=== PATIENT | male | born 1960 | race Caucasian/White ===

== ENCOUNTER 2021-02-03 03:57 | Inpatient (IN) | payer SELFPAY ==
[~2021-02-03] VITALS: Ht 170 cm; Wt 66.7 kg
[2021-02-03] VITALS (10 sets, daily range): BP systolic 113–158; BP diastolic 63–98
[2021-02-03] MEDS ORDERED: PIPERACILLIN SODIUM/TAZOBACTAM 4.5 GM in NS (IVPB) 100 ML IV ONE (04:15)
[2021-02-03] MEDS ORDERED: VANCOMYCIN INJECTION 750 MG in NS (IVPB) 100 ML IV ONE (04:15)
[2021-02-03] MEDS ORDERED: NS IV 1000 ML 1,000 ML IV SCH (04:15)
[2021-02-03 04:16] LABS: BASOPHILS # (AUTO) 0.1 10^3/uL (0.0-0.1); BASOPHILS % (AUTO) 0 % (0-10); EOSINOPHILS # (AUTO) 0.2 10^3/uL (0.0-0.3); EOSINOPHILS % (AUTO) 1 % (0-10); HEMATOCRIT 42 % (40-54); HEMOGLOBIN 13.3 g/dL (13.3-17.7); LYMPHOCYTES # (AUTO) 2.4 10^3/uL (1.0-4.0); LYMPHOCYTES % (AUTO) 12 % (12-44); MEAN CORPUSCULAR HEMOGLOBIN 27 pg (25-34); MEAN CORPUSCULAR HGB CONC 32 g/dL (32-36); MEAN CORPUSCULAR VOLUME 85 fL (80-99); MEAN PLATELET VOLUME 9.6 fL (9.0-12.2); MONOCYTES # (AUTO) 1.2 10^3/uL (0.0-1.0); MONOCYTES % (AUTO) 6 % (0-12); NEUTROPHILS # (AUTO) 15.5 10^3/uL (1.8-7.8); NEUTROPHILS % (AUTO) 80 % (42-75); PLATELET COUNT 532 10^3/uL (130-400); WHITE BLOOD COUNT 19.5 10^3/uL (4.3-11.0)
--- NOTE | 2021-02-03 04:16 | ED Lower Extremity ---
General Chief Complaint: Lower Extremity Stated Complaint: LOWER EXTREMITY ISSUES Source: patient Exam Limitations: no limitations History of Present Illness Date Seen by Provider: Feb 03, 2021 Time Seen by Provider: 04:00 Initial Comments Patient to the ER by EMS with chief complaint that he was at home tonight and had wound breakdown on his left foot and decided to have it checked out. He says he is notices been doing better the past couple days. He does not follow with a doctor. He had his forefoot amputation at research. He says he also did a bypass on his left leg and a stent in his right leg and he now has very little range of motion of his right leg. He says he used to could walk with a walker but since his stroke and poor vascularization of his right leg he cannot walk. His partner has been managing his foot daily. He is a type II diabetic he used to weigh 450 pounds but has lost a lot of weight. He does not take insulin. He says his blood sugar was 169 this morning. He does have pain down his right leg and right side that is chronic since his stroke. He denies any fevers nausea vomiting or chills. Patient used to be on a blood thinner but he does not know the name. He has not been on it for some time. He has been out of all of his medications and never got any refills. Allergies and Home Medications Allergies Coded Allergies: No Known Drug Allergies (Unverified , 02/03/21) Patient Home Medication List Home Medication List Reviewed: Yes Review of Systems Constitutional: No chills, No diaphoresis EENTM: No ear discharge, No ear pain Respiratory: No cough, No short of breath Cardiovascular: No chest pain, No palpitations Gastrointestinal: No abdominal pain, No nausea, No vomiting Genitourinary: No discharge, No dysuria Musculoskeletal: see HPI; No back pain, No joint pain Skin: see HPI All Other Systems Reviewed Negative Unless Noted: Yes Past Iajfxyg-Mffbne-Poykvu Hx Patient Social History Tobacco Use?: Yes Tobacco type used: Cigarettes Smoking Status: Current Everyday Smoker Use of E-Cig and/or Vaping dev: No Substance use?: No Alcohol Use?: No Physical Exam Vital Signs Vital Signs - First Documented 02/03/21 04:09 Temp 36.2 Pulse 102 Resp 17 B/P (MAP) 135/100 (112) Pulse Ox 100 O2 Delivery Room Air Capillary Refill : Height, Weight, BMI Height: '" Weight: lbs. oz. kg; BMI Method: General Appearance: thin, other (Chronically ill, malodorous, smells of smoke.) HEENT: PERRL/EOMI, normal ENT inspection Neck: full range of motion, supple, normal inspection Cardiovascular: normal peripheral pulses, regular rate, rhythm Respiratory: lungs clear, normal breath sounds, no respiratory distress, no accessory muscle use Gastrointestinal: non tender, soft Ankles: bilateral ankle non-tender, bilateral ankle normal inspection, bilateral ankle normal range of motion, bilateral ankle no evidence of injury Neurologic/Tendon: other (Decreased sensation over the left foot.) Neurologic/Psychiatric: alert, normal mood/affect, oriented x 3 Skin: other (Left posterior tibial pulse is 1+ out of 4. The plantar portion of the foot is fluctuant with areas of tunneling and greenish-yellow purulence copiously draining. The bones of the forefoot are exposed by about 1 to 2 cm. Patches of necrotic skin over the plantar surface of his left foot.) Progress/Results/Core Measures Results/Orders Lab Results Laboratory Tests Test 02/03/21 04:04 02/03/21 04:05 Range/Units Glucometer 264 H 70-110 MG/DL White Blood Count 19.5 H 4.3-11.0 10^3/uL Red Blood Count 4.97 4.30-5.52 10^6/uL Hemoglobin 13.3 13.3-17.7 g/dL Hematocrit 42 40-54 % Mean Corpuscular Volume 85 80-99 fL Mean Corpuscular Hemoglobin 27 25-34 pg Mean Corpuscular Hemoglobin Concent 32 32-36 g/dL Red Cell Distribution Width 12.9 10.0-14.5 % Platelet Count 532 H 130-400 10^3/uL Mean Platelet Volume 9.6 9.0-12.2 fL Immature Granulocyte % (Auto) 0 % Neutrophils (%) (Auto) 80 H 42-75 % Lymphocytes (%) (Auto) 12 12-44 % Monocytes (%) (Auto) 6 0-12 % Eosinophils (%) (Auto) 1 0-10 % Basophils (%) (Auto) 0 0-10 % Neutrophils # (Auto) 15.5 H 1.8-7.8 10^3/uL Lymphocytes # (Auto) 2.4 1.0-4.0 10^3/uL Monocytes # (Auto) 1.2 H 0.0-1.0 10^3/uL Eosinophils # (Auto) 0.2 0.0-0.3 10^3/uL Basophils # (Auto) 0.1 0.0-0.1 10^3/uL Immature Granulocyte # (Auto) 0.1 0.0-0.1 10^3/uL Neutrophils % (Manual) 81 % Lymphocytes % (Manual) 8 % Monocytes % (Manual) 4 % Eosinophils % (Manual) 7 % Blood Morphology Comment NORMAL Prothrombin Time 14.2 12.2-14.7 SEC INR Comment 1.1 0.8-1.4 Activated Partial Thromboplast Time 32 24-35 SEC Sodium Level 128 L 135-145 MMOL/L Potassium Level 3.4 L 3.6-5.0 MMOL/L Chloride Level 86 L 98-107 MMOL/L Carbon Dioxide Level 29 21-32 MMOL/L Anion Gap 13 5-14 MMOL/L Blood Urea Nitrogen 13 7-18 MG/DL Creatinine 0.61 0.60-1.30 MG/DL Estimat Glomerular Filtration Rate 135 BUN/Creatinine Ratio 21 Glucose Level 258 H 70-105 MG/DL Lactic Acid Level 1.40 0.50-2.00 MMOL/L Calcium Level 8.6 8.5-10.1 MG/DL Corrected Calcium 9.3 8.5-10.1 MG/DL Total Bilirubin 0.7 0.1-1.0 MG/DL Aspartate Amino Transf (AST/SGOT) 12 5-34 U/L Alanine Aminotransferase (ALT/SGPT) 6 0-55 U/L Alkaline Phosphatase 89 40-136 U/L Total Protein 7.8 6.4-8.2 GM/DL Albumin 3.1 L 3.2-4.5 GM/DL My Orders Orders - IGOR VU Cbc With Automated Diff (02/03/21 04:08) Comprehensive Metabolic Panel (02/03/21 04:08) Blood Culture (02/03/21 04:08) Sputum Culture (02/03/21 04:08) Urinalysis (02/03/21 04:08) Urine Culture (02/03/21 04:08) Protime With Inr (02/03/21 04:08) Partial Thromboplastin Time (02/03/21 04:08) Chest 1 View, Ap/Pa Only (02/03/21 04:08) Ed Iv/Invasive Line Start (02/03/21 04:08) Ed Iv/Invasive Line Start (02/03/21 04:08) Vital Signs Adult Sepsis Patie Q15M (02/03/21 04:08) O2 (02/03/21 04:08) Remove Rings In Anticipation O (02/03/21 04:08) Lactic Acid Analyzer (02/03/21 04:08) Ns Iv 1000 Ml (Sodium Chloride 0.9%) (02/03/21 04:15) Piperacillin Sodium/Tazobactam (Zosyn Vi (02/03/21 04:15) Vancomycin Injection (Vancomycin Injecti (02/03/21 04:15) Vancomycin Injection (Vancomycin Injecti (02/03/21 05:15) Foot, Left, 3 Views (02/03/21 04:08) Ua Culture If Indicated (02/03/21 04:17) Drug Screen Stat (Urine) (02/03/21 04:17) Ed Iv/Invasive Line Start (02/03/21 04:17) Ns Iv 500 Ml (Sodium Chloride 0.9%) (02/03/21 04:30) Manual Differential (02/03/21 04:05) Accucheck Stat ONCE (02/03/21 04:40) Medications Given in ED Current Medications Medications Dose Ordered Sig/[place] Route Start Time Stop Time Status Last Admin Dose Admin Piperacillin Sod/ Tazobactam Sod 4.5 gm/Sodium Chloride 100 ml @ 200 mls/hr ONCE ONCE IV 02/03/21 04:15 02/03/21 04:44 DC 02/03/21 05:02 200 MLS/HR Vital Signs/I&O 02/03/21 04:09 Temp 36.2 Pulse 102 Resp 17 B/P (MAP) 135/100 (112) Pulse Ox 100 O2 Delivery Room Air Progress Progress Note : Time: 04:15 Progress Note The left foot contains a large amount of devitalized wet gangrenous material. We will get some plain films and labs and work him up for sepsis based on his tachycardia and suspected white count. Zosyn and vancomycin. 1500 cc will be 20 mL/kg. He has tachycardia around 110, decent blood pressure 140/100. Diagnostic Imaging Diagonstic Imaging: Xray Plain Films/CT/US/NM/MRI: chest [facility] [place] [employer] [place] [place] NAME: MOSHE KONG [facility] REC#: [id number] PT STATUS: REG ER : 1960 PHYSICIAN: IGOR VU MD ADMIT DATE: 02/03/21/ER Draft Date of Exam:02/03/21 CHEST 1 VIEW, AP/PA ONLY INDICATION: sepsis. TECHNIQUE: Single view chest 4:43 AM. CORRELATION STUDY: None FINDINGS: Scoliotic curvature of the thoracic spine with slight distortion of the chest anatomy. Given this, heart size, mediastinum, and vasculature overall within normal limits. Minimal areas of scarring or atelectasis about both lung bases. No consolidating infiltrate. IMPRESSION: 1. Negative for acute abnormality of the chest. Dictated on workstation # [id number] Dict: 02/03/21 0455 Trans: 02/03/21 0500 [facility] [id number] Interpreted by: JOHN BRUNO DO Electronically signed by: Reviewed: Reviewed by Me Diagonstic Imaging: Xray Plain Films/CT/US/NM/MRI: other (Left) Comments [facility] [place] [place] [place] NAME: MOSHE KONG [facility] REC#: [id number] PT STATUS: REG ER : 1960 PHYSICIAN: IGOR VU MD ADMIT DATE: 02/03/21/ER Draft Date of Exam:02/03/21 FOOT, LEFT, 3 VIEWS INDICATION: foot pain. TECHNIQUE: 3 views of the left foot CORRELATION STUDY: None FINDINGS: There is amputation at the distal aspect of the metatarsals. There is heterogeneous appearance about the osseous structures. There are multifocal areas of cortical irregularity noted. Extensive soft tissue gas collections over the residual foot particularly along the plantar aspect. No definitive soft tissue foreign body. IMPRESSION: 1. Extensive soft tissue edema and gas collections concerning for underlying infectious etiology. This extends to the level of the ankle. There is a slightly mottled appearance about particularly the metatarsals with some erosion of the cortex could reflect a superimposed osteomyelitis. If further assessment is desired, MRI would be recommended. Dictated on workstation # [id number] Dict: 02/03/21 0456 Trans: 02/03/21 0502 [facility] [id number] Interpreted by: JOHN BRUNO DO Electronically signed by: Reviewed: Reviewed by Me Departure Communication (Admissions) Time/Spoke to Admitting Phy: 05:15 Dr. Ceron accepts admission of the patient for medical management with consult to general surgery. Time/Spoke to Consulting Phy: 05:10 Dr. Velez agrees to consult on the case for surgical management of diabetic gangrenous wound. He would like vancomycin and Zosyn Impression Primary Impression: Diabetic wet gangrene of the foot Additional Impression: Sepsis Qualified Codes: A41.9 - Sepsis, unspecified organism Disposition: ADMITTED INPATIENT Condition: Stable Admissions Decision to Admit Reason: Admit from ER (General) Decision to Admit/Date: Feb 03, 2021 Time/Decision to Admit Time: 05:15 IGOR VU Feb 03, 2021 04:16
[2021-02-03] MEDS ORDERED: NS IV 500 ML 500 ML IV ONE (04:30)
[2021-02-03 04:33] LABS: ALBUMIN 3.1 GM/DL (3.2-4.5); POTASSIUM 3.4 MMOL/L (3.6-5.0)
[2021-02-03 04:34] LABS: INR 1.1 (0.8-1.4); PROTHROMBIN TIME PATIENT 14.2 SEC (12.2-14.7)
[2021-02-03 04:35] LABS: CALCIUM 8.6 MG/DL (8.5-10.1)
[2021-02-03 04:36] LABS: TOTAL PROTEIN 7.8 GM/DL (6.4-8.2)
[2021-02-03 04:38] LABS: BILIRUBIN,TOTAL 0.7 MG/DL (0.1-1.0)
[2021-02-03 04:40] LABS: CREATININE SERUM 0.61 MG/DL (0.60-1.30)
[2021-02-03 04:57] LABS: EOSINOPHILS % (MANUAL) 7 %; LYMPHOCYTES % (MANUAL) 8 %; MONOCYTES % (MANUAL) 4 %; NEUTROPHILS % (MANUAL) 81 %; RBC MORPH NORMAL
--- NOTE | 2021-02-03 05:00 | Diagnostic Imaging Report ---
INDICATION: sepsis. TECHNIQUE: Single view chest 4:43 AM. CORRELATION STUDY: None FINDINGS: Scoliotic curvature of the thoracic spine with slight distortion of the chest anatomy. Given this, heart size, mediastinum, and vasculature overall within normal limits. Minimal areas of scarring or atelectasis about both lung bases. No consolidating infiltrate. IMPRESSION: 1. Negative for acute abnormality of the chest. Dictated by: Dictated on workstation # [id number]
--- NOTE | 2021-02-03 05:02 | Diagnostic Imaging Report ---
INDICATION: foot pain. TECHNIQUE: 3 views of the left foot CORRELATION STUDY: None FINDINGS: There is amputation at the distal aspect of the metatarsals. There is heterogeneous appearance about the osseous structures. There are multifocal areas of cortical irregularity noted. Extensive soft tissue gas collections over the residual foot particularly along the plantar aspect. No definitive soft tissue foreign body. IMPRESSION: 1. Extensive soft tissue edema and gas collections concerning for underlying infectious etiology. This extends to the level of the ankle. There is a slightly mottled appearance about particularly the metatarsals with some erosion of the cortex could reflect a superimposed osteomyelitis. If further assessment is desired, MRI would be recommended. Dictated by: Dictated on workstation # [id number]
[2021-02-03] MEDS ORDERED: VANCOMYCIN INJECTION 500 MG in NS (IVPB) 100 ML IV ONE (05:15)
[2021-02-03] MEDS ORDERED: ONDANSETRON 4 MG/2 ML (SDV) Z0FRAN IV PRN (06:45)
[2021-02-03] MEDS ORDERED: ACETAMINOPHEN 650 MG SUPP (TYLENOL) PR PRN (06:45)
[2021-02-03] MEDS: NS W/KCL 20 MEQ/L 1,000 ML IV SCH ×3 (06:47→20:31)
[2021-02-03] MEDS ORDERED: proPOfol 200 MG/20 ML (DIPRIVAN) VIAL IV ONE (08:30)
[2021-02-03] MEDS ORDERED: SEVOFLURANE (ULTANE) 15 ML INHAL SOLN ONE ×2 (08:30→09:04)
[2021-02-03] MEDS ORDERED: LIDOCAINE PF 2% 5 ML (XYLOCAINE) VIAL ONE (08:30)
[2021-02-03] MEDS ORDERED: ONDANSETRON 4 MG/2 ML (SDV) Z0FRAN ONE (08:30)
[2021-02-03] MEDS ORDERED: MIDAZOLAM 2 MG/2 ML (VERSED) VIAL ONE (08:31)
[2021-02-03] MEDS ORDERED: fentaNYL INJ 100 MCG/2 ML AMP ONE (08:31)
[2021-02-03] MEDS: LACTATED RINGERS 1,000 ML IV PRN (08:40)
[2021-02-03] MEDS ORDERED: ONDANSETRON 4 MG/2 ML (SDV) Z0FRAN IVP PRN (08:45)
[2021-02-03] MEDS ORDERED: morphine INJ 10 MG/ML 1ML (SYR OR VIAL) IVP ONE (08:45)
[2021-02-03] MEDS ORDERED: MEPERIDINE (DEMEROL) INJ 50 MG/ML IVP ONE (08:45)
[2021-02-03] MEDS ORDERED: PHENYLEPHRINE 100 MCG/ML 10 ML (ANESTHESIA) SYR ONE (08:53)
--- NOTE | 2021-02-03 10:03 | Progress Note-Pre Operative ---
Pre-Operative Progress Note H&P Reviewed The H&P was reviewed, patient examined and no changes noted. Date Seen by Provider: Feb 03, 2021 Time Seen by Provider: 08:00 Date H&P Reviewed: Feb 03, 2021 Time H&P Reviewed: 08:00 Pre-Operative Diagnosis: left foot gangrene MINDY WALKER MD Feb 03, 2021 10:03
--- NOTE | 2021-02-03 10:04 | Progress Note-Post Operative ---
Post-Operative Progess Note Surgeon (s)/Fruit Room Hand (s) Surgeon MINDY WALKER MD Fruit Room Hand: none Pre-Operative Diagnosis left foot gangrene Post-Operative Diagnosis same Procedure & Operative Findings Date of Procedure 02/03/21 Procedure Performed/Findings left below the knee amputation. Anesthesia Type get Estimated Blood Loss Estimated blood loss (mL): minimal Specimens/Packing Specimens Removed left foot. MINDY WALKER MD Feb 03, 2021 10:04
[2021-02-03] MEDS: inSUlin ASPART (NovoLOG) 1 UNIT/0.01 ML (CHARGE PER UNIT) SC SCH ×3 (11:00→20:24)
[2021-02-03] MEDS: fentaNYL INJ 100 MCG/2 ML AMP IV PRN ×2 (11:30→17:50)
--- NOTE | 2021-02-03 11:54 | CONSULTATION REPORT ---
DATE OF SERVICE: HISTORY OF PRESENT ILLNESS: The patient is a 61-year-old male, who presented to the Emergency Department with what he had mentioned is a bad foot. He states that he noticed this several days ago and since that time, it has progressed. Already, he cannot walk well and has a poor peripheral vascular circulation and does have significant neuropathy. He states that he is a diabetic and he used to weigh 450 pounds; however, has not been to a physician and has not been taking medications on a regular basis. He did have a stroke approximately six months ago and was placed on Eliquis at that time. Upon examination, the patient has significant wet gangrene of the left foot, encompassing both the forefoot as well as the medial aspect of the foot necessitating a kdzaz-pte-jnfy amputation. PAST MEDICAL HISTORY: Diabetes. PAD. PAST SURGICAL HISTORY: None. ALLERGIES: No known drug allergies. MEDICATIONS: Eliquis b.i.d. SOCIAL HISTORY: Positive smoke 40 pack years. Negative alcohol. FAMILY HISTORY: Noncontributory. REVIEW OF SYSTEMS: This is a well-nourished male currently in no acute distress. He is not experiencing any shortness of breath or difficulty in breathing. No chest pain, palpitations, diaphoresis. No nausea, vomiting, no diarrhea or constipation. No fever, chills, no recent inadvertent weight loss. Malodorous left foot with a wet gangrene. PHYSICAL EXAMINATION: VITAL SIGNS: Temperature 36.2, blood pressure 113/71, pulse 91, respirations 16, and pulse ox 100% on room air. CHEST: Scattered wheezes bilaterally. HEART: Regular and no murmurs. EXTREMITIES: Left foot edema with wet gangrene along the forefoot as well as the medial aspect of the mid and hindfoot. Negative Homans sign. HEENT: No scleral icterus. NECK: No cervical lymphadenopathy. ABDOMEN: Soft, nontender, and nondistended. SKIN: Warm, dry. LABORATORY DATA: WBC 19.5, hemoglobin 13.3, hematocrit 42, platelets 532, BUN 13, and creatinine 0.61. ASSESSMENT AND PLAN: A 61-year-old male with wet gangrene of the left foot. He will need a arzag-lql-xpwb amputation. He will also need medical workup to delineate his medical problems as well as proper medical therapy or else he will have continued progression of his peripheral vascular disease, arterial insufficiency, and gangrene. For now, we will proceed with a left wwazd-aif-soib amputation. Job ID: [id number] DocumentID: [id number] Dictated Date: 02/03/2021 10:28:16 Tower Loader Operator Date: 02/03/2021 11:53:55 Dictated By: MINDY WALKER MD MTDD
--- NOTE | 2021-02-03 12:33 | OPERATIVE REPORT ---
DATE OF SERVICE: 02/03/2021 PREOPERATIVE DIAGNOSIS: Wet gangrene, left foot. POSTOPERATIVE DIAGNOSES: Wet gangrene, left foot. PROCEDURE: Left tiyfn-rlu-nfyu amputation with posterior flap. SURGEON: Mindy Walker MD. ANESTHESIA: General endotracheal. ESTIMATED BLOOD LOSS: Minimal. FINDINGS: A large vessel arteriosclerosis. DISPOSITION: The patient tolerated the procedure well. INDICATIONS: The patient is a 61-year-old male who presented to the Emergency Department with a malodorous left foot as well as a black ischemic changes with drainage. He states that he noticed this several days ago and has worsened. He has a significant history of peripheral vascular disease and also suffered a stroke approximately 6 months ago and was placed on anticoagulation therapy. He is medically noncompliant and states he has not seen a physician in years. Upon examination, the patient was found to have significant wet gangrene along the forefoot as well as the medial aspect of the mid and hindfoot. DESCRIPTION OF PROCEDURE: The patient was brought to the operating room, laid supine on the table. After adequate IV pain and sedative medications and general endotracheal intubation, the tourniquet was applied in the left lower extremity prepped and draped in standard surgical fashion. The tourniquet was then inflated. We then measured out our posterior flap and/or length of amputation approximately 2 cm below the anterior tibial tuberosity. Skin was opened using a 10 blade and we proceeded with meticulous dissection of the subcutaneous tissue as well as muscle layers. The tibioperoneal trunk was identified between the tibia and fibula and this was dissected out and clamped with Chandrika clamps, cut with Metzenbaum scissors and tied with 0 silk sutures. Good hemostasis was observed. We then proceeded with continued meticulous dissection of the muscle layers including the anterior tibial, peroneal, superficial and deep gastrocnemius and leaving the soleus muscle for a posterior flap using electrocautery with visualization of good hemostasis. We then proceeded with closure of the stump of the posterior flap approximating the fascial layers using 3-0 Vicryl interrupted sutures. Subcuticular layer was then closed using a 2-0 Vicryl suture and the skin was closed using skin emy. The wound was then cleaned, tourniquet taken down with visualization of good hemostasis. The stump was then covered with sterile gauze followed by Kerlix, followed by Webril, followed by 3 inch Orthoglass to prevent contracture and this was placed with a 4-inch Micah wrap followed by 6-inch Micah wrap. The patient tolerated the procedure well. He will likely need to have physical and occupational therapy as well as possible rehabilitation consultation. We will also need medical evaluation and treatment as necessary. We will instruct staff to remove the dressing on Saturday02/07/2021 and then to apply dry gauze, followed by Kerlix on a daily basis. Job ID: [id number] DocumentID: [id number] Dictated Date: 02/03/2021 10:34:06 Machine Chocolate Molder Date: 02/03/2021 12:32:23 Dictated By: MINDY WALKER MD
--- NOTE | 2021-02-03 14:05 | Physical Therapy Progress Note ---
Therapy Progress Note Order for PT evaluation received. Patient refused PT this afternoon though. Educated patient on the benefits of PT but he continues to refuse. Patient states his surgery was done only a couple of hours ago and he has severe pain and doesn't want to sit or get out of bed. Patient was educated on some AROM exercises he could do on his left leg which has had a BKA. Will check back tomorrow. DHIRAJ ORTEGA PT Feb 03, 2021 14:05
[2021-02-03] MEDS: PIPERACILLIN SODIUM/TAZOBACTAM 4.5 GM in NS (IVPB) 100 ML IV SCH ×2 (14:36→17:41)
[2021-02-03] MEDS: VANCOMYCIN 1250 MG/NS 250 ML IVPB IV SCH ×2 (14:46)
[2021-02-03] MEDS: morphine INJ 4 MG/ML 1 ML (VIAL/SYRINGE) IV PRN ×2 (14:46→20:31)
--- NOTE | 2021-02-03 17:25 | History & Physical-Hospitalist ---
History of Present Illness HPI/Chief Complaint Andrew Forbes is a 61 year old male with PMH T2DM, stroke, PAD, history of morbid obesity, who presented with left foot wound. He reports that the wound has been there for months. He noticed that it was turning black so he came in. He denies fevers and chills. He denies nausea and vomiting. He is not having chest pain. He denies shortness of breath and cough. He does not have a primary care doctor. He does not have insurance. Source: patient Exam Limitations: no limitations Date Seen 02/03/21 Time Seen by a Provider: 11:40 Attending Physician Danny Ceron MD PCP No,Local Physician Referring Physician Date of Admission Feb 03, 2021 at 05:20 Home Medications & Allergies Home Medications Reviewed patient Home Medication Reconciliation performed by pharmacy medication reconciliations pharmacy laboratory technician and/or nursing. Patients Allergies have been reviewed. Allergies Allergies Coded Allergies No Known Drug Allergies (Rkffvrblmh23/24/21) Past Gnkdooi-Egkrll-Tefejp Hx Patient Social History Tobacco Use?: Yes Tobacco type used: Cigarettes Smoking Status: Current Everyday Smoker Smokeless Tobacco Frequency: Never a User Use of E-Cig and/or Vaping dev: No Substance use?: No Alcohol Use?: No Pt feels they are or have been: No Immunizations Up To Date First/Initial COVID19 Vaccinat: N/A Second COVID19 Vaccination Anil: N/A Current Status Advance Directives: No Communicates: Verbally Primary Language: Jamaican Preferred Spoken Language: Jamaican Is interpretation needed?: No Past Medical History Peripheral Vascular Stroke Diabetes, Non-Insulin dep Family Medical History No Pertinent Family Hx Review of Systems Constitutional: no symptoms reported EENTM: no symptoms reported Respiratory: no symptoms reported Cardiovascular: no symptoms reported Gastrointestinal: no symptoms reported Genitourinary: no symptoms reported Musculoskeletal: no symptoms reported Skin: change in color Psychiatric/Neurological: No Symptoms Reported Physical Exam Physical Exam Vital Signs Vital Signs - First Documented 02/03/21 04:09 Temp 36.2 Pulse 102 Resp 17 B/P (MAP) 135/100 (112) Pulse Ox 100 O2 Delivery Room Air Capillary Refill : Height, Weight, BMI Height: '" Weight: lbs. oz. kg; 23.07 BMI Method: General Appearance: No Apparent Distress, WD/WN HEENT: PERRL/EOMI, Pharynx Normal Neck: Normal Inspection, Supple Respiratory: Lungs Clear, Normal Breath Sounds, No Respiratory Distress Cardiovascular: Regular Rate, Rhythm, No Murmur Gastrointestinal: Normal Bowel Sounds, Non Tender, Soft Extremity: Normal Inspection, Non Tender, Pedal Edema, Other (left leg BKA with bandage in place) Neurologic/Psychiatric: Alert, Oriented x3, Normal Mood/Affect Skin: Normal Color, Warm/Dry Results Results/Procedures Labs Laboratory Tests 02/03/21 04:05 Patient resulted labs reviewed. Imaging: Reviewed Imaging Report Assessment/Plan Admission Diagnosis T2DM with left foot gangrene Admission Status: Inpatient Order (span 2 midnights) Reason for Inpatient Admission: Gangrenous foot Assessment and Plan T2DM with left foot gangrene PAD s/p BKA 02/03 Vancomycin and Zosyn Obtain ultrasound lower extremities A1C pending Levemir Sliding scale PT/OT environmental services attendant consult Tobacco abuse Nicotine patch BPH Flomax History of stroke ASA and Plavix Check lipids History of morbid obesity Clinically significant, no acute management needs DVT prophylaxis: Lovenox Diagnosis/Problems Diagnosis/Problems (1) T2DM (type 2 diabetes mellitus) Status: Acute Qualifiers: Diabetes mellitus long-term insulin use: without long-term use Diabetes mellitus complication status: with circulatory complication Diabetes mellitus complication detail: with peripheral angiopathy with gangrene Qualified Codes: E11.52 - Type 2 diabetes mellitus with diabetic peripheral angiopathy with gangrene (2) PAD (peripheral artery disease) Status: Acute (3) BPH (benign prostatic hyperplasia) Status: Chronic (4) History of morbid obesity Status: Chronic (5) History of stroke Status: Chronic (6) Tobacco abuse Status: Acute DANY VILLA MD Feb 03, 2021 17:25
[2021-02-03] MEDS: HYDROcodone/APAP 7.5 MG/325 MG (LORTAB, LORCET PLUS) TABLET PO PRN (20:31)
[2021-02-04 00:46] VITALS: BP 154/77
[2021-02-04] MEDS: VANCOMYCIN 1250 MG/NS 250 ML IVPB IV SCH ×4 (01:32→15:16)
[2021-02-04] MEDS: HYDROcodone/APAP 7.5 MG/325 MG (LORTAB, LORCET PLUS) TABLET PO PRN ×4 (01:32→18:27)
[2021-02-04] MEDS: NS W/KCL 20 MEQ/L 1,000 ML IV SCH ×5 (02:29→21:44)
[2021-02-04 04:00] VITALS: BP 153/81
[2021-02-04] MEDS: PIPERACILLIN SODIUM/TAZOBACTAM 4.5 GM in NS (IVPB) 100 ML IV SCH ×3 (04:12→18:27)
[2021-02-04] MEDS: morphine INJ 4 MG/ML 1 ML (VIAL/SYRINGE) IV PRN ×4 (04:51→21:44)
[2021-02-04 05:45] LABS: BASOPHILS # (AUTO) 0.1 10^3/uL (0.0-0.1); BASOPHILS % (AUTO) 0 % (0-10); EOSINOPHILS # (AUTO) 0.1 10^3/uL (0.0-0.3); EOSINOPHILS % (AUTO) 1 % (0-10); HEMATOCRIT 34 % (40-54); HEMOGLOBIN 10.6 g/dL (13.3-17.7); LYMPHOCYTES # (AUTO) 2.2 10^3/uL (1.0-4.0); LYMPHOCYTES % (AUTO) 14 % (12-44); MEAN CORPUSCULAR HEMOGLOBIN 27 pg (25-34); MEAN CORPUSCULAR HGB CONC 31 g/dL (32-36); MEAN CORPUSCULAR VOLUME 88 fL (80-99); MEAN PLATELET VOLUME 9.8 fL (9.0-12.2); MONOCYTES # (AUTO) 1.1 10^3/uL (0.0-1.0); MONOCYTES % (AUTO) 7 % (0-12); NEUTROPHILS # (AUTO) 12.2 10^3/uL (1.8-7.8); NEUTROPHILS % (AUTO) 78 % (42-75); PLATELET COUNT 411 10^3/uL (130-400); WHITE BLOOD COUNT 15.8 10^3/uL (4.3-11.0)
[2021-02-04 06:12] LABS: POTASSIUM 3.7 MMOL/L (3.6-5.0)
[2021-02-04 06:13] LABS: CALCIUM 7.6 MG/DL (8.5-10.1)
[2021-02-04 06:17] LABS: CREATININE SERUM 0.5 MG/DL (0.60-1.30)
[2021-02-04] MEDS: inSUlin ASPART (NovoLOG) 1 UNIT/0.01 ML (CHARGE PER UNIT) SC SCH ×4 (06:30→21:30)
[2021-02-04 08:00] VITALS: BP 161/81
[2021-02-04] MEDS: ASPIRIN E.C. 81 MG (ECOTRIN) TAB PO SCH (08:46)
[2021-02-04] MEDS: CLOPIDOGREL 75 MG (PLAVIX) TABLET PO SCH (08:46)
--- NOTE | 2021-02-04 11:16 | Diagnostic Imaging Report ---
PROCEDURE: US Bilateral lower extremity arterial. TECHNIQUE: Multiple real-time grayscale images are obtained through both lower extremity arterial systems with color Doppler imaging and color Doppler spectral analysis. INDICATION: Leg pain. Peripheral arterial disease. Prior left-sided [id number] amputation. FINDINGS: Grayscale imaging demonstrates moderate calcific atherosclerotic plaquing throughout the arterial system of the lower extremities. On the right, there is triphasic flow at the level of the common femoral artery with biphasic flow demonstrated within the profunda and the superficial femoral artery. There is triphasic flow within the popliteal. There is monophasic flow demonstrated within the posterior tibial artery and the dorsalis pedis. On the left there is triphasic flow within the common femoral artery. Biphasic flow demonstrated within the profunda femoris and within the superficial femoral artery. There is triphasic flow within the popliteal. IMPRESSION: 1. Predominant biphasic waveforms throughout the arterial system of the thigh bilaterally. 2. Monophasic flow within the calf arteries on the right 3. Previous left [id number] amputation 4. Lucas scale evidence of moderate atherosclerotic plaquing throughout the arterial system 5. Velocities demonstrate no high-grade gradient to suggest a high-grade arterial stenosis. There is no large vessel occlusion. Dictated by: Dictated on workstation # [id number]
[2021-02-04 12:00] VITALS: BP 133/683
--- NOTE | 2021-02-04 12:05 | Progress Note - Surgery ---
[facility] 02/04/21 1205: Subjective Date Seen by a Provider: Feb 04, 2021 Time Seen by a Provider: 11:59 Subjective/Events-last exam POD 1, S/P Left BKA Patient had urinary retention last night. States that he believes this is due to anesthesia as he had a similar issue in october after surgery Phantom pains are becoming much more controlled Remains afebrile Passing flatus, tolerating diet, and is now voiding appropriately. Bilateral US revealed moderate atherosclerotic plaquing throughout the arterial system and no large vessel occlusion Review of Systems General: No Chills, No Other (fevers) Cardiovascular: No: Chest Pain, Palpitations Gastrointestinal: No: Nausea, Vomiting, Abdominal Pain Genitourinary: Retention Musculoskeletal: No: neck pain Neurological: Other (Phantom pains) Focused Exam Lactate Level 02/03/21 04:05: Lactic Acid Level 1.40 Objective Exam Vital Signs Date Time Temp Pulse Resp B/P (MAP) Pulse Ox O2 Delivery O2 Flow Rate FiO2 02/04/21 08:00 36.4 98 18 161/81 (107) 93 Room Air 02/04/21 08:00 Room Air 02/04/21 04:00 36.6 86 18 153/81 (105) 98 Room Air 02/04/21 00:46 36.6 96 18 154/77 (102) 97 Room Air 02/03/21 20:00 Room Air 02/03/21 19:57 36.8 89 18 127/63 (84) 96 Room Air 02/03/21 16:11 36.2 85 20 132/75 (94) 98 Room Air 02/03/21 12:00 36.6 88 16 152/88 (109) 91 Room Air I & O 02/04/21 07:00 Intake Total 1690 ml Output Total 1875 ml Balance -185 ml Capillary Refill : General Appearance: No Apparent Distress, WD/WN HEENT: PERRL/EOMI, Normal ENT Inspection Neck: Normal Inspection, Supple Respiratory: Chest Non Tender, No Accessory Muscle Use, No Respiratory Distress Cardiovascular: Regular Rate, Rhythm, No Murmur Gastrointestinal: non tender, soft Extremity: No Calf Tenderness (on right), Other (left leg BKA with bandage in place, tenderness to palpation) Neurologic/Psychiatric: Alert, Oriented x3, Normal Mood/Affect Skin: Normal Color, Warm/Dry Lymphatic: No Adenopathy (in cervical or axillary) Results Lab Laboratory Tests 02/03/21 16:06: Glucometer 127H 02/03/21 20:03: Glucometer 119H 02/04/21 05:34: White Blood Count 15.8H, Red Blood Count 3.88L, Hemoglobin 10.6#L, Hematocrit 34L, Mean Corpuscular Volume 88, Mean Corpuscular Hemoglobin 27, Mean Corpuscular Hemoglobin Concent 31L, Red Cell Distribution Width 13.2, Platelet Count 411H, Mean Platelet Volume 9.8, Immature Granulocyte % (Auto) 1, Neutrophils (%) (Auto) 78H, Lymphocytes (%) (Auto) 14, Monocytes (%) (Auto) 7, Eosinophils (%) (Auto) 1, Basophils (%) (Auto) 0, Neutrophils # (Auto) 12.2H, Lymphocytes # (Auto) 2.2, Monocytes # (Auto) 1.1H, Eosinophils # (Auto) 0.1, Basophils # (Auto) 0.1, Immature Granulocyte # (Auto) 0.1, Sodium Level 134L, Potassium Level 3.7, Chloride Level 98, Carbon Dioxide Level 27, Anion Gap 9, Blood Urea Nitrogen 7, Creatinine 0.50L, Estimat Glomerular Filtration Rate 170, BUN/Creatinine Ratio 14, Glucose Level 124H, Calcium Level 7.6L, Triglycerides Level 132, Cholesterol Level 153, LDL Cholesterol Direct 102, VLDL Cholesterol 26, HDL Cholesterol 24L 02/04/21 11:44: Glucometer 160H Microbiology 02/03/21 MRSA Screen - Final, Complete MRSA not isolated Assessment/Plan Assessment/Plan Assessment/Plan POD 1 S/P Left BKA indicated for gangrenous foot Leukocytosis T2DM, stroke with right sided neurological deficits, PAD Continue antibiotics Continue wound care Encourage incentive spirometer usage Out of bed activity as tolerated Continue DVT prophylaxis SERGE COUCH DO 02/04/21 1242: Subjective Subjective/Events-last exam Pain controlled. Urinary retention but resolved. Denies n/v fever sweats chills shortness of breath or chest pain. Objective Exam General Appearance: No Apparent Distress, WD/WN HEENT: PERRL/EOMI, Normal ENT Inspection Neck: Normal Inspection, Supple Respiratory: Chest Non Tender, No Accessory Muscle Use, No Respiratory Distress Cardiovascular: Regular Rate, Rhythm, No JVD Gastrointestinal: non tender, soft Extremity: No Calf Tenderness (on right), Other (left leg BKA with bandage in place, tenderness to palpation) Neurologic/Psychiatric: Alert, Oriented x3, Normal Mood/Affect Skin: Normal Color, Warm/Dry Lymphatic: No Adenopathy (in cervical or axillary) Assessment/Plan Assessment/Plan Assessment/Plan POD 1 S/P Left BKA indicated for gangrenous foot Leukocytosis T2DM, stroke with right sided neurological deficits, PAD Continue antibiotics Continue wound care Encourage incentive spirometer usage Out of bed activity as tolerated Continue DVT prophylaxis Supervisory-Addendum Brief Verification & Attestation Participated in pt care: history, MDM, physical Personally performed: exam, history, MDM, supervision of care Care discussed with: Medical Student Procedures: n/a Results interpretation: Verified all documentation Verification and Attestation of Medical Student E/M Service A medical student performed and documented this service in my presence. I reviewed and verified all information documented by the medical student and made modifications to such information, when appropriate. I personally performed the physical exam and medical decision making. Serge Couch, Feb 04, 2021,12:42 CORWIN GIRARD Feb 04, 2021 12:05 SERGE COUCH DO Feb 04, 2021 12:42
[2021-02-04] MEDS ORDERED: TROUGH ORDER-PHARMACY XX NR (13:00)
--- NOTE | 2021-02-04 13:22 | Physical Therapy Progress Note ---
Therapy Progress Note Attempted to see patient for Initial PT evaluation. Patient reports "I'm just trying to sleep because I'm really hurting from yesterday." Refuses treatment today. Nurse notified. Will attempt PT evaluation again at next PT visit. MOSHE DREW PT Feb 04, 2021 13:22
[2021-02-04 15:45] VITALS: BP 126/66
--- NOTE | 2021-02-04 18:16 | Progress Note - Hospitalist ---
Subjective HPI/CC On Admission Date Seen by Provider: Feb 04, 2021 Time Seen by Provider: 10:40 Andrew Forbes is a 61 year old male with PMH T2DM, stroke, PAD, history of morbid obesity, who presented with left foot wound. He reports that the wound has been there for months. He noticed that it was turning black so he came in. He denies fevers and chills. He denies nausea and vomiting. He is not having chest pain. He denies shortness of breath and cough. He does not have a primary care doctor. He does not have insurance. Subjective/Events-last exam He is doing well. He is getting an ultrasound of his legs. He is having pain in his left leg. He denies fevers. Focused Exam Lactate Level 02/03/21 04:05: Lactic Acid Level 1.40 Objective Exam Vital Signs Vital Signs Date Time Temp Pulse Resp B/P (MAP) Pulse Ox O2 Delivery O2 Flow Rate FiO2 02/04/21 15:45 69 20 126/66 (86) 98 Room Air 02/04/21 12:00 36.7 02/03/21 11:05 10 Capillary Refill : General Appearance: No Apparent Distress, WD/WN Respiratory: Lungs Clear, Normal Breath Sounds, No Respiratory Distress Cardiovascular: Regular Rate, Rhythm, No Edema, No Murmur Gastrointestinal: Normal Bowel Sounds, Non Tender, Soft Extremity: Non Tender, No Pedal Edema, Other (left BKA) Neurologic/Psychiatric: Alert, Oriented x3, No Motor/Sensory Deficits, Normal Mood/Affect Skin: Normal Color, Warm/Dry Results/Procedures Lab Laboratory Tests 02/04/21 05:34 Patient resulted labs reviewed. Imaging: Reviewed Imaging Report Assessment/Plan Assessment and Plan Assess & Plan/Chief Complaint T2DM with left foot gangrene PAD s/p BKA 02/03 Vancomycin and Zosyn Ultrasound lower extremities negative for significant PAD A1C pending Levemir Sliding scale PT/OT donor services specialist consult Tobacco abuse Nicotine patch BPH Flomax History of stroke Dyslipidemia ASA and Plavix Lipid panel with low HDL Begin Lipitor History of morbid obesity Clinically significant, no acute management needs DVT prophylaxis: Lovenox Diagnosis/Problems Diagnosis/Problems (1) T2DM (type 2 diabetes mellitus) Status: Acute Qualifiers: Diabetes mellitus terminal makeup operator insulin use: without terminal makeup operator use Diabetes mellitus complication status: with circulatory complication Diabetes mellitus complication detail: with peripheral angiopathy with gangrene Qualified Codes: E11.52 - Type 2 diabetes mellitus with diabetic peripheral angiopathy with gangrene (2) PAD (peripheral artery disease) Status: Acute (3) BPH (benign prostatic hyperplasia) Status: Chronic (4) History of morbid obesity Status: Chronic (5) History of stroke Status: Chronic (6) Tobacco abuse Status: Acute (7) Dyslipidemia Status: Acute DANY VILLA MD Feb 04, 2021 18:15
[2021-02-04 19:36] VITALS: BP 152/71
[2021-02-05] VITALS: BP 157/76
[2021-02-05] MEDS: fentaNYL INJ 100 MCG/2 ML AMP IV PRN (00:06)
[2021-02-05] MEDS: VANCOMYCIN 1250 MG/NS 250 ML IVPB IV SCH ×2 (02:14)
[2021-02-05] MEDS: PIPERACILLIN SODIUM/TAZOBACTAM 4.5 GM in NS (IVPB) 100 ML IV SCH ×3 (03:45→17:42)
[2021-02-05 04:00] VITALS: BP 172/79
[2021-02-05] MEDS: HYDROcodone/APAP 7.5 MG/325 MG (LORTAB, LORCET PLUS) TABLET PO PRN ×4 (04:34→22:21)
[2021-02-05 05:55] LABS: BASOPHILS # (AUTO) 0.1 10^3/uL (0.0-0.1); BASOPHILS % (AUTO) 0 % (0-10); EOSINOPHILS # (AUTO) 0.1 10^3/uL (0.0-0.3); EOSINOPHILS % (AUTO) 1 % (0-10); HEMATOCRIT 35 % (40-54); HEMOGLOBIN 10.9 g/dL (13.3-17.7); LYMPHOCYTES # (AUTO) 2.2 10^3/uL (1.0-4.0); LYMPHOCYTES % (AUTO) 13 % (12-44); MEAN CORPUSCULAR HEMOGLOBIN 27 pg (25-34); MEAN CORPUSCULAR HGB CONC 32 g/dL (32-36); MEAN CORPUSCULAR VOLUME 86 fL (80-99); MEAN PLATELET VOLUME 9.9 fL (9.0-12.2); MONOCYTES # (AUTO) 1.2 10^3/uL (0.0-1.0); MONOCYTES % (AUTO) 7 % (0-12); NEUTROPHILS # (AUTO) 13.3 10^3/uL (1.8-7.8); NEUTROPHILS % (AUTO) 78 % (42-75); PLATELET COUNT 414 10^3/uL (130-400); WHITE BLOOD COUNT 16.9 10^3/uL (4.3-11.0)
[2021-02-05] MEDS: inSUlin ASPART (NovoLOG) 1 UNIT/0.01 ML (CHARGE PER UNIT) SC SCH ×4 (05:59→21:19)
[2021-02-05 06:16] LABS: POTASSIUM 3.4 MMOL/L (3.6-5.0)
[2021-02-05 06:17] LABS: CALCIUM 7.7 MG/DL (8.5-10.1)
[2021-02-05 06:21] LABS: CREATININE SERUM 0.46 MG/DL (0.60-1.30)
[2021-02-05] MEDS: morphine INJ 4 MG/ML 1 ML (VIAL/SYRINGE) IV PRN (07:36)
--- NOTE | 2021-02-05 08:05 | Progress Note - Surgery ---
[facility] 02/05/21 0805: Subjective Date Seen by a Provider: Feb 05, 2021 Time Seen by a Provider: 07:30 Subjective/Events-last exam Afebrile, No acute events overnight During encounter, patient states pain is a 9 out of 10 States pain in RLE > LLE WBC at 16.9 Pt refused PT yesterday. States this is due to recent life events and needs some time to decompress Denies fevers, chills, nausea, abdominal pain Review of Systems General: No Chills, No Other Pulmonary: No Dyspnea, No Cough Cardiovascular: No: Chest Pain, Palpitations Gastrointestinal: No: Nausea, Vomiting Focused Exam Lactate Level 02/03/21 04:05: Lactic Acid Level 1.40 Objective Exam Vital Signs Date Time Temp Pulse Resp B/P (MAP) Pulse Ox O2 Delivery O2 Flow Rate FiO2 02/05/21 04:00 37.0 97 18 172/79 (110) 97 Room Air 02/05/21 00:00 36.2 79 17 157/76 (103) 100 Room Air 02/04/21 20:48 Room Air 02/04/21 19:36 36.4 85 20 152/71 (98) 99 Room Air 02/04/21 15:45 69 20 126/66 (86) 98 Room Air 02/04/21 12:00 36.7 85 18 133/683 (502) 97 Room Air I & O 02/05/21 07:00 Intake Total 1840 ml Output Total 1935 ml Balance -95 ml Capillary Refill : General Appearance: No Apparent Distress, WD/WN HEENT: PERRL/EOMI, Normal ENT Inspection Neck: Normal Inspection, Supple Respiratory: Normal Breath Sounds, No Accessory Muscle Use, No Respiratory Distress Cardiovascular: Regular Rate, Rhythm, No Edema, No Murmur Peripheral Pulses: 2+ Radial Pulses (R), 2+ Radial Pulses (L) Gastrointestinal: non tender, soft Extremity: Non Tender, No Pedal Edema, Other (left BKA) Neurologic/Psychiatric: Alert, Oriented x3 Skin: Normal Color, Warm/Dry Lymphatic: No Adenopathy (in cervical or axillary) Results Lab Laboratory Tests 02/04/21 11:44: Glucometer 160H 02/04/21 13:00: Vancomycin Level Trough 15.3 02/04/21 15:45: Glucometer 82 02/04/21 21:19: Glucometer 86 02/05/21 05:38: White Blood Count 16.9H, Red Blood Count 4.01L, Hemoglobin 10.9L, Hematocrit 35L , Mean Corpuscular Volume 86, Mean Corpuscular Hemoglobin 27, Mean Corpuscular Hemoglobin Concent 32, Red Cell Distribution Width 13.2, Platelet Count 414H, Mean Platelet Volume 9.9, Immature Granulocyte % (Auto) 1, Neutrophils (%) (Auto) 78H, Lymphocytes (%) (Auto) 13, Monocytes (%) (Auto) 7, Eosinophils (%) (Auto) 1, Basophils (%) (Auto) 0, Neutrophils # (Auto) 13.3H, Lymphocytes # (Auto) 2.2, Monocytes # (Auto) 1.2H, Eosinophils # (Auto) 0.1, Basophils # (Auto) 0.1, Immature Granulocyte # (Auto) 0.1, Sodium Level 133L, Potassium Level 3.4L, Chloride Level 98, Carbon Dioxide Level 23, Anion Gap 12, Blood Urea Nitrogen 4L, Creatinine 0.46L, Estimat Glomerular Filtration Rate 187, BUN/Creatinine Ratio 9, Glucose Level 73, Calcium Level 7.7L 02/05/21 05:45: Glucometer 68L 02/05/21 06:20: Glucometer 102 Microbiology 02/03/21 MRSA Screen - Final, Complete MRSA not isolated 02/03/21 Blood Culture - Preliminary, Resulted No growth Assessment/Plan Assessment/Plan Assessment/Plan POD 1 S/P Left BKA indicated for gangrenous foot Leukocytosis T2DM, stroke with right sided neurological deficits, PAD Continue antibiotics Continue wound care Encourage incentive spirometer usage Out of bed activity as tolerated Continue DVT prophylaxis SERGE COUCH DO 02/05/21 1232: Subjective Subjective/Events-last exam Patient doing well. Patient states pain is little bit high but fairly under control most the time. Patient WBC 16.9. Denies nausea vomiting fever sweats chills shortness of breath or chest pain. On vancomycin and Zosyn. Objective Exam General Appearance: No Apparent Distress, WD/WN HEENT: PERRL/EOMI, Normal ENT Inspection Neck: Normal Inspection, Non Tender, Supple Respiratory: Chest Non Tender, No Accessory Muscle Use, No Respiratory Distress Cardiovascular: Regular Rate, Rhythm, No JVD Gastrointestinal: non tender, soft Extremity: Non Tender, Other (left BKA) Neurologic/Psychiatric: Alert, Oriented x3 Skin: Normal Color, Warm/Dry Lymphatic: No Adenopathy (in cervical or axillary) Assessment/Plan Assessment/Plan Assessment/Plan S/P Left BKA indicated for gangrenous foot Leukocytosis T2DM, stroke with right sided neurological deficits, PAD Continue antibiotics Continue wound care Encourage incentive spirometer usage Out of bed activity as tolerated Continue DVT prophylaxis Supervisory-Addendum Brief Verification & Attestation Participated in pt care: history, MDM, physical Personally performed: exam, history, MDM, supervision of care Care discussed with: Medical Student Procedures: n/a Results interpretation: Verified all documentation Verification and Attestation of Medical Student E/M Service A medical student performed and documented this service in my presence. I reviewed and verified all information documented by the medical student and made modifications to such information, when appropriate. I personally performed the physical exam and medical decision making. Serge Couch, Feb 05, 2021,12:32 CORWIN GIRARD [facility] Feb 05, 2021 08:05 SERGE COUCH DO Feb 05, 2021 12:32
[2021-02-05] MEDS ORDERED: metFORMIN 500 MG (GLUCOPHAGE) TAB PO NR (08:15)
[2021-02-05 08:20] VITALS: BP 153/79
[2021-02-05] MEDS: ASPIRIN E.C. 81 MG (ECOTRIN) TAB PO SCH (09:47)
[2021-02-05] MEDS: CLOPIDOGREL 75 MG (PLAVIX) TABLET PO SCH (09:47)
[2021-02-05 12:36] VITALS: BP 168/85
--- NOTE | 2021-02-05 13:25 | Anesthesia-General Post-Op ---
General Patient Condition Mental Status/LOC: Same as Preop Cardiovascular: Satisfactory Nausea/Vomiting: Absent Respiratory: Satisfactory Pain: Controlled Complications: Absent Post Op Complications Complications None Follow Up Care/Instructions Patient Instructions None needed. Anesthesia/Patient Condition Patient Condition Patient is doing well, no complaints, stable vital signs, no apparent adverse anesthesia problems. No complications reported per nursing. NIKOLAI BASURTO CRNA Feb 05, 2021 13:24
[2021-02-05 15:53] VITALS: BP 149/84
[2021-02-05 20:01] VITALS: BP 158/91
[2021-02-05] MEDS: GABAPENTIN 600 MG (NEURONTIN) TAB PO SCH (21:25)
--- NOTE | 2021-02-05 23:02 | Progress Note - Hospitalist ---
Subjective HPI/CC On Admission Date Seen by Provider: Feb 05, 2021 Time Seen by Provider: 11:05 Andrew Forbes is a 61 year old male with PMH T2DM, stroke, PAD, history of morbid obesity, who presented with left foot wound. He reports that the wound has been there for months. He noticed that it was turning black so he came in. He denies fevers and chills. He denies nausea and vomiting. He is not having chest pain. He denies shortness of breath and cough. He does not have a primary care doctor. He does not have insurance. Subjective/Events-last exam He is doing well. He still has some pain. He is eating and drinking. Focused Exam Lactate Level 02/03/21 04:05: Lactic Acid Level 1.40 Objective Exam Vital Signs Vital Signs Date Time Temp Pulse Resp B/P (MAP) Pulse Ox O2 Delivery O2 Flow Rate FiO2 02/05/21 22:21 36.4 02/05/21 21:50 100 Room Air 02/05/21 20:01 86 16 158/91 (113) 02/03/21 11:05 10 Capillary Refill : General Appearance: No Apparent Distress, WD/WN Respiratory: Lungs Clear, Normal Breath Sounds, No Respiratory Distress Cardiovascular: Regular Rate, Rhythm, No Edema, No Murmur Gastrointestinal: Normal Bowel Sounds, Non Tender, Soft Extremity: Non Tender, No Pedal Edema, Other (left BKA) Neurologic/Psychiatric: Alert, Oriented x3, Normal Mood/Affect Skin: Normal Color, Warm/Dry Results/Procedures Lab Laboratory Tests 02/05/21 05:38 Patient resulted labs reviewed. Imaging: Reviewed Imaging Report Assessment/Plan Assessment and Plan Assess & Plan/Chief Complaint T2DM with left foot gangrene PAD s/p BKA 02/03 Stop Vancomycin Continue Zosyn Ultrasound lower extremities negative for significant PAD A1C pending Levemir Sliding scale PT/OT clinical services manager consult Tobacco abuse Nicotine patch BPH Flomax History of stroke Dyslipidemia ASA and Plavix Lipid panel with low HDL Lipitor History of morbid obesity Clinically significant, no acute management needs DVT prophylaxis: Lovenox Diagnosis/Problems Diagnosis/Problems (1) T2DM (type 2 diabetes mellitus) Status: Acute Qualifiers: Diabetes mellitus long-term insulin use: without long-term use Diabetes mellitus complication status: with circulatory complication Diabetes mellitus complication detail: with peripheral angiopathy with gangrene Qualified Codes: E11.52 - Type 2 diabetes mellitus with diabetic peripheral angiopathy with gangrene (2) PAD (peripheral artery disease) Status: Acute (3) BPH (benign prostatic hyperplasia) Status: Chronic (4) History of morbid obesity Status: Chronic (5) History of stroke Status: Chronic (6) Tobacco abuse Status: Acute (7) Dyslipidemia Status: Acute DANY VILLA MD Feb 05, 2021 23:02
[2021-02-06] VITALS (7 sets, daily range): BP systolic 138–151; BP diastolic 55–86
[2021-02-06] MEDS: HYDROcodone/APAP 7.5 MG/325 MG (LORTAB, LORCET PLUS) TABLET PO PRN ×5 (02:20→20:45)
[2021-02-06] MEDS: PIPERACILLIN SODIUM/TAZOBACTAM 4.5 GM in NS (IVPB) 100 ML IV SCH ×3 (02:20→18:14)
[2021-02-06] MEDS: metFORMIN 500 MG (GLUCOPHAGE) TAB PO SCH (06:04)
[2021-02-06] MEDS: inSUlin ASPART (NovoLOG) 1 UNIT/0.01 ML (CHARGE PER UNIT) SC SCH ×4 (06:05→21:18)
--- NOTE | 2021-02-06 08:02 | Progress Note - Surgery ---
[facility] 02/06/21 0802: Subjective Date Seen by a Provider: Feb 06, 2021 Time Seen by a Provider: 07:30 Subjective/Events-last exam POD 3, S/P BKA No acute events overnight, Afebrile Patient continues to feel better. States pain is well controlled and was able to sleep last night Denies fevers, chills, or abdominal pain Review of Systems General: No Chills, No Other (fevers) Pulmonary: No Dyspnea, No Cough Cardiovascular: No: Chest Pain, Palpitations Gastrointestinal: No: Nausea, Vomiting Objective Exam Vital Signs Date Time Temp Pulse Resp B/P (MAP) Pulse Ox O2 Delivery O2 Flow Rate FiO2 02/06/21 03:39 36.3 90 20 144/78 (100) 98 Room Air 02/06/21 02:50 36.7 02/06/21 00:31 36.7 86 20 150/86 (107) 99 Room Air 02/05/21 22:51 36.4 02/05/21 22:21 36.4 02/05/21 21:50 100 Room Air 02/05/21 20:01 36.4 86 16 158/91 (113) 100 Room Air 02/05/21 15:53 36.4 89 18 149/84 (105) 98 Room Air 02/05/21 12:36 36.8 86 16 168/85 (112) Room Air 02/05/21 08:20 36.6 85 16 153/79 (103) 98 Room Air 02/05/21 08:00 98 Room Air I & O 02/06/21 07:00 Intake Total 1700 ml Output Total 1800 ml Balance -100 ml Capillary Refill : General Appearance: No Apparent Distress, WD/WN HEENT: PERRL/EOMI, Normal ENT Inspection Neck: Normal Inspection, Non Tender, Supple Respiratory: Lungs Clear, Normal Breath Sounds, No Respiratory Distress Cardiovascular: Regular Rate, Rhythm, No Edema, No Murmur Peripheral Pulses: 2+ Radial Pulses (R), 2+ Radial Pulses (L) Gastrointestinal: non tender, soft Extremity: Non Tender, No Pedal Edema, Other (left BKA, Incision Clean and intact, minimal serosanguineous drainage , Overall healing appropriately) Neurologic/Psychiatric: Alert, Oriented x3, Normal Mood/Affect Skin: Normal Color, Warm/Dry Lymphatic: No Adenopathy (in cervical or axillary) Results Lab Laboratory Tests 02/05/21 11:23: Glucometer 106 02/05/21 14:15: Glucometer 101 02/05/21 15:56: Glucometer 90 02/05/21 21:16: Glucometer 119H 02/06/21 05:59: Glucometer 82 Microbiology 02/03/21 MRSA Screen - Final, Complete MRSA not isolated 02/03/21 Blood Culture - Preliminary, Resulted No growth Assessment/Plan Assessment/Plan Assessment/Plan S/P Left BKA indicated for gangrenous foot Leukocytosis T2DM, stroke with right sided neurological deficits, PAD Continue antibiotics Continue wound care Encourage incentive spirometer usage Out of bed activity as tolerated Continue DVT prophylaxis Continue PT/OT DANIEL COUCH DO 02/06/21 1412: Subjective Subjective/Events-last exam Feeling better. Pain controlled. Denies n/v fever sweats chills shortness of breath or chest pain. Objective Exam General Appearance: No Apparent Distress, WD/WN HEENT: PERRL/EOMI, Normal ENT Inspection Neck: Normal Inspection, Non Tender, Supple Respiratory: Chest Non Tender, No Accessory Muscle Use, No Respiratory Distress Cardiovascular: Regular Rate, Rhythm, No JVD Gastrointestinal: non tender, soft Extremity: Non Tender, Other (left BKA, Incision Clean and intact, minimal serosanguineous drainage , Overall healing appropriately) Neurologic/Psychiatric: Alert, Oriented x3, Normal Mood/Affect Skin: Normal Color, Warm/Dry Lymphatic: No Adenopathy (in cervical or axillary) Assessment/Plan Assessment/Plan Assessment/Plan S/P Left BKA indicated for gangrenous foot Leukocytosis T2DM, stroke with right sided neurological deficits, PAD Continue antibiotics Continue wound care IPR eval Encourage incentive spirometer usage Out of bed activity as tolerated Continue DVT prophylaxis Continue PT/OT Supervisory-Addendum Brief Verification & Attestation Participated in pt care: history, MDM, physical Personally performed: exam, history, MDM, supervision of care Care discussed with: Medical Student Procedures: n/a Results interpretation: Verified all documentation Verification and Attestation of Medical Student E/M Service A medical student performed and documented this service in my presence. I reviewed and verified all information documented by the medical student and made modifications to such information, when appropriate. I personally performed the physical exam and medical decision making. Daniel Couch Feb 06, 2021,14:12 [facility] Feb 06, 2021 08:02 DANIEL COUCH DO Feb 06, 2021 14:12
[2021-02-06] MEDS ORDERED: IBUP-2473 PO (08:58)
[2021-02-06] MEDS ORDERED: ASPI-999 PO (08:58)
[2021-02-06] MEDS ORDERED: NYQUIL (09:01)
[2021-02-06] MEDS ORDERED: LOPE1LIQ7 PO (09:03)
[2021-02-06] MEDS ORDERED: CLOP75TA28 PO (09:04)
--- NOTE | 2021-02-06 09:08 | Physical Therapy Evaluation ---
PT Evaluation-General Medical Diagnosis Admission Date Feb 03, 2021 at 05:20 Medical Diagnosis: left BKA Onset Date: Feb 03, 2021 Therapy Diagnosis Therapy Diagnosis: impaired mobility, strength, endurance Precautions Precautions/Isolations: Fall Prevention, Standard Precautions Weight Bear Status Right Lower Extremity: Right Weight Bearing/Tolerated Left Lower Extremity: Left Non Weight Bearing NEW AMPUTATION Referral Physician: Tima Reason for Referral: Evaluation/Treatment Medical History Pertinent Medical History: CVA, DM, PVD Social History Home: [facility] Current Living Status: Other Family Entry Into Home: Stairs With Railing PT Steps Into Home: 3 Prior Prior Level of Function SCALE: Activities may be completed with or without assistive devices. 3-Mihokeyiiw-lluradj completes the activity by him/herself with no assistance from a helper. 5-Set-up or Clean-up Assistance-helper sets up or cleans up; patient completes activity. [place] assists only prior to or following the activity. 4-Supervision or Touching Assistance-helper provides verbal cues and/or touchi ng/steadying and/or contact guard assistance as patient completes activity. Assistance may be provided throughout the activity or intermittently. 3-Partial/Moderate Assistance-helper does LESS THAN HALF the effort. Clayton lifts, holds or supports trunk or limbs, but provides less than half the effort. 2-Substantial/Maximal Assistance-helper does MORE THAN HALF the effort. [place] lifts or holds trunk or limbs and provides more than half the effort. 3-Zmzeufwde-orocmi does ALL the effort. Patient does none of the effort to complete the activity. Or, the assistance of 2 or more helpers is required for the patient to complete the activity. If activity was not attempted, code reason: 7-Patient Refused. 9-Not Applicable-not attempted and the patient did not perform the activity before the current illness, exacerbation or injury. 10-Not Attempted due to Environmental Limitations-(lack of equipment, weather restraints, etc.). 88-Not Attempted due to Medical Conditions or Safety Concerns. Bed Mobility: 6 Transfers (B,C,W/C): 6 Gait: 6 Stairs: 6 Indoor Mobility (Ambulation): Independent Stairs: Independent Patient states he was ambulating short distances. PT Evaluation-Current Subjective Patient in bed pre tx, agrees to PT, has 8/10 pain in left residual limb. Pt/Family Goals to be independent at home Objective Patient Orientation: Person, Place, Situation ROM/Strength ROM Lower Extremities WNL RLE, LLE not tested Strength Lower Extremities RLE grossly 3-/5 Sensory Vision: Functional Hearing: Functional Sensation Right Lower Extremit: Impaired Sensation Left Lower Extremity: Impaired Transfers Roll Left to Right (QC): 6 Lying to Sitting/Side of Bed(Q: 6 Sit to Stand (QC): 1 Chair/Ypx-ga-Jsmsd Xfer(QC): 1 Dependent stand pivot transfer to the recliner. Patient cannot really bear much if any weight on his right leg. He tends to be a little retropulsive with the transfer, has trouble scooting back in the recliner but gets it done with cues for positioning. Balance Sitting Static: Normal Sitting Dynamic: Normal Standing Static: Poor Standing Dynamic: Poor Treatment LLE AROM (hip flex, abd) Assessment/Needs Patient in recliner post tx with nurse call, phone, tray, all needs met. Patient has impaired mobility, strength, endurance. Dependent for transfers. Rehab Potential: Guarded PT Mcfp Goals Mcfp Goals PT Data Assistant Goals Time Frame: Feb 13, 2021 Roll Left & Right (QC): 6 Sit to Lying (QC): 6 Lying-Sitting on Side/Bed(QC): 6 Sit to Stand (QC): 3 Chair/Bdb-ue-Qqeaj Xfer(QC): 3 PT Plan Problem List Problem List: Activity Tolerance, Functional Strength, Safety, Balance, Gait, Transfer, Bed Mobility, ROM Treatment/Plan Treatment Plan: Continue Plan of Care Treatment Plan: Bed Mobility, Education, Functional Activity Nicky, Functional Strength, Gait, Safety, Therapeutic Exercise, Transfers Treatment Duration: Feb 13, 2021 Frequency: 6 times per week Estimated Hrs Per Day: .25 hour per day Patient and/or Family Agrees t: Yes Safety Risks/Education Patient Education: Transfer Techniques, Correct Positioning, Safety Issues Teaching Recipient: Patient Teaching Methods: Demonstration, Discussion Response to Teaching: Reinforcement Needed Discharge Recommendations Plan Patient will perform bed mobility and transfer training, balance and endurance training, functional strengthening, and education, to improve functional mobility and independence at home. Therapy Discharge Recommendati: Scheduled Assistance, Home & Family, Post Acute PT Time/GCodes Time In: 0835 Time Out: 0845 Total Billed Treatment Time: 10 Total Billed Treatment 1 visit DHIRAJ CONLEY PT Feb 06, 2021 09:08
[2021-02-06] MEDS ORDERED: DEXT236S PO (09:28)
[2021-02-06] MEDS: CLOPIDOGREL 75 MG (PLAVIX) TABLET PO SCH (09:54)
[2021-02-06] MEDS: GABAPENTIN 600 MG (NEURONTIN) TAB PO SCH ×2 (09:54→20:45)
[2021-02-06] MEDS: ASPIRIN E.C. 81 MG (ECOTRIN) TAB PO SCH (09:54)
--- NOTE | 2021-02-06 11:12 | Occupational Therapy Eval ---
OT Evaluation-General/PLF Medical Diagnosis Admission Date Feb 03, 2021 at 05:20 Medical Diagnosis: left BKA Onset Date: Feb 03, 2021 Therapy Diagnosis Therapy Diagnosis: decreased ADL status. Precautions Precautions/Isolations: Fall Prevention, Standard Precautions Referral Physician: Tima Rodriguez Reason: Evaluation/Treatment Medical History Pertinent Medical History: CVA, DM, PVD Additional Medical History DM, CVA, PAD, obesity. Current History Presents with L foot wound, s/p L BKA 02/03/21 Social History Home: [facility] Current Living Status: Other Family Entry Into Home: Stairs With Railing Steps Into Home: 3 ADL-Prior Level of Function SCALE: Activities may be completed with or without assistive devices. 2-Osrruahuvi-qqhivth completes the activity by him/herself with no assistance from a helper. 5-Set-up or Clean-up Assistance-helper sets up or cleans up; patient completes activity. [place] assists only prior to or following the activity. 4-Supervision or Touching Assistance-helper provides verbal cues and/or touching/steadying and/or contact guard assistance as patient completes ac tivity. Assistance may be provided throughout the activity or intermittently. 3-Partial/Moderate Assistance-helper does LESS THAN HALF the effort. [place] lifts, holds or supports trunk or limbs, but provides less than half the effort. 2-Substantial/Maximal Assistance-helper does MORE THAN HALF the effort. [place] lifts or holds trunk or limbs and provides more than half the effort. 5-Dbcykyshy-cjrkas does ALL the effort. Patient does none of the effort to complete the activity. Or, the assistance of 2 or more helpers is required for the patient to complete the activity. If activity was not attempted, code reason: 7-Patient Refused. 9-Not Applicable-not attempted and the patient did not perform the activity before the current illness, exacerbation or injury. 10-Not Attempted due to Environmental Limitations-(lack of equipment, weather restraints, etc.). 88-Not Attempted due to Medical Conditions or Safety Concerns. ADL PLOF Comments Pt reports IND with ADLs and functional mobility at [facility], no AD/AE. He currently lives with his daughter, son in law and a couple of grandkids. His daughter is home throughout the day, his son in law recently injured himself and is currently off work Self Care: Independent Functional Cognition: Independent OT Current Status Subjective Pt up in recliner, agreeable to OT evaluation/tx. Pt tearful at the end of the session, thinking about his grandkids and family, pt plans to video call after his family wakes up. Mental Status/Objective Patient Orientation: Person, Place, Time, Situation Attachments: IV Current Upper Extremity ROM WFL, BUE shoulder flexion to approx 150 degrees Upper Extremity Coordination decreased due to tingling/numbness throughout RUE Upper Extremity Sensation pt reports tingling and numbness throughout R side of body Upper Extremity Strength RUE grossly 3/5, LUE grossly 3+/5 ADL-Treatment Eating (QC): 5 (Per pt report.) Shower/Bathe Self (QC): 1 (Per clinical judgment.) Lower Body Dressing (QC): 1 (Per clincial judgment assist x2 for pant hike.) On/Off Footwear (QC): 1 (total assist with R gripper sock) Toileting Hygiene (QC): 1 (Per clincial judgment, assist x2 for clothing management and hygiene.) Other Treatments Pt up in recliner, agreeable to OT Tx. Pt provided information about PLOF and h ome set up and participated in UE screen. Per PT evaluation, total assist SPT from EOB to recliner. In order to increase BUE strength and activity tolerance, pt completed x10 reps each of the following BUE exercises: shoulder flexion, shoulder abduction, elbow flexion/extension, wrist flexion/extension and finger flexion/extension. Pt encouraged to continue with exercises throughout the day, increasing reps as tolerated, he verbalized understanding. Post tx, pt up in recliner, call light in reach and all needs met. Education OT Patient Education: Correct positioning, Energy conservation, Exercise pr ogram, Modified ADL techniques, Progress toward Goal/Update tx plan, Purpose of tx/functional activities, Rehab process Teaching Recipient: Patient Teaching Methods: Discussion Response to Teaching: Verbalize Understanding OT Welder Production Line Arc Goals Welder Production Line Arc Goals Time Frame: Mar 03, 2021 Eating (QC): 5 Oral Hygiene (QC): 5 Toileting Hygiene (QC): 4 Shower/Bathe Self (QC): 4 Upper Body Dressing (QC): 5 Lower Body Dressing (QC): 4 On/Off Footwear (QC): 4 Additional Goals: 1-Demonstrate ADL Tasks, 2-Verbalize Understanding, 3- ImproveStrength/Nicky 1=Demonstrate adherence to instructed precautions during ADL tasks. 2=Patient will verbalize/demonstrate understanding of assistive devices/modifications for ADL. 3=Patient will improve strength/tolerance for activity to enable patient to perform ADL's. OT Education/Plan Problem List/Assessment Assessment: Decreased Activ Tolerance, Decreased UE Strength, Dependent Transfers, Impaired Funct Balance, Impaired I ADL's, Impaired Self-Care Skills Discharge Recommendations Plan/Recommendations: Continue POC Treatment Plan/Plan of Care Patient would benefit from OT for education, treatment and training to promote independence in ADL's, mobility, safety and/or upper extremity function for ADL's. Plan of Care: ADL Retraining, Functional Mobility, UE Funct Exercise/Act Treatment Duration: Mar 03, 2021 Frequency: 3 times per week (3-5 times per week) Rehab Potential: Guarded Time/GCodes Start Time: 10:35 Stop Time: 10:47 Total Time Billed (hr/min): 12 Billed Treatment Time 1, CAM HART OT Feb 06, 2021 11:12
[2021-02-06] MEDS ORDERED: polyethylene glycoL POWDER 17 GM (MIRALAX) PACK PO PRN (11:30)
[2021-02-06] MEDS: SENNOSIDES 8.6 MG (SENOKOT) TAB PO SCH ×2 (12:29→20:45)
[2021-02-06] MEDS: polyethylene glycoL POWDER 17 GM (MIRALAX) PACK PO SCH ×2 (12:29→20:45)
[2021-02-06] MEDS: DOCUSATE SODIUM 100 MG (COLACE) CAP PO SCH ×2 (12:29→20:45)
--- NOTE | 2021-02-06 20:00 | Progress Note - Hospitalist ---
Subjective HPI/CC On Admission Date Seen by Provider: Feb 06, 2021 Time Seen by Provider: 11:25 Andrew Forbes is a 61 year old male with PMH T2DM, stroke, PAD, history of morbid obesity, who presented with left foot wound. He reports that the wound has been there for months. He noticed that it was turning black so he came in. He denies fevers and chills. He denies nausea and vomiting. He is not having chest pain. He denies shortness of breath and cough. He does not have a primary care doctor. He does not have insurance. Subjective/Events-last exam He is doing well. His pain is improved. He has no complaints. Objective Exam Vital Signs Vital Signs Date Time Temp Pulse Resp B/P (MAP) Pulse Ox O2 Delivery O2 Flow Rate FiO2 02/06/21 16:41 35.5 84 18 150/82 (104) 98 Room Air 02/03/21 11:05 10 Capillary Refill : General Appearance: No Apparent Distress, WD/WN Respiratory: Lungs Clear, Normal Breath Sounds, No Respiratory Distress Cardiovascular: Regular Rate, Rhythm, No Edema, No Murmur Gastrointestinal: Normal Bowel Sounds, Non Tender, Soft Extremity: Non Tender, No Pedal Edema, Other (left BKA) Neurologic/Psychiatric: Alert, Oriented x3, No Motor/Sensory Deficits, Normal Mood/Affect Skin: Normal Color, Warm/Dry Results/Procedures Lab Patient resulted labs reviewed. Imaging: Reviewed Imaging Report Assessment/Plan Assessment and Plan Assess & Plan/Chief Complaint T2DM with left foot gangrene PAD s/p BKA 02/03 Continue Zosyn Ultrasound lower extremities negative for significant PAD A1C 7.9% Levemir Sliding scale PT/OT IRF evaluation food services coordinator consult Tobacco abuse Nicotine patch BPH Flomax History of stroke Dyslipidemia ASA and Plavix Lipid panel with low HDL Lipitor History of morbid obesity Clinically significant, no acute management needs DVT prophylaxis: Lovenox Diagnosis/Problems Diagnosis/Problems (1) T2DM (type 2 diabetes mellitus) Status: Acute Qualifiers: Diabetes mellitus senior living insulin use: without extermination supervisor use Diabetes mellitus complication status: with circulatory complication Diabetes mellitus complication detail: with peripheral angiopathy with gangrene Qualified Codes: E11.52 - Type 2 diabetes mellitus with diabetic peripheral angiopathy with gangrene (2) PAD (peripheral artery disease) Status: Acute (3) BPH (benign prostatic hyperplasia) Status: Chronic (4) History of morbid obesity Status: Chronic (5) History of stroke Status: Chronic (6) Tobacco abuse Status: Acute (7) Dyslipidemia Status: Acute DANY VILLA MD Feb 06, 2021 20:00
[2021-02-06] MEDS: LACTATED RINGERS 1,000 ML IV PRN (20:46)
[2021-02-07] MEDS: PIPERACILLIN SODIUM/TAZOBACTAM 4.5 GM in NS (IVPB) 100 ML IV SCH ×2 (03:12→09:45)
[2021-02-07] MEDS: HYDROcodone/APAP 7.5 MG/325 MG (LORTAB, LORCET PLUS) TABLET PO PRN ×2 (03:14→07:41)
[2021-02-07 04:25] VITALS: BP 142/87
[2021-02-07 05:51] LABS: BASOPHILS # (AUTO) 0.1 10^3/uL (0.0-0.1); BASOPHILS % (AUTO) 1 % (0-10); EOSINOPHILS # (AUTO) 0.2 10^3/uL (0.0-0.3); EOSINOPHILS % (AUTO) 2 % (0-10); HEMATOCRIT 36 % (40-54); HEMOGLOBIN 11.5 g/dL (13.3-17.7); LYMPHOCYTES # (AUTO) 2.6 10^3/uL (1.0-4.0); LYMPHOCYTES % (AUTO) 24 % (12-44); MEAN CORPUSCULAR HEMOGLOBIN 27 pg (25-34); MEAN CORPUSCULAR HGB CONC 32 g/dL (32-36); MEAN CORPUSCULAR VOLUME 85 fL (80-99); MEAN PLATELET VOLUME 9.7 fL (9.0-12.2); MONOCYTES # (AUTO) 1.1 10^3/uL (0.0-1.0); MONOCYTES % (AUTO) 11 % (0-12); NEUTROPHILS # (AUTO) 6.6 10^3/uL (1.8-7.8); NEUTROPHILS % (AUTO) 63 % (42-75); PLATELET COUNT 491 10^3/uL (130-400); WHITE BLOOD COUNT 10.5 10^3/uL (4.3-11.0)
[2021-02-07 06:11] LABS: POTASSIUM 3.5 MMOL/L (3.6-5.0)
[2021-02-07 06:12] LABS: CALCIUM 8.1 MG/DL (8.5-10.1)
[2021-02-07] MEDS: inSUlin ASPART (NovoLOG) 1 UNIT/0.01 ML (CHARGE PER UNIT) SC SCH (06:14)
[2021-02-07] MEDS: metFORMIN 500 MG (GLUCOPHAGE) TAB PO SCH (06:14)
[2021-02-07 06:17] LABS: CREATININE SERUM 0.51 MG/DL (0.60-1.30)
--- NOTE | 2021-02-07 07:28 | Progress Note - Surgery ---
[facility] 02/07/21 0728: Subjective Date Seen by a Provider: Feb 07, 2021 Time Seen by a Provider: 07:15 Subjective/Events-last exam POD 4, S/P BKA No acute events overnight, Afebrile Patient continues to complain of pain greater on right side than left. Approved for in-patient rehab facility Denies fevers, chills, or abdominal pain Review of Systems General: No Chills, No Other (fevers) Pulmonary: No Dyspnea, No Cough Cardiovascular: No: Chest Pain, Palpitations Gastrointestinal: No: Nausea, Vomiting Objective Exam Vital Signs Date Time Temp Pulse Resp B/P (MAP) Pulse Ox O2 Delivery O2 Flow Rate FiO2 02/07/21 04:25 37.4 68 18 142/87 (105) 99 Room Air 02/06/21 23:44 37.5 88 16 151/82 (105) 98 Room Air 02/06/21 21:00 93 Room Air 02/06/21 20:06 36.0 80 16 143/55 (84) 98 Room Air 02/06/21 16:41 35.5 84 18 150/82 (104) 98 Room Air 02/06/21 12:00 36.0 89 18 146/75 (98) 98 Room Air 02/06/21 08:00 Room Air 02/06/21 08:00 36.1 89 16 138/79 (98) 97 Room Air I & O 02/07/21 07:00 Intake Total 2130 ml Output Total 1650 ml Balance 480 ml Capillary Refill : General Appearance: No Apparent Distress, WD/WN HEENT: PERRL/EOMI, Normal ENT Inspection Neck: Normal Inspection, Non Tender, Supple Respiratory: Lungs Clear, Normal Breath Sounds, No Respiratory Distress Cardiovascular: Regular Rate, Rhythm, No Edema Peripheral Pulses: 2+ Radial Pulses (R), 2+ Radial Pulses (L) Gastrointestinal: non tender, soft Extremity: Non Tender, No Pedal Edema, Other (left BKA) Neurologic/Psychiatric: Alert, Oriented x3, No Motor/Sensory Deficits, Normal Mood/Affect Skin: Normal Color, Warm/Dry Lymphatic: No Adenopathy (in cervical or axillary) Results Lab Laboratory Tests 02/06/21 11:37: Glucometer 145H 02/06/21 15:26: Glucometer 110 02/06/21 20:23: Glucometer 116H 02/07/21 05:35: White Blood Count 10.5, Red Blood Count 4.23L, Hemoglobin 11.5L, Hematocrit 36L, Mean Corpuscular Volume 85, Mean Corpuscular Hemoglobin 27, Mean Corpuscular Hemoglobin Concent 32, Red Cell Distribution Width 13.3, Platelet Count 491H, Mean Platelet Volume 9.7, Immature Granulocyte % (Auto) 0, Neutrophils (%) (Auto) 63, Lymphocytes (%) (Auto) 24, Monocytes (%) (Auto) 11, Eosinophils (%) (Auto) 2, Basophils (%) (Auto) 1, Neutrophils # (Auto) 6.6, Lymphocytes # (Auto) 2.6, Monocytes # (Auto) 1.1H, Eosinophils # (Auto) 0.2, Basophils # (Auto) 0.1, Immature Granulocyte # (Auto) 0.0, Sodium Level 133L, Potassium Level 3.5L, Chloride Level 98, Carbon Dioxide Level 25, Anion Gap 10, Blood Urea Nitrogen 7, Creatinine 0.51L, Estimat Glomerular Filtration Rate 166, BUN/Creatinine Ratio 14, Glucose Level 99, Calcium Level 8.1L 02/07/21 06:10: Glucometer 101 Microbiology 02/03/21 MRSA Screen - Final, Complete MRSA not isolated 02/03/21 Blood Culture - Preliminary, Resulted No growth Assessment/Plan Assessment/Plan Assessment/Plan S/P Left BKA indicated for gangrenous foot Leukocytosis (resolved) T2DM, stroke with right sided neurological deficits, PAD switch to CHO diet Will discontinue abx after today (02/07) Continue wound care IPR eval and approved. Encourage incentive spirometer usage Out of bed activity as tolerated Continue DVT prophylaxis Continue PT/OT SERGE COUCH DO 02/08/21 0812: Subjective Subjective/Events-last exam Doing well. Pain controlled. IPR today. Denies n/v fever sweats chills shortness of breath or chest pain. Objective Exam General Appearance: No Apparent Distress, WD/WN HEENT: PERRL/EOMI, Normal ENT Inspection Neck: Normal Inspection, Non Tender Respiratory: Chest Non Tender, Normal Breath Sounds Cardiovascular: Regular Rate, Rhythm, No Edema Gastrointestinal: non tender, soft Extremity: Other (left BKA incision c/d/i) Neurologic/Psychiatric: Alert, Oriented x3, Normal Mood/Affect Skin: Normal Color, Warm/Dry Lymphatic: No Adenopathy (in cervical or axillary) Assessment/Plan Assessment/Plan Assessment/Plan S/P Left BKA indicated for gangrenous foot Leukocytosis (resolved) T2DM, stroke with right sided neurological deficits, PAD Continue wound care Encourage incentive spirometer usage Out of bed activity as tolerated Continue DVT prophylaxis Continue PT/OT IPR today, will sign off, call if needed. Supervisory-Addendum Brief Verification & Attestation Participated in pt care: history, MDM, physical Personally performed: exam, history, MDM, supervision of care Care discussed with: Medical Student Procedures: n/a Results interpretation: Verified all documentation Verification and Attestation of Medical Student E/M Service A medical student performed and documented this service in my presence. I reviewed and verified all information documented by the medical student and made modifications to such information, when appropriate. I personally performed the physical exam and medical decision making. Serge Couch, Feb 07, 2021,18:12 [facility] Feb 07, 2021 07:28 SERGE COUCH DO Feb 08, 2021 08:12
[2021-02-07] MEDS: polyethylene glycoL POWDER 17 GM (MIRALAX) PACK PO SCH (07:42)
[2021-02-07] MEDS: SENNOSIDES 8.6 MG (SENOKOT) TAB PO SCH (07:42)
[2021-02-07] MEDS: CLOPIDOGREL 75 MG (PLAVIX) TABLET PO SCH (07:42)
[2021-02-07] MEDS: GABAPENTIN 600 MG (NEURONTIN) TAB PO SCH (07:42)
[2021-02-07] MEDS: DOCUSATE SODIUM 100 MG (COLACE) CAP PO SCH (07:42)
[2021-02-07] MEDS: ASPIRIN E.C. 81 MG (ECOTRIN) TAB PO SCH (07:42)
[2021-02-07 08:00] VITALS: BP 132/75
--- NOTE | 2021-02-07 18:43 | Discharge Summary ---
Discharge Summary Hospital Course Problems/Dx: (1) T2DM (type 2 diabetes mellitus) Status: Acute Qualifiers: Qualified Codes: E11.52 - Type 2 diabetes mellitus with diabetic peripheral angiopathy with gangrene (2) PAD (peripheral artery disease) Status: Acute (3) BPH (benign prostatic hyperplasia) Status: Chronic (4) History of morbid obesity Status: Chronic (5) History of stroke Status: Chronic (6) Tobacco abuse Status: Acute (7) Dyslipidemia Status: Acute Hospital Course Date of Admission: Feb 03, 2021 at 05:20 Admission Diagnosis : T2DM with gangrene of left foot Family Physician/Provider: Miranda Clemons Physician Date of Discharge: 02/07/21 Discharge Diagnosis: T2DM with gangrene of left foot Hospital Course: Andrew Forbes is a 61 year old male who was admitted with gangrene of the left foot associated with type 2 diabetes mellitus. Surgery was consulted and assisted with his care. His imaging indicated the presence of gas in the tissues. He was taken to surgery and underwent a left BKA. He was given IV ant ibiotics. He has a history of stroke with residual right sided deficits. He was discharged to inpatient rehab for ongoing therapy needs. Labs and Pending Lab Test: Laboratory Tests 02/06/21 20:23: Glucometer 116H 02/07/21 05:35: White Blood Count 10.5, Red Blood Count 4.23L, Hemoglobin 11.5L, Hematocrit 36L, Mean Corpuscular Volume 85, Mean Corpuscular Hemoglobin 27, Mean Corpuscular Hemoglobin Concent 32, Red Cell Distribution Width 13.3, Platelet Count 491H, Mean Platelet Volume 9.7, Immature Granulocyte % (Auto) 0, Neutrophils (%) (Auto) 63, Lymphocytes (%) (Auto) 24, Monocytes (%) (Auto) 11, Eosinophils (%) (Auto) 2, Basophils (%) (Auto) 1, Neutrophils # (Auto) 6.6, Lymphocytes # (Auto) 2.6, Monocytes # (Auto) 1.1H, Eosinophils # (Auto) 0.2, Basophils # (Auto) 0.1, Immature Granulocyte # (Auto) 0.0, Sodium Level 133L, Potassium Level 3.5L, Chloride Level 98, Carbon Dioxide Level 25, Anion Gap 10, Blood Urea Nitrogen 7, Creatinine 0.51L, Estimat Glomerular Filtration Rate 166, BUN/Creatinine Ratio 14, Glucose Level 99, Calcium Level 8.1L 02/07/21 06:10: Glucometer 101 Microbiology 02/03/21 MRSA Screen - Final, Complete MRSA not isolated 02/03/21 Blood Culture - Preliminary, Resulted No growth Home Meds Active Reported Tobin Nyquil Cough Liquid (Dextromethorphan Hb/Doxylamine) 236 Ml Solution 30 Ml PO DAILY PRN Imodium A-D (Loperamide HCl) 1 Mg/7.5 Ml Liquid 1 Mg PO DAILY PRN Ibuprofen 200 Mg Tablet 800 Mg PO Q6H PRN TAKES 4 (200MG) TABLETS Aspirin 81 Mg Tab.chew 81 Mg PO DAILY Assessment/Pt Instructions Discharged to inpatient rehab for ongoing therapy needs. Discharge Planning: >30 minutes discharge planning Discharge Instructions Discharge Diet: No Restrictions Activity as Tolerated: Yes Discharge Physical Examination Vital Signs Vital Signs Date Time Temp Pulse Resp B/P (MAP) Pulse Ox O2 Delivery O2 Flow Rate FiO2 02/07/21 08:00 36.8 83 20 132/75 (94) 98 Room Air 02/03/21 11:05 10 General Appearance: No Apparent Distress, WD/WN Respiratory: Lungs Clear, Normal Breath Sounds, No Respiratory Distress Cardiovascular: Regular Rate, Rhythm, No Murmur Gastrointestinal: Normal Bowel Sounds, Soft Extremity: No Pedal Edema, Other (left BKA) Skin: Normal Color, Warm/Dry Neurologic/Psychiatric: Alert, Oriented x3, Normal Mood/Affect Allergies: Coded Allergies: No Known Drug Allergies (Unverified , 02/03/21) Discharge Summary Date of Admission Feb 03, 2021 at 05:20 Date of Discharge Feb 07, 2021 at 10:12 Discharge Date: Feb 07, 2021 Discharge Time: 10:12 Admission Diagnosis T2DM with left foot gangrene Consults/Procedures Consulations General surgery Procedures BKA Discharge Diagnosis T2DM with left foot gangrene (1) T2DM (type 2 diabetes mellitus) Status: Acute Qualifiers: Qualified Codes: E11.52 - Type 2 diabetes mellitus with diabetic peripheral angiopathy with gangrene (2) PAD (peripheral artery disease) Status: Acute (3) BPH (benign prostatic hyperplasia) Status: Chronic (4) History of morbid obesity Status: Chronic (5) History of stroke Status: Chronic (6) Tobacco abuse Status: Acute (7) Dyslipidemia Status: Acute DANY VILLA MD Feb 07, 2021 18:43
== END 2021-02-07 10:12 | DRG 240 ==
LOC: EDUNIT# 03:57 → ER 03:59 → 4TH 05:20 → EDLOC 05:20
PROVIDERS: ADMIT Internal Medicine; ATTEND Internal Medicine
PROC: 0Y6J0Z3 Detachment at Left Lower Leg, Low, Open Approach (ICD-10-PCS; principal; 2021-02-03 08:43)
DX: E11.52 Type 2 diabetes mellitus with diabetic peripheral angiopathy with gangrene (principal); I96 Gangrene, not elsewhere classified; N40.0 Benign prostatic hyperplasia without lower urinary tract symptoms; E66.01 Morbid (severe) obesity due to excess calories; E78.5 Hyperlipidemia, unspecified; F17.210 Nicotine dependence, cigarettes, uncomplicated; R33.9 Retention of urine, unspecified; I69.319 Unspecified symptoms and signs involving cognitive functions following cerebral infarction; Z68.23 Body mass index [BMI] 23.0-23.9, adult
CPT/HCPCS: 36415; 71045; 73630; 80048; 80053; 80061; 80202; 82947; 83036; 83605; 84145; 85007; 85025; 85027; 85610; 85652; 85730; 86141; 87040; 87081; 93925

== ENCOUNTER 2021-02-07 09:06 | Inpatient (IN) | payer OTHER ==
[~2021-02-07] VITALS: Ht 170.2 cm; Wt 64.6 kg
[~2021-02-07 09:06] MED LIST: ASPI-999 PO; CLOP75TA28 PO; DEXT236S PO; IBUP-2473 PO; LOPE1LIQ7 PO; NYQUIL
[2021-02-07 09:40] VITALS: BP 111/71
[2021-02-07] MEDS ORDERED: FLEET ENEMA ADULT 1 EA BTL PR PRN (10:00)
[2021-02-07] MEDS ORDERED: CALCIUM CARBONATE 500 MG (TUMS) TAB.CHEW PO PRN (10:00)
[2021-02-07] MEDS ORDERED: LOPERAMIDE 2 MG (IMODIUM) TABLET PO PRN (10:00)
[2021-02-07] MEDS ORDERED: diphenhydrAMINE 25 MG TAB (BENADRYL) PO PRN (10:00)
[2021-02-07] MEDS ORDERED: DOCUSATE SODIUM 100 MG (COLACE) CAP PO PRN (10:00)
[2021-02-07] MEDS ORDERED: LACTULOSE SYRUP 10GM/15ML (ENULOSE) 30ML UDC PO PRN (10:00)
[2021-02-07] MEDS ORDERED: guaiFENesin/CODEINE (ROBITUSSIN AC) 10ML UDC PO PRN (10:00)
[2021-02-07] MEDS ORDERED: BISACODYL 10 MG SUPP (DULCOLAX) PR PRN (10:00)
[2021-02-07] MEDS ORDERED: ACETAMINOPHEN 325 MG TABLET PO PRN (10:00)
[2021-02-07] MEDS ORDERED: MELATONIN 3 MG TABLET PO PRN (10:00)
[2021-02-07] MEDS ORDERED: ALPRAZolam 0.25 MG (XANAX) TAB PO PRN (10:00)
--- NOTE | 2021-02-07 10:09 | Occupational Therapy Eval ---
OT Evaluation-General/PLF Medical Diagnosis Admission Date Feb 07, 2021 at 09:40 Medical Diagnosis: L BKA Onset Date: Feb 03, 2021 Therapy Diagnosis Therapy Diagnosis: Impaired adls, iadls, balance, endurance, strength Precautions Precautions/Isolations: Fall Prevention, Standard Precautions Referral Physician: Luke Referral Reason: Evaluation/Treatment Medical History Pertinent Medical History: CVA, DM, PVD Current History Presents to ER with L foot wound. S/P L BKA. Pt reports living with his dtr, son in law, grandchildren and partner in a multilevel home. Plan is to transform is office into a bedroom so that he can stay on the main level. He states that his daughter is home throughout the day. He verbalizes having a stroke back in January 2020 with residual R sided weakness. Up until October 2020 (when pt had a stent placed) he was using a walker to transfer and was indep with adls. Since October, he reports being dependent for all transfers in/out of w/c and needing assist with all adls. His partner helps with all transfers/adls. Pt lives sedentary lifestyle. Reviewed History: Yes Social History Home: Multilevel Current Living Status: Children Steps Into Home: 3 3 steps to enter home but reports that a ramp is being built for post d/c ADL-Prior Level of Function SCALE: Activities may be completed with or without assistive devices. 4-Gjoyflbbma-rfrkgno completes the activity by him/herself with no assistance from a helper. 5-Set-up or Clean-up Assistance-helper sets up or cleans up; patient completes activity. [place] assists only prior to or following the activity. 4-Supervision or Touching Assistance-helper provides verbal cues and/or touching/steadying and/or contact guard assistance as patient completes activity. Assistance may be provided throughout the activity or intermittently. 3-Partial/Moderate Assistance-helper does LESS THAN HALF the effort. [place] lifts, holds or supports trunk or limbs, but provides less than half the effort. 2-Substantial/Maximal Assistance-helper does MORE THAN HALF the effort. [place] lifts or holds trunk or limbs and provides more than half the effort. 1-Lzmokekws-ggiziy does ALL the effort. Patient does none of the effort to complete the activity. Or, the assistance of 2 or more helpers is required for the patient to complete the activity. If activity was not attempted, code reason: 7-Patient Refused. 9-Not Applicable-not attempted and the patient did not perform the activity before the current illness, exacerbation or injury. 10-Not Attempted due to Environmental Limitations-(lack of equipment, weather restraints, etc.). 88-Not Attempted due to Medical Conditions or Safety Concerns. Self Care: Dependent Functional Cognition: Independent Drive Self: No OT Current Status Subjective Pt reports 8/10 pain in RLE. No pain in residual limb. Pain increases to 9/10 towards end of session. Pain meds given. Co-treat with PT for part of session as pt requires use of 2 skilled clinicals to progress mobility and adls. Appearance Left supine in bed, all needs within reach. Mental Status/Objective Patient Orientation: Person, Place, Situation Current Glasses/Contacts: No Hearing Aids: No Dentures/Partials: Yes Hand Dominance: Right Upper Extremity ROM WNL Upper Extremity Coordination Impaired dexterity skills due to weakness Upper Extremity Sensation Impaired RLE/RUE, residual effects from CVA in Jan 2020 Upper Extremity Strength 3/5 grossly ADL-Treatment Eating (QC): 4 Oral Hygiene (QC): 9 (Pt reports he owns dentures but does not wear. ) Shower/Bathe Self (QC): 1 Upper Body Dressing (QC): 2 Lower Body Dressing (QC): 1 On/Off Footwear (QC): 1 Toileting Hygiene (QC): 1 Supine>sit: Mod A for elevating trunk. Poor trunk control in sitting, requires 1-2 UE support to sustain balance. Dependent transfer to w/c. Partial sponge bath performed at w/c level. Pt washed upper body only, SBA. LB not addressed due to pain and poor activity tolerance. At this time, pt would require a second person to wash buttocks as another maintained balance. Dep to thread RLE and residual limb into LB clothing secondary to impaired core stability, pain, endurance, sensation and dexterity. Clothing management dependent in standing. Pt could benefit from learning compensatory/adaptive strategies for adls at bed level. Sitting EOB, pt unable to don shirt without balance assist. With supported sitting at back/trunk, pt able to don shirt overhead with supervision and extra time. Other Treatments Pt propelled w/c throughout unit. Only able to tolerate ~250 feet before needing a lengthy rest break. Seated core exercises performed seated EOM. Fatigues easily, intermittent CGA-min a for balance. Multiple slide board transfers w/c<>mat with mod-max a. Repetition needed for correct sequence/technique. Education OT Patient Education: Correct positioning, Energy conservation, Modified ADL techniques, Progress toward Goal/Update tx plan, Purpose of tx/functional activities, Rehab process, Safety issues, Transfer techniques, W/C management Teaching Recipient: Patient Teaching Methods: Demonstration, Discussion Response to Teaching: Verbalize Understanding, Reinforcement Needed OT Short Term Goals Short Term Goals Time Frame: Feb 17, 2021 Eatin Oral hygiene: 5 Toileting hygiene: 2 Shower/bathe self: 2 Upper body dressin Lower body dressin Putting on/taking off footwear: 2 OT Senior Ruby Developer Goals Usp Goals Time Frame: Mar 04, 2021 Eating (QC): 5 Oral Hygiene (QC): 5 Toileting Hygiene (QC): 3 Shower/Bathe Self (QC): 4 Upper Body Dressing (QC): 5 Lower Body Dressing (QC): 4 On/Off Footwear (QC): 4 1=Demonstrate adherence to instructed precautions during ADL tasks. 2=Patient will verbalize/demonstrate understanding of assistive devices/modifications for ADL. 3=Patient will improve strength/tolerance for activity to enable patient to perform ADL's. OT Education/Plan Problem List/Assessment Assessment: Decreased Activ Tolerance, Decreased UE Strength, Dependent Transfers, Impaired Bed Mobility, Impaired Funct Balance, Impaired Self-Care Skills Discharge Recommendations Plan/Recommendations: Continue POC Therapy Discharge Recommendati: Bath Aide, Homemaker Support, Post Acute OT Comment continue to assess Barriers to Progress pain, residual effects from old CVA Treatment Plan/Plan of Care Treatment,Training & Education: Yes Patient would benefit from OT for education, treatment and training to promote independence in ADL's, mobility, safety and/or upper extremity function for ADL's. Plan of Care: ADL Retraining, Functional Mobility, Group Exercise/Act as Ind, UE Funct Exercise/Act, UE Neuromus Re-Ed/Coord, W/C Management Training Treatment Duration: Mar 04, 2021 Frequency: At least 5 of 7 days/Wk (IRF) Estimated Hrs Per Day: 1.5 hours per day Agreement: Yes Time/GCodes Start Time: 09:40 (1040) Stop Time: 10:00 (1135) Total Time Billed (hr/min): 75 Billed Treatment Time 1 visit EVH (20 min) ADLx 2 (30 min) FA x2 (25 min) Co-treat with PT for 55 min Judi Mane OT Feb 07, 2021 10:09
--- NOTE | 2021-02-07 10:34 | PM&R Post Admission Assessment ---
PM&R HP Date of Visit: Feb 07, 2021 Time of Visit: 11:00 History of Present Illness CC: In need of rehabilitation following left below the knee amputation HPI: This is a 61yoWM who reported to the ER after having peripheral vascular disease and neuropathy issue that worsened with a significant problem of his foot He had a previous stroke six months ago, placed on Eliquis at that time and had wet Gangrene of the left foot, requiring a left below the knee amputation on 02/03/21. Pt will require aggressive rehabilitation to return to independent living. Patient just discontinued smoking. Past Qafafne-Dzpcwg-Jmtish Hx Past Med/Social Hx: Reviewed Nursing Past Med/Soc Hx, Reviewed and Corrections made Patient Social History Marrital Status: Employed/Student: unemployed Alcohol Use: Occasionally Uses Smoking Status: Former Smoker Past Medical History Cardiac: Peripheral Vascular Neurological: Stroke Endocrine: Diabetes, Non-Insulin dep Family History No Pertinent Family Hx Self Care: Dependent Functional Cognition: Independent Drive Self: No Lower Body Dressin On/Off Footwear: 1 Toileting Hygiene: 1 PM&R Allergy/Meds/Data Review Allergies Coded Allergies: No Known Drug Allergies (Unverified , 02/03/21) Home Medications Scheduled Aspirin (Aspirin), 81 MG PO DAILY, (Reported) Scheduled PRN Dextromethorphan Hb/Doxylamine (Vicks Nyquil Cough Liquid), 30 ML PO DAILY PRN for INSOMNIA, (Reported) Ibuprofen (Ibuprofen), 800 MG PO Q6H PRN for PAIN-MILD (1-4), (Reported) Loperamide HCl (Imodium A-D), 1 MG PO DAILY PRN for DIARRHEA, (Reported) Discontinued Medications Clopidogrel Bisulfate (Clopidogrel), 75 MG PO DAILY, (Reported) Discontinued Reason: No Longer Taking [Nyquil], for INSOMNIA, (Reported) Discontinued Reason: No Longer Taking Current Medications Current Medications Reviewed Review of Systems Constitutional: see HPI, malaise, weakness EENTM: no symptoms reported Respiratory: dyspnea on exertion Cardiovascular: no symptoms reported Gastrointestinal: no symptoms reported Genitourinary: decreased output Musculoskeletal: back pain, joint pain Skin: no symptoms reported Psychiatric/Neurological: Anxiety, Depressed, Weakness All Other Systems Reviewed Negative Unless Noted: Yes Physical Exam Physical Exam Vital Signs Capillary Refill : Height, Weight, BMI Height: '" Weight: lbs. oz. kg; 23.07 BMI Method: General Appearance: No Apparent Distress, WD/WN, Chronically ill Eyes: Bilateral Eye Normal Inspection, Bilateral Eye PERRL HEENT: PERRL/EOMI, Normal ENT Inspection, Pharynx Normal Neck: Full Range of Motion, Normal Inspection, Non Tender, Supple, Carotid Bruit Respiratory: Chest Non Tender, Lungs Clear, Normal Breath Sounds, No Accessory Muscle Use, No Respiratory Distress Cardiovascular: Regular Rate, Rhythm, No Edema, No Gallop, No JVD, No Murmur, Normal Peripheral Pulses Gastrointestinal: Normal Bowel Sounds, No Organomegaly, No Pulsatile Mass, Non Tender, Soft Back: Normal Inspection, No CVA Tenderness, No Vertebral Tenderness Extremity: Normal Capillary Refill, Normal Inspection, Normal Range of Motion, Non Tender, No Calf Tenderness, No Pedal Edema, Other (Left below-knee amputation) Neurologic/Psychiatric: Alert, Oriented x3, No Motor/Sensory Deficits, Normal Mood/Affect, Abnormal Gait, Motor Weakness (Right-sided weakness 2/5) Skin: Normal Color, Warm/Dry Lymphatic: No Adenopathy PM&R Medical Assessment & Plan REHAB/MEDICAL ASSESSMENT AND PLAN: REHAB IMPAIRMENT GROUP: CVA with left below the knee amputation ETIOLOGIC DIAGNOSIS: CVA with left below the knee amputation The comorbidities that impact the patients function and/or functional outcome by: Left below the knee amputation, CVA, recent smoking cessation REHAB PLAN: The patient is being admitted to our comprehensive inpatient rehabilitation facility and can tolerate the intensity of service consisting of at least: 180 minutes of therapy a day, 5 out of 7 days a week Rehab treatment will consist of: PT and OT will focus on use of assistive devices in order to increase independent ADLs with wheelchair mobility in order to return back to independent living The patient/family has a good understanding of our discharge process and will benefit from an interdisciplinary inpatient rehabilitation program. The patient has potential to make improvement and is in need of at least two of the followi ng multidisciplinary therapies including but not limited to physical, occupational, speech, and prosthetics and orthotics. Additionally the patient will need services from respiratory, nutritional services, wound care, psychology, etc. (Customize this to each patient). Given the patients complex condition and risk of further medical complications, rehabilitation services cannot be safely or effectively provided at a lower level of care such as a senior care facility. BARRIERS TO DISCHARGE: Left BKA ESTIMATED LOS: 10 days DISPOSITION: Home RELEVANT CHANGES SINCE PREADMISSION SCREENING: I have compared the patients medical and functional status at the time of the preadmission screening and there are: No changes PROGNOSIS: Good REHABILITATION GOALS: 1. PT and OT will focus on use of assistive devices in order to increase independent ADLs with wheelchair mobility in order to return back to independent living All the above goals were reviewed with the patient and he/she is in agreement. By signing this document, I acknowledge that I have personally performed a full physical examination on this patient within 24 hours of admission to this inpatient rehabilitation facility and have determined the patient to be able to tolerate the above course of treatment at an intensive level for a reasonable period of time. I will be completing a detailed individualized Plan of Care for this patient by day #4 of the patients stay based upon the Preadmission Screen, the Post-Admission Evaluation, and the therapy evaluations. Admission Dx/Comorbidities: (1) History of left below knee amputation ICD Codes: Z89.512 - Acquired absence of left leg below knee (2) Tobacco abuse Status: Acute ICD Codes: Z72.0 - Tobacco use (3) History of stroke Status: Chronic ICD Codes: Z86.73 - Personal history of transient ischemic attack (TIA), and cerebral infarction without residual deficits (4) PAD (peripheral artery disease) Status: Acute ICD Codes: I73.9 - Peripheral vascular disease, unspecified (5) BPH (benign prostatic hyperplasia) Status: Chronic ICD Codes: N40.0 - Benign prostatic hyperplasia without lower urinary tract symptoms (6) T2DM (type 2 diabetes mellitus) Status: Acute ICD Codes: E11.9 - Type 2 diabetes mellitus without complications (7) Dyslipidemia Status: Acute ICD Codes: E78.5 - Hyperlipidemia, unspecified (8) History of morbid obesity Status: Chronic ICD Codes: Z87.898 - Personal history of other specified conditions Assessment/Plan Assessment and Plan Assess & Plan/Chief Complaint Assessment: Status post left below-knee amputation due to gangrene History of CVA with right-sided weakness History of super morbid obesity now BMI 22 Diabetes Previous smoker BPH Plan: Inpatient rehab protocol Accu-Cheks Pain control MAXI BOWSER DO Feb 07, 2021 10:34
[2021-02-07] MEDS ORDERED: ACETAMINOPHEN 650 MG SUPP (TYLENOL) PR PRN (10:45)
[2021-02-07] MEDS ORDERED: ONDANSETRON 4 MG/2 ML (SDV) Z0FRAN IV PRN (10:45)
[2021-02-07] MEDS ORDERED: fentaNYL INJ 100 MCG/2 ML AMP IV PRN (10:45)
[2021-02-07] MEDS ORDERED: polyethylene glycoL POWDER 17 GM (MIRALAX) PACK PO PRN (10:45)
[2021-02-07] MEDS ORDERED: HYDROcodone/APAP 7.5 MG/325 MG (LORTAB, LORCET PLUS) TABLET PO ONE (11:00)
[2021-02-07] MEDS: LACTOBACILLUS ACIDOPHILUS (PROBIOTIC) CAPSULE PO SCH ×3 (11:23→17:25)
[2021-02-07] MEDS ORDERED: PIPERACILLIN SODIUM/TAZOBACTAM 4.5 GM in NS (IVPB) 100 ML IV SCH ×2 (11:30→18:00)
[2021-02-07] MEDS: inSUlin ASPART (NovoLOG) 1 UNIT/0.01 ML (CHARGE PER UNIT) SC SCH ×3 (11:35→20:13)
--- NOTE | 2021-02-07 11:47 | Physical Therapy Evaluation ---
PT Evaluation-General Medical Diagnosis Admission Date Feb 07, 2021 at 09:40 Medical Diagnosis: Claude BKA Onset Date: Feb 03, 2021 Therapy Diagnosis Therapy Diagnosis: impaired mobility, strength, endurance, balance Precautions Precautions/Isolations: Fall Prevention, Standard Precautions Weight Bear Status Right Lower Extremity: Right Weight Bearing/Tolerated Left Lower Extremity: Left Non Weight Bearing NEW AMPUTATION Referral Physician: Sahra Butler DO Reason for Referral: Evaluation/Treatment Medical History Pertinent Medical History: CVA, DM, PVD Reviewed History: Yes Social History Home: [facility] Current Living Status: Children PT Steps Into Home: 3 Prior Prior Level of Function SCALE: Activities may be completed with or without assistive devices. 0-Ufazvhdsch-jcvznsg completes the activity by him/herself with no assistance from a helper. 5-Set-up or Clean-up Assistance-helper sets up or cleans up; patient completes activity. [place] assists only prior to or following the activity. 4-Supervision or Touching Assistance-helper provides verbal cues and/or touching/steadying and/or contact guard assistance as patient completes activity. Assistance may be provided throughout the activity or intermittently. 3-Partial/Moderate Assistance-helper does LESS THAN HALF the effort. [place] lifts, holds or supports trunk or limbs, but provides less than half the effort. 2-Substantial/Maximal Assistance-helper does MORE THAN HALF the effort. [place] lifts or holds trunk or limbs and provides more than half the effort. 5-Qhkwozagz-qxuijh does ALL the effort. Patient does none of the effort to complete the activity. Or, the assistance of 2 or more helpers is required for the patient to complete the activity. If activity was not attempted, code reason: 7-Patient Refused. 9-Not Applicable-not attempted and the patient did not perform the activity before the current illness, exacerbation or injury. 10-Not Attempted due to Environmental Limitations-(lack of equipment, weather restraints, etc.). 88-Not Attempted due to Medical Conditions or Safety Concerns. Bed Mobility: 6 Transfers (B,C,W/C): 3 Wheelchair Mobility: 6 Patient states that since october he hasn't ambulated and has used WC PT Evaluation-Current Subjective Patient in WC pre tx, agrees to PT, has 9/10 pain in right leg (not the amputated side), nurse comes in during tx with pain meds. Will be co-treating with OT for part of tx due to poor patient mobility,strength, endurance, severe pain with activity, coordinate UE and LE during activity, safety and reduce risk of falls. Pt/Family Goals to be independent at home. Objective Patient Orientation: Person, Place, Situation ROM/Strength ROM Lower Extremities NT due to pain Strength Lower Extremities RLE grossly 1/5, LLE not tested due to pain but he does have at least 3/5 with knee flex/ext and hip flexion Sensory Vision: Functional Hearing: Functional Sensation Right Lower Extremit: Impaired Sensation Left Lower Extremity: Impaired Transfers Roll Left & Right (QC): 6 Sit to Lying (QC): 3 Lying to Sitting/Side of Bed(Q: 3 Sit to Stand (QC): 1 Chair/Pkh-se-Xgjvf Xfer(QC): 3 Toilet Transfer (QC): 1 Car Transfer (QC): 1 Patient performs rolling independently, supine to sit mod assist, sit to supine min assist, dependent for sit <-> stand and stand pivot transfers but he can perform a sliding board transfer with mod assist, dependent for car transfer. Patient needs frequent cues for hand placement and safety. Gait Walk 10 feet (QC): 88 Walk 50 ft with 2 Turns(QC): 88 Walk 150 ft (QC): 88 Walking 10ft/uneven surface-QC: 88 Wheelchair Training Distance: 300', 100'x2 Wheel 50 ft with 2 turns (QC): 4 Wheel 150 ft (QC): 4 Type of Wheelchair: Manual SBA, needs frequent rest breaks Stairs 1 Step (curb) (QC): 88 4 Steps (QC): 88 12 Steps (QC): 88 Balance Sitting Static: Poor Sitting Dynamic: Poor Standing Static: Poor Standing Dynamic: Poor Picking up an Object (QC): 88 Special Test Comments sitting balance is poor due to poor trunk strength, uses arms to keep balance when sitting Treatment Patient performed seated trunk strengthening exercises, worked on limits of stability backward and side to side. Patient also worked on bathing and UE dressing. PT worked on WC mobility, transfers, bed mobility, safety and positioning during bathing/dressing, trunk strengthening, OT worked on bathing/dressing, trunk strengthening, UE positioning and safety during activity. Assessment/Needs Patient in bed post tx with nurse call, phone, tray, all needs met. Patient has impaired mobility, strength, endurance, balance. He is not able to stand, right leg is too weak, needs to practice sliding board. Rehab Potential: Fair PT Short Term Goals Short Term Goals Time Frame: Feb 14, 2021 Roll Left & Right: 6 Sit to lyin Lying to sitting on side of be: 4 Chair/pxj-hc-onqcy transfer: 3 (Oscar) PT Jail Goals Jail Goals PT Global Sales Executive Goals Time Frame: Feb 28, 2021 Roll Left & Right (QC): 6 Sit to Lying (QC): 6 Lying-Sitting on Side/Bed(QC): 6 Sit to Stand (QC): 88 Chair/Het-wc-Aivik Xfer(QC): 4 Toilet Transfer (QC): 4 Car Transfer (QC): 4 Does the Patient Walk: No and Walking Goal NOT indicated Walk 10 feet (QC): 88 Walk 50ft with 2 Turns (QC): 88 Walk 150 ft (QC): 88 Walking 10ft on Uneven Surface: 88 1 Step (curb) (QC): 88 4 Steps (QC): 88 12 Steps (QC): 88 Picking up an Object (QC): 88 Wheel 50 feet with 2 turns (QC: 6 Wheel 150 feet: 6 PT Plan Problem List Problem List: Activity Tolerance, Functional Strength, Safety, Balance, Gait, Transfer, Bed Mobility, ROM Treatment/Plan Treatment Plan: Continue Plan of Care Treatment Plan: Bed Mobility, Education, Functional Activity Nicky, Functional Strength, Group Therapy, Safety, Therapeutic Exercise, Transfers Treatment Duration: Feb 28, 2021 Frequency: At least 5 of 7 days/Wk (IRF) Estimated Hrs Per Day: 1.5 hours per day Patient and/or Family Agrees t: Yes Safety Risks/Education Patient Education: Transfer Techniques, Correct Positioning, W/C Management, Safety Issues Teaching Recipient: Patient Teaching Methods: Demonstration, Discussion Response to Teaching: Reinforcement Needed Discharge Recommendations Plan Patient will perform bed mobility and transfer training, balance and endurance training, functional strengthening, and education, to improve functional mobility and independence at home. Therapy Discharge Recommendati: Scheduled Assistance, Home & Family, Post Acute PT Time/GCodes Time In: 1030 Time Out: 1145 Total Billed Treatment Time: 75 Total Billed Treatment 1 visit EVM 10' EX 15' FA 50' PT eval from [id number], co-treat from [id number] DHIRAJ ORTEGA PT Feb 07, 2021 11:47
--- NOTE | 2021-02-07 13:04 | ST Cognitive Linguistic Eval ---
Speech Evaluation-General Medical Diagnosis L BKA Onset Date: Feb 03, 2021 Therapy Diagnosis Therapy Diagnosis: Cognitive Linguistic Skills WNL Precautions Precautions: Fall Precautions/Isolations: Standard Precautions Referral Referring Physician: Dr. Butler Reason for Referral: Evaluation/Treatment Medical History Pertinent Medical History: CVA, DM, PVD Current History The patient is a 61 year-old male with a past medical history of T2DM, stroke (residual right sided weakness), PAD, and a history of morbid obesity, who presented to [facility] with a left foot wound. The patient was found to have left foot gangrene. The patient underwent a BKA on 02/03/2021. Reviewed History: Yes Social History Current Living Status: Children Speech PLF-Current Status Prior Level of Function The patient completed ADL's independently prior to hospitalization. Subjective The patient was seated upright in his wheelchair upon entrance to his room. The patient greeted the clinician appropriately and was agreeable to participation in the cognitive linguistic evaluation. Language Eval: Auditory Comprehends Simple Yes/No Ques: Functional Indent/Objects Multiple Butler: Functional Ident/Pics in Multiple Butler: Functional Follows 1-Step Commands: Functional Follows Complex Directions: Functional Follows General Conversations: Functional Language Eval: Verbal Language Completes Spontaneous Greeting: Functional Produces Auto, Serial Info: Functional Imitates Simple Words/Phrases: Functional Word Finding: Functional Requests Basic Needs: Functional States Basic Personal Info: Functional Expresses Complex Ideas: Functional Language Evaluation: Reading Comprehends Single Nouns: Functional Language Evaluation: Writing Copies/Traces: Functional Writes to Simple Dictation: Functional Cognitive Patient Orientation The patient is independently oriented to self, location, city, month, day of week, date, and year. Objective Cognitive Domain Attention: WNL Memory: WNL Problem Solving: Functional Executive Functions: WNL Visuospatial Skills: WNL Clock Drawing Severity Rating: WNL Objective Formal/Standardized Tests [facility] Mental Status ([facility] [place]) Results The patient demonstrated a score of +28/30 on the SLUMS correlating to a result of a normal neurocognitive function. Oral Motor/Speech Production The patient does not display dysarthria or apraxia of speech. The patient is judged to be 100% intelligible in known and unknown contexts. Impression The patient is a 61 year-old male, who present with neurocognitive function within normal limits. The patient displayed one error with a money subtraction word problem. No additional errors would demonstrated. Speech Patient Assess Expression of Ideas/Wants: Expression (4) Understanding Verbal Content: Understands (4) Brief Interview-Mental Status: Yes Repetition of Three Words: Three (3) Temporal Orientation: Year: Correct (3) Temporal Orientation: Month: Accurate within 5 days(2) Temporal Orientation: Day: Correct (1) Recall : Wear to say "Sock": Yes, no cue required (2) Recall : Color: Yes, no cue required (2) Recall : Bed: Yes, no cue required (2) Memory/Recall Ability: Current season, Staff names and faces, That he or she is in a hsp/hsp unit Speech-Plan Patient/Family Goals Patient/Family Goals: The patient wishes to return home "as soon as I can." Treatment Plan Speech Therapy Treatment Plan: Discontinue ST Frequency: 1 time per week Estimated Hrs Per Day: .5 hour per day Rehab Potential: Fair Pt/Family Agrees to Plan: Yes Safety Risks/Education Teaching Recipient: Patient Teaching Methods: Discussion Response to Teaching: Verbalize Understanding Education Topics Provided: Results of CIERRA, Plan of Care, Rehabilitation Unit Schedule/Routines Time Speech Therapy Time In: 10:00 Speech Therapy Time Out: 10:30 Total Billed Time: 30 Billed Treatment Time 1, TRUDI AVILES [facility] ST Feb 07, 2021 13:04
[2021-02-07] MEDS ORDERED: CATHETER FLUSH 10 ML SYR IV PRN (14:00)
[2021-02-07] MEDS: CATHETER FLUSH 10 ML SYR IV SCH ×2 (15:29→20:15)
[2021-02-07] MEDS: HYDROcodone/APAP 7.5 MG/325 MG (LORTAB, LORCET PLUS) TABLET PO PRN (16:33)
[2021-02-07 20:00] VITALS: BP 149/79
[2021-02-07] MEDS: SENNOSIDES 8.6 MG (SENOKOT) TAB PO SCH (20:13)
[2021-02-07] MEDS: DOCUSATE SODIUM 100 MG (COLACE) CAP PO SCH (20:13)
[2021-02-07] MEDS: GABAPENTIN 600 MG (NEURONTIN) TAB PO SCH (20:13)
[2021-02-07] MEDS: SENNA W/DOCUSATE (SENOKOT S) TABLET PO SCH (20:13)
[2021-02-07] MEDS: polyethylene glycoL POWDER 17 GM (MIRALAX) PACK PO SCH (20:13)
[2021-02-07] MEDS ORDERED: DOCUSATE SODIUM 100 MG (COLACE) CAP PO SCH (21:00)
[2021-02-08] MEDS: HYDROcodone/APAP 7.5 MG/325 MG (LORTAB, LORCET PLUS) TABLET PO PRN ×6 (00:57→23:12)
[2021-02-08] MEDS: CATHETER FLUSH 10 ML SYR IV SCH ×3 (05:43→20:58)
[2021-02-08] MEDS: inSUlin ASPART (NovoLOG) 1 UNIT/0.01 ML (CHARGE PER UNIT) SC SCH ×4 (05:53→20:57)
[2021-02-08 05:55] LABS: BASOPHILS % (AUTO) 0 % (0-10); EOSINOPHILS # (AUTO) 0.2 10^3/uL (0.0-0.3); EOSINOPHILS % (AUTO) 2 % (0-10); HEMATOCRIT 35 % (40-54); HEMOGLOBIN 10.8 g/dL (13.3-17.7); LYMPHOCYTES # (AUTO) 3.2 10^3/uL (1.0-4.0); LYMPHOCYTES % (AUTO) 28 % (12-44); MEAN CORPUSCULAR HEMOGLOBIN 27 pg (25-34); MEAN CORPUSCULAR HGB CONC 31 g/dL (32-36); MEAN CORPUSCULAR VOLUME 87 fL (80-99); MEAN PLATELET VOLUME 9.6 fL (9.0-12.2); MONOCYTES # (AUTO) 1.2 10^3/uL (0.0-1.0); MONOCYTES % (AUTO) 10 % (0-12); NEUTROPHILS # (AUTO) 6.9 10^3/uL (1.8-7.8); NEUTROPHILS % (AUTO) 60 % (42-75); PLATELET COUNT 522 10^3/uL (130-400); WHITE BLOOD COUNT 11.5 10^3/uL (4.3-11.0)
[2021-02-08 06:17] LABS: ALBUMIN 2.5 GM/DL (3.2-4.5)
[2021-02-08 06:18] LABS: POTASSIUM 3.6 MMOL/L (3.6-5.0)
[2021-02-08 06:19] LABS: CALCIUM 8.2 MG/DL (8.5-10.1)
[2021-02-08 06:20] LABS: TOTAL PROTEIN 6.4 GM/DL (6.4-8.2)
[2021-02-08 06:22] LABS: BILIRUBIN,TOTAL 0.3 MG/DL (0.1-1.0)
[2021-02-08 06:24] LABS: CREATININE SERUM 0.54 MG/DL (0.60-1.30)
[2021-02-08] MEDS: metFORMIN 500 MG (GLUCOPHAGE) TAB PO SCH (06:41)
--- NOTE | 2021-02-08 06:46 | Individualized Plan of Care ---
Individualized Plan of Care Rehab Nursing IPOC Order Admission Date Feb 07, 2021 at 09:40 Current Orders Orders Admission Order(Inpt,Obs,Sdc) (02/07/21 09:54) Vital Signs: Per Unit Policy ( 16,00 (02/07/21 09:54) Tom Davis (02/07/21 09:54) Sequential Compression Device (02/07/21 09:54) Burn Out Scarfing Operator-Inpt Rehab Con (02/07/21 09:54) Rehab Nursing Orders-Ipoc (02/07/21 09:54) Physical Therapy Rehab Orders (02/07/21 09:54) Occupational Therapy Rehab Ord (02/07/21 09:54) Speech Therapy Rehab Orders (02/07/21 09:54) Cbc With Automated Diff (02/08/21 06:00) Comprehensive Metabolic Panel (02/08/21 06:00) Precautions (Aru) (02/07/21 09:54) Weekly Weight WEEK (02/07/21 09:54) Rehab-Intensity Of Therapy (02/07/21 09:54) Initiate Admission Nursing Pro .admission (02/07/21 09:54) Alprazolam Tablet (Xanax Tablet) (02/07/21 10:00) Calcium Carbonate Chew Tablet (Antacid C (02/07/21 10:00) Diphenhydramine Tablet (Benadryl Tablet) (02/07/21 10:00) Docusate Sodium Capsule (Colace Capsule) (02/07/21 21:00) Docusate Sodium Capsule (Colace Capsule) (02/07/21 10:00) Bisacodyl Suppository (Dulcolax Supposit (02/07/21 10:00) Lactulose Oral Solution (Enulose Oral So (02/07/21 10:00) Na Phos/Na Biphos Enema (Fleet Enema Gavin (02/07/21 10:00) Guaifenesin/Codeine Syrup (Robitussin Ac (02/07/21 10:00) Loperamide Tablet (Imodium Tablet) (02/07/21 10:00) Melatonin Tablet (Melatonin Tablet) (02/07/21 10:00) Polyethylene Glycol Powder Pkt (Miralax (02/07/21 21:00) Ondansetron Oral Dissolve Tab (Zofran (02/07/21 10:00) Senna S Tablet (Senokot S Tablet) (02/07/21 21:00) Acetaminophen Tablet/Caplet (Tylenol T (02/07/21 10:00) Code/Resuscitation (02/07/21 09:54) Sequential Compression Device ONCE (02/07/21 09:54) Initiate Admission Nursing Pro .admission (02/07/21 09:54) Admission Arrival Bed Request (02/07/21 10:05) Admission Arrival Bed Request (02/07/21 10:14) Code/Resuscitation (02/07/21 10:32) Accucheck Achs ACHS (02/07/21 10:32) Dressing Order (Intervention) DAILY (02/07/21 10:32) Incentive Spirometry (Nursing) Q2H (02/07/21 10:32) Vital Signs: Anesthesia Post P (02/07/21 10:32) Weight Bearing Restrictions (02/07/21 10:32) General/Regular (02/07/21 Lunch) Acetaminophen Suppository (Tylenol Suppo (02/07/21 10:45) Aspirin Enteric Coated Tablet (Ecotrin T (02/08/21 09:00) Atorvastatin Tablet (Lipitor Tablet) (02/07/21 21:00) Clopidogrel Tablet (Plavix Tablet) (02/08/21 09:00) Docusate Sodium Capsule (Colace Capsule) (02/07/21 21:00) Gabapentin Capsule/Tablet (Neurontin Cap (02/07/21 21:00) Hydrocodone/Apap 7.5/325 Tab (Lortab 7. (02/07/21 10:45) Ondansetron Injection (Zofran Injectio (02/07/21 10:45) Piperacillin Sodium/Tazobactam (Zosyn Vi (02/07/21 18:00) Sennosides Tablet (Senokot Tablet) (02/07/21 21:00) Fentanyl Inj (Sublimaze Injection) (02/07/21 10:45) Insulin Aspart (Novolog) (Novolog (Charg (02/07/21 11:00) Metformin Tablet (Glucophage Tablet) (02/08/21 07:00) Polyethylene Glycol Powder Pkt (Miralax (02/07/21 10:45) Consult General Surgery (02/07/21 10:32) Incentive Spirometry Initial (02/07/21 10:32) Incentive Spirometry (Nursing) Q2H (02/07/21 10:32) Lactobacillus Acidophilus Cap (Acidophil (02/07/21 10:45) Hydrocodone/Apap 7.5/325 Tab (Lortab 7. (02/07/21 11:00) Piperacillin Sodium/Tazobactam (Zosyn Vi (02/07/21 11:30) Sodium Chloride Flush (Catheter Flush Sy (02/07/21 14:00) Sodium Chloride Flush (Catheter Flush Sy (02/07/21 14:00) Patient Visit (02/07/21 ) Pt Eval Moderate Complexity (02/07/21 ) Exercise Therap, Ea 15 Min (02/07/21 ) Functional Activities, Ea 15 (02/07/21 ) Patient Visit (02/07/21 ) Speech Sound Lang Comp (02/07/21 ) Treat. Speech/Lang/Voice (02/07/21 ) Patient Visit (02/08/21 ) Exercise Therap, Ea 15 Min (02/08/21 ) Functional Activities, Ea 15 (02/08/21 ) Rehab Nursing Orders: Ongoing Assess. of Cognitive Status, Ongoing Assess. of Function Status, Bladder Management, Bladder Scan, Bladder Training, Bowel Management, Bowel Training, Disease Management & Educaiton, DVT Prophylaxis, Fall Prevention, Fluid/Electrolyte/Nutrition Mgmt, Infection Prevention, Medication Management & Education, Management of Risks & Complications, Management of Skin Intergrity, Nutrition Management, Pain Management, Patient/Family Support, Safety Management, Weight Bearing Precaution, Wound Management Intensity of Therapy to be met Patient to be seen: Min.3h per day/5 of 7d PT IPOC Problem List: Activity Tolerance, Functional Strength, Safety, Balance, Gait, Transfer, Bed Mobility, ROM Treatment Plan: Continue Plan of Care Bed Mobility, Education, Functional Activity Nicky, Functional Strength, Group Therapy, Safety, Therapeutic Exercise, Transfers Treatment Duration: Feb 28, 2021 Frequency: At least 5 of 7 days/Wk (IRF) Estimated Hrs Per Day: 1.5 hours per day OT IPOC Problems: Decreased Activ Tolerance, Decreased UE Strength, Dependent Transfers, Impaired Bed Mobility, Impaired Funct Balance, Impaired Self-Care Skills OT Treatment, Training and Edu: Yes Plan of Care: ADL Retraining, Functional Mobility, Group Exercise/Act as Ind, UE Funct Exercise/Act, UE Neuromus Re-Ed/Coord, W/C Management Training Treatment Duration: Mar 04, 2021 Frequency: At least 5 of 7 days/Wk (IRF) Estimated Hrs Per Day: 1.[address] IPOC Speech Therapy Treatment Plan: Discontinue ST Treatment Duration: Feb 08, 2021 Frequency: 1 time per week Estimated Hrs Per Day: .5 hour per day Burn Out Scarfing Operator/Case Mgmt Burn Out Scarfing Operator/Case Managemen: Discharge Planning Dietitian/Milling Machine Operator Gear Dietitian/Milling Machine Operator Gear to monitor nutritional status and make changes and/or recommendations as needed and work with speech pathology on dietary upgrades as the occur. Physician IPOC Medical Issues being managed closely and that require the 24 hour availability of a physician: Recent amputation with severe pain along with management diabetes require close monitoring for infection and sepsis Medical Issues: Bowel/Bladder Function, DVT Prophylaxis, Falls Precautions, Fluid/Electrolyte/Nutrition Balance, Infection Protection, Pain Management, Weight Bearing Precautions, Wound Care Brief Synthesis of Preadmission Screen, Post-Admission Evaluation, and Therapy Evaluations: PT and OT will focus on wheelchair mobility and increasing independence in ADLs in order to return back to independent living Medical Prognosis: Good Anticipated Length of Stay: 7 days MAXI BOWSER DO Feb 08, 2021 06:46
--- NOTE | 2021-02-08 06:46 | PM&R Progress Note ---
Subjective HPI/CC On Admission Date Seen by Provider: Feb 08, 2021 Time Seen by Provider: 09:00 Subjective/Events-last exam 02/08/2021: Pt doing about the same Pain is an issue IV antibiotics mainted WBC 11.8 HGB 10.8 Bowels are moving Review of Systems General: Fatigue, Malaise Musculoskeletal: leg pain Objective Exam Vital Signs Vital Signs Date Time Temp Pulse Resp B/P (MAP) Pulse Ox O2 Delivery O2 Flow Rate FiO2 02/08/21 21:05 Room Air 02/08/21 19:26 36.3 88 18 147/78 (101) 97 Capillary Refill : General Appearance: No Apparent Distress, WD/WN, Chronically ill HEENT: PERRL/EOMI, Normal ENT Inspection, Pharynx Normal Neck: Full Range of Motion, Normal Inspection, Non Tender, Supple, Carotid Bruit Respiratory: Chest Non Tender, Lungs Clear, Normal Breath Sounds, No Accessory Muscle Use, No Respiratory Distress Cardiovascular: Regular Rate, Rhythm, No Edema, No Gallop, No JVD, No Murmur, Normal Peripheral Pulses Gastrointestinal: Normal Bowel Sounds, No Organomegaly, No Pulsatile Mass, Non Tender, Soft Back: Normal Inspection, No CVA Tenderness, No Vertebral Tenderness Extremity: Normal Capillary Refill, Normal Inspection, Normal Range of Motion, Non Tender, No Calf Tenderness, No Pedal Edema, Other (Left below-knee amputation) Neurologic/Psychiatric: Alert, Oriented x3, No Motor/Sensory Deficits, Normal Mood/Affect, Abnormal Gait, Motor Weakness (Right-sided weakness 2/5) Skin: Normal Color, Warm/Dry Lymphatic: No Adenopathy Results/Procedures Lab Laboratory Tests 02/08/21 05:44 Patient resulted labs reviewed. FIM Transfers Therapy Code Descriptions/Definitions Functional [place] Measure: 0=Not Assessed/NA 4=Minimal Assistance 1=Total Assistance 5=Supervision or Setup 2=Maximal Assistance 6=Modified [place] 3=Moderate Assistance 7=Complete IndependenceSCALE: Activities may be completed with or without assistive devices. 7-Jhmlpxqiqq-xdsydfi completes the activity by him/herself with no assistance from a helper. 5-Set-up or Clean-up Assistance-helper sets up or cleans up; patient completes activity. [place] assists only prior to or following the activity. 4-Supervision or Touching Assistance-helper provides verbal cues and/or touching/steadying and/or contact guard assistance as patient completes activity. Assistance may be provided throughout the activity or intermittently. 3-Partial/Moderate Assistance-helper does LESS THAN HALF the effort. [place] lifts, holds or supports trunk or limbs, but provides less than half the effort. 2-Substantial/Maximal Assistance-helper does MORE THAN HALF the effort. [place] lifts or holds trunk or limbs and provides more than half the effort. 5-Dihrwarue-jyzfci does ALL the effort. Patient does none of the effort to complete the activity. Or, the assistance of 2 or more helpers is required for the patient to complete the activity. If activity was not attempted, code reason: 7-Patient Refused. 9-Not Applicable-not attempted and the patient did not perform the activity before the current illness, exacerbation or injury. 10-Not Attempted due to Environmental Limitations-(lack of equipment, weather restraints, etc.). 88-Not Attempted due to Medical Conditions or Safety Concerns. Roll Left to Right (QC): 6 Sit to Lying (QC): 3 Sit to Stand (QC): 1 Chair/Idx-wf-Mlefr Xfer(QC): 3 Car Transfer (QC): 1 Gait Training Does the Patient Walk?: No and Walking Goal NOT indicated Walk 10 feet (QC): 88 Walk 50 ft with 2 Turns(QC): 88 Walk 150 ft (QC): 88 Walking 10ft/uneven surface-QC: 88 Wheelchair Training Does the Pt Use a Wheelchair?: Yes Distance: 300', 100'x2 Wheel 50 ft with 2 turns (QC): 4 Wheel 150 ft (QC): 4 Type of Wheelchair: Manual Stair Training 1 Step (curb) (QC): 88 4 Steps (QC): 88 12 Steps (QC): 88 Balance Picking up an Object (QC): 88 ADL-Treatment Eating (QC): 4 Oral Hygiene (QC): 9 (Pt reports he owns dentures but does not wear. ) Shower/Bathe Self (QC): 1 Upper Body Dressing (QC): 2 Lower Body Dressing (QC): 1 On/Off Footwear (QC): 1 Toileting Hygiene (QC): 1 Assessment/Plan Assessment and Plan Assess & Plan/Chief Complaint Assessment: Status post left below-knee amputation due to gangrene History of CVA with right-sided weakness History of super morbid obesity now BMI 22 Diabetes Previous smoker BPH Plan: Inpatient rehab protocol [facility] Pain control 02/08/2021: Pain control Protocol for rehab (1) History of left below knee amputation (2) Tobacco abuse Status: Acute (3) History of stroke Status: Chronic (4) PAD (peripheral artery disease) Status: Acute (5) BPH (benign prostatic hyperplasia) Status: Chronic (6) T2DM (type 2 diabetes mellitus) Status: Acute (7) Dyslipidemia Status: Acute (8) History of morbid obesity Status: Chronic MAXI BOWSER DO Feb 08, 2021 06:46
[2021-02-08 08:00] VITALS: BP 144/74
[2021-02-08] MEDS: polyethylene glycoL POWDER 17 GM (MIRALAX) PACK PO SCH ×2 (08:47→20:57)
[2021-02-08] MEDS: SENNA W/DOCUSATE (SENOKOT S) TABLET PO SCH ×2 (09:02→20:57)
[2021-02-08] MEDS: LACTOBACILLUS ACIDOPHILUS (PROBIOTIC) CAPSULE PO SCH ×3 (09:02→16:53)
[2021-02-08] MEDS: ASPIRIN E.C. 81 MG (ECOTRIN) TAB PO SCH (09:02)
[2021-02-08] MEDS: CLOPIDOGREL 75 MG (PLAVIX) TABLET PO SCH (09:02)
[2021-02-08] MEDS: DOCUSATE SODIUM 100 MG (COLACE) CAP PO SCH ×2 (09:02→20:57)
[2021-02-08] MEDS: GABAPENTIN 600 MG (NEURONTIN) TAB PO SCH ×2 (09:02→20:57)
[2021-02-08] MEDS: SENNOSIDES 8.6 MG (SENOKOT) TAB PO SCH ×2 (09:02→20:57)
--- NOTE | 2021-02-08 09:29 | Physical Therapy Daily Note ---
PT Daily Note-Current Subjective Patient in bed pre tx, agrees to PT, has 7/10 pain in right leg, patient doesn't complain of pain in left leg very much. Will be co-treating with OT due to poor patient mobility, strength, endurance, poor balance, severe pain with activity, coordinate UE and LE during activity, safety and reduce risk of falls. Appearance Patient in bed post tx with nurse call, phone, tray, all needs met. Mental Status Patient Orientation: Person, Place, Situation Transfers SCALE: Activities may be completed with or without assistive devices. 4-Nkrnwwynpx-uenygte completes the activity by him/herself with no assistance fr om a helper. 5-Set-up or Clean-up Assistance-helper sets up or cleans up; patient completes activity. [place] assists only prior to or following the activity. 4-Supervision or Touching Assistance-helper provides verbal cues and/or touching/steadying and/or contact guard assistance as patient completes activity. Assistance may be provided throughout the activity or intermittently. 3-Partial/Moderate Assistance-helper does LESS THAN HALF the effort. [place] lifts, holds or supports trunk or limbs, but provides less than half the effort. 2-Substantial/Maximal Assistance-helper does MORE THAN HALF the effort. [place] lifts or holds trunk or limbs and provides more than half the effort. 3-Zybpedjmt-qrlpqi does ALL the effort. Patient does none of the effort to complete the activity. Or, the assistance of 2 or more helpers is required for the patient to complete the activity. If activity was not attempted, code reason: 7-Patient Refused. 9-Not Applicable-not attempted and the patient did not perform the activity before the current illness, exacerbation or injury. 10-Not Attempted due to Environmental Limitations-(lack of equipment, weather restraints, etc.). 88-Not Attempted due to Medical Conditions or Safety Concerns. Roll Left & Right (QC): 3 Sit to Lying (QC): 3 Lying to Sitting/Side of Bed(Q: 3 Chair/Otg-rg-Pcxji Xfer(QC): 3 Patient has to roll from side to side for dressing, mod assist for supine to sit, sit to supine min assist, sliding board transfer mod assist to WC and when done back to bed. Weight Bearing Right Lower Extremity: Right Weight Bearing/Tolerated Left Lower Extremity: Left Non Weight Bearing NEW AMPUTATION Wheelchair Training Does the Pt Use a Wheelchair?: Yes Wheel 50 ft with 2 turns (QC): 4 Wheel 150 ft (QC): 4 Type of Wheelchair: Manual 600', frequent rest breaks Exercises worked on core strength, seated exercises with UE's and no support for trunk, manually resisted leg press for right leg 3 sets of 10 Treatments PT performed bed mobility and transfers, WC mobility, rolling for dressing, strengthening, OT performed dressing, UE strengthening, UE positioning and safety during activity. Assessment Current Status: Poor Progress Patient has severe debility, if he could possibly get some increased strength in his right leg it would benefit his transfers and general mobility greatly. PT Short Term Goals Short Term Goals Time Frame: Feb 14, 2021 Roll Left & Right: 6 Sit to lyin Lying to sitting on side of be: 4 Chair/nkw-mh-piufe transfer: 3 (Oscar) PT Machine Records Units Supervisor Goals Machine Records Units Supervisor Goals PT [facility] Goals Time Frame: Feb 28, 2021 Roll Left & Right (QC): 6 Sit to Lying (QC): 6 Lying-Sitting on Side/Bed(QC): 6 Sit to Stand (QC): 88 Chair/Znv-qj-Qdiyq Xfer(QC): 4 Toilet Transfer (QC): 4 Car Transfer (QC): 4 Does the Patient Walk: No and Walking Goal NOT indicated Walk 10 feet (QC): 88 Walk 50ft with 2 Turns (QC): 88 Walk 150 ft (QC): 88 Walking 10ft on Uneven Surface: 88 1 Step (curb) (QC): 88 4 Steps (QC): 88 12 Steps (QC): 88 Picking up an Object (QC): 88 Wheel 50 feet with 2 turns (QC: 6 Wheel 150 feet: 6 PT Plan Problem List Problem List: Activity Tolerance, Functional Strength, Safety, Balance, Gait, Transfer, Bed Mobility, ROM Treatment/Plan Treatment Plan: Continue Plan of Care Treatment Plan: Bed Mobility, Education, Functional Activity Nicky, Functional Strength, Group Therapy, Safety, Therapeutic Exercise, Transfers Treatment Duration: Feb 28, 2021 Frequency: At least 5 of 7 days/Wk (IRF) Estimated Hrs Per Day: 1.5 hours per day Patient and/or Family Agrees t: Yes Safety Risks/Education Patient Education: Transfer Techniques, Correct Positioning, W/C Management, Safety Issues Teaching Recipient: Patient Teaching Methods: Demonstration, Discussion Response to Teaching: Reinforcement Needed Time/GCodes Time In: 0800 Time Out: 929 Total Billed Treatment Time: 90 Total Billed Treatment 1 visit EX 30' FA 60' co-treated for 90' DHIRAJ ORTEGA PT Feb 08, 2021 09:29
--- NOTE | 2021-02-08 09:31 | Occupational Ther Daily Note ---
OT Current Status-Daily Note Subjective Reports pain in Right UE/LE as 7/10. Pt reports meds were given around 0600. Co treat with Pt due to poor activity tolerance, high pain levels, high fall risk and need of 2 skilled clinicians to progress indep with mobility and adls. Appearance Pt left supine in bed, all needs within reach. Mental Status/Objective Patient Orientation: Person, Place, Situation ADL-Treatment Therapy Code Descriptions/Definitions Functional [place] Measure: 0=Not Assessed/NA 4=Minimal Assistance 1=Total Assistance 5=Supervision or Setup 2=Maximal Assistance 6=Modified [place] 3=Moderate Assistance 7=Complete IndependenceSCALE: Activities may be completed with or without assistive devices. 9-Ertsgvqqxg-cddmykt completes the activity by him/herself with no assistance from a helper. 5-Set-up or Clean-up Assistance-helper sets up or cleans up; patient completes activity. [place] assists only prior to or following the activity. 4-Supervision or Touching Assistance-helper provides verbal cues and/or touching/steadying and/or contact guard assistance as patient completes activity. Assistance may be provided throughout the activity or intermittently. 3-Partial/Moderate Assistance-helper does LESS THAN HALF the effort. [place] lifts, holds or supports trunk or limbs, but provides less than half the effort. 2-Substantial/Maximal Assistance-helper does MORE THAN HALF the effort. [place] lifts or holds trunk or limbs and provides more than half the effort. 0-Qeswebogj-ergrum does ALL the effort. Patient does none of the effort to complete the activity. Or, the assistance of 2 or more helpers is required for the patient to complete the activity. If activity was not attempted, code reason: 7-Patient Refused. 9-Not Applicable-not attempted and the patient did not perform the activity b efore the current illness, exacerbation or injury. 10-Not Attempted due to Environmental Limitations-(lack of equipment, weather restraints, etc.). 88-Not Attempted due to Medical Conditions or Safety Concerns. Upper Body Dressing (QC): 3 Lower Body Dressing (QC): 2 On/Off Footwear: 1 Toileting Hygiene (QC): 1 Pt incontinent of bowels at OT arrival. Dep for [place] care. Difficulty maintaining sidelying and requires intermittent min a to sustain position along with use of bedrails. Dressing tasks performed at bed level. Due to poor trunk control, upper and lower body dressing performed in long sitting with HOB elevated. Min a needed to pull shirt down around trunk. Pt often reaching for bedrails to assist in balance. Min Assist to cross RLE as pt threaded foot into pants. Pt able to thread residual limb in long sitting without assist. Clothing management completed in supine and rolling R/L. Min-mod a to roll completely into sidelying and tactile cues on placement of hand to grab pants. Min a to pull up completely over hips. Other Treatment Slide board transfer: When going from high to low surface, mod a and min verbal cues for sequencing/technique. Max a required when going from low to high surface. Pt participated in static sitting task (nuts/bolts) with goal to improve core strength, balance, endurance, UE strength/use and coordination. Curvature at spine impacting posture. No physical assistance required to maintain balance, but pt does need intermittent unilateral UE support to adjust/maintain balance. Several rest breaks required due to pain, impaired sensation, and poor tolerance.Pt propelled w/c throughout unit, cues for improved propulsion. Several rest breaks needed. Education OT Patient Education: Correct positioning, Energy conservation, Modified ADL techniques, Progress toward Goal/Update tx plan, Purpose of tx/functional activities, Rehab process, Safety issues, Transfer techniques, W/C management Teaching Recipient: Patient Teaching Methods: Demonstration, Discussion Response to Teaching: Verbalize Understanding, Return Demonstration OT Short Term Goals Short Term Goals Time Frame: Feb 17, 2021 Eatin Oral hygiene: 5 Toileting hygiene: 2 Shower/bathe self: 2 Upper body dressin Lower body dressin Putting on/taking off footwear: 2 OT Skilled Nursing Goals Skilled Nursing Goals Time Frame: Mar 04, 2021 Eating (QC): 5 Oral Hygiene (QC): 5 Toileting Hygiene (QC): 3 Shower/Bathe Self (QC): 4 Upper Body Dressing (QC): 5 Lower Body Dressing (QC): 4 On/Off Footwear (QC): 4 1=Demonstrate adherence to instructed precautions during ADL tasks. 2=Patient will verbalize/demonstrate understanding of assistive devices/modifications for ADL. 3=Patient will improve strength/tolerance for activity to enable patient to perform ADL's. OT Education/Plan Problem List/Assessment Assessment: Decreased Activ Tolerance, Decreased Safety Aware, Decreased UE Strength, Dependent Transfers, Impaired Coordination, Impaired Funct Balance, Impaired Self-Care Skills, Restricted Funct UE ROM Discharge Recommendations Plan/Recommendations: Continue POC Treatment Plan/Plan of Care Treatment,Training & Education: Yes Patient would benefit from OT for education, treatment and training to promote independence in ADL's, mobility, safety and/or upper extremity function for ADL's. Plan of Care: ADL Retraining, Functional Mobility, Group Exercise/Act as Ind, UE Funct Exercise/Act, UE Neuromus Re-Ed/Coord, W/C Management Training Treatment Duration: Mar 04, 2021 Frequency: At least 5 of 7 days/Wk (IRF) Estimated Hrs Per Day: 1.5 hours per day Agreement: Yes Rehab Potential: Fair Time/GCodes Start Time: 08:00 Stop Time: 09:30 Total Time Billed (hr/min): 90 Billed Treatment Time 1 visit ADL x2 (35 min) FA x4 (55 min) Judi Mane OT Feb 08, 2021 09:31
[2021-02-08 19:26] VITALS: BP 147/78
[2021-02-09] MEDS: HYDROcodone/APAP 7.5 MG/325 MG (LORTAB, LORCET PLUS) TABLET PO PRN ×5 (04:53→22:01)
[2021-02-09] MEDS: inSUlin ASPART (NovoLOG) 1 UNIT/0.01 ML (CHARGE PER UNIT) SC SCH ×4 (05:23→20:43)
[2021-02-09] MEDS: CATHETER FLUSH 10 ML SYR IV SCH ×3 (06:10→21:18)
[2021-02-09] MEDS: metFORMIN 500 MG (GLUCOPHAGE) TAB PO SCH (06:10)
[2021-02-09 07:19] VITALS: BP 146/79
--- NOTE | 2021-02-09 08:48 | Occupational Ther Daily Note ---
OT Current Status-Daily Note Subjective Reports phantom pain and R sided pain as 9/10. States pain meds given around ~0600. Co treat with PT for part of session ([id number]) due to poor activity tolerance, high pain levels, high fall risk and need of 2 skilled clinicians to progress indep with mobility and adls. Appearance Left sitting in gym with physical therapy present Mental Status/Objective Patient Orientation: Person, Place, Situation ADL-Treatment Therapy Code Descriptions/Definitions Functional [place] Measure: 0=Not Assessed/NA 4=Minimal Assistance 1=Total Assistance 5=Supervision or Setup 2=Maximal Assistance 6=Modified [place] 3=Moderate Assistance 7=Complete IndependenceSCALE: Activities may be completed with or without assistive devices. 7-Okvwemgdur-nhrkovj completes the activity by him/herself with no assistance from a helper. 5-Set-up or Clean-up Assistance-helper sets up or cleans up; patient completes activity. [place] assists only prior to or following the activity. 4-Supervision or Touching Assistance-helper provides verbal cues and/or touching/steadying and/or contact guard assistance as patient completes activity. Assistance may be provided throughout the activity or intermittently. 3-Partial/Moderate Assistance-helper does LESS THAN HALF the effort. [place] lifts, holds or supports trunk or limbs, but provides less than half the effort. 2-Substantial/Maximal Assistance-helper does MORE THAN HALF the effort. [place] lifts or holds trunk or limbs and provides more than half the effort. 5-Vjwplilcl-lzawof does ALL the effort. Patient does none of the effort to complete the activity. Or, the assistance of 2 or more helpers is required for the patient to complete the activity. If activity was not attempted, code reason: 7-Patient Refused. 9-Not Applicable-not attempted and the patient did not perform the activity before the current illness, exacerbation or injury. 10-Not Attempted due to Environmental Limitations-(lack of equipment, weather restraints, etc.). 88-Not Attempted due to Medical Conditions or Safety Concerns. Upper Body Dressing (QC): 3 Lower Body Dressing (QC): 2 On/Off Footwear: 1 Toileting Hygiene (QC): 1 Pt refuses shower. Appears to be slightly apprehensive about task. OT provides support and education on method and performing task in shower w/c; may attempt tomorrow. Pt incontinent of bowels at OT arrival. Dep for [place] care. Difficulty maintaining sidelying and requires intermittent min a to sustain position along with use of bedrails. Dressing tasks performed at bed level. Due to poor trunk control, upper and lower body dressing performed in long sitting with HOB elevated. Min a needed to pull shirt down around trunk. Pt often reaching for bedrails to assist in balance. No assist needed this date to cross RLE in order to thread foot into pants. Pt able to thread residual limb in long sitting without assist. Clothing management completed in supine and rolling R/L. Min-mod a to roll completely into sidelying and Tactile cues on placement of hand to grab pants. Min-mod a to pull up completely over hips. Other Treatment Pt participated in static sitting task (pvc pipe activity) to promote increased sitting balance, core strength, travel coordinator/hand strength, and UE strength/use needed for adls, transfers, and w/c mobility. Pt only able to tolerate unsupported sitting for ~3 minutes before needing rest break. Curvature of spine impacts upright posture. Due to weakness in hand, min-mod a needed at times to fasten/unfasten pipes from connector pieces. Pt also completed w/c pushups 10x2 yet unable to get buttocks completely off seat. Education OT Patient Education: Correct positioning, Energy conservation, Modified ADL techniques, Progress toward Goal/Update tx plan, Purpose of tx/functional activities, Reviewed precautions, Rehab process, Safety issues, Transfer techniques, Use of adapted equipment, W/C management Teaching Recipient: Patient Teaching Methods: Demonstration, Discussion Response to Teaching: Verbalize Understanding, Return Demonstration, Reinforcement Needed OT Short Term Goals Short Term Goals Time Frame: Feb 17, 2021 Eatin Oral hygiene: 5 Toileting hygiene: 2 Shower/bathe self: 2 Upper body dressin Lower body dressin Putting on/taking off footwear: 2 OT Manager Truck Goals [facility] Goals Time Frame: Mar 04, 2021 Eating (QC): 5 Oral Hygiene (QC): 5 Toileting Hygiene (QC): 3 Shower/Bathe Self (QC): 4 Upper Body Dressing (QC): 5 Lower Body Dressing (QC): 4 On/Off Footwear (QC): 4 1=Demonstrate adherence to instructed precautions during ADL tasks. 2=Patient will verbalize/demonstrate understanding of assistive devices/modifications for ADL. 3=Patient will improve strength/tolerance for activity to enable patient to perform ADL's. OT Education/Plan Problem List/Assessment Assessment: Decreased Activ Tolerance, Decreased UE Strength, Dependent Tra nsfers, Impaired Bed Mobility, Impaired Coordination, Impaired Funct Balance, Impaired I ADL's, Impaired Self-Care Skills, Restricted Funct UE ROM Discharge Recommendations Plan/Recommendations: Continue POC Treatment Plan/Plan of Care Treatment,Training & Education: Yes Patient would benefit from OT for education, treatment and training to promote independence in ADL's, mobility, safety and/or upper extremity function for ADL's. Plan of Care: ADL Retraining, Functional Mobility, Group Exercise/Act as Ind, UE Funct Exercise/Act, UE Neuromus Re-Ed/Coord, W/C Management Training Treatment Duration: Mar 04, 2021 Frequency: At least 5 of 7 days/Wk (IRF) Estimated Hrs Per Day: 1.5 hours per day Agreement: Yes Rehab Potential: Fair Time/GCodes Start Time: 07:45 Stop Time: 08:45 Total Time Billed (hr/min): 60 Billed Treatment Time 1 visit ADL (20 min) FA x3 (40 min) Judi Mane OT Feb 09, 2021 08:48
--- NOTE | 2021-02-09 08:58 | Physical Therapy Daily Note ---
PT Daily Note-Current Subjective Patient in bed pre tx, agrees to PT, has 9/10 pain in right UE and LE, states he is not due for pain meds for a while. Will be co-treating with OT due to poor patient mobility, strength, endurance, severe pain with activity, coordinate UE and LE during activity, safety and reduce risk of falls. Appearance Patient in bed post tx with nurse call, phone, tray, all needs met. Mental Status Patient Orientation: Person, Place, Situation Transfers SCALE: Activities may be completed with or without assistive devices. 8-Rmorawpqlv-nkospqj completes the activity by him/herself with no assistance from a helper. 5-Set-up or Clean-up Assistance-helper sets up or cleans up; patient completes activity. [place] assists only prior to or following the activity. 4-Supervision or Touching Assistance-helper provides verbal cues and/or touching/steadying and/or contact guard assistance as patient completes activity. Assistance may be provided throughout the activity or intermittently. 3-Partial/Moderate Assistance-helper does LESS THAN HALF the effort. [place] lifts, holds or supports trunk or limbs, but provides less than half the effort. 2-Substantial/Maximal Assistance-helper does MORE THAN HALF the effort. [place] lifts or holds trunk or limbs and provides more than half the effort. 5-Moubhoobm-darulr does ALL the effort. Patient does none of the effort to complete the activity. Or, the assistance of 2 or more helpers is required for the patient to complete the activity. If activity was not attempted, code reason: 7-Patient Refused. 9-Not Applicable-not attempted and the patient did not perform the activity be fore the current illness, exacerbation or injury. 10-Not Attempted due to Environmental Limitations-(lack of equipment, weather restraints, etc.). 88-Not Attempted due to Medical Conditions or Safety Concerns. Roll Left & Right (QC): 6 Sit to Lying (QC): 3 Lying to Sitting/Side of Bed(Q: 3 Chair/Kzu-mr-Qajjk Xfer(QC): 3 mod assist sliding board transfer Weight Bearing Right Lower Extremity: Right Weight Bearing/Tolerated Left Lower Extremity: Left Non Weight Bearing NEW AMPUTATION Wheelchair Training Does the Pt Use a Wheelchair?: Yes Wheel 50 ft with 2 turns (QC): 4 Wheel 150 ft (QC): 4 Type of Wheelchair: Manual 300', 200' Exercises pre standing activity bearing weight through right leg x20, chair pushups 2 sets of 10, trunk strengthening (no supports UE activity) Treatments PT performed bed mobility and transfers, WC mobility, trunk strengthening, OT performed UE activity, UE positioning and safety during activity Assessment Current Status: Poor Progress slow progress, severe debility PT Short Term Goals Short Term Goals Time Frame: Feb 14, 2021 Roll Left & Right: 6 Sit to lyin Lying to sitting on side of be: 4 Chair/ilc-lv-gmiio transfer: 3 (Oscar) PT Minister Assistant Goals Minister Assistant Goals PT [facility] Goals Time Frame: Feb 28, 2021 Roll Left & Right (QC): 6 Sit to Lying (QC): 6 Lying-Sitting on Side/Bed(QC): 6 Sit to Stand (QC): 88 Chair/Keh-hp-Ydmqi Xfer(QC): 4 Toilet Transfer (QC): 4 Car Transfer (QC): 4 Does the Patient Walk: No and Walking Goal NOT indicated Walk 10 feet (QC): 88 Walk 50ft with 2 Turns (QC): 88 Walk 150 ft (QC): 88 Walking 10ft on Uneven Surface: 88 1 Step (curb) (QC): 88 4 Steps (QC): 88 12 Steps (QC): 88 Picking up an Object (QC): 88 Wheel 50 feet with 2 turns (QC: 6 Wheel 150 feet: 6 PT Plan Problem List Problem List: Activity Tolerance, Functional Strength, Safety, Balance, Gait, Transfer, Bed Mobility, ROM Treatment/Plan Treatment Plan: Continue Plan of Care Treatment Plan: Bed Mobility, Education, Functional Activity Nicky, Functional Strength, Group Therapy, Safety, Therapeutic Exercise, Transfers Treatment Duration: Feb 28, 2021 Frequency: At least 5 of 7 days/Wk (IRF) Estimated Hrs Per Day: 1.5 hours per day Patient and/or Family Agrees t: Yes Safety Risks/Education Patient Education: Transfer Techniques, Correct Positioning, W/C Management, Safety Issues Teaching Recipient: Patient Teaching Methods: Demonstration, Discussion Response to Teaching: Reinforcement Needed Time/GCodes Time In: 0800 Time Out: 0900 Total Billed Treatment Time: 60 Total Billed Treatment 1 visit EX 30' FA 30' co-treated with OT from [id number] DHIRAJ ORTEGA PT Feb 09, 2021 08:58
[2021-02-09] MEDS: LACTOBACILLUS ACIDOPHILUS (PROBIOTIC) CAPSULE PO SCH ×3 (09:00→17:11)
[2021-02-09] MEDS: CLOPIDOGREL 75 MG (PLAVIX) TABLET PO SCH (09:00)
[2021-02-09] MEDS: GABAPENTIN 600 MG (NEURONTIN) TAB PO SCH ×2 (09:00→20:52)
[2021-02-09] MEDS: ASPIRIN E.C. 81 MG (ECOTRIN) TAB PO SCH (09:00)
[2021-02-09] MEDS: SENNOSIDES 8.6 MG (SENOKOT) TAB PO SCH ×2 (09:01→20:52)
[2021-02-09] MEDS: DOCUSATE SODIUM 100 MG (COLACE) CAP PO SCH ×2 (09:01→20:51)
[2021-02-09] MEDS: polyethylene glycoL POWDER 17 GM (MIRALAX) PACK PO SCH ×2 (09:01→20:52)
[2021-02-09] MEDS: SENNA W/DOCUSATE (SENOKOT S) TABLET PO SCH ×2 (09:01→20:52)
--- NOTE | 2021-02-09 10:23 | PM&R Progress Note ---
Subjective HPI/CC On Admission Date Seen by Provider: Feb 09, 2021 Time Seen by Provider: 12:45 Subjective/Events-last exam 02/09/2021: Pt doing well Pain phantom type is an issue Checked meds and labs Pt appears to be at high risk for dependency of pain medication 02/08/2021: Pt doing about the same Pain is an issue IV antibiotics mainted WBC 11.8 HGB 10.8 Bowels are moving Review of Systems General: Fatigue, Malaise Musculoskeletal: leg pain Objective Exam Vital Signs Vital Signs Date Time Temp Pulse Resp B/P (MAP) Pulse Ox O2 Delivery O2 Flow Rate FiO2 02/09/21 21:01 Room Air 02/09/21 19:56 36.0 82 20 137/68 (91) 98 Capillary Refill : General Appearance: No Apparent Distress, WD/WN, Chronically ill HEENT: PERRL/EOMI, Normal ENT Inspection, Pharynx Normal Neck: Full Range of Motion, Normal Inspection, Non Tender, Supple, Carotid Bruit Respiratory: Chest Non Tender, Lungs Clear, Normal Breath Sounds, No Accessory Muscle Use, No Respiratory Distress Cardiovascular: Regular Rate, Rhythm, No Edema, No Gallop, No JVD, No Murmur, Normal Peripheral Pulses Gastrointestinal: Normal Bowel Sounds, No Organomegaly, No Pulsatile Mass, Non Tender, Soft Back: Normal Inspection, No CVA Tenderness, No Vertebral Tenderness Extremity: Normal Capillary Refill, Normal Inspection, Normal Range of Motion, Non Tender, No Calf Tenderness, No Pedal Edema, Other (Left below-knee amputation) Neurologic/Psychiatric: Alert, Oriented x3, No Motor/Sensory Deficits, Normal Mood/Affect, Abnormal Gait, Motor Weakness (Right-sided weakness 2/5) Skin: Normal Color, Warm/Dry Lymphatic: No Adenopathy Results/Procedures Lab Patient resulted labs reviewed. FIM Transfers Therapy Code Descriptions/Definitions Functional [place] Measure: 0=Not Assessed/NA 4=Minimal Assistance 1=Total Assistance 5=Supervision or Setup 2=Maximal Assistance 6=Modified [place] 3=Moderate Assistance 7=Complete IndependenceSCALE: Activities may be completed with or without assistive devices. 0-Gzoxdlkcsg-xbvrgoi completes the activity by him/herself with no assistance from a helper. 5-Set-up or Clean-up Assistance-helper sets up or cleans up; patient completes activity. [place] assists only prior to or following the activity. 4-Supervision or Touching Assistance-helper provides verbal cues and/or touching/steadying and/or contact guard assistance as patient completes activity. Assistance may be provided throughout the activity or intermittently. 3-Partial/Moderate Assistance-helper does LESS THAN HALF the effort. [place] lifts, holds or supports trunk or limbs, but provides less than half the effort. 2-Substantial/Maximal Assistance-helper does MORE THAN HALF the effort. [place] lifts or holds trunk or limbs and provides more than half the effort. 1-Nhiltihbh-kevwtu does ALL the effort. Patient does none of the effort to complete the activity. Or, the assistance of 2 or more helpers is required for the patient to complete the activity. If activity was not attempted, code reason: 7-Patient Refused. 9-Not Applicable-not attempted and the patient did not perform the activity before the current illness, exacerbation or injury. 10-Not Attempted due to Environmental Limitations-(lack of equipment, weather restraints, etc.). 88-Not Attempted due to Medical Conditions or Safety Concerns. Roll Left to Right (QC): 6 Sit to Lying (QC): 3 Sit to Stand (QC): 1 Chair/Moh-qf-Rcqmw Xfer(QC): 3 Car Transfer (QC): 1 Gait Training Does the Patient Walk?: No and Walking Goal NOT indicated Walk 10 feet (QC): 88 Walk 50 ft with 2 Turns(QC): 88 Walk 150 ft (QC): 88 Walking 10ft/uneven surface-QC: 88 Wheelchair Training Does the Pt Use a Wheelchair?: Yes Distance: 300', 100'x2 Wheel 50 ft with 2 turns (QC): 4 Wheel 150 ft (QC): 4 Type of Wheelchair: Manual Stair Training 1 Step (curb) (QC): 88 4 Steps (QC): 88 12 Steps (QC): 88 Balance Picking up an Object (QC): 88 ADL-Treatment Eating (QC): 4 Oral Hygiene (QC): 9 (Pt reports he owns dentures but does not wear. 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 History of super morbid obesity now BMI 22 Diabetes Previous smoker BPH Plan: Inpatient rehab protocol BelkisSilvana Pain control 02/08/2021: Pain control Protocol for rehab 02/09/2021: Supportive care Pain control Increase risk of pain medication dependency (1) History of left below knee amputation (2) Tobacco abuse Status: Acute (3) History of stroke Status: Chronic (4) PAD (peripheral artery disease) Status: Acute (5) BPH (benign prostatic hyperplasia) Status: Chronic (6) T2DM (type 2 diabetes mellitus) Status: Acute (7) Dyslipidemia Status: Acute (8) History of morbid obesity Status: Chronic MAXI BOWSER DO Feb 09, 2021 10:23
--- NOTE | 2021-02-09 11:27 | Physical Therapy Daily Note ---
PT Daily Note-Current Subjective Patient in bed pre tx, states he still has severe pain in right UE and LE. Appearance Patient in bed pos tx with nurse call, phone, tray, all needs met. Mental Status Patient Orientation: Normal For Age Transfers SCALE: Activities may be completed with or without assistive devices. 0-Yukxahiely-pzuquyd completes the activity by him/herself with no assistance from a helper. 5-Set-up or Clean-up Assistance-helper sets up or cleans up; patient completes activity. [place] assists only prior to or following the activity. 4-Supervision or Touching Assistance-helper provides verbal cues and/or touching/steadying and/or contact guard assistance as patient completes activity. Assistance may be provided throughout the activity or intermittently. 3-Partial/Moderate Assistance-helper does LESS THAN HALF the effort. [place] lifts, holds or supports trunk or limbs, but provides less than half the effort. 2-Substantial/Maximal Assistance-helper does MORE THAN HALF the effort. [place] lifts or holds trunk or limbs and provides more than half the effort. 4-Okdeoyunr-urlyln does ALL the effort. Patient does none of the effort to complete the activity. Or, the assistance of 2 or more helpers is required for the patient to complete the activity. If activity was not attempted, code reason: 7-Patient Refused. 9-Not Applicable-not attempted and the patient did not perform the activity before the current illness, exacerbation or injury. 10-Not Attempted due to Environmental Limitations-(lack of equipment, weather restraints, etc.). 88-Not Attempted due to Medical Conditions or Safety Concerns. Weight Bearing Right Lower Extremity: Right Weight Bearing/Tolerated Left Lower Extremity: Left Non Weight Bearing NEW AMPUTATION Exercises Supine Ex: Ankle pumps (RLE), Quad Set, Glut sets, Heel Slides (with RLE, with LLE he just performs knee flex/ext), Short Arc Quads, Straight leg raise, Hip abd/add Supine Reps: 20 patient needs several rest breaks and AAROM with right leg Treatments LE strengthening Assessment Current Status: Fair Progress slightly improved strength in RLE PT Short Term Goals Short Term Goals Time Frame: Feb 14, 2021 Roll Left & Right: 6 Sit to lyin Lying to sitting on side of be: 4 Chair/ndg-vx-sdzav transfer: 3 (Oscar) PT Social Media Job Titles Goals [facility] Goals PT Social Media Job Titles Goals Time Frame: Feb 28, 2021 Roll Left & Right (QC): 6 Sit to Lying (QC): 6 Lying-Sitting on Side/Bed(QC): 6 Sit to Stand (QC): 88 Chair/Yvg-ev-[place] Xfer(QC): 4 Toilet Transfer (QC): 4 Car Transfer (QC): 4 Does the Patient Walk: No and Walking Goal NOT indicated Walk 10 feet (QC): 88 Walk 50ft with 2 Turns (QC): 88 Walk 150 ft (QC): 88 Walking 10ft on Uneven Surface: 88 1 Step (curb) (QC): 88 4 Steps (QC): 88 12 Steps (QC): 88 Picking up an Object (QC): 88 Wheel 50 feet with 2 turns (QC: 6 Wheel 150 feet: 6 PT Plan Problem List Problem List: Activity Tolerance, Functional Strength, Safety, Balance, Gait, Transfer, Bed Mobility, ROM Treatment/Plan Treatment Plan: Continue Plan of Care Treatment Plan: Bed Mobility, Education, Functional Activity Nicky, Functional Strength, Group Therapy, Safety, Therapeutic Exercise, Transfers Treatment Duration: Feb 28, 2021 Frequency: At least 5 of 7 days/Wk (IRF) Estimated Hrs Per Day: 1.5 hours per day Patient and/or Family Agrees t: Yes Safety Risks/Education Patient Education: Correct Positioning, Safety Issues Teaching Recipient: Patient Teaching Methods: Demonstration, Discussion Response to Teaching: Reinforcement Needed Time/GCodes Time In: 1100 Time Out: 1130 Total Billed Treatment Time: 30 Total Billed Treatment 1 visit EX 30' DHIRAJ ORTEGA PT Feb 09, 2021 11:27
--- NOTE | 2021-02-09 13:02 | Occupational Ther Daily Note ---
OT Current Status-Daily Note Subjective Pt getting stump wrapped by RN at therapy arrival. Agreeable to treatment Appearance Left sitting upright in bed, all needs within reach. Mental Status/Objective Patient Orientation: Person, Place, Situation ADL-Treatment Therapy Code Descriptions/Definitions Functional [place] Measure: 0=Not Assessed/NA 4=Minimal Assistance 1=Total Assistance 5=Supervision or Setup 2=Maximal Assistance 6=Modified [place] 3=Moderate Assistance 7=Complete IndependenceSCALE: Activities may be completed with or without assistive devices. 6-Unfsxckdkd-awpdznt completes the activity by him/herself with no assistance from a helper. 5-Set-up or Clean-up Assistance-helper sets up or cleans up; patient completes activity. [place] assists only prior to or following the activity. 4-Supervision or Touching Assistance-helper provides verbal cues and/or touching/steadying and/or contact guard assistance as patient completes activity. Assistance may be provided throughout the activity or intermittently. 3-Partial/Moderate Assistance-helper does LESS THAN HALF the effort. [place] lifts, holds or supports trunk or limbs, but provides less than half the effort. 2-Substantial/Maximal Assistance-helper does MORE THAN HALF the effort. [place] lifts or holds trunk or limbs and provides more than half the effort. 4-Icccutvrr-emxkzs does ALL the effort. Patient does none of the effort to complete the activity. Or, the assistance of 2 or more helpers is required for the patient to complete the activity. If activity was not attempted, code reason: 7-Patient Refused. 9-Not Applicable-not attempted and the patient did not perform the activity before the current illness, exacerbation or injury. 10-Not Attempted due to Environmental Limitations-(lack of equipment, weather restraints, etc.). 88-Not Attempted due to Medical Conditions or Safety Concerns. Other Treatment Pt participated in UE exercises with goal to promote increased strength, endurance, and core stability needed for adls, transfers and w/c mobility. 1# hand held weight utilized. Pt may be able to tolerate an increase in weight to 2#'s next session. 12x1 in all planes. Min verbal and visual cues for correct technique. Education OT Patient Education: Correct positioning, Exercise program, Purpose of tx/functional activities Teaching Recipient: Patient Teaching Methods: Demonstration, Discussion Response to Teaching: Verbalize Understanding, Return Demonstration OT Short Term Goals Short Term Goals Time Frame: Feb 17, 2021 Eatin Oral hygiene: 5 Toileting hygiene: 2 Shower/bathe self: 2 Upper body dressin Lower body dressin Putting on/taking off footwear: 2 OT Pipe Changer Goals Pipe Changer Goals Time Frame: Mar 04, 2021 Eating (QC): 5 Oral Hygiene (QC): 5 Toileting Hygiene (QC): 3 Shower/Bathe Self (QC): 4 Upper Body Dressing (QC): 5 Lower Body Dressing (QC): 4 On/Off Footwear (QC): 4 1=Demonstrate adherence to instructed precautions during ADL tasks. 2=Patient will verbalize/demonstrate understanding of assistive devices/modifications for ADL. 3=Patient will improve strength/tolerance for activity to enable patient to perform ADL's. OT Education/Plan Problem List/Assessment Assessment: Decreased Activ Tolerance, Decreased UE Strength, Impaired Coordination, Impaired Funct Balance, Impaired Self-Care Skills Discharge Recommendations Plan/Recommendations: Continue POC Treatment Plan/Plan of Care Treatment,Training & Education: Yes Patient would benefit from OT for education, treatment and training to promote independence in ADL's, mobility, safety and/or upper extremity function for ADL's. Plan of Care: ADL Retraining, Functional Mobility, Group Exercise/Act as Ind, UE Funct Exercise/Act, UE Neuromus Re-Ed/Coord, W/C Management Training Treatment Duration: Mar 04, 2021 Frequency: At least 5 of 7 days/Wk (IRF) Estimated Hrs Per Day: 1.5 hours per day Agreement: Yes Rehab Potential: Fair Time/GCodes Start Time: 11:38 Stop Time: 12:08 Total Time Billed (hr/min): 30 Billed Treatment Time 1 visit EX sapna Judi Mane OT Feb 09, 2021 13:02
[2021-02-09] MEDS: SIMETHICONE 80 MG (MYLICON) CHEW PO PRN ×2 (13:08→17:11)
[2021-02-09 19:56] VITALS: BP 137/68
[2021-02-10] MEDS: SIMETHICONE 80 MG (MYLICON) CHEW PO PRN (00:53)
[2021-02-10] MEDS: HYDROcodone/APAP 7.5 MG/325 MG (LORTAB, LORCET PLUS) TABLET PO PRN ×5 (02:23→20:26)
[2021-02-10] MEDS: inSUlin ASPART (NovoLOG) 1 UNIT/0.01 ML (CHARGE PER UNIT) SC SCH ×4 (06:20→20:28)
[2021-02-10] MEDS: CATHETER FLUSH 10 ML SYR IV SCH ×3 (06:21→22:00)
[2021-02-10] MEDS: metFORMIN 500 MG (GLUCOPHAGE) TAB PO SCH (06:29)
[2021-02-10 07:30] VITALS: BP 126/71
[2021-02-10] MEDS: CLOPIDOGREL 75 MG (PLAVIX) TABLET PO SCH (08:28)
[2021-02-10] MEDS: SENNA W/DOCUSATE (SENOKOT S) TABLET PO SCH ×3 (08:28→20:27)
[2021-02-10] MEDS: DOCUSATE SODIUM 100 MG (COLACE) CAP PO SCH ×3 (08:28→20:27)
[2021-02-10] MEDS: GABAPENTIN 600 MG (NEURONTIN) TAB PO SCH ×2 (08:28→20:25)
[2021-02-10] MEDS: ASPIRIN E.C. 81 MG (ECOTRIN) TAB PO SCH (08:28)
[2021-02-10] MEDS: SENNOSIDES 8.6 MG (SENOKOT) TAB PO SCH ×2 (08:29→20:27)
[2021-02-10] MEDS: polyethylene glycoL POWDER 17 GM (MIRALAX) PACK PO SCH ×2 (08:29→20:27)
[2021-02-10] MEDS: LACTOBACILLUS ACIDOPHILUS (PROBIOTIC) CAPSULE PO SCH ×3 (08:33→17:31)
--- NOTE | 2021-02-10 08:59 | Physical Therapy Daily Note ---
PT Daily Note-Current Subjective Patient in bed pre tx, agrees to PT, has 7-8/10 pain in right UE and LE. Will be co-treating with OT due to poor patient mobility, strength, endurance, severe pain with activity, coordinate UE and LE with activity, safety and reduce risk of falls. Appearance Patient in WC at bedside post tx, has nurse call, phone, tray, all needs met. Mental Status Patient Orientation: Person, Place, Situation, Normal For Age Transfers SCALE: Activities may be completed with or without assistive devices. 3-Ewhsohevzp-pkhtqxr completes the activity by him/herself with no assistance from a helper. 5-Set-up or Clean-up Assistance-helper sets up or cleans up; patient completes activity. [place] assists only prior to or following the activity. 4-Supervision or Touching Assistance-helper provides verbal cues and/or touching/steadying and/or contact guard assistance as patient completes activity. Assistance may be provided throughout the activity or intermittently. 3-Partial/Moderate Assistance-helper does LESS THAN HALF the effort. [place] lifts, holds or supports trunk or limbs, but provides less than half the effort. 2-Substantial/Maximal Assistance-helper does MORE THAN HALF the effort. [place] lifts or holds trunk or limbs and provides more than half the effort. 9-Zsomqahzp-xngqha does ALL the effort. Patient does none of the effort to complete the activity. Or, the assistance of 2 or more helpers is required for the patient to complete the activity. If activity was not attempted, code reason: 7-Patient Refused. 9-Not Applicable-not attempted and the patient did not perform the activity before the current illness, exacerbation or injury. 10-Not Attempted due to Environmental Limitations-(lack of equipment, weather restraints, etc.). 88-Not Attempted due to Medical Conditions or Safety Concerns. Roll Left & Right (QC): 6 Lying to Sitting/Side of Bed(Q: 3 Chair/Laa-ae-Gmgll Xfer(QC): 3 Patient performed 3 sliding board transfers all with mod assist. Patient has very weak UE's and needs assist with scooting. Weight Bearing Right Lower Extremity: Right Weight Bearing/Tolerated Left Lower Extremity: Left Non Weight Bearing NEW AMPUTATION Wheelchair Training Does the Pt Use a Wheelchair?: Yes Wheel 50 ft with 2 turns (QC): 4 Wheel 150 ft (QC): 4 Type of Wheelchair: Manual 300'x2, very slow, patient needs occasional cues for obstacles Exercises seated trunk dynamic strengthening with ball and balloon, pre-standing activity to strengthen right leg 2 sets of 10, chair pushups 2 sets of 10 Treatments PT performed bed mobility and transfers, WC mobility, balance during trunk strengthening, LE and UE strengthening, OT performed UE positioning and safety during activity, UE strengthening, trunk strengthening Assessment Current Status: Poor Progress very slow progress PT Short Term Goals Short Term Goals Time Frame: Feb 14, 2021 Roll Left & Right: 6 Sit to lyin Lying to sitting on side of be: 4 Chair/few-op-zsxqz transfer: 3 (Oscar) PT [facility] Goals Chcf Goals PT [facility] Goals Time Frame: Feb 28, 2021 Roll Left & Right (QC): 6 Sit to Lying (QC): 6 Lying-Sitting on Side/Bed(QC): 6 Sit to Stand (QC): 88 Chair/Soa-ft-Qzxxg Xfer(QC): 4 Toilet Transfer (QC): 4 Car Transfer (QC): 4 Does the Patient Walk: No and Walking Goal NOT indicated Walk 10 feet (QC): 88 Walk 50ft with 2 Turns (QC): 88 Walk 150 ft (QC): 88 Walking 10ft on Uneven Surface: 88 1 Step (curb) (QC): 88 4 Steps (QC): 88 12 Steps (QC): 88 Picking up an Object (QC): 88 Wheel 50 feet with 2 turns (QC: 6 Wheel 150 feet: 6 PT Plan Problem List Problem List: Activity Tolerance, Functional Strength, Safety, Balance, Gait, Transfer, Bed Mobility, ROM Treatment/Plan Treatment Plan: Continue Plan of Care Treatment Plan: Bed Mobility, Education, Functional Activity Nicky, Functional Strength, Group Therapy, Safety, Therapeutic Exercise, Transfers Treatment Duration: Feb 28, 2021 Frequency: At least 5 of 7 days/Wk (IRF) Estimated Hrs Per Day: 1.5 hours per day Patient and/or Family Agrees t: Yes Safety Risks/Education Patient Education: Transfer Techniques, Correct Positioning, W/C Management, Safety Issues Teaching Recipient: Patient Teaching Methods: Demonstration, Discussion Response to Teaching: Reinforcement Needed Time/GCodes Time In: 0800 Time Out: 0900 Total Billed Treatment Time: 60 Total Billed Treatment 1 visit EX 30' FA 30' DHIRAJ ORTEGA PT Feb 10, 2021 08:59
--- NOTE | 2021-02-10 09:06 | Occupational Ther Daily Note ---
OT Current Status-Daily Note Subjective Pt continues to report phantom pain and R sided pain; 09/20. States pain meds given around ~0700. Co treat with PT for part of session ([id number]) due to poor activity tolerance, high pain levels, high fall risk and need of 2 skilled clinicians to progress indep with mobility and adls. Appearance Pt left sitting in w/c, all needs within reach. Mental Status/Objective Patient Orientation: Person, Place, Situation Attachments: IV ADL-Treatment Therapy Code Descriptions/Definitions Functional [place] Measure: 0=Not Assessed/NA 4=Minimal Assistance 1=Total Assistance 5=Supervision or Setup 2=Maximal Assistance 6=Modified [place] 3=Moderate Assistance 7=Complete IndependenceSCALE: Activities may be completed with or without assistive devices. 4-Opecpqhysf-rjprwrd completes the activity by him/herself with no assistance from a helper. 5-Set-up or Clean-up Assistance-helper sets up or cleans up; patient completes activity. [place] assists only prior to or following the activity. 4-Supervision or Touching Assistance-helper provides verbal cues and/or touching/steadying and/or contact guard assistance as patient completes activity. Assistance may be provided throughout the activity or intermittently. 3-Partial/Moderate Assistance-helper does LESS THAN HALF the effort. [place] lifts, holds or supports trunk or limbs, but provides less than half the effort. 2-Substantial/Maximal Assistance-helper does MORE THAN HALF the effort. [place] lifts or holds trunk or limbs and provides more than half the effort. 5-Mvtianfri-beflqq does ALL the effort. Patient does none of the effort to complete the activity. Or, the assistance of 2 or more helpers is required for the patient to complete the activity. If activity was not attempted, code reason: 7-Patient Refused. 9-Not Applicable-not attempted and the patient did not perform the activity before the current illness, exacerbation or injury. 10-Not Attempted due to Environmental Limitations-(lack of equipment, weather restraints, etc.). 88-Not Attempted due to Medical Conditions or Safety Concerns. Shower/Bathe Self (QC): 3 Upper Body Dressing (QC): 4 Lower Body Dressing (QC): 3 On/Off Footwear: 1 Pt refuses shower. He reports that he will only take a shower in front of his partner and that he will only perform sponge bathes post d/c. After dis cussion/education, pt is Agreeable to perform partial sponge bath at bed level. Post set up, he was able to wash upper body without assist. Pt would require intermittent balance assist if performed in unsupported sitting at side of bed. Pt continues to have difficulty maintaining sidelying and requires intermittent min a to get fully onto his side and use of bedrails to maintain position. Thus, Dep to wash buttocks. LE's not addressed. Due to poor trunk control, upper and lower body dressing performed in long sitting with HOB elevated. No physical assistance needed to don shirt this date, only extra time. Pt still requires intermittent use of bedrails to assist in repositioning/balance. In long sitting he was able to thread RLE and L stump into pants. Clothing management completed in supine and rolling R/L. Min-mod a to roll completely into sidelying and Tactile cues on placement of hand to grab pants. Min-mod a to pull up completely over hips. Grooming task performed at w/c level with set up. Other Treatment Pt propelled w/c around unit. Very slow, needs mod cues for obstacle avoidance and improved w/c propulsion. Several rest breaks needed due to fatigue and UE weakness/numbness. While in gym, pt participated in seated dynamic trunk ac tivities with goal to promote increased sitting balance, core strength, and UE strength/use needed for adls and mobility. Intermittent min-mod a for balance when reaching for ball/balloon. Cues for posture, yet limited by curvature of spine. Multiple slide board transfers throughout session requiring min-mod a. Extra scooting assist required when going from low to high surface. Dep for placement of board. Education OT Patient Education: Correct positioning, Energy conservation, Modified ADL techniques, Progress toward Goal/Update tx plan, Purpose of tx/functional activities, Safety issues, Transfer techniques, W/C management Teaching Recipient: Patient Teaching Methods: Demonstration, Discussion Response to Teaching: Verbalize Understanding, Return Demonstration, Reinforcement Needed OT Short Term Goals Short Term Goals Time Frame: Feb 17, 2021 Eatin Oral hygiene: 5 Toileting hygiene: 2 Shower/bathe self: 2 Upper body dressin Lower body dressin Putting on/taking off footwear: 2 OT Senior Care Goals Blood Or Blood Bank Technician Goals Time Frame: Mar 04, 2021 Eating (QC): 5 Oral Hygiene (QC): 5 Toileting Hygiene (QC): 3 Shower/Bathe Self (QC): 4 Upper Body Dressing (QC): 5 Lower Body Dressing (QC): 4 On/Off Footwear (QC): 4 1=Demonstrate adherence to instructed precautions during ADL tasks. 2=Patient will verbalize/demonstrate understanding of assistive devices/modifications for ADL. 3=Patient will improve strength/tolerance for activity to enable patient to perform ADL's. OT Education/Plan Problem List/Assessment Assessment: Decreased Activ Tolerance, Decreased Safety Aware, Decreased UE Strength, Dependent Transfers, Impaired Coordination, Impaired Funct Balance, Impaired I ADL's, Impaired Self-Care Skills Discharge Recommendations Plan/Recommendations: Continue POC Treatment Plan/Plan of Care Treatment,Training & Education: Yes Patient would benefit from OT for education, treatment and training to promote independence in ADL's, mobility, safety and/or upper extremity function for ADL's. Plan of Care: ADL Retraining, Functional Mobility, Group Exercise/Act as Ind, UE Funct Exercise/Act, UE Neuromus Re-Ed/Coord, W/C Management Training Treatment Duration: Mar 04, 2021 Frequency: At least 5 of 7 days/Wk (IRF) Estimated Hrs Per Day: 1.5 hours per day Agreement: Yes Rehab Potential: Fair Time/GCodes Start Time: 07:30 Stop Time: 09:00 Total Time Billed (hr/min): 90 Billed Treatment Time 1 visit ADL x3 (45 min) FA x3 (45 min) Judi Mane OT Feb 10, 2021 09:06
--- NOTE | 2021-02-10 10:28 | PM&R Progress Note ---
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 02/09/2021: Pt doing well Pain phantom type is an issue Checked meds and labs Pt appears to be at high risk for dependency of pain medication 02/08/2021: Pt doing about the same Pain is an issue IV antibiotics mainted WBC 11.8 HGB 10.8 Bowels are moving Review of Systems General: Fatigue, Malaise Musculoskeletal: leg pain Objective Exam Vital Signs Vital Signs Date Time Temp Pulse Resp B/P (MAP) Pulse Ox O2 Delivery O2 Flow Rate FiO2 02/10/21 07:30 36.4 92 20 126/71 (89) 98 Room Air Capillary Refill : General Appearance: No Apparent Distress, WD/WN, Chronically ill HEENT: PERRL/EOMI, Normal ENT Inspection, Pharynx Normal Neck: Full Range of Motion, Normal Inspection, Non Tender, Supple, Carotid Bruit Respiratory: Chest Non Tender, Lungs Clear, Normal Breath Sounds, No Accessory Muscle Use, No Respiratory Distress Cardiovascular: Regular Rate, Rhythm, No Edema, No Gallop, No JVD, No Murmur, Normal Peripheral Pulses Gastrointestinal: Normal Bowel Sounds, No Organomegaly, No Pulsatile Mass, Non Tender, Soft Back: Normal Inspection, No CVA Tenderness, No Vertebral Tenderness Extremity: Normal Capillary Refill, Normal Inspection, Normal Range of Motion, Non Tender, No Calf Tenderness, No Pedal Edema, Other (Left below-knee amputation) Neurologic/Psychiatric: Alert, Oriented x3, No Motor/Sensory Deficits, Normal Mood/Affect, Abnormal Gait, Motor Weakness (Right-sided weakness 2/5) Skin: Normal Color, Warm/Dry Lymphatic: No Adenopathy Results/Procedures Lab Patient resulted labs reviewed. FIM Transfers Therapy Code Descriptions/Definitions Functional [place] Measure: 0=Not Assessed/NA 4=Minimal Assistance 1=Total Assistance 5=Supervision or Setup 2=Maximal Assistance 6=Modified [place] 3=Moderate Assistance 7=Complete IndependenceSCALE: Activities may be completed with or without assistive devices. 7-Tjwcbwdtmq-agviwix completes the activity by him/herself with no assistance from a helper. 5-Set-up or Clean-up Assistance-helper sets up or cleans up; patient completes activity. [place] assists only prior to or following the activity. 4-Supervision or Touching Assistance-helper provides verbal cues and/or touching/steadying and/or contact guard assistance as patient completes activity. Assistance may be provided throughout the activity or intermittently. 3-Partial/Moderate Assistance-helper does LESS THAN HALF the effort. [place] lifts, holds or supports trunk or limbs, but provides less than half the effort. 2-Substantial/Maximal Assistance-helper does MORE THAN HALF the effort. [place] lifts or holds trunk or limbs and provides more than half the effort. 3-Kyrfqzcog-moojxs does ALL the effort. Patient does none of the effort to complete the activity. Or, the assistance of 2 or more helpers is required for the patient to complete the activity. If activity was not attempted, code reason: 7-Patient Refused. 9-Not Applicable-not attempted and the patient did not perform the activity before the current illness, exacerbation or injury. 10-Not Attempted due to Environmental Limitations-(lack of equipment, weather restraints, etc.). 88-Not Attempted due to Medical Conditions or Safety Concerns. Roll Left to Right (QC): 6 Sit to Lying (QC): 3 Sit to Stand (QC): 1 Chair/Hoc-xq-Wzigf Xfer(QC): 3 Car Transfer (QC): 1 Gait Training Does the Patient Walk?: No and Walking Goal NOT indicated Walk 10 feet (QC): 88 Walk 50 ft with 2 Turns(QC): 88 Walk 150 ft (QC): 88 Walking 10ft/uneven surface-QC: 88 Wheelchair Training Does the Pt Use a Wheelchair?: Yes Distance: 300', 100'x2 Wheel 50 ft with 2 turns (QC): 4 Wheel 150 ft (QC): 4 Type of Wheelchair: Manual Stair Training 1 Step (curb) (QC): 88 4 Steps (QC): 88 12 Steps (QC): 88 Balance Picking up an Object (QC): 88 ADL-Treatment Eating (QC): 4 Oral Hygiene (QC): 9 (Pt reports he owns dentures but does not wear. 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 History of super morbid obesity now BMI 22 Diabetes Previous smoker BPH Plan: [facility] Pain control 02/08/2021: Pain control Protocol for rehab 02/09/2021: Supportive care Pain control Increase risk of pain medication dependency 02/10/2021: Supportive care Dressing changes (1) History of left below knee amputation (2) Tobacco abuse Status: Acute (3) History of stroke Status: Chronic (4) PAD (peripheral artery disease) Status: Acute (5) BPH (benign prostatic hyperplasia) Status: Chronic (6) T2DM (type 2 diabetes mellitus) Status: Acute (7) Dyslipidemia Status: Acute (8) History of morbid obesity Status: Chronic MAXI BOWSER DO Feb 10, 2021 10:27
--- NOTE | 2021-02-10 11:54 | Physical Therapy Daily Note ---
PT Daily Note-Current Subjective Patient in bed pre tx, agrees to PT, has unrated pain in right UE and LE Appearance Patient in bed post tx with nurse call, phone, tray, all needs met. Mental Status Patient Orientation: Normal For Age Transfers SCALE: Activities may be completed with or without assistive devices. 8-Zjytpkxdcp-ynzhrlv completes the activity by him/herself with no assistance from a helper. 5-Set-up or Clean-up Assistance-helper sets up or cleans up; patient completes activity. [place] assists only prior to or following the activity. 4-Supervision or Touching Assistance-helper provides verbal cues and/or touching/steadying and/or contact guard assistance as patient completes activity. Assistance may be provided throughout the activity or intermittently. 3-Partial/Moderate Assistance-helper does LESS THAN HALF the effort. [place] lifts, holds or supports trunk or limbs, but provides less than half the effort. 2-Substantial/Maximal Assistance-helper does MORE THAN HALF the effort. [place] lifts or holds trunk or limbs and provides more than half the effort. 7-Xcdgyuxtr-fssrdj does ALL the effort. Patient does none of the effort to complete the activity. Or, the assistance of 2 or more helpers is required for the patient to complete the activity. If activity was not attempted, code reason: 7-Patient Refused. 9-Not Applicable-not attempted and the patient did not perform the activity before the current illness, exacerbation or injury. 10-Not Attempted due to Environmental Limitations-(lack of equipment, weather restraints, etc.). 88-Not Attempted due to Medical Conditions or Safety Concerns. Weight Bearing Right Lower Extremity: Right Weight Bearing/Tolerated Left Lower Extremity: Left Non Weight Bearing NEW AMPUTATION Exercises Supine Ex: Ankle pumps (RLE), Quad Set, Glut sets, Heel Slides (on RLE, on LLE patient lifted leg and performed knee flex/ext), Short Arc Quads (RLE), Straight leg raise, Hip abd/add Supine Reps: 20 Treatments LE strengthening Assessment Current Status: Fair Progress Patient needed AAROM on the left leg during SLR, SAQ, and hip abd PT Short Term Goals Short Term Goals Time Frame: Feb 14, 2021 Roll Left & Right: 6 Sit to lyin Lying to sitting on side of be: 4 Chair/otl-re-eufyf transfer: 3 (Oscar) PT Strawberry Grower Goals Halfway Goals PT Halfway Goals Time Frame: Feb 28, 2021 Roll Left & Right (QC): 6 Sit to Lying (QC): 6 Lying-Sitting on Side/Bed(QC): 6 Sit to Stand (QC): 88 Chair/Lrw-cn-Cnnwm Xfer(QC): 4 Toilet Transfer (QC): 4 Car Transfer (QC): 4 Does the Patient Walk: No and Walking Goal NOT indicated Walk 10 feet (QC): 88 Walk 50ft with 2 Turns (QC): 88 Walk 150 ft (QC): 88 Walking 10ft on Uneven Surface: 88 1 Step (curb) (QC): 88 4 Steps (QC): 88 12 Steps (QC): 88 Picking up an Object (QC): 88 Wheel 50 feet with 2 turns (QC: 6 Wheel 150 feet: 6 PT Plan Problem List Problem List: Activity Tolerance, Functional Strength, Safety, Balance, Gait, Transfer, Bed Mobility, ROM Treatment/Plan Treatment Plan: Continue Plan of Care Treatment Plan: Bed Mobility, Education, Functional Activity Nicky, Functional Strength, Group Therapy, Safety, Therapeutic Exercise, Transfers Treatment Duration: Feb 28, 2021 Frequency: At least 5 of 7 days/Wk (IRF) Estimated Hrs Per Day: 1.5 hours per day Patient and/or Family Agrees t: Yes Safety Risks/Education Patient Education: Correct Positioning, Safety Issues Teaching Recipient: Patient Teaching Methods: Demonstration, Discussion Response to Teaching: Reinforcement Needed Time/GCodes Time In: 1130 Time Out: 1200 Total Billed Treatment Time: 30 Total Billed Treatment 1 visit EX 30' DHIRAJ ORTEGA PT Feb 10, 2021 11:54
[2021-02-10 19:52] VITALS: BP 114/63
[2021-02-11] MEDS: HYDROcodone/APAP 7.5 MG/325 MG (LORTAB, LORCET PLUS) TABLET PO PRN ×5 (00:28→17:26)
--- NOTE | 2021-02-11 05:51 | PM&R Progress Note ---
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 02/09/2021: Pt doing well Pain phantom type is an issue Checked meds and labs Pt appears to be at high risk for dependency of pain medication 02/08/2021: Pt doing about the same Pain is an issue IV antibiotics mainted WBC 11.8 HGB 10.8 Bowels are moving Review of Systems Musculoskeletal: leg pain Objective Exam Vital Signs Vital Signs Date Time Temp Pulse Resp B/P (MAP) Pulse Ox O2 Delivery O2 Flow Rate FiO2 02/11/21 09:19 Room Air 02/11/21 08:10 36.0 93 18 115/62 (79) 100 Capillary Refill : General Appearance: No Apparent Distress, WD/WN, Chronically ill HEENT: PERRL/EOMI, Normal ENT Inspection, Pharynx Normal Neck: Full Range of Motion, Normal Inspection, Non Tender, Supple, Carotid Bruit Respiratory: Chest Non Tender, Lungs Clear, Normal Breath Sounds, No Accessory Muscle Use, No Respiratory Distress Cardiovascular: Regular Rate, Rhythm, No Edema, No Gallop, No JVD, No Murmur, Normal Peripheral Pulses Gastrointestinal: Normal Bowel Sounds, No Organomegaly, No Pulsatile Mass, Non Tender, Soft Back: Normal Inspection, No CVA Tenderness, No Vertebral Tenderness Extremity: Normal Capillary Refill, Normal Inspection, Normal Range of Motion, Non Tender, No Calf Tenderness, No Pedal Edema, Other (Left below-knee amputation) Neurologic/Psychiatric: Alert, Oriented x3, No Motor/Sensory Deficits, Normal Mood/Affect, Abnormal Gait, Motor Weakness (Right-sided weakness 2/5) Skin: Normal Color, Warm/Dry Lymphatic: No Adenopathy Results/Procedures Lab Patient resulted labs reviewed. FIM Transfers Therapy Code Descriptions/Definitions Functional [place] Measure: 0=Not Assessed/NA 4=Minimal Assistance 1=Total Assistance 5=Supervision or Setup 2=Maximal Assistance 6=Modified [place] 3=Moderate Assistance 7=Complete IndependenceSCALE: Activities may be completed with or without assistive devices. 8-Xaonnxlezh-ubhdgxz completes the activity by him/herself with no assistance from a helper. 5-Set-up or Clean-up Assistance-helper sets up or cleans up; patient completes activity. [place] assists only prior to or following the activity. 4-Supervision or Touching Assistance-helper provides verbal cues and/or touching/steadying and/or contact guard assistance as patient completes activity. Assistance may be provided throughout the activity or intermittently. 3-Partial/Moderate Assistance-helper does LESS THAN HALF the effort. [place] lifts, holds or supports trunk or limbs, but provides less than half the effort. 2-Substantial/Maximal Assistance-helper does MORE THAN HALF the effort. [place] lifts or holds trunk or limbs and provides more than half the effort. 9-Wuotxtkrj-nkkcsa does ALL the effort. Patient does none of the effort to complete the activity. Or, the assistance of 2 or more helpers is required for the patient to complete the activity. If activity was not attempted, code reason: 7-Patient Refused. 9-Not Applicable-not attempted and the patient did not perform the activity before the current illness, exacerbation or injury. 10-Not Attempted due to Environmental Limitations-(lack of equipment, weather restraints, etc.). 88-Not Attempted due to Medical Conditions or Safety Concerns. Roll Left to Right (QC): 6 Sit to Lying (QC): 3 Sit to Stand (QC): 1 Chair/Ngs-fl-Xoktu Xfer(QC): 3 Car Transfer (QC): 1 Gait Training Does the Patient Walk?: No and Walking Goal NOT indicated Walk 10 feet (QC): 88 Walk 50 ft with 2 Turns(QC): 88 Walk 150 ft (QC): 88 Walking 10ft/uneven surface-QC: 88 Wheelchair Training Does the Pt Use a Wheelchair?: Yes Distance: 300', 100'x2 Wheel 50 ft with 2 turns (QC): 4 Wheel 150 ft (QC): 4 Type of Wheelchair: Manual Stair Training 1 Step (curb) (QC): 88 4 Steps (QC): 88 12 Steps (QC): 88 Balance Picking up an Object (QC): 88 ADL-Treatment Eating (QC): 4 Oral Hygiene (QC): 9 (Pt reports he owns dentures but does not wear. 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 History of super morbid obesity now BMI 22 Diabetes Previous smoker BPH Plan: Inpatient rehab protocol [facility] Pain control 02/08/2021: Pain control Protocol for rehab 02/09/2021: Supportive care Pain control Increase risk of pain medication dependency 02/10/2021: Supportive care Dressing changes 02/11/2021: Supportive care Dressing changes (1) History of left below knee amputation (2) Tobacco abuse Status: Acute (3) History of stroke Status: Chronic (4) PAD (peripheral artery disease) Status: Acute (5) BPH (benign prostatic hyperplasia) Status: Chronic (6) T2DM (type 2 diabetes mellitus) Status: Acute (7) Dyslipidemia Status: Acute (8) History of morbid obesity Status: Chronic MAXI BOWSER DO Feb 11, 2021 05:51
[2021-02-11] MEDS: inSUlin ASPART (NovoLOG) 1 UNIT/0.01 ML (CHARGE PER UNIT) SC SCH ×4 (06:00→20:36)
[2021-02-11] MEDS: CATHETER FLUSH 10 ML SYR IV SCH ×3 (06:00→20:39)
[2021-02-11] MEDS: metFORMIN 500 MG (GLUCOPHAGE) TAB PO SCH (06:55)
[2021-02-11] MEDS: CLOPIDOGREL 75 MG (PLAVIX) TABLET PO SCH (07:40)
[2021-02-11] MEDS: ASPIRIN E.C. 81 MG (ECOTRIN) TAB PO SCH (07:40)
[2021-02-11] MEDS: LACTOBACILLUS ACIDOPHILUS (PROBIOTIC) CAPSULE PO SCH ×3 (07:40→17:26)
[2021-02-11] MEDS: GABAPENTIN 600 MG (NEURONTIN) TAB PO SCH ×2 (07:40→20:36)
[2021-02-11 08:10] VITALS: BP 115/62
--- NOTE | 2021-02-11 09:05 | Physical Therapy Daily Note ---
PT Daily Note-Current Subjective Pt. in bed, lights off, agrees to therex in bed, declines sitting EOB, c/o pain on entire right side at 9/10. Pain Numeric Pain Scale: 9 Location: Right Location Body Site: Knee (leg and arm) Pain Description: Stabbing, Heavy Appearance frail and pale Mental Status Patient Orientation: Normal For Age Attachments: SCD's Transfers SCALE: Activities may be completed with or without assistive devices. 1-Fcdecsbjxq-yjooqzf completes the activity by him/herself with no assistance from a helper. 5-Set-up or Clean-up Assistance-helper sets up or cleans up; patient completes activity. [place] assists only prior to or following the activity. 4-Supervision or Touching Assistance-helper provides verbal cues and/or touchi ng/steadying and/or contact guard assistance as patient completes activity. Assistance may be provided throughout the activity or intermittently. 3-Partial/Moderate Assistance-helper does LESS THAN HALF the effort. [place] lifts, holds or supports trunk or limbs, but provides less than half the effort. 2-Substantial/Maximal Assistance-helper does MORE THAN HALF the effort. [place] lifts or holds trunk or limbs and provides more than half the effort. 3-Zepiinnrh-fzmzoe does ALL the effort. Patient does none of the effort to complete the activity. Or, the assistance of 2 or more helpers is required for the patient to complete the activity. If activity was not attempted, code reason: 7-Patient Refused. 9-Not Applicable-not attempted and the patient did not perform the activity before the current illness, exacerbation or injury. 10-Not Attempted due to Environmental Limitations-(lack of equipment, weather restraints, etc.). 88-Not Attempted due to Medical Conditions or Safety Concerns. rolls left and right with min to mod Weight Bearing Right Lower Extremity: Right Weight Bearing/Tolerated Left Lower Extremity: Left Non Weight Bearing NEW AMPUTATION Exercises Supine Ex: Ankle pumps (right ), Quad Set, Rolling, Glut sets, Heel Slides, Short Arc Quads, Scooting, Straight leg raise, Hip abd/add Supine Reps: 12 Treatments positioned after ex with pillows and blanket Assessment Current Status: Fair Progress pain c/o greatly limit activity PT Short Term Goals Short Term Goals Time Frame: Feb 14, 2021 Roll Left & Right: 6 Sit to lyin Lying to sitting on side of be: 4 Chair/dmt-vs-owaew transfer: 3 (Oscar) PT Alf Goals Alf Goals PT Grocery Carrier Goals Time Frame: Feb 28, 2021 Roll Left & Right (QC): 6 Sit to Lying (QC): 6 Lying-Sitting on Side/Bed(QC): 6 Sit to Stand (QC): 88 Chair/Byl-ua-Qphjw Xfer(QC): 4 Toilet Transfer (QC): 4 Car Transfer (QC): 4 Does the Patient Walk: No and Walking Goal NOT indicated Walk 10 feet (QC): 88 Walk 50ft with 2 Turns (QC): 88 Walk 150 ft (QC): 88 Walking 10ft on Uneven Surface: 88 1 Step (curb) (QC): 88 4 Steps (QC): 88 12 Steps (QC): 88 Picking up an Object (QC): 88 Wheel 50 feet with 2 turns (QC: 6 Wheel 150 feet: 6 PT Plan Treatment/Plan Treatment Plan: Continue Plan of Care Treatment Plan: Bed Mobility, Education, Functional Activity Nicky, Functional Strength, Group Therapy, Safety, Therapeutic Exercise, Transfers Treatment Duration: Feb 28, 2021 Frequency: At least 5 of 7 days/Wk (IRF) Estimated Hrs Per Day: 1.5 hours per day Patient and/or Family Agrees t: Yes Safety Risks/Education Patient Education: Correct Positioning, Disease Process, Safety Issues Response to Teaching: Reinforcement Needed Time/GCodes Time In: 825 Time Out: 840 Total Billed Treatment Time: 15 Total Billed Treatment 1,EX15m NICA RING SECONDS HANDLER Feb 11, 2021 09:05
[2021-02-11] MEDS: SENNOSIDES 8.6 MG (SENOKOT) TAB PO SCH ×2 (09:15→20:08)
[2021-02-11] MEDS: SENNA W/DOCUSATE (SENOKOT S) TABLET PO SCH ×2 (09:15→20:08)
[2021-02-11] MEDS: polyethylene glycoL POWDER 17 GM (MIRALAX) PACK PO SCH ×2 (09:15→20:08)
[2021-02-11] MEDS: DOCUSATE SODIUM 100 MG (COLACE) CAP PO SCH ×2 (09:15→20:08)
[2021-02-11] MEDS: ONDANSETRON 4 MG (ZOFRAN) ORAL DISSOLVE TAB PO PRN (17:27)
[2021-02-11] MEDS: SIMETHICONE 80 MG (MYLICON) CHEW PO PRN (17:29)
[2021-02-11 19:57] VITALS: BP 133/78
[2021-02-12] MEDS: HYDROcodone/APAP 7.5 MG/325 MG (LORTAB, LORCET PLUS) TABLET PO PRN ×5 (02:53→20:39)
[2021-02-12] MEDS: SIMETHICONE 80 MG (MYLICON) CHEW PO PRN ×2 (05:40→16:21)
[2021-02-12] MEDS: inSUlin ASPART (NovoLOG) 1 UNIT/0.01 ML (CHARGE PER UNIT) SC SCH ×4 (06:34→20:47)
[2021-02-12] MEDS: metFORMIN 500 MG (GLUCOPHAGE) TAB PO SCH (06:39)
[2021-02-12] MEDS: CLOPIDOGREL 75 MG (PLAVIX) TABLET PO SCH (07:12)
[2021-02-12] MEDS: GABAPENTIN 600 MG (NEURONTIN) TAB PO SCH ×2 (07:12→20:38)
[2021-02-12] MEDS: LACTOBACILLUS ACIDOPHILUS (PROBIOTIC) CAPSULE PO SCH ×3 (07:12→16:21)
[2021-02-12] MEDS: ASPIRIN E.C. 81 MG (ECOTRIN) TAB PO SCH (07:13)
--- NOTE | 2021-02-12 07:25 | PM&R Progress Note ---
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 02/09/2021: Pt doing well Pain phantom type is an issue Checked meds and labs Pt appears to be at high risk for dependency of pain medication 02/08/2021: Pt doing about the same Pain is an issue IV antibiotics mainted WBC 11.8 HGB 10.8 Bowels are moving Review of Systems General: Fatigue, Malaise Pulmonary: Dyspnea Objective Exam Vital Signs Vital Signs Date Time Temp Pulse Resp B/P (MAP) Pulse Ox O2 Delivery O2 Flow Rate FiO2 02/12/21 20:00 36.0 87 18 138/73 (94) 97 Room Air Capillary Refill : General Appearance: No Apparent Distress, WD/WN, Chronically ill HEENT: PERRL/EOMI, Normal ENT Inspection, Pharynx Normal Neck: Full Range of Motion, Normal Inspection, Non Tender, Supple, Carotid Bruit Respiratory: Chest Non Tender, Lungs Clear, Normal Breath Sounds, No Accessory Muscle Use, No Respiratory Distress Cardiovascular: Regular Rate, Rhythm, No Edema, No Gallop, No JVD, No Murmur, N ormal Peripheral Pulses Gastrointestinal: Normal Bowel Sounds, No Organomegaly, No Pulsatile Mass, Non Tender, Soft Back: Normal Inspection, No CVA Tenderness, No Vertebral Tenderness Extremity: Normal Capillary Refill, Normal Inspection, Normal Range of Motion, Non Tender, No Calf Tenderness, No Pedal Edema, Other (Left below-knee amputation) Neurologic/Psychiatric: Alert, Oriented x3, No Motor/Sensory Deficits, Normal Mood/Affect, Abnormal Gait, Motor Weakness (Right-sided weakness 2/5) Skin: Normal Color, Warm/Dry Lymphatic: No Adenopathy Results/Procedures Lab Patient resulted labs reviewed. FIM Transfers Therapy Code Descriptions/Definitions Functional [place] Measure: 0=Not Assessed/NA 4=Minimal Assistance 1=Total Assistance 5=Supervision or Setup 2=Maximal Assistance 6=Modified [place] 3=Moderate Assistance 7=Complete IndependenceSCALE: Activities may be completed with or without assistive devices. 4-Kewuxmmnek-whwryiu completes the activity by him/herself with no assistance from a helper. 5-Set-up or Clean-up Assistance-helper sets up or cleans up; patient completes activity. [place] assists only prior to or following the activity. 4-Supervision or Touching Assistance-helper provides verbal cues and/or touching/steadying and/or contact guard assistance as patient completes activity. Assistance may be provided throughout the activity or intermittently. 3-Partial/Moderate Assistance-helper does LESS THAN HALF the effort. [place] lifts, holds or supports trunk or limbs, but provides less than half the effort. 2-Substantial/Maximal Assistance-helper does MORE THAN HALF the effort. [place] lifts or holds trunk or limbs and provides more than half the effort. 7-Eatltofzc-wmaakk does ALL the effort. Patient does none of the effort to complete the activity. Or, the assistance of 2 or more helpers is required for the patient to complete the activity. If activity was not attempted, code reason: 7-Patient Refused. 9-Not Applicable-not attempted and the patient did not perform the activity before the current illness, exacerbation or injury. 10-Not Attempted due to Environmental Limitations-(lack of equipment, weather restraints, etc.). 88-Not Attempted due to Medical Conditions or Safety Concerns. Roll Left to Right (QC): 6 Sit to Lying (QC): 3 Sit to Stand (QC): 1 Chair/Szd-po-Gugjy Xfer(QC): 3 Car Transfer (QC): 1 Gait Training Does the Patient Walk?: No and Walking Goal NOT indicated Walk 10 feet (QC): 88 Walk 50 ft with 2 Turns(QC): 88 Walk 150 ft (QC): 88 Walking 10ft/uneven surface-QC: 88 Wheelchair Training Does the Pt Use a Wheelchair?: Yes Distance: 300', 100'x2 Wheel 50 ft with 2 turns (QC): 4 Wheel 150 ft (QC): 4 Type of Wheelchair: Manual Stair Training 1 Step (curb) (QC): 88 4 Steps (QC): 88 12 Steps (QC): 88 Balance Picking up an Object (QC): 88 ADL-Treatment Eating (QC): 4 Oral Hygiene (QC): 9 (Pt reports he owns dentures but does not wear. 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 History of super morbid obesity now BMI 22 Diabetes Previous smoker BPH [facility] Pain control 02/08/2021: Pain control Protocol for rehab 02/09/2021: Supportive care Pain control Increase risk of pain medication dependency 02/10/2021: Supportive care Dressing changes 02/11/2021: Supportive care Dressing changes 03/04/21: No changes indicated (1) History of left below knee amputation (2) Tobacco abuse Status: Acute (3) History of stroke Status: Chronic (4) PAD (peripheral artery disease) Status: Acute (5) BPH (benign prostatic hyperplasia) Status: Chronic (6) T2DM (type 2 diabetes mellitus) Status: Acute (7) Dyslipidemia Status: Acute (8) History of morbid obesity Status: Chronic MAXI BOWSER DO Feb 12, 2021 07:25
[2021-02-12 07:30] VITALS: BP 150/75
[2021-02-12] MEDS: SENNOSIDES 8.6 MG (SENOKOT) TAB PO SCH ×2 (08:31→20:40)
[2021-02-12] MEDS: SENNA W/DOCUSATE (SENOKOT S) TABLET PO SCH ×2 (08:31→20:40)
[2021-02-12] MEDS: DOCUSATE SODIUM 100 MG (COLACE) CAP PO SCH ×2 (08:31→20:39)
[2021-02-12] MEDS: polyethylene glycoL POWDER 17 GM (MIRALAX) PACK PO SCH ×2 (08:31→20:40)
[2021-02-12] MEDS: ZINC OXIDE 16% OINT (BUTT PASTE) 57 GM TUBE TOP PRN (16:28)
[2021-02-12 20:00] VITALS: BP 138/73
[2021-02-13] MEDS: HYDROcodone/APAP 7.5 MG/325 MG (LORTAB, LORCET PLUS) TABLET PO PRN ×6 (00:47→21:50)
[2021-02-13 06:12] LABS: BASOPHILS # (AUTO) 0.1 10^3/uL (0.0-0.1); BASOPHILS % (AUTO) 1 % (0-10); EOSINOPHILS # (AUTO) 0.4 10^3/uL (0.0-0.3); EOSINOPHILS % (AUTO) 4 % (0-10); HEMATOCRIT 34 % (40-54); HEMOGLOBIN 10.4 g/dL (13.3-17.7); LYMPHOCYTES # (AUTO) 3.2 10^3/uL (1.0-4.0); LYMPHOCYTES % (AUTO) 33 % (12-44); MEAN CORPUSCULAR HEMOGLOBIN 27 pg (25-34); MEAN CORPUSCULAR HGB CONC 31 g/dL (32-36); MEAN CORPUSCULAR VOLUME 87 fL (80-99); MEAN PLATELET VOLUME 9.5 fL (9.0-12.2); MONOCYTES # (AUTO) 0.8 10^3/uL (0.0-1.0); MONOCYTES % (AUTO) 8 % (0-12); NEUTROPHILS # (AUTO) 5.4 10^3/uL (1.8-7.8); NEUTROPHILS % (AUTO) 55 % (42-75); PLATELET COUNT 544 10^3/uL (130-400); WHITE BLOOD COUNT 9.8 10^3/uL (4.3-11.0)
[2021-02-13] MEDS: metFORMIN 500 MG (GLUCOPHAGE) TAB PO SCH (06:15)
[2021-02-13] MEDS: inSUlin ASPART (NovoLOG) 1 UNIT/0.01 ML (CHARGE PER UNIT) SC SCH ×4 (06:15→21:13)
[2021-02-13 06:37] LABS: ALBUMIN 2.7 GM/DL (3.2-4.5); BILIRUBIN,TOTAL 0.2 MG/DL (0.1-1.0); CALCIUM 8.6 MG/DL (8.5-10.1); CREATININE SERUM 0.58 MG/DL (0.60-1.30); POTASSIUM 4.2 MMOL/L (3.6-5.0); TOTAL PROTEIN 6.5 GM/DL (6.4-8.2)
[2021-02-13 08:00] VITALS: BP 130/65
[2021-02-13] MEDS: SENNA W/DOCUSATE (SENOKOT S) TABLET PO SCH ×2 (08:28→21:13)
[2021-02-13] MEDS: SENNOSIDES 8.6 MG (SENOKOT) TAB PO SCH ×2 (08:28→21:13)
[2021-02-13] MEDS: polyethylene glycoL POWDER 17 GM (MIRALAX) PACK PO SCH ×2 (08:28→21:12)
[2021-02-13] MEDS: DOCUSATE SODIUM 100 MG (COLACE) CAP PO SCH ×2 (08:28→21:12)
[2021-02-13] MEDS: ASPIRIN E.C. 81 MG (ECOTRIN) TAB PO SCH (08:48)
[2021-02-13] MEDS: LACTOBACILLUS ACIDOPHILUS (PROBIOTIC) CAPSULE PO SCH ×3 (08:48→17:11)
[2021-02-13] MEDS: CLOPIDOGREL 75 MG (PLAVIX) TABLET PO SCH (08:48)
[2021-02-13] MEDS: GABAPENTIN 600 MG (NEURONTIN) TAB PO SCH ×3 (08:49→21:11)
[2021-02-13] MEDS: ZINC OXIDE 16% OINT (BUTT PASTE) 57 GM TUBE TOP PRN ×2 (08:51→21:10)
--- NOTE | 2021-02-13 08:58 | Occupational Ther Daily Note ---
OT Current Status-Daily Note Subjective Pt reports R sided pain; 08/20. States next pain meds can be given around ~0900. Co treat with PT for part of session ([id number]) due to poor activity tolerance, high pain levels, high fall risk and need of 2 skilled clinicians to progress indep with mobility and adls. Appearance Pt left sitting in w/c, all needs within reach. Mental Status/Objective Patient Orientation: Person, Place, Time, Situation ADL-Treatment Therapy Code Descriptions/Definitions Functional [place] Measure: 0=Not Assessed/NA 4=Minimal Assistance 1=Total Assistance 5=Supervision or Setup 2=Maximal Assistance 6=Modified [place] 3=Moderate Assistance 7=Complete IndependenceSCALE: Activities may be completed with or without assistive devices. 7-Wdvyvarhib-rvscgax completes the activity by him/herself with no assistance from a helper. 5-Set-up or Clean-up Assistance-helper sets up or cleans up; patient completes activity. [place] assists only prior to or following the activity. 4-Supervision or Touching Assistance-helper provides verbal cues and/or touching/steadying and/or contact guard assistance as patient completes activity. Assistance may be provided throughout the activity or intermittently. 3-Partial/Moderate Assistance-helper does LESS THAN HALF the effort. [place] lifts, holds or supports trunk or limbs, but provides less than half the effort. 2-Substantial/Maximal Assistance-helper does MORE THAN HALF the effort. [place] lifts or holds trunk or limbs and provides more than half the effort. 8-Umvpyowxi-frvjzt does ALL the effort. Patient does none of the effort to complete the activity. Or, the assistance of 2 or more helpers is required for the patient to complete the activity. If activity was not attempted, code reason: 7-Patient Refused. 9-Not Applicable-not attempted and the patient did not perform the activity before the current illness, exacerbation or injury. 10-Not Attempted due to Environmental Limitations-(lack of equipment, weather restraints, etc.). 88-Not Attempted due to Medical Conditions or Safety Concerns. Upper Body Dressing (QC): 3 Lower Body Dressing (QC): 2 On/Off Footwear: 1 Toileting Hygiene (QC): 1 Pt reports laying in bed all weekend. Education on needing to get up each day to maintain strength and endurance. Pants donned at bed level. Initially, pt did not require any assist to thread RLE and residual limb into clothing. Continues to have difficulty maintaining sidelying and requires intermittent min a to get fully onto his side with assist from bedrails to maintain position. While performing clothing management, pt reports incontinence of stool. Pants doffed. Dependent for savannah care. Extra assist needed to thread RLE into new pants due to fatigue. Min a to pull pants completely over hips with cues on positioning and hand placement on where to pull up. Attempt at performing upper body dressing while sitting at EOB (unsupported sitting). Multiple small LOB with min a needed to recover. Fair righting reaction with UE's. Other Treatment Pt propelled w/c around unit. Very slow, needs mod cues for obstacle avoidance and improved w/c propulsion. Several rest breaks needed due to fatigue and UE weakness/numbness. While in gym, pt participated in seated dynamic trunk activities with goal to promote increased sitting balance, core strength, and UE strength/use needed for adls and mobility. Intermittent min a for balance when reaching/hitting balloon. When reaching anteriorly for feet, pt requires hand held assist with L hand due to poor stability and fear of falling. Fatigues easily and requires several breaks. Cues for posture, yet limited by curvature of spine. Multiple slide board transfers throughout session requiring min-mod a. Extra scooting assist required when going from low to high surface. Dep for placement of board. Education OT Patient Education: Correct positioning, Disease process, Energy conservation, Modified ADL techniques, Progress toward Goal/Update tx plan, Purpose of tx/functional activities, Rehab process, Safety issues, Transfer techniques, W/C management Teaching Recipient: Patient Teaching Methods: Demonstration, Discussion Response to Teaching: Verbalize Understanding, Return Demonstration, Reinforcement Needed OT Short Term Goals Short Term Goals Time Frame: Feb 17, 2021 Eatin Oral hygiene: 5 Toileting hygiene: 2 Shower/bathe self: 2 Upper body dressin Lower body dressin Putting on/taking off footwear: 2 OT Half-Way Goals Ski Patrol Director Goals Time Frame: Mar 04, 2021 Eating (QC): 5 Oral Hygiene (QC): 5 Toileting Hygiene (QC): 3 Shower/Bathe Self (QC): 4 Upper Body Dressing (QC): 5 Lower Body Dressing (QC): 4 On/Off Footwear (QC): 4 1=Demonstrate adherence to instructed precautions during ADL tasks. 2=Patient will verbalize/demonstrate understanding of assistive devices/modifications for ADL. 3=Patient will improve strength/tolerance for activity to enable patient to perform ADL's. OT Education/Plan Problem List/Assessment Assessment: Decreased Activ Tolerance, Decreased Safety Aware, Decreased UE Strength, Dependent Transfers, Impaired Bed Mobility, Impaired Cognition, I mpaired Coordination, Impaired Funct Balance, Impaired I ADL's, Impaired Self- Care Skills, Restricted Funct UE ROM Discharge Recommendations Plan/Recommendations: Continue POC Treatment Plan/Plan of Care Treatment,Training & Education: Yes Patient would benefit from OT for education, treatment and training to promote independence in ADL's, mobility, safety and/or upper extremity function for ADL's. Plan of Care: ADL Retraining, Functional Mobility, Group Exercise/Act as Ind, UE Funct Exercise/Act, UE Neuromus Re-Ed/Coord, W/C Management Training Treatment Duration: Mar 04, 2021 Frequency: At least 5 of 7 days/Wk (IRF) Estimated Hrs Per Day: 1.5 hours per day Agreement: Yes Rehab Potential: Fair Time/GCodes Start Time: 07:45 Stop Time: 09:00 Total Time Billed (hr/min): 75 Billed Treatment Time 1 visit ADL x 2 (35 min) FA x3 (40 min) Judi Mane OT Feb 13, 2021 08:58
--- NOTE | 2021-02-13 08:59 | Physical Therapy Daily Note ---
PT Daily Note-Current Subjective Patient in bed pre tx, agrees to PT, voices no complaints of pain. Will be co- treating with OT due to poor patient mobility, strength, endurance, coordinate UE and LE with activity, safety and reduce risk of falls. Appearance Patient in WC at bedside post tx with nurse call, phone, tray, all needs met. Mental Status Patient Orientation: Normal For Age Transfers SCALE: Activities may be completed with or without assistive devices. 4-Ngchphcdny-ijnytlh completes the activity by him/herself with no assistance from a helper. 5-Set-up or Clean-up Assistance-helper sets up or cleans up; patient completes activity. [place] assists only prior to or following the activity. 4-Supervision or Touching Assistance-helper provides verbal cues and/or touching/steadying and/or contact guard assistance as patient completes activity. Assistance may be provided throughout the activity or intermittently. 3-Partial/Moderate Assistance-helper does LESS THAN HALF the effort. [place] lifts, holds or supports trunk or limbs, but provides less than half the effort. 2-Substantial/Maximal Assistance-helper does MORE THAN HALF the effort. [place] lifts or holds trunk or limbs and provides more than half the effort. 8-Ibepitmqp-mypwwj does ALL the effort. Patient does none of the effort to complete the activity. Or, the assistance of 2 or more helpers is required for the patient to complete the activity. If activity was not attempted, code reason: 7-Patient Refused. 9-Not Applicable-not attempted and the patient did not perform the activity before the current illness, exacerbation or injury. 10-Not Attempted due to Environmental Limitations-(lack of equipment, weather restraints, etc.). 88-Not Attempted due to Medical Conditions or Safety Concerns. Roll Left & Right (QC): 4 Lying to Sitting/Side of Bed(Q: 3 Chair/Srf-dd-Hlwiz Xfer(QC): 3 Patient has had a BM in bed, has to roll from side to side several times for cleaning and dressing. Required min/mod assist for supine to sit and mod assist for sliding board transfer to . Weight Bearing Right Lower Extremity: Right Weight Bearing/Tolerated Left Lower Extremity: Left Non Weight Bearing NEW AMPUTATION Wheelchair Training Does the Pt Use a Wheelchair?: Yes Wheel 50 ft with 2 turns (QC): 4 Wheel 150 ft (QC): 4 Type of Wheelchair: Manual 300', 120' Exercises chair pushups 2 sets of 10, trunk strengthening ex x10 each way Neuromuscular balance activity with balloon Treatments PT worked on bed mobility and transfers, WC mobility, trunk and arm strengthening, OT worked on trunk balance and strength, dressing, cleaning, UE positioning and safety during activity Assessment Current Status: Poor Progress severe debility PT Short Term Goals Short Term Goals Time Frame: Feb 14, 2021 Roll Left & Right: 6 Sit to lyin Lying to sitting on side of be: 4 Chair/ehi-sk-uvtmn transfer: 3 (Oscar) PT Payer Specialist Goals Penitentiary Goals PT Penitentiary Goals Time Frame: Feb 28, 2021 Roll Left & Right (QC): 6 Sit to Lying (QC): 6 Lying-Sitting on Side/Bed(QC): 6 Sit to Stand (QC): 88 Chair/Qyr-xi-Uahvz Xfer(QC): 4 Toilet Transfer (QC): 4 Car Transfer (QC): 4 Does the Patient Walk: No and Walking Goal NOT indicated Walk 10 feet (QC): 88 Walk 50ft with 2 Turns (QC): 88 Walk 150 ft (QC): 88 Walking 10ft on Uneven Surface: 88 1 Step (curb) (QC): 88 4 Steps (QC): 88 12 Steps (QC): 88 Picking up an Object (QC): 88 Wheel 50 feet with 2 turns (QC: 6 Wheel 150 feet: 6 PT Plan Problem List Problem List: Activity Tolerance, Functional Strength, Safety, Balance, Gait, Transfer, Bed Mobility, ROM Treatment/Plan Treatment Plan: Continue Plan of Care Treatment Plan: Bed Mobility, Education, Functional Activity Nicky, Functional Strength, Group Therapy, Safety, Therapeutic Exercise, Transfers Treatment Duration: Feb 28, 2021 Frequency: At least 5 of 7 days/Wk (IRF) Estimated Hrs Per Day: 1.5 hours per day Patient and/or Family Agrees t: Yes Safety Risks/Education Patient Education: Transfer Techniques, Correct Positioning, W/C Management, Safety Issues Teaching Recipient: Patient Teaching Methods: Demonstration, Discussion Response to Teaching: Reinforcement Needed Time/GCodes Time In: 0800 Time Out: 0900 Total Billed Treatment Time: 60 Total Billed Treatment 1 visit EX 30' FA 30' co-treated for 60' DHIRAJ ORTEGA PT Feb 13, 2021 08:59
--- NOTE | 2021-02-13 09:58 | PM&R Progress Note ---
Subjective HPI/CC On Admission Date Seen by Provider: Feb 13, 2021 Time Seen by Provider: 10:00 Subjective/Events-last exam 02/13/21: Pt doing okay. Increase in Gabapentin to 600mg TID from BID. Sliding scale insulin given for 216 sugar. Bowels moved yesterday. Incision looks good. Still a very tough transfer due to weakness on the right side. 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 02/09/2021: Pt doing well Pain phantom type is an issue Checked meds and labs Pt appears to be at high risk for dependency of pain medication 02/08/2021: Pt doing about the same Pain is an issue IV antibiotics mainted WBC 11.8 HGB 10.8 Bowels are moving Review of Systems General: Fatigue, Malaise Musculoskeletal: arm pain, leg pain Objective Exam Vital Signs Vital Signs Date Time Temp Pulse Resp B/P (MAP) Pulse Ox O2 Delivery O2 Flow Rate FiO2 02/13/21 21:12 Room Air 02/13/21 20:00 36.0 83 18 111/60 (77) 97 Capillary Refill : General Appearance: No Apparent Distress, WD/WN, Chronically ill HEENT: PERRL/EOMI, Normal ENT Inspection, Pharynx Normal Neck: Full Range of Motion, Normal Inspection, Non Tender, Supple, Carotid Bruit Respiratory: Chest Non Tender, Lungs Clear, Normal Breath Sounds, No Accessory Muscle Use, No Respiratory Distress Cardiovascular: Regular Rate, Rhythm, No Edema, No Gallop, No JVD, No Murmur, Normal Peripheral Pulses Gastrointestinal: Normal Bowel Sounds, No Organomegaly, No Pulsatile Mass, Non Tender, Soft Back: Normal Inspection, No CVA Tenderness, No Vertebral Tenderness Extremity: Normal Capillary Refill, Normal Inspection, Normal Range of Motion, Non Tender, No Calf Tenderness, No Pedal Edema, Other (Left below-knee amputation) Neurologic/Psychiatric: Alert, Oriented x3, No Motor/Sensory Deficits, Normal Mood/Affect, Abnormal Gait, Motor Weakness (Right-sided weakness 2/5) Skin: Normal Color, Warm/Dry Lymphatic: No Adenopathy Results/Procedures Lab Laboratory Tests 02/13/21 05:46 Patient resulted labs reviewed. [facility]IM Transfers Therapy Code Descriptions/Definitions Functional [place] Measure: 0=Not Assessed/NA 4=Minimal Assistance 1=Total Assistance 5=Supervision or Setup 2=Maximal Assistance 6=Modified [place] 3=Moderate Assistance 7=Complete IndependenceSCALE: Activities may be completed with or without assistive devices. 1-Cmztyahckt-qupzlav completes the activity by him/herself with no assistance from a helper. 5-Set-up or Clean-up Assistance-helper sets up or cleans up; patient completes activity. [place] assists only prior to or following the activity. 4-Supervision or Touching Assistance-helper provides verbal cues and/or touching/steadying and/or contact guard assistance as patient completes act ivity. Assistance may be provided throughout the activity or intermittently. 3-Partial/Moderate Assistance-helper does LESS THAN HALF the effort. [place] lifts, holds or supports trunk or limbs, but provides less than half the effort. 2-Substantial/Maximal Assistance-helper does MORE THAN HALF the effort. [place] lifts or holds trunk or limbs and provides more than half the effort. 8-Wscmvwcwm-zykihd does ALL the effort. Patient does none of the effort to complete the activity. Or, the assistance of 2 or more helpers is required for the patient to complete the activity. If activity was not attempted, code reason: 7-Patient Refused. 9-Not Applicable-not attempted and the patient did not perform the activity before the current illness, exacerbation or injury. 10-Not Attempted due to Environmental Limitations-(lack of equipment, weather restraints, etc.). 88-Not Attempted due to Medical Conditions or Safety Concerns. Roll Left to Right (QC): 4 Sit to Lying (QC): 3 Sit to Stand (QC): 1 Chair/Iwm-lj-Fgqkn Xfer(QC): 3 Car Transfer (QC): 1 Gait Training Does the Patient Walk?: No and Walking Goal NOT indicated Walk 10 feet (QC): 88 Walk 50 ft with 2 Turns(QC): 88 Walk 150 ft (QC): 88 Walking 10ft/uneven surface-QC: 88 Wheelchair Training Does the Pt Use a Wheelchair?: Yes Distance: 300', 100'x2 Wheel 50 ft with 2 turns (QC): 4 Wheel 150 ft (QC): 4 Type of Wheelchair: Manual Stair Training 1 Step (curb) (QC): 88 4 Steps (QC): 88 12 Steps (QC): 88 Balance Picking up an Object (QC): 88 ADL-Treatment Eating (QC): 4 Oral Hygiene (QC): 9 (Pt reports he owns dentures but does not wear. 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 History of CVA with right-sided weakness History of super morbid obesity now BMI 22 Diabetes Previous smoker BPH Plan: Inpatient rehab protocol [facility] Pain control 02/08/2021: Pain control Protocol for rehab 02/09/2021: Supportive care Pain control Increase risk of pain medication dependency 02/10/2021: Supportive care Dressing changes 02/11/2021: Supportive care Dressing changes 03/04/21: No changes indicated 02/13/21: Supportive care (1) History of left below knee amputation (2) Tobacco abuse Status: Acute (3) History of stroke Status: Chronic (4) PAD (peripheral artery disease) Status: Acute (5) BPH (benign prostatic hyperplasia) Status: Chronic (6) T2DM (type 2 diabetes mellitus) Status: Acute (7) Dyslipidemia Status: Acute (8) History of morbid obesity Status: Chronic MAXI BOWSER DO Feb 13, 2021 09:58
[2021-02-13] MEDS: SIMETHICONE 80 MG (MYLICON) CHEW PO PRN (10:07)
--- NOTE | 2021-02-13 12:03 | Occupational Ther Daily Note ---
OT Current Status-Daily Note Subjective Resting in bed at OT arrival, agreeable to treatment. Appearance Left supine in bed, all needs within reach. ADL-Treatment Therapy Code Descriptions/Definitions Functional [place] Measure: 0=Not Assessed/NA 4=Minimal Assistance 1=Total Assistance 5=Supervision or Setup 2=Maximal Assistance 6=Modified [place] 3=Moderate Assistance 7=Complete IndependenceSCALE: Activities may be completed with or without assistive devices. 9-Cgplhhrbct-fdjufnu completes the activity by him/herself with no assistance from a helper. 5-Set-up or Clean-up Assistance-helper sets up or cleans up; patient completes activity. [place] assists only prior to or following the activity. 4-Supervision or Touching Assistance-helper provides verbal cues and/or touching/steadying and/or contact guard assistance as patient completes activity. Assistance may be provided throughout the activity or intermittently. 3-Partial/Moderate Assistance-helper does LESS THAN HALF the effort. [place] lifts, holds or supports trunk or limbs, but provides less than half the effort. 2-Substantial/Maximal Assistance-helper does MORE THAN HALF the effort. [place] lifts or holds trunk or limbs and provides more than half the effort. 8-Fafvrqjjb-wytiow does ALL the effort. Patient does none of the effort to complete the activity. Or, the assistance of 2 or more helpers is required for the patient to complete the activity. If activity was not attempted, code reason: 7-Patient Refused. 9-Not Applicable-not attempted and the patient did not perform the activity before the current illness, exacerbation or injury. 10-Not Attempted due to Environmental Limitations-(lack of equipment, weather restraints, etc.). 88-Not Attempted due to Medical Conditions or Safety Concerns. Other Treatment Pt participated in UE exercises with goal to promote increased strength, endurance, and core stability needed for adls, transfers and w/c mobility. 2# hand held weight utilized for all joints. Pt may be able to tolerate an increase in weight to 3#'s next session. 12x1 in all planes. Min verbal and visual cues for correct technique Education OT Patient Education: Correct positioning, Exercise program, Progress toward Goal/Update tx plan, Purpose of tx/functional activities Teaching Recipient: Patient Teaching Methods: Demonstration, Discussion Response to Teaching: Verbalize Understanding, Return Demonstration OT Short Term Goals Short Term Goals Time Frame: Feb 17, 2021 Eatin Oral hygiene: 5 Toileting hygiene: 2 Shower/bathe self: 2 Upper body dressin Lower body dressin Putting on/taking off footwear: 2 OT Traffic Rate Clerk Goals [facility] Goals Time Frame: Mar 04, 2021 Eating (QC): 5 Oral Hygiene (QC): 5 Toileting Hygiene (QC): 3 Shower/Bathe Self (QC): 4 Upper Body Dressing (QC): 5 Lower Body Dressing (QC): 4 On/Off Footwear (QC): 4 1=Demonstrate adherence to instructed precautions during ADL tasks. 2=Patient will verbalize/demonstrate understanding of assistive devices/modifica tions for ADL. 3=Patient will improve strength/tolerance for activity to enable patient to perform ADL's. OT Education/Plan Problem List/Assessment Assessment: Decreased Activ Tolerance, Decreased UE Strength, Impaired Bed Mobility, Impaired Coordination, Impaired Funct Balance, Impaired Self-Care Skills Discharge Recommendations Plan/Recommendations: Continue POC Treatment Plan/Plan of Care Treatment,Training & Education: Yes Patient would benefit from OT for education, treatment and training to promote independence in ADL's, mobility, safety and/or upper extremity function for ADL's. Plan of Care: ADL Retraining, Functional Mobility, Group Exercise/Act as Ind, UE Funct Exercise/Act, UE Neuromus Re-Ed/Coord, W/C Management Training Treatment Duration: Mar 04, 2021 Frequency: At least 5 of 7 days/Wk (IRF) Estimated Hrs Per Day: 1.5 hours per day Agreement: Yes Rehab Potential: Fair Time/GCodes Start Time: 11:44 Stop Time: 12:00 Total Time Billed (hr/min): 16 Billed Treatment Time 1 visit EX Judi Mane OT Feb 13, 2021 12:03
--- NOTE | 2021-02-13 13:40 | Physical Therapy Daily Note ---
PT Daily Note-Current Subjective Patient in bed pre tx, agrees to PT, has 7/10 pain in right side UE and LE Appearance Patient in bed post tx with nurse call, phone, tray, all needs met. Mental Status Patient Orientation: Person, Place, Situation Transfers SCALE: Activities may be completed with or without assistive devices. 0-Msmkedpaqr-xjghnxv completes the activity by him/herself with no assistance from a helper. 5-Set-up or Clean-up Assistance-helper sets up or cleans up; patient completes activity. [place] assists only prior to or following the activity. 4-Supervision or Touching Assistance-helper provides verbal cues and/or to uching/steadying and/or contact guard assistance as patient completes activity. Assistance may be provided throughout the activity or intermittently. 3-Partial/Moderate Assistance-helper does LESS THAN HALF the effort. [place] lifts, holds or supports trunk or limbs, but provides less than half the effort. 2-Substantial/Maximal Assistance-helper does MORE THAN HALF the effort. [place] lifts or holds trunk or limbs and provides more than half the effort. 9-Fiopbbavz-hlewne does ALL the effort. Patient does none of the effort to complete the activity. Or, the assistance of 2 or more helpers is required for the patient to complete the activity. If activity was not attempted, code reason: 7-Patient Refused. 9-Not Applicable-not attempted and the patient did not perform the activity before the current illness, exacerbation or injury. 10-Not Attempted due to Environmental Limitations-(lack of equipment, weather restraints, etc.). 88-Not Attempted due to Medical Conditions or Safety Concerns. Weight Bearing Right Lower Extremity: Right Weight Bearing/Tolerated Left Lower Extremity: Left Non Weight Bearing NEW AMPUTATION Exercises Supine Ex: Ankle pumps (RLE), Quad Set, Glut sets, Heel Slides (on the left side he lifted leg and performed knee flex/ext), Short Arc Quads (RLE), Straight leg raise, Hip abd/add Supine Reps: 20 Treatments LE strengthening Assessment Current Status: Fair Progress Patient needed AAROM with HS, SAQ, hip abd, and SLR on the right side. He need ed a few rest breaks due to fatigue. PT Short Term Goals Short Term Goals Time Frame: Feb 14, 2021 Roll Left & Right: 6 Sit to lyin Lying to sitting on side of be: 4 Chair/ebi-pl-wldmb transfer: 3 (Oscar) PT Shelter Goals Care Transitions Manager Goals PT Care Transitions Manager Goals Time Frame: Feb 28, 2021 Roll Left & Right (QC): 6 Sit to Lying (QC): 6 Lying-Sitting on Side/Bed(QC): 6 Sit to Stand (QC): 88 Chair/Nme-dt-Mxfvp Xfer(QC): 4 Toilet Transfer (QC): 4 Car Transfer (QC): 4 Does the Patient Walk: No and Walking Goal NOT indicated Walk 10 feet (QC): 88 Walk 50ft with 2 Turns (QC): 88 Walk 150 ft (QC): 88 Walking 10ft on Uneven Surface: 88 1 Step (curb) (QC): 88 4 Steps (QC): 88 12 Steps (QC): 88 Picking up an Object (QC): 88 Wheel 50 feet with 2 turns (QC: 6 Wheel 150 feet: 6 PT Plan Problem List Problem List: Activity Tolerance, Functional Strength, Safety, Balance, Gait, Transfer, Bed Mobility, ROM Treatment/Plan Treatment Plan: Continue Plan of Care Treatment Plan: Bed Mobility, Education, Functional Activity Nicky, Functional Strength, Group Therapy, Safety, Therapeutic Exercise, Transfers Treatment Duration: Feb 28, 2021 Frequency: At least 5 of 7 days/Wk (IRF) Estimated Hrs Per Day: 1.5 hours per day Patient and/or Family Agrees t: Yes Safety Risks/Education Patient Education: Correct Positioning, Safety Issues Teaching Recipient: Patient Teaching Methods: Demonstration, Discussion Response to Teaching: Reinforcement Needed Time/GCodes Time In: 1251 Time Out: 1221 Total Billed Treatment Time: 30 Total Billed Treatment 1 visit EX 30' DHIRAJ ORTEGA PT Feb 13, 2021 13:40
[2021-02-13] MEDS: DICLOFENAC 1% GEL 100 GM (VOLTAREN) TUBE TOP PRN (17:11)
[2021-02-13 20:00] VITALS: BP 111/60
[2021-02-14] MEDS: HYDROcodone/APAP 7.5 MG/325 MG (LORTAB, LORCET PLUS) TABLET PO PRN ×6 (02:13→22:27)
[2021-02-14] MEDS: inSUlin ASPART (NovoLOG) 1 UNIT/0.01 ML (CHARGE PER UNIT) SC SCH ×4 (06:00→21:06)
--- NOTE | 2021-02-14 06:14 | PM&R Progress Note ---
Subjective HPI/CC On Admission Date Seen by Provider: Feb 14, 2021 Time Seen by Provider: 09:30 Subjective/Events-last exam 02/14/21: Pt doing the same Difficult transfers Increasing Gabapentin to 600 TID has helped 02/13/21: Pt doing okay. Increase in Gabapentin to 600mg TID from BID. Sliding scale insulin given for 216 sugar. Bowels moved yesterday. Incision looks good. Still a very tough transfer due to weakness on the right side. 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 02/09/2021: Pt doing well Pain phantom type is an issue Checked meds and labs Pt appears to be at high risk for dependency of pain medication 02/08/2021: Pt doing about the same Pain is an issue IV antibiotics mainted WBC 11.8 HGB 10.8 Bowels are moving Review of Systems General: Fatigue, Malaise Objective Exam Vital Signs Vital Signs Date Time Temp Pulse Resp B/P (MAP) Pulse Ox O2 Delivery O2 Flow Rate FiO2 02/14/21 20:00 36.4 93 18 129/66 (87) 97 Room Air Capillary Refill : General Appearance: No Apparent Distress, WD/WN, Chronically ill HEENT: PERRL/EOMI, Normal ENT Inspection, Pharynx Normal Neck: Full Range of Motion, Normal Inspection, Non Tender, Supple, Carotid Bruit Respiratory: Chest Non Tender, Lungs Clear, Normal Breath Sounds, No Accessory Muscle Use, No Respiratory Distress Cardiovascular: Regular Rate, Rhythm, No Edema, No Gallop, No JVD, No Murmur, Normal Peripheral Pulses Gastrointestinal: Normal Bowel Sounds, No Organomegaly, No Pulsatile Mass, Non Tender, Soft Back: Normal Inspection, No CVA Tenderness, No Vertebral Tenderness Extremity: Normal Capillary Refill, Normal Inspection, Normal Range of Motion, Non Tender, No Calf Tenderness, No Pedal Edema, Other (Left below-knee amputation) Neurologic/Psychiatric: Alert, Oriented x3, No Motor/Sensory Deficits, Normal Mood/Affect, Abnormal Gait, Motor Weakness (Right-sided weakness 2/5) Skin: Normal Color, Warm/Dry Lymphatic: No Adenopathy Results/Procedures Lab Patient resulted labs reviewed. FIM Transfers Therapy Code Descriptions/Definitions Functional [place] Measure: 0=Not Assessed/NA 4=Minimal Assistance 1=Total Assistance 5=Supervision or Setup 2=Maximal Assistance 6=Modified [place] 3=Moderate Assistance 7=Complete IndependenceSCALE: Activities may be completed with or without assistive devices. 4-Pcwnqhdajr-mvvtnmx completes the activity by him/herself with no assistance from a helper. 5-Set-up or Clean-up Assistance-helper sets up or cleans up; patient completes activity. [place] assists only prior to or following the activity. 4-Supervision or Touching Assistance-helper provides verbal cues and/or touching/steadying and/or contact guard assistance as patient completes activity. Assistance may be provided throughout the activity or intermittently. 3-Partial/Moderate Assistance-helper does LESS THAN HALF the effort. [place] l ifts, holds or supports trunk or limbs, but provides less than half the effort. 2-Substantial/Maximal Assistance-helper does MORE THAN HALF the effort. [place] lifts or holds trunk or limbs and provides more than half the effort. 5-Rucapfwfi-bvtzhk does ALL the effort. Patient does none of the effort to complete the activity. Or, the assistance of 2 or more helpers is required for t he patient to complete the activity. If activity was not attempted, code reason: 7-Patient Refused. 9-Not Applicable-not attempted and the patient did not perform the activity before the current illness, exacerbation or injury. 10-Not Attempted due to Environmental Limitations-(lack of equipment, weather restraints, etc.). 88-Not Attempted due to Medical Conditions or Safety Concerns. Roll Left to Right (QC): 4 Sit to Lying (QC): 3 Sit to Stand (QC): 1 Chair/Hqm-cs-Cktwl Xfer(QC): 3 Car Transfer (QC): 1 Gait Training Does the Patient Walk?: No and Walking Goal NOT indicated Walk 10 feet (QC): 88 Walk 50 ft with 2 Turns(QC): 88 Walk 150 ft (QC): 88 Walking 10ft/uneven surface-QC: 88 Wheelchair Training Does the Pt Use a Wheelchair?: Yes Distance: 300', 100'x2 Wheel 50 ft with 2 turns (QC): 4 Wheel 150 ft (QC): 4 Type of Wheelchair: Manual Stair Training 1 Step (curb) (QC): 88 4 Steps (QC): 88 12 Steps (QC): 88 Balance Picking up an Object (QC): 88 ADL-Treatment Eating (QC): 4 Oral Hygiene (QC): 9 (Pt reports he owns dentures but does not wear. 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 History of CVA with right-sided weakness History of super morbid obesity now BMI 22 Diabetes Previous smoker BPH Plan: Inpatient rehab protocol [facility] Pain control 02/08/2021: Pain control Protocol for rehab 02/09/2021: Supportive care Pain control Increase risk of pain medication dependency 02/10/2021: Supportive care Dressing changes 02/11/2021: Supportive care Dressing changes 03/04/21: No changes indicated 02/13/21: Supportive care 02/14/21: Monitor pain (1) History of left below knee amputation (2) Tobacco abuse Status: Acute (3) History of stroke Status: Chronic (4) PAD (peripheral artery disease) Status: Acute (5) BPH (benign prostatic hyperplasia) Status: Chronic (6) T2DM (type 2 diabetes mellitus) Status: Acute (7) Dyslipidemia Status: Acute (8) History of morbid obesity Status: Chronic MAXI BOWSER DO Feb 14, 2021 06:14
[2021-02-14] MEDS: metFORMIN 500 MG (GLUCOPHAGE) TAB PO SCH (06:17)
[2021-02-14 07:27] VITALS: BP 139/72
[2021-02-14] MEDS: LACTOBACILLUS ACIDOPHILUS (PROBIOTIC) CAPSULE PO SCH ×3 (08:36→18:24)
[2021-02-14] MEDS: GABAPENTIN 600 MG (NEURONTIN) TAB PO SCH ×3 (08:36→19:48)
[2021-02-14] MEDS: CLOPIDOGREL 75 MG (PLAVIX) TABLET PO SCH (08:36)
[2021-02-14] MEDS: ASPIRIN E.C. 81 MG (ECOTRIN) TAB PO SCH (08:37)
[2021-02-14] MEDS: DOCUSATE SODIUM 100 MG (COLACE) CAP PO SCH ×2 (08:37→19:32)
[2021-02-14] MEDS: polyethylene glycoL POWDER 17 GM (MIRALAX) PACK PO SCH ×2 (08:41→19:33)
[2021-02-14] MEDS: SENNA W/DOCUSATE (SENOKOT S) TABLET PO SCH ×2 (08:42→19:34)
[2021-02-14] MEDS: SENNOSIDES 8.6 MG (SENOKOT) TAB PO SCH ×2 (08:42→19:33)
--- NOTE | 2021-02-14 08:56 | Physical Therapy Daily Note ---
PT Daily Note-Current Subjective Patient in bed pre tx, agrees to PT, has 7/10 pain in right UE and LE. Will be co-treating with OT due to poor patient mobility, strength, endurance, severe debility and poor trunk control, coordinate UE and LE during activity, safety and reduce risk of falls. Appearance Patient in WC at bedside post tx with nurse call, phone, tray, all needs met. Mental Status Patient Orientation: Normal For Age Transfers SCALE: Activities may be completed with or without assistive devices. 2-Bstvmvvdfr-bghzqwq completes the activity by him/herself with no assistance from a helper. 5-Set-up or Clean-up Assistance-helper sets up or cleans up; patient completes activity. [place] assists only prior to or following the activity. 4-Supervision or Touching Assistance-helper provides verbal cues and/or touching/steadying and/or contact guard assistance as patient completes activity. Assistance may be provided throughout the activity or intermittently. 3-Partial/Moderate Assistance-helper does LESS THAN HALF the effort. [place] lifts, holds or supports trunk or limbs, but provides less than half the effort. 2-Substantial/Maximal Assistance-helper does MORE THAN HALF the effort. [place] lifts or holds trunk or limbs and provides more than half the effort. 7-Lqyfeawjr-btnivw does ALL the effort. Patient does none of the effort to complete the activity. Or, the assistance of 2 or more helpers is required for the patient to complete the activity. If activity was not attempted, code reason: 7-Patient Refused. 9-Not Applicable-not attempted and the patient did not perform the activity before the current illness, exacerbation or injury. 10-Not Attempted due to Environmental Limitations-(lack of equipment, weather restraints, etc.). 88-Not Attempted due to Medical Conditions or Safety Concerns. Roll Left & Right (QC): 4 Lying to Sitting/Side of Bed(Q: 3 Chair/Jgg-ov-Dxoko Xfer(QC): 3 Patient has to roll several times in bed to clean BM and change pad and then for dressing, mod assist for supine to sit and mod assist sliding board transfer to Weight Bearing Right Lower Extremity: Right Weight Bearing/Tolerated Left Lower Extremity: Left Non Weight Bearing NEW AMPUTATION Wheelchair Training Does the Pt Use a Wheelchair?: Yes Wheel 50 ft with 2 turns (QC): 4 Wheel 150 ft (QC): 4 Type of Wheelchair: Manual 300', 120' Exercises attempted standing twice in parallel bars but patient is not able to stand completely due to severe weakness in RLE, performed manually resisted leg press x20, pre-standing activity in parallel bars 3 sets of 10, WC pushups 2 sets of 10, seated activity without trunk support working on sitting balance and trunk strength Treatments PT performed bed mobility and transfers, WC mobility, trunk strengthening, UE and LE strengthening, rolling, OT performed cleaning, dressing, assist with trunk strengthening, activity, UE and LE positioning and safety during activity. Assessment Current Status: Poor Progress very little progress with functional mobility PT Short Term Goals Short Term Goals Time Frame: Feb 14, 2021 Roll Left & Right: 6 Sit to lyin Lying to sitting on side of be: 4 Chair/nkp-hs-yygna transfer: 3 (Oscar) PT Manager Behavior Goals Manager Behavior Goals PT Manager Behavior Goals Time Frame: Feb 28, 2021 Roll Left & Right (QC): 6 Sit to Lying (QC): 6 Lying-Sitting on Side/Bed(QC): 6 Sit to Stand (QC): 88 Chair/Cxk-cs-Mvmuj Xfer(QC): 4 Toilet Transfer (QC): 4 Car Transfer (QC): 4 Does the Patient Walk: No and Walking Goal NOT indicated Walk 10 feet (QC): 88 Walk 50ft with 2 Turns (QC): 88 Walk 150 ft (QC): 88 Walking 10ft on Uneven Surface: 88 1 Step (curb) (QC): 88 4 Steps (QC): 88 12 Steps (QC): 88 Picking up an Object (QC): 88 Wheel 50 feet with 2 turns (QC: 6 Wheel 150 feet: 6 PT Plan Problem List Problem List: Activity Tolerance, Functional Strength, Safety, Balance, Gait, Transfer, Bed Mobility, ROM Treatment/Plan Treatment Plan: Continue Plan of Care Treatment Plan: Bed Mobility, Education, Functional Activity Nicky, Functional Strength, Group Therapy, Safety, Therapeutic Exercise, Transfers Treatment Duration: Feb 28, 2021 Frequency: At least 5 of 7 days/Wk (IRF) Estimated Hrs Per Day: 1.5 hours per day Patient and/or Family Agrees t: Yes Safety Risks/Education Patient Education: Transfer Techniques, Correct Positioning, W/C Management, Safety Issues Teaching Recipient: Patient Teaching Methods: Demonstration, Discussion Response to Teaching: Reinforcement Needed Time/GCodes Time In: 0800 Time Out: 0900 Total Billed Treatment Time: 60 Total Billed Treatment 1 visit EX 30' FA 30' DHIRAJ ORTEGA PT Feb 14, 2021 08:56
--- NOTE | 2021-02-14 08:58 | Occupational Ther Daily Note ---
OT Current Status-Daily Note Subjective Pt reports R sided pain; 08/20. Co treat with PT due to poor activity tolerance, high pain levels, high fall risk and need of 2 skilled clinicians to progress indep with mobility and adls. Appearance Left sitting in w/c, all needs within reach. Mental Status/Objective Patient Orientation: Person, Place, Situation ADL-Treatment Therapy Code Descriptions/Definitions Functional [place] Measure: 0=Not Assessed/NA 4=Minimal Assistance 1=Total Assistance 5=Supervision or Setup 2=Maximal Assistance 6=Modified [place] 3=Moderate Assistance 7=Complete IndependenceSCALE: Activities may be completed with or without assistive devices. 7-Iylwvyruwy-phqyoqq completes the activity by him/herself with no assistance from a helper. 5-Set-up or Clean-up Assistance-helper sets up or cleans up; patient completes activity. [place] assists only prior to or following the activity. 4-Supervision or Touching Assistance-helper provides verbal cues and/or touching/steadying and/or contact guard assistance as patient completes activity. Assistance may be provided throughout the activity or intermittently. 3-Partial/Moderate Assistance-helper does LESS THAN HALF the effort. [place] lifts, holds or supports trunk or limbs, but provides less than half the effort. 2-Substantial/Maximal Assistance-helper does MORE THAN HALF the effort. [place] lifts or holds trunk or limbs and provides more than half the effort. 8-Cfhtbslpa-oylfqn does ALL the effort. Patient does none of the effort to complete the activity. Or, the assistance of 2 or more helpers is required for the patient to complete the activity. If activity was not attempted, code reason: 7-Patient Refused. 9-Not Applicable-not attempted and the patient did not perform the activity before the current illness, exacerbation or injury. 10-Not Attempted due to Environmental Limitations-(lack of equipment, weather restraints, etc.). 88-Not Attempted due to Medical Conditions or Safety Concerns. Upper Body Dressing (QC): 4 Lower Body Dressing (QC): 3 On/Off Footwear: 1 Toileting Hygiene (QC): 1 Partial sponge bath performed at bed level. Pt washed upper body and [place] area with set up assist. Incontinent of stool, dependent for back [place] care. Pants donned in long sitting. Min cue on positioning of RLE when threading foot into clothing. Post cue, pt able to thread RLE and residual limb without physical assist. Pt Continues to have difficulty maintaining sidelying and requires intermittent min a to get fully onto his side with assist from bedrails to maintain position. Min a to pull pants completely over hips with cues on hand placement on where to pull up. Improved sitting balance when donning shirt at EOB (unsupported sitting) this date. Close supervision. Only 1 LOB but pt able to recover without assist. Other Treatment Pt propelled w/c around unit. Slight improvement in speed this date. Continues to need min-mod cues on improved w/c propulsion in order to avoid obstacles. While in gym, pt participated in seated dynamic trunk activities with goal to promote increased sitting balance, core strength, and UE strength/use needed for adls and mobility. Intermittent cga-min a for safety/balance when reaching out of CHRISTIAN[place]. 2# wrist weights added to BUE's for strengthening component. Fatigues easily but able to tolerate longer bouts this date. Short rest breaks throughout session still needed. Cues for posture, yet limited by curvature of spine. Multiple slide board transfers throughout session requiring min-mod a. Extra scooting assist required when going from low to high surface. mod A for placement of board. Education OT Patient Education: Correct positioning, Energy conservation, Modified ADL techniques, Progress toward Goal/Update tx plan, Purpose of tx/functional activities, Safety issues, Transfer techniques, W/C management Teaching Recipient: Patient Teaching Methods: Demonstration, Discussion Response to Teaching: Verbalize Understanding, Return Demonstration, Reinforcement Needed OT Short Term Goals Short Term Goals Time Frame: Feb 17, 2021 Eatin Oral hygiene: 5 Toileting hygiene: 2 Shower/bathe self: 2 Upper body dressin Lower body dressin Putting on/taking off footwear: 2 OT Funeral Pre Arrangement Specialist Goals Funeral Pre Arrangement Specialist Goals Time Frame: Mar 04, 2021 Eating (QC): 5 Oral Hygiene (QC): 5 Toileting Hygiene (QC): 3 Shower/Bathe Self (QC): 4 Upper Body Dressing (QC): 5 Lower Body Dressing (QC): 4 On/Off Footwear (QC): 4 1=Demonstrate adherence to instructed precautions during ADL tasks. 2=Patient will verbalize/demonstrate understanding of assistive devices/modifications for ADL. 3=Patient will improve strength/tolerance for activity to enable patient to perform ADL's. OT Education/Plan Problem List/Assessment Assessment: Decreased Activ Tolerance, Decreased UE Strength, Dependent Transfers, Impaired Bed Mobility, Impaired Coordination, Impaired Funct Balance, Impaired I ADL's, Impaired Self-Care Skills Discharge Recommendations Plan/Recommendations: Continue POC Treatment Plan/Plan of Care Treatment,Training & Education: Yes Patient would benefit from OT for education, treatment and training to promote independence in ADL's, mobility, safety and/or upper extremity function for ADL's. Plan of Care: ADL Retraining, Functional Mobility, Group Exercise/Act as Ind, UE Funct Exercise/Act, UE Neuromus Re-Ed/Coord, W/C Management Training Treatment Duration: Mar 04, 2021 Frequency: At least 5 of 7 days/Wk (IRF) Estimated Hrs Per Day: 1.5 hours per day Agreement: Yes Rehab Potential: Fair Time/GCodes Start Time: 08:00 Stop Time: 09:00 Total Time Billed (hr/min): 60 Billed Treatment Time 1 visit, ADL x2 (25 min) FA x2 (35 min) Judi Mane OT Feb 14, 2021 08:58
--- NOTE | 2021-02-14 10:43 | Physical Therapy Daily Note ---
PT Daily Note-Current Subjective Patient in bed pre tx, agrees to PT, has pain of 9/10 and states he just got a pain pill. Patient states he couldn't stay in WC due to pain and just got back into bed. Appearance Patient in bed post tx with nurse call, phone, tray, all needs met. Mental Status Patient Orientation: Normal For Age Transfers SCALE: Activities may be completed with or without assistive devices. 1-Sctckmgyqp-ettpyug completes the activity by him/herself with no assistance from a helper. 5-Set-up or Clean-up Assistance-helper sets up or cleans up; patient completes activity. [place] assists only prior to or following the activity. 4-Supervision or Touching Assistance-helper provides verbal cues and/or touching/steadying and/or contact guard assistance as patient completes activity. Assistance may be provided throughout the activity or intermittently. 3-Partial/Moderate Assistance-helper does LESS THAN HALF the effort. [place] lifts, holds or supports trunk or limbs, but provides less than half the effort. 2-Substantial/Maximal Assistance-helper does MORE THAN HALF the effort. [place] lifts or holds trunk or limbs and provides more than half the effort. 4-Dugysyrlw-aywvdl does ALL the effort. Patient does none of the effort to complete the activity. Or, the assistance of 2 or more helpers is required for the patient to complete the activity. If activity was not attempted, code reason: 7-Patient Refused. 9-Not Applicable-not attempted and the patient did not perform the activity before the current illness, exacerbation or injury. 10-Not Attempted due to Environmental Limitations-(lack of equipment, weather restraints, etc.). 88-Not Attempted due to Medical Conditions or Safety Concerns. Weight Bearing Right Lower Extremity: Right Weight Bearing/Tolerated Left Lower Extremity: Left Non Weight Bearing NEW AMPUTATION Exercises Supine Ex: Ankle pumps (RLE), Quad Set, Glut sets, Heel Slides (on LLE lifted the leg and performed knee flex/ext), Short Arc Quads (RLE), Straight leg raise, Hip abd/add Supine Reps: 20 (AAROM on the RLE with SAQ, HS, hip abd, SLR) Treatments LE strengthening Assessment Current Status: Poor Progress slightly better AAROM on the RLE PT Short Term Goals Short Term Goals Time Frame: Feb 14, 2021 Roll Left & Right: 6 Sit to lyin Lying to sitting on side of be: 4 Chair/hoh-bv-imfge transfer: 3 (Oscar) PT Brake Mechanic Goals Long-Term Goals PT Brake Mechanic Goals Time Frame: Feb 28, 2021 Roll Left & Right (QC): 6 Sit to Lying (QC): 6 Lying-Sitting on Side/Bed(QC): 6 Sit to Stand (QC): 88 Chair/Cxu-un-Gbefk Xfer(QC): 4 Toilet Transfer (QC): 4 Car Transfer (QC): 4 Does the Patient Walk: No and Walking Goal NOT indicated Walk 10 feet (QC): 88 Walk 50ft with 2 Turns (QC): 88 Walk 150 ft (QC): 88 Walking 10ft on Uneven Surface: 88 1 Step (curb) (QC): 88 4 Steps (QC): 88 12 Steps (QC): 88 Picking up an Object (QC): 88 Wheel 50 feet with 2 turns (QC: 6 Wheel 150 feet: 6 PT Plan Problem List Problem List: Activity Tolerance, Functional Strength, Safety, Balance, Gait, Transfer, Bed Mobility, ROM Treatment/Plan Treatment Plan: Continue Plan of Care Treatment Plan: Bed Mobility, Education, Functional Activity Nicky, Functional Strength, Group Therapy, Safety, Therapeutic Exercise, Transfers Treatment Duration: Feb 28, 2021 Frequency: At least 5 of 7 days/Wk (IRF) Estimated Hrs Per Day: 1.5 hours per day Patient and/or Family Agrees t: Yes Safety Risks/Education Patient Education: Correct Positioning, Safety Issues Teaching Recipient: Patient Teaching Methods: Demonstration, Discussion Response to Teaching: Reinforcement Needed Time/GCodes Time In: 1015 Time Out: 1045 Total Billed Treatment Time: 30 Total Billed Treatment 1 visit EX 30' DHIRAJ ORTEGA PT Feb 14, 2021 10:43
--- NOTE | 2021-02-14 12:09 | Occupational Ther Daily Note ---
OT Current Status-Daily Note Subjective Continues to have pain, majority on R side. Appearance Left supine in bed, all needs within reach. Mental Status/Objective Patient Orientation: Person, Place, Situation ADL-Treatment Therapy Code Descriptions/Definitions Functional [place] Measure: 0=Not Assessed/NA 4=Minimal Assistance 1=Total Assistance 5=Supervision or Setup 2=Maximal Assistance 6=Modified [place] 3=Moderate Assistance 7=Complete IndependenceSCALE: Activities may be completed with or without assistive devices. 5-Noarzdtgta-oijtpah completes the activity by him/herself with no assistance from a helper. 5-Set-up or Clean-up Assistance-helper sets up or cleans up; patient completes activity. [place] assists only prior to or following the activity. 4-Supervision or Touching Assistance-helper provides verbal cues and/or touching/steadying and/or contact guard assistance as patient completes activity. Assistance may be provided throughout the activity or intermittently. 3-Partial/Moderate Assistance-helper does LESS THAN HALF the effort. [place] lifts, holds or supports trunk or limbs, but provides less than half the effort. 2-Substantial/Maximal Assistance-helper does MORE THAN HALF the effort. [place] lifts or holds trunk or limbs and provides more than half the effort. 3-Hjhdowtbg-vnmclc does ALL the effort. Patient does none of the effort to complete the activity. Or, the assistance of 2 or more helpers is required for the patient to complete the activity. If activity was not attempted, code reason: 7-Patient Refused. 9-Not Applicable-not attempted and the patient did not perform the activity before the current illness, exacerbation or injury. 10-Not Attempted due to Environmental Limitations-(lack of equipment, weather restraints, etc.). 88-Not Attempted due to Medical Conditions or Safety Concerns. Other Treatment Pt participated in UE exercises with goal to promote increased strength, endurance, and core stability needed for adls, transfers and w/c mobility. 3# hand held weight utilized for all joints. Able to complete all movements to full range. 12x1 in all planes. Pt able to recall 4 exercises performed in past sessions but does require Min verbal cues for correct technique. Short rest breaks needed in between sets. Education OT Patient Education: Correct positioning, Exercise program, Progress toward Goal/Update tx plan, Purpose of tx/functional activities, Safety issues Teaching Recipient: Patient Teaching Methods: Demonstration, Discussion Response to Teaching: Verbalize Understanding, Return Demonstration OT Short Term Goals Short Term Goals Time Frame: Feb 17, 2021 Eatin Oral hygiene: 5 Toileting hygiene: 2 Shower/bathe self: 2 Upper body dressin Lower body dressin Putting on/taking off footwear: 2 OT Litigation Services Manager Goals Litigation Services Manager Goals Time Frame: Mar 04, 2021 Eating (QC): 5 Oral Hygiene (QC): 5 Toileting Hygiene (QC): 3 Shower/Bathe Self (QC): 4 Upper Body Dressing (QC): 5 Lower Body Dressing (QC): 4 On/Off Footwear (QC): 4 1=Demonstrate adherence to instructed precautions during ADL tasks. 2=Patient will verbalize/demonstrate understanding of assistive devices/modifications for ADL. 3=Patient will improve strength/tolerance for activity to enable patient to perform ADL's. OT Education/Plan Problem List/Assessment Assessment: Decreased Activ Tolerance, Decreased UE Strength, Dependent Transfers, Impaired Bed Mobility, Impaired Funct Balance, Impaired Self-Care Skills Discharge Recommendations Plan/Recommendations: Continue POC Treatment Plan/Plan of Care Treatment,Training & Education: Yes Patient would benefit from OT for education, treatment and training to promote independence in ADL's, mobility, safety and/or upper extremity function for ADL's. Plan of Care: ADL Retraining, Functional Mobility, Group Exercise/Act as Ind, UE Funct Exercise/Act, UE Neuromus Re-Ed/Coord, W/C Management Training Treatment Duration: Mar 04, 2021 Frequency: At least 5 of 7 days/Wk (IRF) Estimated Hrs Per Day: 1.5 hours per day Agreement: Yes Rehab Potential: Fair Time/GCodes Start Time: 11:35 Stop Time: 12:05 Total Time Billed (hr/min): 30 Billed Treatment Time 1 visit EX sapna Judi Mane OT Feb 14, 2021 12:09
[2021-02-14 20:00] VITALS: BP 129/66
[2021-02-15] MEDS: HYDROcodone/APAP 7.5 MG/325 MG (LORTAB, LORCET PLUS) TABLET PO PRN ×6 (02:34→23:47)
[2021-02-15] MEDS: inSUlin ASPART (NovoLOG) 1 UNIT/0.01 ML (CHARGE PER UNIT) SC SCH ×4 (06:33→20:37)
[2021-02-15] MEDS: metFORMIN 500 MG (GLUCOPHAGE) TAB PO SCH (06:33)
[2021-02-15 07:29] VITALS: BP 121/66
[2021-02-15] MEDS: GABAPENTIN 600 MG (NEURONTIN) TAB PO SCH ×3 (07:55→19:42)
[2021-02-15] MEDS: ASPIRIN E.C. 81 MG (ECOTRIN) TAB PO SCH (07:55)
[2021-02-15] MEDS: CLOPIDOGREL 75 MG (PLAVIX) TABLET PO SCH (07:55)
[2021-02-15] MEDS: LACTOBACILLUS ACIDOPHILUS (PROBIOTIC) CAPSULE PO SCH ×3 (07:55→17:29)
[2021-02-15] MEDS: DOCUSATE SODIUM 100 MG (COLACE) CAP PO SCH ×2 (07:59→19:29)
[2021-02-15] MEDS: polyethylene glycoL POWDER 17 GM (MIRALAX) PACK PO SCH ×2 (07:59→19:29)
[2021-02-15] MEDS: SENNA W/DOCUSATE (SENOKOT S) TABLET PO SCH ×2 (07:59→19:29)
[2021-02-15] MEDS: SENNOSIDES 8.6 MG (SENOKOT) TAB PO SCH ×2 (08:00→19:29)
--- NOTE | 2021-02-15 09:05 | Physical Therapy Daily Note ---
PT Daily Note-Current Subjective Pt. in bed, agrees to Rx, c/o pain in right foot and left residual limb at 8/10, has already had pain meds this morning. Pt. shedding tears as he shares that he has had yet another in his [place] of love ones Pain Numeric Pain Scale: 8 Location: Left Location Body Site: Foot Pain Description: Ache Comment: phantom pain Appearance pt. incont of BM and required max assist to cleanse, partial linen change and apply protective paste Mental Status Patient Orientation: Normal For Age Transfers SCALE: Activities may be completed with or without assistive devices. 6-Lkhjnewtjn-dcfpchn completes the activity by him/herself with no assistance from a helper. 5-Set-up or Clean-up Assistance-helper sets up or cleans up; patient completes activity. [place] assists only prior to or following the activity. 4-Supervision or Touching Assistance-helper provides verbal cues and/or touching/steadying and/or contact guard assistance as patient completes activity. Assistance may be provided throughout the activity or intermittently. 3-Partial/Moderate Assistance-helper does LESS THAN HALF the effort. [place] lifts, holds or supports trunk or limbs, but provides less than half the effort. 2-Substantial/Maximal Assistance-helper does MORE THAN HALF the effort. [place] lifts or holds trunk or limbs and provides more than half the effort. 6-Czgczfmvw-hloucq does ALL the effort. Patient does none of the effort to complete the activity. Or, the assistance of 2 or more helpers is required for the patient to complete the activity. If activity was not attempted, code reason: 7-Patient Refused. 9-Not Applicable-not attempted and the patient did not perform the activity before the current illness, exacerbation or injury. 10-Not Attempted due to Environmental Limitations-(lack of equipment, weather restraints, etc.). 88-Not Attempted due to Medical Conditions or Safety Concerns. Roll Left & Right (QC): 3 Lying to Sitting/Side of Bed(Q: 3 (HOB up) Chair/Jjg-tm-Babcg Xfer(QC): 3 assist of 2 skilled clinicians for rolling , sup to sit and sld brd TRF bed to w/c (see below) Weight Bearing Right Lower Extremity: Right Weight Bearing/Tolerated Left Lower Extremity: Left Non Weight Bearing NEW AMPUTATION Wheelchair Training Does the Pt Use a Wheelchair?: Yes Wheel 50 ft with 2 turns (QC): 6 Wheel 150 ft (QC): 6 Type of Wheelchair: Manual pt. 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 Pt. managed fig 8 challenge well and in tight areas without incident Exercises Supine Ex: Ankle pumps (HC stretches R HC 4 x 20s), Quad Set, Rolling, Glut sets, Heel Slides, Short Arc Quads (right), Scooting, Straight leg raise (asssited), Hip abd/add Supine Reps: 12 Seated Therapy Exercises: Long arc quads Seated Reps: 10 additional exerc: in supine,mass extension RLE with gentle manual resistance for extension, manual resistance for right hip int ext rotation in hooklying, many tactile anc verbal cues needed for q sets, and glut sets, Treatments PT OT co Rx secondary to poor pt mobility,strength, endurance and severe debility and poor trunk control and sitting balance. PT OT coordinating U&L extremity activity and safety education and practice. seated wt shift for and back for pre stance, with CGA, sld brd with mod assist of 2, dressing LE and UE in bed with rolling and at EOB incorporating trunk control , Assessment Current Status: Good Progress slow progress, requires rest breaks, pain also limits funct activity and participation PT Short Term Goals Short Term Goals Time Frame: Feb 14, 2021 Roll Left & Right: 6 Sit to lyin Lying to sitting on side of be: 4 Chair/tuu-px-rborc transfer: 3 (Oscar) PT Chain Link Fence Installer Goals Half-Way Goals PT Chain Link Fence Installer Goals Time Frame: Feb 28, 2021 Roll Left & Right (QC): 6 Sit to Lying (QC): 6 Lying-Sitting on Side/Bed(QC): 6 Sit to Stand (QC): 88 Chair/Btk-co-Zfsnb Xfer(QC): 4 Toilet Transfer (QC): 4 Car Transfer (QC): 4 Does the Patient Walk: No and Walking Goal NOT indicated Walk 10 feet (QC): 88 Walk 50ft with 2 Turns (QC): 88 Walk 150 ft (QC): 88 Walking 10ft on Uneven Surface: 88 1 Step (curb) (QC): 88 4 Steps (QC): 88 12 Steps (QC): 88 Picking up an Object (QC): 88 Wheel 50 feet with 2 turns (QC: 6 Wheel 150 feet: 6 PT Plan Treatment/Plan Treatment Plan: Continue Plan of Care Treatment Plan: Bed Mobility, Education, Functional Activity Nicky, Functional Strength, Group Therapy, Safety, Therapeutic Exercise, Transfers Treatment Duration: Feb 28, 2021 Frequency: At least 5 of 7 days/Wk (IRF) Estimated Hrs Per Day: 1.5 hours per day Patient and/or Family Agrees t: Yes Safety Risks/Education Patient Education: Transfer Techniques, Correct Positioning, W/C Management, Disease Process, Safety Issues Teaching Recipient: Patient Teaching Methods: Demonstration, Discussion Response to Teaching: Verbalize Understanding, Return Demonstration, Reinforcement Needed Time/GCodes Time In: 755 Time Out: 855 Total Billed Treatment Time: 60 Total Billed Treatment 1,EX15m,FA35m,WC10m (co Rx 60m) NICA RING JOURNEYMAN WIREMAN Feb 15, 2021 09:05
--- NOTE | 2021-02-15 10:11 | PM&R Progress Note ---
Subjective HPI/CC On Admission Date Seen by Provider: Feb 15, 2021 Time Seen by Provider: 10:00 Subjective/Events-last exam 02/15/21: Pt incontinent of bowel function times 2 last night Right sided pain from old stroke he wants to be awakened during the night to give him a pain pill and I do not support that High dependency for addiction 02/14/21: Pt doing the same Difficult transfers Increasing Gabapentin to 600 TID has helped 02/13/21: Pt doing okay. Increase in Gabapentin to 600mg TID from BID. Sliding scale insulin given for 216 sugar. Bowels moved yesterday. Incision looks good. Still a very tough transfer due to weakness on the right side. 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 02/09/2021: Pt doing well Pain phantom type is an issue Checked meds and labs Pt appears to be at high risk for dependency of pain medication 02/08/2021: Pt doing about the same Pain is an issue IV antibiotics mainted WBC 11.8 HGB 10.8 Bowels are moving Review of Systems General: Fatigue, Malaise Objective Exam Vital Signs Vital Signs Date Time Temp Pulse Resp B/P (MAP) Pulse Ox O2 Delivery O2 Flow Rate FiO2 02/15/21 20:00 Room Air 02/15/21 20:00 36.3 87 18 105/56 (72) 98 Capillary Refill : General Appearance: No Apparent Distress, WD/WN, Chronically ill HEENT: PERRL/EOMI, Normal ENT Inspection, Pharynx Normal Neck: Full Range of Motion, Normal Inspection, Non Tender, Supple, Carotid Bruit Respiratory: Chest Non Tender, Lungs Clear, Normal Breath Sounds, No Accessory Muscle Use, No Respiratory Distress Cardiovascular: Regular Rate, Rhythm, No Edema, No Gallop, No JVD, No Murmur, Normal Peripheral Pulses Gastrointestinal: Normal Bowel Sounds, No Organomegaly, No Pulsatile Mass, Non Tender, Soft Back: Normal Inspection, No CVA Tenderness, No Vertebral Tenderness Extremity: Normal Capillary Refill, Normal Inspection, Normal Range of Motion, Non Tender, No Calf Tenderness, No Pedal Edema, Other (Left below-knee amputation) Neurologic/Psychiatric: Alert, Oriented x3, No Motor/Sensory Deficits, Normal Mood/Affect, Abnormal Gait, Motor Weakness (Right-sided weakness 2/5) Skin: Normal Color, Warm/Dry Lymphatic: No Adenopathy Results/Procedures Lab Patient resulted labs reviewed. FIM Transfers Therapy Code Descriptions/Definitions Functional [place] Measure: 0=Not Assessed/NA 4=Minimal Assistance 1=Total Assistance 5=Supervision or Setup 2=Maximal Assistance 6=Modified [place] 3=Moderate Assistance 7=Complete IndependenceSCALE: Activities may be completed with or without assistive devices. 3-Nnrxdqmuqp-mjqyjbk completes the activity by him/herself with no assistance from a helper. 5-Set-up or Clean-up Assistance-helper sets up or cleans up; patient completes activity. [place] assists only prior to or following the activity. 4-Supervision or Touching Assistance-helper provides verbal cues and/or touching/steadying and/or contact guard assistance as patient completes activity. Assistance may be provided throughout the activity or intermittently. 3-Partial/Moderate Assistance-helper does LESS THAN HALF the effort. [place] lifts, holds or supports trunk or limbs, but provides less than half the effort. 2-Substantial/Maximal Assistance-helper does MORE THAN HALF the effort. [place] lifts or holds trunk or limbs and provides more than half the effort. 6-Lsxwydtkj-tnderq does ALL the effort. Patient does none of the effort to complete the activity. Or, the assistance of 2 or more helpers is required for the patient to complete the activity. If activity was not attempted, code reason: 7-Patient Refused. 9-Not Applicable-not attempted and the patient did not perform the activity before the current illness, exacerbation or injury. 10-Not Attempted due to Environmental Limitations-(lack of equipment, weather restraints, etc.). 88-Not Attempted due to Medical Conditions or Safety Concerns. Roll Left to Right (QC): 3 Sit to Lying (QC): 3 Sit to Stand (QC): 1 Chair/Rsr-qr-Vohae Xfer(QC): 3 Car Transfer (QC): 1 Gait Training Does the Patient Walk?: No and Walking Goal NOT indicated Walk 10 feet (QC): 88 Walk 50 ft with 2 Turns(QC): 88 Walk 150 ft (QC): 88 Walking 10ft/uneven surface-QC: 88 Wheelchair Training Does the Pt Use a Wheelchair?: Yes Distance: 300', 100'x2 Wheel 50 ft with 2 turns (QC): 6 Wheel 150 ft (QC): 6 Type of Wheelchair: Manual Stair Training 1 Step (curb) (QC): 88 4 Steps (QC): 88 12 Steps (QC): 88 Balance Picking up an Object (QC): 88 ADL-Treatment Eating (QC): 4 Oral Hygiene (QC): 9 (Pt reports he owns dentures but does not wear. 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 History of super morbid obesity now BMI 22 Diabetes Previous smoker BPH Plan: Inpatient rehab protocol [place] Pain control 02/08/2021: Pain control Protocol for rehab 02/09/2021: Supportive care Pain control Increase risk of pain medication dependency 02/10/2021: Supportive care Dressing changes 02/11/2021: Supportive care Dressing changes 03/04/21: No changes indicated 02/13/21: Supportive care 02/14/21: Monitor pain 02/15/21: Monitor closely Increased addiction potential (1) History of left below knee amputation (2) Tobacco abuse Status: Acute (3) History of stroke Status: Chronic (4) PAD (peripheral artery disease) Status: Acute (5) BPH (benign prostatic hyperplasia) Status: Chronic (6) T2DM (type 2 diabetes mellitus) Status: Acute (7) Dyslipidemia Status: Acute (8) History of morbid obesity Status: Chronic MAXI BOWSER DO Feb 15, 2021 10:11
--- NOTE | 2021-02-15 10:50 | Occupational Ther Daily Note ---
OT Current Status-Daily Note Subjective Pt reports R sided pain; 09/20. Co treat with PT ([id number]) due to poor activity tolerance, high pain levels, high fall risk and need of 2 skilled clinicians to progress indep with mobility and adls. Pt reports another in family, emotional support provided. Appearance Sitting in w/c at therapy departure, all needs within reach. Mental Status/Objective Patient Orientation: Person, Place, Time, Situation ADL-Treatment Therapy Code Descriptions/Definitions Functional [place] Measure: 0=Not Assessed/NA 4=Minimal Assistance 1=Total Assistance 5=Supervision or Setup 2=Maximal Assistance 6=Modified [place] 3=Moderate Assistance 7=Complete IndependenceSCALE: Activities may be completed with or without assistive devices. 4-Qdgynbprhd-hegxfel completes the activity by him/herself with no assistance from a helper. 5-Set-up or Clean-up Assistance-helper sets up or cleans up; patient completes a ctivity. [place] assists only prior to or following the activity. 4-Supervision or Touching Assistance-helper provides verbal cues and/or touching/steadying and/or contact guard assistance as patient completes activity. Assistance may be provided throughout the activity or intermittently. 3-Partial/Moderate Assistance-helper does LESS THAN HALF the effort. Mobile lifts, holds or supports trunk or limbs, but provides less than half the effort. 2-Substantial/Maximal Assistance-helper does MORE THAN HALF the effort. Mobile lifts or holds trunk or limbs and provides more than half the effort. 3-Hhfgomqxm-cbwttj does ALL the effort. Patient does none of the effort to complete the activity. Or, the assistance of 2 or more helpers is required for the patient to complete the activity. If activity was not attempted, code reason: 7-Patient Refused. 9-Not Applicable-not attempted and the patient did not perform the activity before the current illness, exacerbation or injury. 10-Not Attempted due to Environmental Limitations-(lack of equipment, weather restraints, etc.). 88-Not Attempted due to Medical Conditions or Safety Concerns. Eating (QC): 6 Upper Body Dressing (QC): 4 Lower Body Dressing (QC): 3 On/Off Footwear: 1 Toileting Hygiene (QC): 2 (1st session) Pt donned pants over feet. While pulling clothing up to waist, he began to have Incontinence of stool. Dependent for back [place] care. New pants donned in long sitting. Pt Continues to have difficulty maintaining sidelying and requires intermittent min a to get fully onto his side with assist from bedrails to maintain position. Min a to pull pants completely over hips with cues on hand placement on where to pull up. Improved sitting balance when donning shirt at EOB (unsupported sitting). Close supervision, no LOB this date. Other Treatment 2nd treatment: [id number]: Pt sitting in w/c, reports significant increase in R sided pain. States that pain meds cannot be given until 1030. Mod a to transfer back to bed with use of slideboard. Once in bed, pt agreeable to complete UE exercises to increase strength and endurance needed for adls and mobility. Due to R sided pain, pt unable to tolerate 3# on right side. Weight reduced to 2#. Pt still able to complete all joints through full range and perform 12 reps each in all planes. Deep pressure massage provided to RUE for tactile input and desensitization Education OT Patient Education: Correct positioning, Energy conservation, Exercise program, Modified ADL techniques, Progress toward Goal/Update tx plan, Purpose of tx/functional activities, Rehab process, Safety issues, Transfer techniques, W/C management Teaching Recipient: Patient Teaching Methods: Demonstration, Discussion Response to Teaching: Verbalize Understanding, Reinforcement Needed OT Short Term Goals Short Term Goals Time Frame: Feb 17, 2021 Eatin Oral hygiene: 5 Toileting hygiene: 2 Shower/bathe self: 2 Upper body dressin Lower body dressin Putting on/taking off footwear: 2 OT Longterm Goals Air Brake Tester Goals Time Frame: Mar 04, 2021 Eating (QC): 5 Oral Hygiene (QC): 5 Toileting Hygiene (QC): 3 Shower/Bathe Self (QC): 4 Upper Body Dressing (QC): 5 Lower Body Dressing (QC): 4 On/Off Footwear (QC): 4 1=Demonstrate adherence to instructed precautions during ADL tasks. 2=Patient will verbalize/demonstrate understanding of assistive devices/modifications for ADL. 3=Patient will improve strength/tolerance for activity to enable patient to perform ADL's. OT Education/Plan Problem List/Assessment Assessment: Decreased Activ Tolerance, Decreased UE Strength, Dependent Transfers, Impaired Bed Mobility, Impaired Coordination, Impaired Funct Balance, Impaired I ADL's, Impaired Self-Care Skills Discharge Recommendations Plan/Recommendations: Continue POC Treatment Plan/Plan of Care Treatment,Training & Education: Yes Patient would benefit from OT for education, treatment and training to promote independence in ADL's, mobility, safety and/or upper extremity function for ADL's. Plan of Care: ADL Retraining, Functional Mobility, Group Exercise/Act as Ind, UE Funct Exercise/Act, UE Neuromus Re-Ed/Coord, W/C Management Training Treatment Duration: Mar 04, 2021 Frequency: At least 5 of 7 days/Wk (IRF) Estimated Hrs Per Day: 1.5 hours per day Agreement: Yes Rehab Potential: Fair Time/GCodes Start Time: 08:00 (1000) Stop Time: 09:00 (1030) Total Time Billed (hr/min): 90 Billed Treatment Time 2 visit ADL x2 (30 min) FA x2 (30 min) EX x2 (30 min) Judi Mane OT Feb 15, 2021 10:50
--- NOTE | 2021-02-15 11:00 | Physical Therapy Daily Note ---
PT Daily Note-Current Subjective Pt. agrees to Rx. Speaks of the pain in his right U&L extremities stating he had this ever since the stroke and has sought Rx for it many ways. Pt. emotional and expresses grief for a daughter and xwife and feels this stress lead to his physical illness Pain Numeric Pain Scale: 8 Location: Right Location Body Site: Arm Pain Description: Stabbing Transfers SCALE: Activities may be completed with or without assistive devices. 4-Xijddiigur-lzsxjmz completes the activity by him/herself with no assistance from a helper. 5-Set-up or Clean-up Assistance-helper sets up or cleans up; patient completes activity. [place] assists only prior to or following the activity. 4-Supervision or Touching Assistance-helper provides verbal cues and/or touching/steadying and/or contact guard assistance as patient completes activity. Assistance may be provided throughout the activity or intermittently. 3-Partial/Moderate Assistance-helper does LESS THAN HALF the effort. [place] lifts, holds or supports trunk or limbs, but provides less than half the effort. 2-Substantial/Maximal Assistance-helper does MORE THAN HALF the effort. [place] lifts or holds trunk or limbs and provides more than half the effort. 5-Yobzzupzc-tbxerg does ALL the effort. Patient does none of the effort to complete the activity. Or, the assistance of 2 or more helpers is required for the patient to complete the activity. If activity was not attempted, code reason: 7-Patient Refused. 9-Not Applicable-not attempted and the patient did not perform the activity before the current illness, exacerbation or injury. 10-Not Attempted due to Environmental Limitations-(lack of equipment, weather restraints, etc.). 88-Not Attempted due to Medical Conditions or Safety Concerns. Roll Left & Right (QC): 4 emphasis this Rx on bed mobility, rolling , scooting and skin protection. with CGA pt. is able to bend right hip and knee and reach with right hand for left rail and roll with CGA, this does cause some discomfort in RLE but pt. did accomplish this, in scooting up in bed pt was able to grasp overhead rails bilaterally and pull himself up without pushing with R LE, to roll to left pt was able to bed left residual limb to chest and reach to his right with left UE to roll right. This was somewhat time consuming and caused some discomfort, pt. rolled to slight right with pillow to back for comfort and pressure relief Weight Bearing Right Lower Extremity: Right Weight Bearing/Tolerated Left Lower Extremity: Left Non Weight Bearing NEW AMPUTATION Exercises Supine Ex: Quad Set, Rolling, Heel Slides, Scooting, Straight leg raise, Hip abd/add Supine Reps: 12 Assessment Current Status: Good Progress pain with funct mob limits pts activity level. Nurse was alerted to pts pain c/o and request for pain meds PT Short Term Goals Short Term Goals Time Frame: Feb 14, 2021 Roll Left & Right: 6 Sit to lyin Lying to sitting on side of be: 4 Chair/tya-bx-tqoeh transfer: 3 (Oscar) PT It Architecture Analyst Goals Fpc Goals PT It Architecture Analyst Goals Time Frame: Feb 28, 2021 Roll Left & Right (QC): 6 Sit to Lying (QC): 6 Lying-Sitting on Side/Bed(QC): 6 Sit to Stand (QC): 88 Chair/Pqn-en-Hngsm Xfer(QC): 4 Toilet Transfer (QC): 4 Car Transfer (QC): 4 Does the Patient Walk: No and Walking Goal NOT indicated Walk 10 feet (QC): 88 Walk 50ft with 2 Turns (QC): 88 Walk 150 ft (QC): 88 Walking 10ft on Uneven Surface: 88 1 Step (curb) (QC): 88 4 Steps (QC): 88 12 Steps (QC): 88 Picking up an Object (QC): 88 Wheel 50 feet with 2 turns (QC: 6 Wheel 150 feet: 6 PT Plan Treatment/Plan Treatment Plan: Continue Plan of Care Treatment Plan: Bed Mobility, Education, Functional Activity Nicky, Functional Strength, Group Therapy, Safety, Therapeutic Exercise, Transfers Treatment Duration: Feb 28, 2021 Frequency: At least 5 of 7 days/Wk (IRF) Estimated Hrs Per Day: 1.5 hours per day Patient and/or Family Agrees t: Yes Safety Risks/Education Patient Education: Transfer Techniques, Correct Positioning, Disease Process, Safety Issues Teaching Recipient: Patient Teaching Methods: Demonstration, Discussion Response to Teaching: Verbalize Understanding, Return Demonstration, Reinforcement Needed Time/GCodes Time In: 1030 Time Out: 1100 Total Billed Treatment Time: 30 Total Billed Treatment 1,EX30m NICA RING SOUR BLEACHING PLEATER Feb 15, 2021 11:00
[2021-02-15 20:00] VITALS: BP 105/56
[2021-02-16] MEDS: HYDROcodone/APAP 7.5 MG/325 MG (LORTAB, LORCET PLUS) TABLET PO PRN ×5 (04:03→22:23)
[2021-02-16] MEDS: inSUlin ASPART (NovoLOG) 1 UNIT/0.01 ML (CHARGE PER UNIT) SC SCH ×4 (05:39→20:10)
[2021-02-16] MEDS: metFORMIN 500 MG (GLUCOPHAGE) TAB PO SCH (06:23)
--- NOTE | 2021-02-16 06:50 | PM&R Progress Note ---
Subjective HPI/CC On Admission Date Seen by Provider: Feb 16, 2021 Time Seen by Provider: 12:00 Subjective/Events-last exam 02/16/21: Pt doing about the same Bowel incontinence is not new Stump has some edema but otherwise doing well 02/15/21: Pt incontinent of bowel function times 2 last night Right sided pain from old stroke he wants to be awakened during the night to give him a pain pill and I do not support that High dependency for addiction 02/14/21: Pt doing the same Difficult transfers Increasing Gabapentin to 600 TID has helped 02/13/21: Pt doing okay. Increase in Gabapentin to 600mg TID from BID. Sliding scale insulin given for 216 sugar. Bowels moved yesterday. Incision looks good. Still a very tough transfer due to weakness on the right side. 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 02/09/2021: Pt doing well Pain phantom type is an issue Checked meds and labs Pt appears to be at high risk for dependency of pain medication 02/08/2021: Pt doing about the same Pain is an issue IV antibiotics mainted WBC 11.8 HGB 10.8 Bowels are moving Review of Systems General: Fatigue Objective Exam Vital Signs Vital Signs Date Time Temp Pulse Resp B/P (MAP) Pulse Ox O2 Delivery O2 Flow Rate FiO2 02/16/21 20:49 Room Air 02/16/21 20:05 36.2 85 20 91/56 (68) 98 Capillary Refill : General Appearance: No Apparent Distress, WD/WN, Chronically ill HEENT: PERRL/EOMI, Normal ENT Inspection, Pharynx Normal Neck: Full Range of Motion, Normal Inspection, Non Tender, Supple, Carotid Bruit Respiratory: Chest Non Tender, Lungs Clear, Normal Breath Sounds, No Accessory Muscle Use, No Respiratory Distress Cardiovascular: Regular Rate, Rhythm, No Edema, No Gallop, No JVD, No Murmur, Normal Peripheral Pulses Gastrointestinal: Normal Bowel Sounds, No Organomegaly, No Pulsatile Mass, Non Tender, Soft Back: Normal Inspection, No CVA Tenderness, No Vertebral Tenderness Extremity: Normal Capillary Refill, Normal Inspection, Normal Range of Motion, Non Tender, No Calf Tenderness, No Pedal Edema, Other (Left below-knee amputatio n) Neurologic/Psychiatric: Alert, Oriented x3, No Motor/Sensory Deficits, Normal Mood/Affect, Abnormal Gait, Motor Weakness (Right-sided weakness 2/5) Skin: Normal Color, Warm/Dry Lymphatic: No Adenopathy Results/Procedures Lab Patient resulted labs reviewed. FIM Transfers Therapy Code Descriptions/Definitions Functional [place] Measure: 0=Not Assessed/NA 4=Minimal Assistance 1=Total Assistance 5=Supervision or Setup 2=Maximal Assistance 6=Modified [place] 3=Moderate Assistance 7=Complete IndependenceSCALE: Activities may be completed with or without assistive devices. 5-Dxllxxauti-pjficcn completes the activity by him/herself with no assistance from a helper. 5-Set-up or Clean-up Assistance-helper sets up or cleans up; patient completes activity. [place] assists only prior to or following the activity. 4-Supervision or Touching Assistance-helper provides verbal cues and/or touching/steadying and/or contact guard assistance as patient completes activity. Assistance may be provided throughout the activity or intermittently. 3-Partial/Moderate Assistance-helper does LESS THAN HALF the effort. [place] lifts, holds or supports trunk or limbs, but provides less than half the effort. 2-Substantial/Maximal Assistance-helper does MORE THAN HALF the effort. [place] lifts or holds trunk or limbs and provides more than half the effort. 1-Oegldijaq-rbbynp does ALL the effort. Patient does none of the effort to complete the activity. Or, the assistance of 2 or more helpers is required for the patient to complete the activity. If activity was not attempted, code reason: 7-Patient Refused. 9-Not Applicable-not attempted and the patient did not perform the activity before the current illness, exacerbation or injury. 10-Not Attempted due to Environmental Limitations-(lack of equipment, weather restraints, etc.). 88-Not Attempted due to Medical Conditions or Safety Concerns. Roll Left to Right (QC): 4 Sit to Lying (QC): 3 Sit to Stand (QC): 1 Chair/Czt-lg-Fdsxi Xfer(QC): 3 Car Transfer (QC): 1 Gait Training Does the Patient Walk?: No and Walking Goal NOT indicated Walk 10 feet (QC): 88 Walk 50 ft with 2 Turns(QC): 88 Walk 150 ft (QC): 88 Walking 10ft/uneven surface-QC: 88 Wheelchair Training Does the Pt Use a Wheelchair?: Yes Distance: 300', 100'x2 Wheel 50 ft with 2 turns (QC): 6 Wheel 150 ft (QC): 6 Type of Wheelchair: Manual Stair Training 1 Step (curb) (QC): 88 4 Steps (QC): 88 12 Steps (QC): 88 Balance Picking up an Object (QC): 88 ADL-Treatment Eating (QC): 6 Oral Hygiene (QC): 9 (Pt reports he owns dentures but does not wear. 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 History of CVA with right-sided weakness History of super morbid obesity now BMI 22 Diabetes Previous smoker BPH [facility] control 02/08/2021: Pain control Protocol for rehab 02/09/2021: Supportive care Pain control Increase risk of pain medication dependency 02/10/2021: Supportive care Dressing changes 02/11/2021: Supportive care Dressing changes 03/04/21: No changes indicated 02/13/21: Supportive care 02/14/21: Monitor pain 02/15/21: Monitor closely Increased addiction potential 02/16/21: Monitor fecal incontinence (1) History of left below knee amputation (2) Tobacco abuse Status: Acute (3) History of stroke Status: Chronic (4) PAD (peripheral artery disease) Status: Acute (5) BPH (benign prostatic hyperplasia) Status: Chronic (6) T2DM (type 2 diabetes mellitus) Status: Acute (7) Dyslipidemia Status: Acute (8) History of morbid obesity Status: Chronic MAXI BOWSER DO Feb 16, 2021 06:50
[2021-02-16 07:32] VITALS: BP 122/68
[2021-02-16] MEDS: polyethylene glycoL POWDER 17 GM (MIRALAX) PACK PO SCH ×2 (08:56→19:08)
[2021-02-16] MEDS: SENNA W/DOCUSATE (SENOKOT S) TABLET PO SCH ×2 (08:56→19:08)
[2021-02-16] MEDS: SENNOSIDES 8.6 MG (SENOKOT) TAB PO SCH ×2 (08:56→19:08)
[2021-02-16] MEDS: DOCUSATE SODIUM 100 MG (COLACE) CAP PO SCH ×2 (08:57→19:08)
--- NOTE | 2021-02-16 08:58 | Physical Therapy Daily Note ---
PT Daily Note-Current Subjective Patient in bed pre tx, agrees to PT, 08/20 pain on whole right side. Will be co- treating with OT due to poor patient mobility, strength, endurance, severe debility, coordinate UE and LE during activity, safety and reduce risk of falls. Appearance Patient in WC at bedside post tx with nurse call, phone, tray, all needs met. Mental Status Patient Orientation: Person, Place, Situation Transfers SCALE: Activities may be completed with or without assistive devices. 8-Bcrakkblrv-ghbzlci completes the activity by him/herself with no assistance from a helper. 5-Set-up or Clean-up Assistance-helper sets up or cleans up; patient completes activity. [place] assists only prior to or following the activity. 4-Supervision or Touching Assistance-helper provides verbal cues and/or touching/steadying and/or contact guard assistance as patient completes activity. Assistance may be provided throughout the activity or intermittently. 3-Partial/Moderate Assistance-helper does LESS THAN HALF the effort. [place] lifts, holds or supports trunk or limbs, but provides less than half the effort. 2-Substantial/Maximal Assistance-helper does MORE THAN HALF the effort. [place] lifts or holds trunk or limbs and provides more than half the effort. 5-Ythhcvejm-inntpu does ALL the effort. Patient does none of the effort to complete the activity. Or, the assistance of 2 or more helpers is required for the patient to complete the activity. If activity was not attempted, code reason: 7-Patient Refused. 9-Not Applicable-not attempted and the patient did not perform the activity before the current illness, exacerbation or injury. 10-Not Attempted due to Environmental Limitations-(lack of equipment, weather restraints, etc.). 88-Not Attempted due to Medical Conditions or Safety Concerns. Roll Left & Right (QC): 6 Sit to Lying (QC): 3 Lying to Sitting/Side of Bed(Q: 3 Chair/Vsd-qu-Ylebk Xfer(QC): 3 Patient still needs mod assist for sliding board transfer and supine to sit. Weight Bearing Right Lower Extremity: Right Weight Bearing/Tolerated Left Lower Extremity: Left Non Weight Bearing NEW AMPUTATION Wheelchair Training Does the Pt Use a Wheelchair?: Yes Wheel 50 ft with 2 turns (QC): 4 Wheel 150 ft (QC): 4 Type of Wheelchair: Manual 300'x2, very slow Exercises Prone hip stretch for 5 min, knee extension stretch 5 min, seated balance training reaching for cones Treatments PT performed bed mobility and transfers, WC mobility, stretching, balance and safety during cone activity, OT performed cone activity, UE positioning and safety during activity. Assessment Current Status: Poor Progress no change in functional mobility, patient has unusual persistent weakness of arms and trunk PT Short Term Goals Short Term Goals Time Frame: Feb 14, 2021 Roll Left & Right: 6 Sit to lyin Lying to sitting on side of be: 4 Chair/cck-fj-dudfx transfer: 3 (Oscar) PT Residential Goals Ferris Wheel Operator Goals PT Ferris Wheel Operator Goals Time Frame: Feb 28, 2021 Roll Left & Right (QC): 6 Sit to Lying (QC): 6 Lying-Sitting on Side/Bed(QC): 6 Sit to Stand (QC): 88 Chair/Uju-bw-Qhazf Xfer(QC): 4 Toilet Transfer (QC): 4 Car Transfer (QC): 4 Does the Patient Walk: No and Walking Goal NOT indicated Walk 10 feet (QC): 88 Walk 50ft with 2 Turns (QC): 88 Walk 150 ft (QC): 88 Walking 10ft on Uneven Surface: 88 1 Step (curb) (QC): 88 4 Steps (QC): 88 12 Steps (QC): 88 Picking up an Object (QC): 88 Wheel 50 feet with 2 turns (QC: 6 Wheel 150 feet: 6 PT Plan Problem List Problem List: Activity Tolerance, Functional Strength, Safety, Balance, Gait, Transfer, Bed Mobility, ROM Treatment/Plan Treatment Plan: Continue Plan of Care Treatment Plan: Bed Mobility, Education, Functional Activity Nicky, Functional Strength, Group Therapy, Safety, Therapeutic Exercise, Transfers Treatment Duration: Feb 28, 2021 Frequency: At least 5 of 7 days/Wk (IRF) Estimated Hrs Per Day: 1.5 hours per day Patient and/or Family Agrees t: Yes Safety Risks/Education Patient Education: Transfer Techniques, Correct Positioning, W/C Management, Safety Issues Teaching Recipient: Patient Teaching Methods: Demonstration, Discussion Response to Teaching: Reinforcement Needed Time/GCodes Time In: 0800 Time Out: 0900 Total Billed Treatment Time: 60 Total Billed Treatment 1 visit EX 30' FA 30' DHIRAJ ORTEGA PT Feb 16, 2021 08:58
--- NOTE | 2021-02-16 08:58 | Occupational Ther Daily Note ---
OT Current Status-Daily Note Subjective Reports pain as 7/10 on R side.Co treat with PT ([id number]) due to poor activity tolerance, high pain levels, high fall risk and need of 2 skilled clinicians to progress indep with mobility and adls. Appearance Left sitting in w/c, all needs within reach. Mental Status/Objective Patient Orientation: Person, Place, Time, Situation ADL-Treatment Therapy Code Descriptions/Definitions Functional [place] Measure: 0=Not Assessed/NA 4=Minimal Assistance 1=Total Assistance 5=Supervision or Setup 2=Maximal Assistance 6=Modified [place] 3=Moderate Assistance 7=Complete IndependenceSCALE: Activities may be completed with or without assistive devices. 6-Gudafhoqtp-pnlqwgw completes the activity by him/herself with no assistance from a helper. 5-Set-up or Clean-up Assistance-helper sets up or cleans up; patient completes activity. [place] assists only prior to or following the activity. 4-Supervision or Touching Assistance-helper provides verbal cues and/or touching/steadying and/or contact guard assistance as patient completes activity. Assistance may be provided throughout the activity or intermittently. 3-Partial/Moderate Assistance-helper does LESS THAN HALF the effort. [place] lifts, holds or supports trunk or limbs, but provides less than half the effort. 2-Substantial/Maximal Assistance-helper does MORE THAN HALF the effort. [place] lifts or holds trunk or limbs and provides more than half the effort. 2-[place]-snlcjs does ALL the effort. Patient does none of the effort to complete the activity. Or, the assistance of 2 or more helpers is required for the patient to complete the activity. If activity was not attempted, code reason: 7-Patient Refused. 9-Not Applicable-not attempted and the patient did not perform the activity before the current illness, exacerbation or injury. 10-Not Attempted due to Environmental Limitations-(lack of equipment, weather restraints, etc.). 88-Not Attempted due to Medical Conditions or Safety Concerns. Eating (QC): 6 Upper Body Dressing (QC): 4 Lower Body Dressing (QC): 4 On/Off Footwear: 1 Toileting Hygiene (QC): 2 Incontinent of stool at OT arrival. Dependent for [place] care. Pt able to don pants over feet and manage over hips without assist this date. Extra time and min verbal cues on completing roll to sidelying in order to aid in pulling clot yunior up. Fatigues post task and requires rest break before donning shirt. Improved sitting balance when donning shirt at EOB (unsupported sitting). Close supervision, no LOB this date. Other Treatment Pt propelled w/c around unit. Slight improvement in propulsion with new w/c (knobs on rims). While in gym, pt participated in seated dynamic trunk activities with goal to promote increased sitting balance, core strength, and UE strength needed for adls and mobility. Min a required for balance this date when reaching out of CHRISTIANO. Tactile cues at core for initiation of use. Pt often reaches for surfaces or therapist when reaching anteriorly for Items placed slightly in front of him and ~16 inches from ground level. Short rest breaks throughout activity needed. Cues for posture, yet limited by curvature of spine. Pt also performed static prone on elbows for ~4-5 minutes with goal to increase core, weight bearing through UE's, and UE strength. Multiple slide board transfers throughout session requiring min-mod a. Extra scooting assist required when going from low to high surface. mod A for placement of board. Education OT Patient Education: Correct positioning, Energy conservation, Modified ADL techniques, Progress toward Goal/Update tx plan, Purpose of tx/functional activities, Rehab process, Safety issues, Transfer techniques, W/C management Teaching Recipient: Patient Teaching Methods: Demonstration, Discussion Response to Teaching: Verbalize Understanding, Return Demonstration, Reinforcement Needed OT Short Term Goals Short Term Goals Time Frame: Feb 17, 2021 Eatin Oral hygiene: 5 Toileting hygiene: 2 Shower/bathe self: 2 Upper body dressin Lower body dressin Putting on/taking off footwear: 2 OT [facility] Goals Turbo Operator Goals Time Frame: Mar 04, 2021 Eating (QC): 5 Oral Hygiene (QC): 5 Toileting Hygiene (QC): 3 Shower/Bathe Self (QC): 4 Upper Body Dressing (QC): 5 Lower Body Dressing (QC): 4 On/Off Footwear (QC): 4 1=Demonstrate adherence to instructed precautions during ADL tasks. 2=Patient will verbalize/demonstrate understanding of assistive devices/modifications for ADL. 3=Patient will improve strength/tolerance for activity to enable patient to perform ADL's. OT Education/Plan Problem List/Assessment Assessment: Decreased Activ Tolerance, Decreased Safety Aware, Decreased UE Strength, Dependent Transfers, Impaired Bed Mobility, Impaired Coordination, Impaired Funct Balance, Impaired I ADL's, Impaired Self-Care Skills Discharge Recommendations Plan/Recommendations: Continue POC Treatment Plan/Plan of Care Treatment,Training & Education: Yes Patient would benefit from OT for education, treatment and training to promote independence in ADL's, mobility, safety and/or upper extremity function for ADL's. Plan of Care: ADL Retraining, Functional Mobility, Group Exercise/Act as Ind, UE Funct Exercise/Act, UE Neuromus Re-Ed/Coord, W/C Management Training Treatment Duration: Mar 04, 2021 Frequency: At least 5 of 7 days/Wk (IRF) Estimated Hrs Per Day: 1.5 hours per day Agreement: Yes Rehab Potential: Fair Time/GCodes Start Time: 07:45 Stop Time: 09:00 Total Time Billed (hr/min): 75 Billed Treatment Time 1 visit ADL x2 (25 min) FA x3 (50 min) Judi Mane OT Feb 16, 2021 08:58
[2021-02-16] MEDS: CLOPIDOGREL 75 MG (PLAVIX) TABLET PO SCH (09:00)
[2021-02-16] MEDS: LACTOBACILLUS ACIDOPHILUS (PROBIOTIC) CAPSULE PO SCH ×3 (09:00→18:10)
[2021-02-16] MEDS: ASPIRIN E.C. 81 MG (ECOTRIN) TAB PO SCH (09:00)
[2021-02-16] MEDS: GABAPENTIN 600 MG (NEURONTIN) TAB PO SCH ×3 (09:01→20:48)
--- NOTE | 2021-02-16 12:57 | Physical Therapy Daily Note ---
PT Daily Note-Current Subjective Patient in bed pre tx, agrees to PT, has unrated pain in whole right side. Will be co-treating with OT for part of tx due to poor patient mobility, strength, endurance, severe debility, coordinate UE and LE during activity, safety and reduce risk of falls. Appearance Patient in WC at bedside post tx with nurse call, phone, tray, all needs met. Mental Status Patient Orientation: Person, Place, Situation Transfers SCALE: Activities may be completed with or without assistive devices. 4-Fpassdgzsd-gffsjlg completes the activity by him/herself with no assistance from a helper. 5-Set-up or Clean-up Assistance-helper sets up or cleans up; patient completes activity. [place] assists only prior to or following the activity. 4-Supervision or Touching Assistance-helper provides verbal cues and/or touching/steadying and/or contact guard assistance as patient completes activity. Assistance may be provided throughout the activity or intermittently. 3-Partial/Moderate Assistance-helper does LESS THAN HALF the effort. [place] lifts, holds or supports trunk or limbs, but provides less than half the effort. 2-Substantial/Maximal Assistance-helper does MORE THAN HALF the effort. [place] lifts or holds trunk or limbs and provides more than half the effort. 4-Fidnenaml-gtmhkl does ALL the effort. Patient does none of the effort to complete the activity. Or, the assistance of 2 or more helpers is required for the patient to complete the activity. If activity was not attempted, code reason: 7-Patient Refused. 9-Not Applicable-not attempted and the patient did not perform the activity before the current illness, exacerbation or injury. 10-Not Attempted due to Environmental Limitations-(lack of equipment, weather restraints, etc.). 88-Not Attempted due to Medical Conditions or Safety Concerns. Roll Left & Right (QC): 6 Lying to Sitting/Side of Bed(Q: 3 Chair/Pox-ne-Irrhd Xfer(QC): 3 Weight Bearing Right Lower Extremity: Right Weight Bearing/Tolerated Left Lower Extremity: Left Non Weight Bearing NEW AMPUTATION Wheelchair Training Does the Pt Use a Wheelchair?: Yes Wheel 50 ft with 2 turns (QC): 4 Wheel 150 ft (QC): 4 Type of Wheelchair: Manual 500', SBA, practiced a ramp down/up, cues for positioning and technique, min assist for going up the ramp Exercises Supine Ex: Ankle pumps (RLE), Quad Set, Glut sets, Heel Slides (RLE AAROM), Short Arc Quads (RLE AAROM), Straight leg raise (RLE AAROM), Hip abd/add (RLE AAROM) Treatments PT performed LE strengthening, bed mobility and transfers, WC mobility, OT performed UE positioning and safety during activity, cues for positioning and safety during transfers and WC mobility Assessment Current Status: Poor Progress persistent UE and trunk weakness, sling board transfers are not improving PT Short Term Goals Short Term Goals Time Frame: Feb 14, 2021 Roll Left & Right: 6 Sit to lyin Lying to sitting on side of be: 4 Chair/jbo-rz-ndqnj transfer: 3 (Oscar) PT Skilled Nursing Goals Art Therapist Goals PT Art Therapist Goals Time Frame: Feb 28, 2021 Roll Left & Right (QC): 6 Sit to Lying (QC): 6 Lying-Sitting on Side/Bed(QC): 6 Sit to Stand (QC): 88 Chair/Bhm-ix-Caiyh Xfer(QC): 4 Toilet Transfer (QC): 4 Car Transfer (QC): 4 Does the Patient Walk: No and Walking Goal NOT indicated Walk 10 feet (QC): 88 Walk 50ft with 2 Turns (QC): 88 Walk 150 ft (QC): 88 Walking 10ft on Uneven Surface: 88 1 Step (curb) (QC): 88 4 Steps (QC): 88 12 Steps (QC): 88 Picking up an Object (QC): 88 Wheel 50 feet with 2 turns (QC: 6 Wheel 150 feet: 6 PT Plan Problem List Problem List: Activity Tolerance, Functional Strength, Safety, Balance, Gait, Transfer, Bed Mobility, ROM Treatment/Plan Treatment Plan: Continue Plan of Care Treatment Plan: Bed Mobility, Education, Functional Activity Nicky, Functional Strength, Group Therapy, Safety, Therapeutic Exercise, Transfers Treatment Duration: Feb 28, 2021 Frequency: At least 5 of 7 days/Wk (IRF) Estimated Hrs Per Day: 1.5 hours per day Patient and/or Family Agrees t: Yes Safety Risks/Education Patient Education: Transfer Techniques, Correct Positioning, Safety Issues Teaching Recipient: Patient Teaching Methods: Demonstration, Discussion Response to Teaching: Reinforcement Needed Time/GCodes Time In: 1135 Time Out: 1205 Total Billed Treatment Time: 30 Total Billed Treatment 1 visit EX 10' FA 20' co-treated with OT from [id number] DHIRAJ ORTEGA PT Feb 16, 2021 12:57
--- NOTE | 2021-02-16 12:58 | Occupational Ther Daily Note ---
OT Current Status-Daily Note Subjective Pt continues to have pain on R side. Agreeable to co-treat with PT due to need of 2 skilled clinicians to progress indep with mobility and adls. Appearance Left sitting in w/c with set up for lunch. All needs within reach. ADL-Treatment Therapy Code Descriptions/Definitions Functional [place] Measure: 0=Not Assessed/NA 4=Minimal Assistance 1=Total Assistance 5=Supervision or Setup 2=Maximal Assistance 6=Modified [place] 3=Moderate Assistance 7=Complete IndependenceSCALE: Activities may be completed with or without assistive devices. 6-Fdojmnfrlj-afymrsk completes the activity by him/herself with no assistance from a helper. 5-Set-up or Clean-up Assistance-helper sets up or cleans up; patient completes activity. [place] assists only prior to or following the activity. 4-Supervision or Touching Assistance-helper provides verbal cues and/or touching/steadying and/or contact guard assistance as patient completes activity . Assistance may be provided throughout the activity or intermittently. 3-Partial/Moderate Assistance-helper does LESS THAN HALF the effort. [place] lifts, holds or supports trunk or limbs, but provides less than half the effort. 2-Substantial/Maximal Assistance-helper does MORE THAN HALF the effort. [place] lifts or holds trunk or limbs and provides more than half the effort. 4-Xqnosfgwy-njubph does ALL the effort. Patient does none of the effort to complete the activity. Or, the assistance of 2 or more helpers is required for the patient to complete the activity. If activity was not attempted, code reason: 7-Patient Refused. 9-Not Applicable-not attempted and the patient did not perform the activity before the current illness, exacerbation or injury. 10-Not Attempted due to Environmental Limitations-(lack of equipment, weather restraints, etc.). 88-Not Attempted due to Medical Conditions or Safety Concerns. Other Treatment Pt propelled w/c community distances. Short rest breaks needed, but overall improved speed and tolerance with propulsion. Min a propelling w/c up ramp due to UE weakness/fatigue. Pt continues to need min-mod a for slideboard transfers. Poor proprioception noted with RLE during transfer, continues to require cues and assist for positioning. Education OT Patient Education: Correct positioning, Purpose of tx/functional activities, Safety issues, Transfer techniques, W/C management Teaching Recipient: Patient Teaching Methods: Demonstration, Discussion Response to Teaching: Verbalize Understanding, Reinforcement Needed OT Short Term Goals Short Term Goals Time Frame: Feb 17, 2021 Eatin Oral hygiene: 5 Toileting hygiene: 2 Shower/bathe self: 2 Upper body dressin Lower body dressin Putting on/taking off footwear: 2 OT Hanging Flags Decorator Goals Hanging Flags Decorator Goals Time Frame: Mar 04, 2021 Eating (QC): 5 Oral Hygiene (QC): 5 Toileting Hygiene (QC): 3 Shower/Bathe Self (QC): 4 Upper Body Dressing (QC): 5 Lower Body Dressing (QC): 4 On/Off Footwear (QC): 4 1=Demonstrate adherence to instructed precautions during ADL tasks. 2=Patient will verbalize/demonstrate understanding of assistive devices/modifications for ADL. 3=Patient will improve strength/tolerance for activity to enable patient to perform ADL's. OT Education/Plan Problem List/Assessment Assessment: Decreased Activ Tolerance, Decreased Safety Aware, Decreased UE Strength, Dependent Transfers, Impaired Bed Mobility, Impaired Funct Balance, Impaired I ADL's, Impaired Self-Care Skills Discharge Recommendations Plan/Recommendations: Continue POC Treatment Plan/Plan of Care Treatment,Training & Education: Yes Patient would benefit from OT for education, treatment and training to promote independence in ADL's, mobility, safety and/or upper extremity function for ADL's. Plan of Care: ADL Retraining, Functional Mobility, Group Exercise/Act as Ind, UE Funct Exercise/Act, UE Neuromus Re-Ed/Coord, W/C Management Training Treatment Duration: Mar 04, 2021 Frequency: At least 5 of 7 days/Wk (IRF) Estimated Hrs Per Day: 1.5 hours per day Agreement: Yes Rehab Potential: Fair Time/GCodes Start Time: 11:45 Stop Time: 12:00 Total Time Billed (hr/min): 15 Billed Treatment Time 1 visit Judi Jacobson OT Feb 16, 2021 12:58
[2021-02-16 20:05] VITALS: BP 91/56
[2021-02-17] MEDS: HYDROcodone/APAP 7.5 MG/325 MG (LORTAB, LORCET PLUS) TABLET PO PRN ×5 (02:27→21:45)
[2021-02-17] MEDS: inSUlin ASPART (NovoLOG) 1 UNIT/0.01 ML (CHARGE PER UNIT) SC SCH ×4 (05:28→20:31)
[2021-02-17] MEDS: metFORMIN 500 MG (GLUCOPHAGE) TAB PO SCH (06:24)
--- NOTE | 2021-02-17 07:19 | PM&R Progress Note ---
Subjective HPI/CC On Admission Date Seen by Provider: Feb 17, 2021 Time Seen by Provider: 12:00 Subjective/Events-last exam 02/17/21: Pt doing really well Has 03/09 help Discharge plan for Saturday No other new issues 02/16/21: Pt doing about the same Bowel incontinence is not new Stump has some edema but otherwise doing well 02/15/21: Pt incontinent of bowel function times 2 last night Right sided pain from old stroke he wants to be awakened during the night to give him a pain pill and I do not support that High dependency for addiction 02/14/21: Pt doing the same Difficult transfers Increasing Gabapentin to 600 TID has helped 02/13/21: Pt doing okay. Increase in Gabapentin to 600mg TID from BID. Sliding scale insulin given for 216 sugar. Bowels moved yesterday. Incision looks good. Still a very tough transfer due to weakness on the right side. 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 02/09/2021: Pt doing well Pain phantom type is an issue Checked meds and labs Pt appears to be at high risk for dependency of pain medication 02/08/2021: Pt doing about the same Pain is an issue IV antibiotics mainted WBC 11.8 HGB 10.8 Bowels are moving Review of Systems General: Fatigue, Malaise Neurological: Weakness Objective Exam Vital Signs Vital Signs Date Time Temp Pulse Resp B/P (MAP) Pulse Ox O2 Delivery O2 Flow Rate FiO2 02/17/21 21:00 99 Room Air 02/17/21 19:44 36.4 84 16 102/66 (78) Capillary Refill : General Appearance: No Apparent Distress, WD/WN, Chronically ill HEENT: PERRL/EOMI, Normal ENT Inspection, Pharynx Normal Neck: Full Range of Motion, Normal Inspection, Non Tender, Supple, Carotid Bruit Respiratory: Chest Non Tender, Lungs Clear, Normal Breath Sounds, No Accessory Muscle Use, No Respiratory Distress Cardiovascular: Regular Rate, Rhythm, No Edema, No Gallop, No JVD, No Murmur, Normal Peripheral Pulses Gastrointestinal: Normal Bowel Sounds, No Organomegaly, No Pulsatile Mass, Non Tender, Soft Back: Normal Inspection, No CVA Tenderness, No Vertebral Tenderness Extremity: Normal Capillary Refill, Normal Inspection, Normal Range of Motion, Non Tender, No Calf Tenderness, No Pedal Edema, Other (Left below-knee amputation) Neurologic/Psychiatric: Alert, Oriented x3, No Motor/Sensory Deficits, Normal Mood/Affect, Abnormal Gait, Motor Weakness (Right-sided weakness 2/5) Skin: Normal Color, Warm/Dry Lymphatic: No Adenopathy Results/Procedures Lab Patient resulted labs reviewed. FIM Transfers Therapy Code Descriptions/Definitions Functional [place] Measure: 0=Not Assessed/NA 4=Minimal Assistance 1=Total Assistance 5=Supervision or Setup 2=Maximal Assistance 6=Modified [place] 3=Moderate Assistance 7=Complete IndependenceSCALE: Activities may be completed with or without assistive devices. 8-Plmkibgknh-xnmljmz completes the activity by him/herself with no assistance from a helper. 5-Set-up or Clean-up Assistance-helper sets up or cleans up; patient completes activity. [place] assists only prior to or following the activity. 4-Supervision or Touching Assistance-helper provides verbal cues and/or kandice reina/steadying and/or contact guard assistance as patient completes activity. Assistance may be provided throughout the activity or intermittently. 3-Partial/Moderate Assistance-helper does LESS THAN HALF the effort. [place] lifts, holds or supports trunk or limbs, but provides less than half the effort. 2-Substantial/Maximal Assistance-helper does MORE THAN HALF the effort. [place] lifts or holds trunk or limbs and provides more than half the effort. 8-Rsgndtkpe-gfqvir does ALL the effort. Patient does none of the effort to complete the activity. Or, the assistance of 2 or more helpers is required for the patient to complete the activity. If activity was not attempted, code reason: 7-Patient Refused. 9-Not Applicable-not attempted and the patient did not perform the activity before the current illness, exacerbation or injury. 10-Not Attempted due to Environmental Limitations-(lack of equipment, weather restraints, etc.). 88-Not Attempted due to Medical Conditions or Safety Concerns. Roll Left to Right (QC): 6 Sit to Lying (QC): 3 Sit to Stand (QC): 1 Chair/Ekg-cm-Bwqiz Xfer(QC): 3 Car Transfer (QC): 1 Gait Training Does the Patient Walk?: No and Walking Goal NOT indicated Walk 10 feet (QC): 88 Walk 50 ft with 2 Turns(QC): 88 Walk 150 ft (QC): 88 Walking 10ft/uneven surface-QC: 88 Wheelchair Training Does the Pt Use a Wheelchair?: Yes Distance: 300', 100'x2 Wheel 50 ft with 2 turns (QC): 4 Wheel 150 ft (QC): 4 Type of Wheelchair: Manual Stair Training 1 Step (curb) (QC): 88 4 Steps (QC): 88 12 Steps (QC): 88 Balance Picking up an Object (QC): 88 ADL-Treatment Eating (QC): 6 Oral Hygiene (QC): 9 (Pt reports he owns dentures but does not wear. ) Shower/Bathe Self (QC): 3 Upper Body Dressing (QC): 4 Lower Body Dressing (QC): 4 On/Off Footwear (QC): 1 Toileting Hygiene (QC): 2 Assessment/Plan Assessment and Plan Assess & Plan/Chief Complaint Assessment: Status post left below-knee amputation due to gangrene History of CVA with right-sided weakness History of super morbid obesity now BMI 22 Diabetes Previous smoker BPH Plan: Inpatient rehab protocol [facility] Pain control 02/08/2021: Pain control Protocol for rehab 02/09/2021: Supportive care Pain control Increase risk of pain medication dependency 02/10/2021: Supportive care Dressing changes 02/11/2021: Supportive care Dressing changes 03/04/21: No changes indicated 02/13/21: Supportive care 02/14/21: Monitor pain 02/15/21: Monitor closely Increased addiction potential 02/16/21: Monitor fecal incontinence 02/17/21: DC Wed (1) History of left below knee amputation (2) Tobacco abuse Status: Acute (3) History of stroke Status: Chronic (4) PAD (peripheral artery disease) Status: Acute (5) BPH (benign prostatic hyperplasia) Status: Chronic (6) T2DM (type 2 diabetes mellitus) Status: Acute (7) Dyslipidemia Status: Acute (8) History of morbid obesity Status: Chronic MAXI BOWSER DO Feb 17, 2021 07:19
[2021-02-17 07:21] VITALS: BP 120/59
[2021-02-17] MEDS: DICLOFENAC 1% GEL 100 GM (VOLTAREN) TUBE TOP PRN (08:30)
[2021-02-17] MEDS: ZINC OXIDE 16% OINT (BUTT PASTE) 57 GM TUBE TOP PRN (08:30)
[2021-02-17] MEDS: DOCUSATE SODIUM 100 MG (COLACE) CAP PO SCH ×2 (08:30→20:22)
[2021-02-17] MEDS: SENNOSIDES 8.6 MG (SENOKOT) TAB PO SCH ×2 (08:31→20:22)
[2021-02-17] MEDS: GABAPENTIN 600 MG (NEURONTIN) TAB PO SCH ×3 (08:31→20:21)
[2021-02-17] MEDS: ASPIRIN E.C. 81 MG (ECOTRIN) TAB PO SCH (08:31)
[2021-02-17] MEDS: polyethylene glycoL POWDER 17 GM (MIRALAX) PACK PO SCH ×2 (08:31→20:22)
[2021-02-17] MEDS: CLOPIDOGREL 75 MG (PLAVIX) TABLET PO SCH (08:31)
[2021-02-17] MEDS: SENNA W/DOCUSATE (SENOKOT S) TABLET PO SCH ×2 (08:31→20:22)
[2021-02-17] MEDS: LACTOBACILLUS ACIDOPHILUS (PROBIOTIC) CAPSULE PO SCH ×3 (08:31→16:45)
--- NOTE | 2021-02-17 08:56 | Physical Therapy Daily Note ---
PT Daily Note-Current Subjective Patient in bed pre tx, agrees to PT, has unrated whole right side pain. Will be co-treating with OT due to poor patient mobility, strength, endurance, severe debility, coordinate UE and LE during activity, safety and reduce risk of falls. Patient has had a BM and needs cleaned and dressed. Appearance Patient in WC at bedside post tx with nurse call, phone, tray, all needs met. Mental Status Patient Orientation: Person, Place, Situation Transfers SCALE: Activities may be completed with or without assistive devices. 4-Nevlvoswjf-gvujoyb completes the activity by him/herself with no assistance from a helper. 5-Set-up or Clean-up Assistance-helper sets up or cleans up; patient completes activity. [place] assists only prior to or following the activity. 4-Supervision or Touching Assistance-helper provides verbal cues and/or touching/steadying and/or contact guard assistance as patient completes activity. Assistance may be provided throughout the activity or intermittently. 3-Partial/Moderate Assistance-helper does LESS THAN HALF the effort. [place] lifts, holds or supports trunk or limbs, but provides less than half the effort. 2-Substantial/Maximal Assistance-helper does MORE THAN HALF the effort. [place] lifts or holds trunk or limbs and provides more than half the effort. 2-Bfnwhvqal-aybyvj does ALL the effort. Patient does none of the effort to co mplete the activity. Or, the assistance of 2 or more helpers is required for the patient to complete the activity. If activity was not attempted, code reason: 7-Patient Refused. 9-Not Applicable-not attempted and the patient did not perform the activity before the current illness, exacerbation or injury. 10-Not Attempted due to Environmental Limitations-(lack of equipment, weather restraints, etc.). 88-Not Attempted due to Medical Conditions or Safety Concerns. Roll Left & Right (QC): 6 Lying to Sitting/Side of Bed(Q: 3 Chair/Hdl-fs-Kbunu Xfer(QC): 3 still mod assist with sliding board transfer unless he is going slightly downhill then min assist. Patient has to roll many times to each side for cleaning BM and dressing LE, then supine to sit mod assist and he dresses UE. Weight Bearing Right Lower Extremity: Right Weight Bearing/Tolerated Left Lower Extremity: Left Non Weight Bearing NEW AMPUTATION Wheelchair Training Does the Pt Use a Wheelchair?: Yes Wheel 50 ft with 2 turns (QC): 4 Wheel 150 ft (QC): 4 Type of Wheelchair: Manual 300'x2 Neuromuscular Patient performs seated balance activity, working on trunk strength and sitting balance. Treatments PT performed bed mobility and transfers, rolling, transfers, WC mobility, sitting balance, OT performed cleaning BM, dressing, sitting balance activity Assessment Current Status: Poor Progress no change in functional mobility PT Short Term Goals Short Term Goals Time Frame: Feb 14, 2021 Roll Left & Right: 6 Sit to lyin Lying to sitting on side of be: 4 Chair/rmq-ij-upmem transfer: 3 (Oscar) PT Half-Way Goals Half-Way Goals PT Half-Way Goals Time Frame: Feb 28, 2021 Roll Left & Right (QC): 6 Sit to Lying (QC): 6 Lying-Sitting on Side/Bed(QC): 6 Sit to Stand (QC): 88 Chair/Bbv-ya-Meqjp Xfer(QC): 4 Toilet Transfer (QC): 4 Car Transfer (QC): 4 Does the Patient Walk: No and Walking Goal NOT indicated Walk 10 feet (QC): 88 Walk 50ft with 2 Turns (QC): 88 Walk 150 ft (QC): 88 Walking 10ft on Uneven Surface: 88 1 Step (curb) (QC): 88 4 Steps (QC): 88 12 Steps (QC): 88 Picking up an Object (QC): 88 Wheel 50 feet with 2 turns (QC: 6 Wheel 150 feet: 6 PT Plan Problem List Problem List: Activity Tolerance, Functional Strength, Safety, Balance, Gait, Transfer, Bed Mobility, ROM Treatment/Plan Treatment Plan: Continue Plan of Care Treatment Plan: Bed Mobility, Education, Functional Activity Nicky, Functional Strength, Group Therapy, Safety, Therapeutic Exercise, Transfers Treatment Duration: Feb 28, 2021 Frequency: At least 5 of 7 days/Wk (IRF) Estimated Hrs Per Day: 1.5 hours per day Patient and/or Family Agrees t: Yes Safety Risks/Education Patient Education: Transfer Techniques, Correct Positioning, W/C Management, Safety Issues Teaching Recipient: Patient Teaching Methods: Demonstration, Discussion Response to Teaching: Reinforcement Needed Time/GCodes Time In: 0800 Time Out: 0900 Total Billed Treatment Time: 60 Total Billed Treatment 1 visit NM 15' FA 45' DHIRAJ ORTEGA PT Feb 17, 2021 08:56
--- NOTE | 2021-02-17 08:58 | Occupational Ther Daily Note ---
OT Current Status-Daily Note Subjective Reports right sided pain as 7/10. RN in to give meds at end of session. Co-treat with PT due to need of 2 skilled clinicians to progress adls and mobility Appearance Left sitting in w/c, all needs within reach, RN in room ADL-Treatment Therapy Code Descriptions/Definitions Functional [place] Measure: 0=Not Assessed/NA 4=Minimal Assistance 1=Total Assistance 5=Supervision or Setup 2=Maximal Assistance 6=Modified [place] 3=Moderate Assistance 7=Complete IndependenceSCALE: Activities may be completed with or without assistive devices. 2-Zylzrczokp-znhkqfw completes the activity by him/herself with no assistance from a helper. 5-Set-up or Clean-up Assistance-helper sets up or cleans up; patient completes activity. [place] assists only prior to or following the activity. 4-Supervision or Touching Assistance-helper provides verbal cues and/or touching/steadying and/or contact guard assistance as patient completes activity. Assistance may be provided throughout the activity or intermittently. 3-Partial/Moderate Assistance-helper does LESS THAN HALF the effort. [place] lifts, holds or supports trunk or limbs, but provides less than half the effort. 2-Substantial/Maximal Assistance-helper does MORE THAN HALF the effort. [place] lifts or holds trunk or limbs and provides more than half the effort. 5-Bkzfkzpcb-owdhni does ALL the effort. Patient does none of the effort to complete the activity. Or, the assistance of 2 or more helpers is required for the patient to complete the activity. If activity was not attempted, code reason: 7-Patient Refused. 9-Not Applicable-not attempted and the patient did not perform the activity before the current illness, exacerbation or injury. 10-Not Attempted due to Environmental Limitations-(lack of equipment, weather restraints, etc.). 88-Not Attempted due to Medical Conditions or Safety Concerns. Upper Body Dressing (QC): 4 Lower Body Dressing (QC): 3 On/Off Footwear: 1 Toileting Hygiene (QC): 1 Incontinent of stool at therapy arrival. Dependent for [place] care. Pt able to don pants over feet in long sitting with intermittent UE support from bedrail. Min a needed to manage pants over hips this date due to pt having difficult time rolling fully onto side. Fatigues post task and requires rest break before donning shirt. When donning shirt at EOB (unsupported sitting), pt with 2 mild LOB but able to self recover with righting reaction towards bedrail. Other Treatment Pt participated in seated card game with goal to promote increased balance, core strength, UE strength, coordination, and activity tolerance needed for adls and transfers. As pt fatigues, he requires intermittent 1-2 UE support to sustain upright posture. Tactile cues at core. Unable to come to full upright due to curvature of spine. Post instruction of novel game, no cues needed for problem solving or strategic game play. Education OT Patient Education: Correct positioning, Modified ADL techniques, Progress toward Goal/Update tx plan, Purpose of tx/functional activities, Rehab process, Safety issues Teaching Recipient: Patient Teaching Methods: Discussion Response to Teaching: Verbalize Understanding OT Short Term Goals Short Term Goals Time Frame: Feb 17, 2021 Eatin Oral hygiene: 5 Toileting hygiene: 2 Shower/bathe self: 2 Upper body dressin Lower body dressin Putting on/taking off footwear: 2 OT Data Processing Consultant Goals Data Processing Consultant Goals Time Frame: Mar 04, 2021 Eating (QC): 5 Oral Hygiene (QC): 5 Toileting Hygiene (QC): 3 Shower/Bathe Self (QC): 4 Upper Body Dressing (QC): 5 Lower Body Dressing (QC): 4 On/Off Footwear (QC): 4 1=Demonstrate adherence to instructed precautions during ADL tasks. 2=Patient will verbalize/demonstrate understanding of assistive devices/modifications for ADL. 3=Patient will improve strength/tolerance for activity to enable patient to perform ADL's. OT Education/Plan Problem List/Assessment Assessment: Decreased Activ Tolerance, Decreased UE Strength, Dependent Transfers, Impaired Bed Mobility, Impaired Coordination, Impaired Funct Balance, Impaired I ADL's, Impaired Self-Care Skills Discharge Recommendations Plan/Recommendations: Continue POC Treatment Plan/Plan of Care Treatment,Training & Education: Yes Patient would benefit from OT for education, treatment and training to promote independence in ADL's, mobility, safety and/or upper extremity function for ADL's. Plan of Care: ADL Retraining, Functional Mobility, Group Exercise/Act as Ind, UE Funct Exercise/Act, UE Neuromus Re-Ed/Coord, W/C Management Training Treatment Duration: Mar 04, 2021 Frequency: At least 5 of 7 days/Wk (IRF) Estimated Hrs Per Day: 1.5 hours per day Agreement: Yes Rehab Potential: Fair Time/GCodes Start Time: 08:00 Stop Time: 09:00 Total Time Billed (hr/min): 60 Billed Treatment Time 1 visit ADL x2 (25 min) FA x2 (35 min) Judi Mane OT Feb 17, 2021 08:58
--- NOTE | 2021-02-17 11:19 | Occupational Ther Daily Note ---
OT Current Status-Daily Note Subjective Reports increase in pain from earlier session. RN aware. Appearance Left supine in bed, all needs within reach ADL-Treatment Therapy Code Descriptions/Definitions Functional [place] Measure: 0=Not Assessed/NA 4=Minimal Assistance 1=Total Assistance 5=Supervision or Setup 2=Maximal Assistance 6=Modified [place] 3=Moderate Assistance 7=Complete IndependenceSCALE: Activities may be completed with or without assistive devices. 9-Ttgoqeqxgr-xkwsqfg completes the activity by him/herself with no assistance from a helper. 5-Set-up or Clean-up Assistance-helper sets up or cleans up; patient completes activity. [place] assists only prior to or following the activity. 4-Supervision or Touching Assistance-helper provides verbal cues and/or touching/steadying and/or contact guard assistance as patient completes activity. Assistance may be provided throughout the activity or intermittently. 3-Partial/Moderate Assistance-helper does LESS THAN HALF the effort. [place] lifts, holds or supports trunk or limbs, but provides less than half the effort. 2-Substantial/Maximal Assistance-helper does MORE THAN HALF the effort. [place] lifts or holds trunk or limbs and provides more than half the effort. 4-Iifijwghp-vtknwn does ALL the effort. Patient does none of the effort to complete the activity. Or, the assistance of 2 or more helpers is required for the patient to complete the activity. If activity was not attempted, code reason: 7-Patient Refused. 9-Not Applicable-not attempted and the patient did not perform the activity before the current illness, exacerbation or injury. 10-Not Attempted due to Environmental Limitations-(lack of equipment, weather restraints, etc.). 88-Not Attempted due to Medical Conditions or Safety Concerns. Other Treatment Pt performed UE exercises to increase strength and endurance needed for adls and mobility. Pt unable to tolerate 3# this date, thus weight reduced to 2#'s. 12x2 in all planes. Pt able to recall all but one exercise learned in past sessions. OT discussed getting up for meals during weekend and performing exercises outside of therapy time. OT left 2# weight in pt's room to complete HEP over weekend. Education OT Patient Education: Correct positioning, Exercise program, Home exercise program, Modified ADL techniques, Safety issues Teaching Recipient: Patient Teaching Methods: Demonstration, Discussion Response to Teaching: Verbalize Understanding, Return Demonstration, Reinforcement Needed OT Short Term Goals Short Term Goals Time Frame: Feb 17, 2021 Eatin Oral hygiene: 5 Toileting hygiene: 2 Shower/bathe self: 2 Upper body dressin Lower body dressin Putting on/taking off footwear: 2 OT Nursing Home Goals Resistor Inspector Goals Time Frame: Mar 04, 2021 Eating (QC): 5 Oral Hygiene (QC): 5 Toileting Hygiene (QC): 3 Shower/Bathe Self (QC): 4 Upper Body Dressing (QC): 5 Lower Body Dressing (QC): 4 On/Off Footwear (QC): 4 1=Demonstrate adherence to instructed precautions during ADL tasks. 2=Patient will verbalize/demonstrate understanding of assistive devices/modifications for ADL. 3=Patient will improve strength/tolerance for activity to enable patient to perform ADL's. OT Education/Plan Problem List/Assessment Assessment: Decreased Activ Tolerance, Decreased Safety Aware, Decreased UE Strength, Dependent Transfers, Impaired Bed Mobility, Impaired Coordination, Impaired Funct Balance, Impaired I ADL's, Impaired Self-Care Skills Discharge Recommendations Plan/Recommendations: Continue POC Treatment Plan/Plan of Care Treatment,Training & Education: Yes Patient would benefit from OT for education, treatment and training to promote independence in ADL's, mobility, safety and/or upper extremity function for ADL's. Plan of Care: ADL Retraining, Functional Mobility, Group Exercise/Act as Ind, UE Funct Exercise/Act, UE Neuromus Re-Ed/Coord, W/C Management Training Treatment Duration: Mar 04, 2021 Frequency: At least 5 of 7 days/Wk (IRF) Estimated Hrs Per Day: 1.5 hours per day Agreement: Yes Rehab Potential: Fair Time/GCodes Start Time: 10:30 Stop Time: 11:00 Total Time Billed (hr/min): 30 Billed Treatment Time 1 visit EX sapna HarperJudi gordillo OT Feb 17, 2021 11:19
--- NOTE | 2021-02-17 13:30 | Physical Therapy Daily Note ---
PT Daily Note-Current Subjective Patient in bed pre tx, agrees to PT, has 7/10 pain in whole right side and says he has some minor pain in left leg. Appearance Patient in bed post tx with nurse call, phone, tray, all needs met. Mental Status Patient Orientation: Person, Place, Situation Transfers SCALE: Activities may be completed with or without assistive devices. 3-Lueutupdak-xovlrbx completes the activity by him/herself with no assistance from a helper. 5-Set-up or Clean-up Assistance-helper sets up or cleans up; patient completes activity. [place] assists only prior to or following the activity. 4-Supervision or Touching Assistance-helper provides verbal cues and/or touching/steadying and/or contact guard assistance as patient completes activity. Assistance may be provided throughout the activity or intermittently. 3-Partial/Moderate Assistance-helper does LESS THAN HALF the effort. [place] lifts, holds or supports trunk or limbs, but provides less than half the effort. 2-Substantial/Maximal Assistance-helper does MORE THAN HALF the effort. [place] lifts or holds trunk or limbs and provides more than half the effort. 0-Erzrqprad-ldsjfq does ALL the effort. Patient does none of the effort to complete the activity. Or, the assistance of 2 or more helpers is required for the patient to complete the activity. If activity was not attempted, code reason: 7-Patient Refused. 9-Not Applicable-not attempted and the patient did not perform the activity before the current illness, exacerbation or injury. 10-Not Attempted due to Environmental Limitations-(lack of equipment, weather restraints, etc.). 88-Not Attempted due to Medical Conditions or Safety Concerns. Weight Bearing Right Lower Extremity: Right Weight Bearing/Tolerated Left Lower Extremity: Left Non Weight Bearing NEW AMPUTATION Exercises Supine Ex: Ankle pumps (RLE), Quad Set, Glut sets, Heel Slides (on left side, raise leg and perform knee flex/ext), Short Arc Quads (RLE), Straight leg raise, Hip abd/add Supine Reps: 20 Treatments LE strengthening Assessment Current Status: Poor Progress little progress with LE strengthening, functional mobility remains the same PT Short Term Goals Short Term Goals Time Frame: Feb 14, 2021 Roll Left & Right: 6 Sit to lyin Lying to sitting on side of be: 4 Chair/eir-pe-dghrb transfer: 3 (Oscar) PT Sock Lining Stitcher Goals Sock Lining Stitcher Goals PT Usp Goals Time Frame: Feb 28, 2021 Roll Left & Right (QC): 6 Sit to Lying (QC): 6 Lying-Sitting on Side/Bed(QC): 6 Sit to Stand (QC): 88 Chair/Eru-jo-Ycdjq Xfer(QC): 4 Toilet Transfer (QC): 4 Car Transfer (QC): 4 Does the Patient Walk: No and Walking Goal NOT indicated Walk 10 feet (QC): 88 Walk 50ft with 2 Turns (QC): 88 Walk 150 ft (QC): 88 Walking 10ft on Uneven Surface: 88 1 Step (curb) (QC): 88 4 Steps (QC): 88 12 Steps (QC): 88 Picking up an Object (QC): 88 Wheel 50 feet with 2 turns (QC: 6 Wheel 150 feet: 6 PT Plan Problem List Problem List: Activity Tolerance, Functional Strength, Safety, Balance, Gait, Transfer, Bed Mobility, ROM Treatment/Plan Treatment Plan: Continue Plan of Care Treatment Plan: Bed Mobility, Education, Functional Activity Nicky, Functional Strength, Group Therapy, Safety, Therapeutic Exercise, Transfers Treatment Duration: Feb 28, 2021 Frequency: At least 5 of 7 days/Wk (IRF) Estimated Hrs Per Day: 1.5 hours per day Patient and/or Family Agrees t: Yes Safety Risks/Education Patient Education: Correct Positioning, Safety Issues Teaching Recipient: Patient Teaching Methods: Demonstration, Discussion Response to Teaching: Reinforcement Needed Time/GCodes Time In: 1300 Time Out: 1330 Total Billed Treatment Time: 30 Total Billed Treatment 1 visit EX 30' DHIRAJ ORTEGA PT Feb 17, 2021 13:30
[2021-02-17 19:44] VITALS: BP 102/66
[2021-02-18] MEDS: HYDROcodone/APAP 7.5 MG/325 MG (LORTAB, LORCET PLUS) TABLET PO PRN ×4 (04:44→20:29)
[2021-02-18] MEDS: metFORMIN 500 MG (GLUCOPHAGE) TAB PO SCH (06:11)
[2021-02-18] MEDS: inSUlin ASPART (NovoLOG) 1 UNIT/0.01 ML (CHARGE PER UNIT) SC SCH ×4 (06:12→20:34)
--- NOTE | 2021-02-18 09:45 | PM&R Progress Note ---
Subjective HPI/CC On Admission Date Seen by Provider: Feb 18, 2021 Time Seen by Provider: 13:30 Subjective/Events-last exam 02/18/21: Patient doing about the same Urinary retention issues Around 700 cc on bladder scan Start Urecholine and Flomax In and out catheter ordered UA ordered 02/17/21: Pt doing really well Has / help Discharge plan for Saturday No other new issues 02/16/21: Pt doing about the same Bowel incontinence is not new Stump has some edema but otherwise doing well 02/15/21: Pt incontinent of bowel function times 2 last night Right sided pain from old stroke he wants to be awakened during the night to give him a pain pill and I do not support that High dependency for addiction 02/14/21: Pt doing the same Difficult transfers Increasing Gabapentin to 600 TID has helped 02/13/21: Pt doing okay. Increase in Gabapentin to 600mg TID from BID. Sliding scale insulin given for 216 sugar. Bowels moved yesterday. Incision looks good. Still a very tough transfer due to weakness on the right side. 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 02/09/2021: Pt doing well Pain phantom type is an issue Checked meds and labs Pt appears to be at high risk for dependency of pain medication 02/08/2021: Pt doing about the same Pain is an issue IV antibiotics mainted WBC 11.8 HGB 10.8 Bowels are moving Review of Systems Genitourinary: Retention Musculoskeletal: arm pain, back pain Objective Exam Vital Signs Vital Signs Date Time Temp Pulse Resp B/P (MAP) Pulse Ox O2 Delivery O2 Flow Rate FiO2 02/18/21 10:15 35.6 89 18 121/75 (90) 99 Room Air Capillary Refill : General Appearance: No Apparent Distress, WD/WN, Chronically ill HEENT: PERRL/EOMI, Normal ENT Inspection, Pharynx Normal Neck: Full Range of Motion, Normal Inspection, Non Tender, Supple, Carotid Bruit Respiratory: Chest Non Tender, Lungs Clear, Normal Breath Sounds, No Accessory Muscle Use, No Respiratory Distress Cardiovascular: Regular Rate, Rhythm, No Edema, No Gallop, No JVD, No Murmur, Normal Peripheral Pulses Gastrointestinal: Normal Bowel Sounds, No Organomegaly, No Pulsatile Mass, Non Tender, Soft Back: Normal Inspection, No CVA Tenderness, No Vertebral Tenderness Extremity: Normal Capillary Refill, Normal Inspection, Normal Range of Motion, Non Tender, No Calf Tenderness, No Pedal Edema, Other (Left below-knee amputation) Neurologic/Psychiatric: Alert, Oriented x3, No Motor/Sensory Deficits, Normal Mood/Affect, Abnormal Gait, Motor Weakness (Right-sided weakness 2/5) Skin: Normal Color, Warm/Dry Lymphatic: No Adenopathy Results/Procedures Lab Patient resulted labs reviewed. FIM Transfers Therapy Code Descriptions/Definitions Functional [place] Measure: 0=Not Assessed/NA 4=Minimal Assistance 1=Total Assistance 5=Supervision or Setup 2=Maximal Assistance 6=Modified [place] 3=Moderate Assistance 7=Complete IndependenceSCALE: Activities may be completed with or without assistive devices. 2-Fmjtorvzqy-qefcyym completes the activity by him/herself with no assistance from a helper. 5-Set-up or Clean-up Assistance-helper sets up or cleans up; patient completes activity. [place] assists only prior to or following the activity. 4-Supervision or Touching Assistance-helper provides verbal cues and/or touching/steadying and/or contact guard assistance as patient completes activity. Assistance may be provided throughout the activity or intermittently. 3-Partial/Moderate Assistance-helper does LESS THAN HALF the effort. [place] l ifts, holds or supports trunk or limbs, but provides less than half the effort. 2-Substantial/Maximal Assistance-helper does MORE THAN HALF the effort. [place] lifts or holds trunk or limbs and provides more than half the effort. 3-Qxjuwoqnu-uhsihd does ALL the effort. Patient does none of the effort to complete the activity. Or, the assistance of 2 or more helpers is required for t he patient to complete the activity. If activity was not attempted, code reason: 7-Patient Refused. 9-Not Applicable-not attempted and the patient did not perform the activity before the current illness, exacerbation or injury. 10-Not Attempted due to Environmental Limitations-(lack of equipment, weather restraints, etc.). 88-Not Attempted due to Medical Conditions or Safety Concerns. Roll Left to Right (QC): 6 Sit to Lying (QC): 3 Sit to Stand (QC): 1 Chair/Wnh-mm-Iezkw Xfer(QC): 3 Car Transfer (QC): 1 Gait Training Does the Patient Walk?: No and Walking Goal NOT indicated Walk 10 feet (QC): 88 Walk 50 ft with 2 Turns(QC): 88 Walk 150 ft (QC): 88 Walking 10ft/uneven surface-QC: 88 Wheelchair Training Does the Pt Use a Wheelchair?: Yes Distance: 300', 100'x2 Wheel 50 ft with 2 turns (QC): 4 Wheel 150 ft (QC): 4 Type of Wheelchair: Manual Stair Training 1 Step (curb) (QC): 88 4 Steps (QC): 88 12 Steps (QC): 88 Balance Picking up an Object (QC): 88 ADL-Treatment Eating (QC): 6 Oral Hygiene (QC): 9 (Pt reports he owns dentures but does not wear. 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 History of super morbid obesity now BMI 22 Diabetes Previous smoker BPH Acute urinary retention requiring in and out cath and Urecholine Flomax ordered on 02/18/2021 Plan: Inpatient rehab protocol Accu-Cheks Pain control 02/08/2021: Pain control Protocol for rehab 02/09/2021: Supportive care Pain control Increase risk of pain medication dependency 02/10/2021: Supportive care Dressing changes 02/11/2021: Supportive care Dressing changes 03/04/21: No changes indicated 02/13/21: Supportive care 02/14/21: Monitor pain 02/15/21: Monitor closely Increased addiction potential 02/16/21: Monitor fecal incontinence 02/17/21: DC Wed (1) History of left below knee amputation (2) Tobacco abuse Status: Acute (3) History of stroke Status: Chronic (4) PAD (peripheral artery disease) Status: Acute (5) BPH (benign prostatic hyperplasia) Status: Chronic (6) T2DM (type 2 diabetes mellitus) Status: Acute (7) Dyslipidemia Status: Acute (8) History of morbid obesity Status: Chronic MAXI BOWSER DO Feb 18, 2021 09:45
[2021-02-18 10:15] VITALS: BP 121/75
[2021-02-18] MEDS: ASPIRIN E.C. 81 MG (ECOTRIN) TAB PO SCH (10:19)
[2021-02-18] MEDS: LACTOBACILLUS ACIDOPHILUS (PROBIOTIC) CAPSULE PO SCH ×3 (10:19→17:16)
[2021-02-18] MEDS: CLOPIDOGREL 75 MG (PLAVIX) TABLET PO SCH (10:19)
[2021-02-18] MEDS: GABAPENTIN 600 MG (NEURONTIN) TAB PO SCH ×3 (10:19→20:28)
[2021-02-18] MEDS: DOCUSATE SODIUM 100 MG (COLACE) CAP PO SCH ×2 (10:25→20:00)
[2021-02-18] MEDS: polyethylene glycoL POWDER 17 GM (MIRALAX) PACK PO SCH ×2 (10:25→20:00)
[2021-02-18] MEDS: SENNOSIDES 8.6 MG (SENOKOT) TAB PO SCH ×2 (10:25→20:00)
[2021-02-18] MEDS: SENNA W/DOCUSATE (SENOKOT S) TABLET PO SCH ×2 (10:25→20:00)
--- NOTE | 2021-02-18 13:23 | Physical Therapy Daily Note ---
PT Daily Note-Current Subjective Pt laying Supine in bed upon arrival. Pt reports having loose bowels and asks to stay in room for tx. Pain Location: Right Location Body Site: Thigh Pain Description: Ache Comment: Generalized R side pain/discomfort Mental Status Patient Orientation: Person, Place, Time, Situation Attachments: Other-See Comments (IFRAH wrap for L stump) Transfers SCALE: Activities may be completed with or without assistive devices. 1-Tbauqamrvk-qckrrgi completes the activity by him/herself with no assistance from a helper. 5-Set-up or Clean-up Assistance-helper sets up or cleans up; patient completes activity. [place] assists only prior to or following the activity. 4-Supervision or Touching Assistance-helper provides verbal cues and/or touching/steadying and/or contact guard assistance as patient completes activity. Assistance may be provided throughout the activity or intermittently. 3-Partial/Moderate Assistance-helper does LESS THAN HALF the effort. [place] lifts, holds or supports trunk or limbs, but provides less than half the effort. 2-Substantial/Maximal Assistance-helper does MORE THAN HALF the effort. [place] lifts or holds trunk or limbs and provides more than half the effort. 3-Jztpjnfeb-ghrsuk does ALL the effort. Patient does none of the effort to complete the activity. Or, the assistance of 2 or more helpers is required for the patient to complete the activity. If activity was not attempted, code reason: 7-Patient Refused. 9-Not Applicable-not attempted and the patient did not perform the activity before the current illness, exacerbation or injury. 10-Not Attempted due to Environmental Limitations-(lack of equipment, weather restraints, etc.). 88-Not Attempted due to Medical Conditions or Safety Concerns. Roll Left & Right (QC): 6 Weight Bearing Right Lower Extremity: Right Weight Bearing/Tolerated Left Lower Extremity: Left Non Weight Bearing NEW AMPUTATION Exercises Supine Ex: Ankle pumps, Quad Set, Glut sets, Heel Slides, Short Arc Quads, Straight leg raise, Hip abd/add Supine Reps: 15 Treatments Pt completes EX w/RB as needed. Pt resting at end of tx with all needs met, call light in hand. Assessment Current Status: Fair Progress Pt not feeling well limited tx. PT Short Term Goals Short Term Goals Time Frame: Feb 14, 2021 Roll Left & Right: 6 Sit to lyin Lying to sitting on side of be: 4 Chair/qif-jg-zaikk transfer: 3 (Oscar) PT Snf Goals Snf Goals PT Snf Goals Time Frame: Feb 28, 2021 Roll Left & Right (QC): 6 Sit to Lying (QC): 6 Lying-Sitting on Side/Bed(QC): 6 Sit to Stand (QC): 88 Chair/Swf-be-Bzagx Xfer(QC): 4 Toilet Transfer (QC): 4 Car Transfer (QC): 4 Does the Patient Walk: No and Walking Goal NOT indicated Walk 10 feet (QC): 88 Walk 50ft with 2 Turns (QC): 88 Walk 150 ft (QC): 88 Walking 10ft on Uneven Surface: 88 1 Step (curb) (QC): 88 4 Steps (QC): 88 12 Steps (QC): 88 Picking up an Object (QC): 88 Wheel 50 feet with 2 turns (QC: 6 Wheel 150 feet: 6 PT Plan Problem List Problem List: Activity Tolerance, Functional Strength Treatment/Plan Treatment Plan: Continue Plan of Care Treatment Plan: Bed Mobility, Education, Functional Activity Nicky, Functional Strength, Group Therapy, Safety, Therapeutic Exercise, Transfers Treatment Duration: Feb 28, 2021 Frequency: At least 5 of 7 days/Wk (IRF) Estimated Hrs Per Day: 1.5 hours per day Patient and/or Family Agrees t: Yes Safety Risks/Education Patient Education: Correct Positioning Teaching Recipient: Patient Teaching Methods: Discussion Response to Teaching: Verbalize Understanding Time/GCodes Time In: 1110 Time Out: 1130 Total Billed Treatment Time: 20 Total Billed Treatment 1, EX (20m) ALDEN BERG PTA Feb 18, 2021 13:23
[2021-02-18] MEDS: SIMETHICONE 80 MG (MYLICON) CHEW PO PRN (13:54)
[2021-02-18] MEDS: BETHANECHOL 25 MG (URECHOLINE) TAB PO SCH ×2 (18:37→20:29)
[2021-02-18] MEDS: TAMSULOSIN 0.4 MG (FLOMAX) CAP PO SCH ×2 (18:37→20:28)
[2021-02-18 18:42] LABS: BILIRUBIN,URINE NEGATIVE (NEGATIVE); CLARITY,URINE CLEAR; COLOR,URINE YELLOW; GLUCOSE, URINE (UA) NEGATIVE (NEGATIVE); KETONES,URINE NEGATIVE (NEGATIVE); LEUKOCYTE ESTERASE ,URINE NEGATIVE (NEGATIVE); NITRITE,URINE NEGATIVE (NEGATIVE); PH,URINE 6.5 (5-9); PROTEIN,URINE NEGATIVE (NEGATIVE)
[2021-02-18] MEDS ORDERED: TAMSULOSIN 0.4 MG (FLOMAX) CAP PO ONE (18:44)
[2021-02-18] MEDS ORDERED: BETHANECHOL 25 MG (URECHOLINE) TAB ONE (18:44)
[2021-02-18 18:54] LABS: BACTERIA,URINE NEGATIVE /HPF; WBC,URINE 0-2 /HPF
[2021-02-18 19:12] VITALS: BP 153/80
[2021-02-19] MEDS: HYDROcodone/APAP 7.5 MG/325 MG (LORTAB, LORCET PLUS) TABLET PO PRN ×5 (01:59→21:41)
[2021-02-19] MEDS: metFORMIN 500 MG (GLUCOPHAGE) TAB PO SCH (06:08)
[2021-02-19] MEDS: BETHANECHOL 25 MG (URECHOLINE) TAB PO SCH ×4 (06:08→21:41)
[2021-02-19] MEDS: inSUlin ASPART (NovoLOG) 1 UNIT/0.01 ML (CHARGE PER UNIT) SC SCH ×4 (06:09→21:00)
[2021-02-19 08:32] VITALS: BP 121/78
[2021-02-19] MEDS: TAMSULOSIN 0.4 MG (FLOMAX) CAP PO SCH ×2 (08:36→21:40)
[2021-02-19] MEDS: ASPIRIN E.C. 81 MG (ECOTRIN) TAB PO SCH (08:36)
[2021-02-19] MEDS: CLOPIDOGREL 75 MG (PLAVIX) TABLET PO SCH (08:36)
[2021-02-19] MEDS: polyethylene glycoL POWDER 17 GM (MIRALAX) PACK PO SCH ×2 (08:37→21:42)
[2021-02-19] MEDS: GABAPENTIN 600 MG (NEURONTIN) TAB PO SCH ×3 (08:37→21:41)
[2021-02-19] MEDS: SENNA W/DOCUSATE (SENOKOT S) TABLET PO SCH ×2 (08:37→21:43)
[2021-02-19] MEDS: SENNOSIDES 8.6 MG (SENOKOT) TAB PO SCH ×2 (08:37→21:43)
[2021-02-19] MEDS: DOCUSATE SODIUM 100 MG (COLACE) CAP PO SCH ×2 (08:37→21:42)
[2021-02-19] MEDS: LACTOBACILLUS ACIDOPHILUS (PROBIOTIC) CAPSULE PO SCH ×3 (08:37→17:44)
--- NOTE | 2021-02-19 08:38 | PM&R Progress Note ---
Subjective HPI/CC On Admission Date Seen by Provider: Feb 19, 2021 Time Seen by Provider: 14:00 Subjective/Events-last exam 02/19/2021: Patient doing really well Voiding well now No urinary retention UA was normal 02/18/21: Patient doing about the same Urinary retention issues Around 700 cc on bladder scan Start Urecholine and Flomax In and out catheter ordered UA ordered 02/17/21: Pt doing really well Has / help Discharge plan for Saturday No other new issues 02/16/21: Pt doing about the same Bowel incontinence is not new Stump has some edema but otherwise doing well 02/15/21: Pt incontinent of bowel function times 2 last night Right sided pain from old stroke he wants to be awakened during the night to give him a pain pill and I do not support that High dependency for addiction 02/14/21: Pt doing the same Difficult transfers Increasing Gabapentin to 600 TID has helped 02/13/21: Pt doing okay. Increase in Gabapentin to 600mg TID from BID. Sliding scale insulin given for 216 sugar. Bowels moved yesterday. Incision looks good. Still a very tough transfer due to weakness on the right side. 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 02/09/2021: Pt doing well Pain phantom type is an issue Checked meds and labs Pt appears to be at high risk for dependency of pain medication 02/08/2021: Pt doing about the same Pain is an issue IV antibiotics mainted WBC 11.8 HGB 10.8 Bowels are moving Review of Systems General: Fatigue, Malaise Objective Exam Vital Signs Vital Signs Date Time Temp Pulse Resp B/P (MAP) Pulse Ox O2 Delivery O2 Flow Rate FiO2 02/19/21 21:42 98 Room Air 02/19/21 20:23 36.3 96 18 120/60 (80) Capillary Refill : General Appearance: No Apparent Distress, WD/WN, Chronically ill HEENT: PERRL/EOMI, Normal ENT Inspection, Pharynx Normal Neck: Full Range of Motion, Normal Inspection, Non Tender, Supple, Carotid Bruit Respiratory: Chest Non Tender, Lungs Clear, Normal Breath Sounds, No Accessory Muscle Use, No Respiratory Distress Cardiovascular: Regular Rate, Rhythm, No Edema, No Gallop, No JVD, No Murmur, Normal Peripheral Pulses Gastrointestinal: Normal Bowel Sounds, No Organomegaly, No Pulsatile Mass, Non Tender, Soft Back: Normal Inspection, No CVA Tenderness, No Vertebral Tenderness Extremity: Normal Capillary Refill, Normal Inspection, Normal Range of Motion, Non Tender, No Calf Tenderness, No Pedal Edema, Other (Left below-knee amputation) Neurologic/Psychiatric: Alert, Oriented x3, No Motor/Sensory Deficits, Normal Mood/Affect, Abnormal Gait, Motor Weakness (Right-sided weakness 2/5) Skin: Normal Color, Warm/Dry Lymphatic: No Adenopathy Results/Procedures Lab Patient resulted labs reviewed. FIM Transfers Therapy Code Descriptions/Definitions Functional [place] Measure: 0=Not Assessed/NA 4=Minimal Assistance 1=Total Assistance 5=Supervision or Setup 2=Maximal Assistance 6=Modified [place] 3=Moderate Assistance 7=Complete IndependenceSCALE: Activities may be completed with or without assistive devices. 2-Rahlhzvued-dxsjljl completes the activity by him/herself with no assistance from a helper. 5-Set-up or Clean-up Assistance-helper sets up or cleans up; patient completes activity. [place] assists only prior to or following the activity. 4-Supervision or Touching Assistance-helper provides verbal cues and/or touching/steadying and/or contact guard assistance as patient completes activity. Assistance may be provided throughout the activity or intermittently. 3-Partial/Moderate Assistance-helper does LESS THAN HALF the effort. [place] lifts, holds or supports trunk or limbs, but provides less than half the effort. 2-Substantial/Maximal Assistance-helper does MORE THAN HALF the effort. [place] lifts or holds trunk or limbs and provides more than half the effort. 0-Twueqbgoz-avwwes does ALL the effort. Patient does none of the effort to complete the activity. Or, the assistance of 2 or more helpers is required for the patient to complete the activity. If activity was not attempted, code reason: 7-Patient Refused. 9-Not Applicable-not attempted and the patient did not perform the activity before the current illness, exacerbation or injury. 10-Not Attempted due to Environmental Limitations-(lack of equipment, weather restraints, etc.). 88-Not Attempted due to Medical Conditions or Safety Concerns. Roll Left to Right (QC): 6 Sit to Lying (QC): 3 Sit to Stand (QC): 1 Chair/Ama-rw-Vbwks Xfer(QC): 3 Car Transfer (QC): 1 Gait Training Does the Patient Walk?: No and Walking Goal NOT indicated Walk 10 feet (QC): 88 Walk 50 ft with 2 Turns(QC): 88 Walk 150 ft (QC): 88 Walking 10ft/uneven surface-QC: 88 Wheelchair Training Does the Pt Use a Wheelchair?: Yes Distance: 300', 100'x2 Wheel 50 ft with 2 turns (QC): 4 Wheel 150 ft (QC): 4 Type of Wheelchair: Manual Stair Training 1 Step (curb) (QC): 88 4 Steps (QC): 88 12 Steps (QC): 88 Balance Picking up an Object (QC): 88 ADL-Treatment Eating (QC): 6 Oral Hygiene (QC): 9 (Pt reports he owns dentures but does not wear. 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 History of super morbid obesity now BMI 22 Diabetes Previous smoker BPH Acute urinary retention requiring in and out cath and Urecholine Flomax ordered on 02/18/2021 Plan: Inpatient rehab protocol Accu-Cheks Pain control 02/08/2021: Pain control Protocol for rehab 02/09/2021: Supportive care Pain control Increase risk of pain medication dependency 02/10/2021: Supportive care Dressing changes 02/11/2021: Supportive care Dressing changes 03/04/21: No changes indicated 02/13/21: Supportive care 02/14/21: Monitor pain 02/15/21: Monitor closely Increased addiction potential 02/16/21: Monitor fecal incontinence 02/17/21: DC 02/18/21: Urinary retention Meds 02/19/2021: Voiding normally now (1) History of left below knee amputation (2) Tobacco abuse Status: Acute (3) History of stroke Status: Chronic (4) PAD (peripheral artery disease) Status: Acute (5) BPH (benign prostatic hyperplasia) Status: Chronic (6) T2DM (type 2 diabetes mellitus) Status: Acute (7) Dyslipidemia Status: Acute (8) History of morbid obesity Status: Chronic MAXI BOWSER DO Feb 19, 2021 08:38
[2021-02-19] MEDS: HYDROCORTISONE 2.5% CREAM (ANUSOL-HC) 30 GM TOP SCH (15:28)
[2021-02-19 20:23] VITALS: BP 120/60
[2021-02-20] MEDS: HYDROcodone/APAP 7.5 MG/325 MG (LORTAB, LORCET PLUS) TABLET PO PRN ×6 (01:32→22:57)
[2021-02-20] MEDS: BETHANECHOL 25 MG (URECHOLINE) TAB PO SCH ×4 (05:59→21:40)
[2021-02-20] MEDS: inSUlin ASPART (NovoLOG) 1 UNIT/0.01 ML (CHARGE PER UNIT) SC SCH ×4 (06:00→20:12)
[2021-02-20 06:26] LABS: BASOPHILS # (AUTO) 0.1 10^3/uL (0.0-0.1); BASOPHILS % (AUTO) 1 % (0-10); EOSINOPHILS # (AUTO) 0.3 10^3/uL (0.0-0.3); EOSINOPHILS % (AUTO) 4 % (0-10); HEMATOCRIT 36 % (40-54); HEMOGLOBIN 11.3 g/dL (13.3-17.7); LYMPHOCYTES # (AUTO) 2.4 10^3/uL (1.0-4.0); LYMPHOCYTES % (AUTO) 28 % (12-44); MEAN CORPUSCULAR HEMOGLOBIN 27 pg (25-34); MEAN CORPUSCULAR HGB CONC 31 g/dL (32-36); MEAN CORPUSCULAR VOLUME 86 fL (80-99); MEAN PLATELET VOLUME 10.2 fL (9.0-12.2); MONOCYTES # (AUTO) 0.7 10^3/uL (0.0-1.0); MONOCYTES % (AUTO) 9 % (0-12); NEUTROPHILS % (AUTO) 59 % (42-75); PLATELET COUNT 438 10^3/uL (130-400); WHITE BLOOD COUNT 8.5 10^3/uL (4.3-11.0)
[2021-02-20 06:38] LABS: ALBUMIN 3.2 GM/DL (3.2-4.5); POTASSIUM 4.1 MMOL/L (3.6-5.0)
[2021-02-20 06:40] LABS: TOTAL PROTEIN 7.5 GM/DL (6.4-8.2)
[2021-02-20 06:42] LABS: BILIRUBIN,TOTAL 0.5 MG/DL (0.1-1.0)
[2021-02-20 06:44] LABS: CREATININE SERUM 0.56 MG/DL (0.60-1.30)
[2021-02-20] MEDS: metFORMIN 500 MG (GLUCOPHAGE) TAB PO SCH (06:54)
[2021-02-20 07:58] VITALS: BP 118/64
--- NOTE | 2021-02-20 08:35 | PM&R Progress Note ---
Subjective HPI/CC On Admission Date Seen by Provider: Feb 20, 2021 Time Seen by Provider: 09:00 Subjective/Events-last exam 02/20/21: Pt is doing okay Straight cath done last night only got 200 cc Chronic pain issues 02/19/2021: Patient doing really well Voiding well now No urinary retention UA was normal 02/18/21: Patient doing about the same Urinary retention issues Around 700 cc on bladder scan Start Urecholine and Flomax In and out catheter ordered UA ordered 02/17/21: Pt doing really well Has 03/09 help Discharge plan for Saturday No other new issues 02/16/21: Pt doing about the same Bowel incontinence is not new Stump has some edema but otherwise doing well 02/15/21: Pt incontinent of bowel function times 2 last night Right sided pain from old stroke he wants to be awakened during the night to g phyllis him a pain pill and I do not support that High dependency for addiction 02/14/21: Pt doing the same Difficult transfers Increasing Gabapentin to 600 TID has helped 02/13/21: Pt doing okay. Increase in Gabapentin to 600mg TID from BID. Sliding scale insulin given for 216 sugar. Bowels moved yesterday. Incision looks good. Still a very tough transfer due to weakness on the right side. 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 02/09/2021: Pt doing well Pain phantom type is an issue Checked meds and labs Pt appears to be at high risk for dependency of pain medication 02/08/2021: Pt doing about the same Pain is an issue IV antibiotics mainted WBC 11.8 HGB 10.8 Bowels are moving Review of Systems General: Fatigue, Malaise Genitourinary: Retention Objective Exam Vital Signs Vital Signs Date Time Temp Pulse Resp B/P (MAP) Pulse Ox O2 Delivery O2 Flow Rate FiO2 02/20/21 21:00 36.4 99 18 98/59 (72) 97 Room Air Capillary Refill : General Appearance: No Apparent Distress, WD/WN, Chronically ill HEENT: PERRL/EOMI, Normal ENT Inspection, Pharynx Normal Neck: Full Range of Motion, Normal Inspection, Non Tender, Supple, Carotid Bruit Respiratory: Chest Non Tender, Lungs Clear, Normal Breath Sounds, No Accessory Muscle Use, No Respiratory Distress Cardiovascular: Regular Rate, Rhythm, No Edema, No Gallop, No JVD, No Murmur, Normal Peripheral Pulses Gastrointestinal: Normal Bowel Sounds, No Organomegaly, No Pulsatile Mass, Non Tender, Soft Back: Normal Inspection, No CVA Tenderness, No Vertebral Tenderness Extremity: Normal Capillary Refill, Normal Inspection, Normal Range of Motion, Non Tender, No Calf Tenderness, No Pedal Edema, Other (Left below-knee amputation) Neurologic/Psychiatric: Alert, Oriented x3, No Motor/Sensory Deficits, Normal Mood/Affect, Abnormal Gait, Motor Weakness (Right-sided weakness 2/5) Skin: Normal Color, Warm/Dry Lymphatic: No Adenopathy Results/Procedures Lab Laboratory Tests 02/20/21 05:51 Patient resulted labs reviewed. FIM Transfers Therapy Code Descriptions/Definitions Functional [place] Measure: 0=Not Assessed/NA 4=Minimal Assistance 1=Total Assistance 5=Supervision or Setup 2=Maximal Assistance 6=Modified Dawn 3=Moderate Assistance 7=Complete IndependenceSCALE: Activities may be completed with or without assistive devices. 4-Vhuubzscpc-lpfpmtn completes the activity by him/herself with no assistance from a helper. 5-Set-up or Clean-up Assistance-helper sets up or cleans up; patient completes activity. [place] assists only prior to or following the activity. 4-Supervision or Touching Assistance-helper provides verbal cues and/or touching/steadying and/or contact guard assistance as patient completes activity. Assistance may be provided throughout the activity or intermittently. 3-Partial/Moderate Assistance-helper does LESS THAN HALF the effort. [place] lifts, holds or supports trunk or limbs, but provides less than half the effort. 2-Substantial/Maximal Assistance-helper does MORE THAN HALF the effort. [place] lifts or holds trunk or limbs and provides more than half the effort. 2-Myctfogxw-wxonsb does ALL the effort. Patient does none of the effort to complete the activity. Or, the assistance of 2 or more helpers is required for the patient to complete the activity. If activity was not attempted, code reason: 7-Patient Refused. 9-Not Applicable-not attempted and the patient did not perform the activity before the current illness, exacerbation or injury. 10-Not Attempted due to Environmental Limitations-(lack of equipment, weather restraints, etc.). 88-Not Attempted due to Medical Conditions or Safety Concerns. Roll Left to Right (QC): 6 Sit to Lying (QC): 3 Sit to Stand (QC): 1 Chair/Jtq-gk-Ewaeu Xfer(QC): 3 Car Transfer (QC): 1 Gait Training Does the Patient Walk?: No and Walking Goal NOT indicated Walk 10 feet (QC): 88 Walk 50 ft with 2 Turns(QC): 88 Walk 150 ft (QC): 88 Walking 10ft/uneven surface-QC: 88 Wheelchair Training Does the Pt Use a Wheelchair?: Yes Distance: 300', 100'x2 Wheel 50 ft with 2 turns (QC): 4 Wheel 150 ft (QC): 4 Type of Wheelchair: Manual Stair Training 1 Step (curb) (QC): 88 4 Steps (QC): 88 12 Steps (QC): 88 Balance Picking up an Object (QC): 88 ADL-Treatment Eating (QC): 6 Oral Hygiene (QC): 9 (Pt reports he owns dentures but does not wear. 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 History of super morbid obesity now BMI 22 Diabetes Previous smoker BPH Acute urinary retention requiring in and out cath and Urecholine Flomax ordered on 02/18/2021 Plan: Inpatient rehab protocol Accu-Cheks Pain control 02/08/2021: Pain control Protocol for rehab 02/09/2021: Supportive care Pain control Increase risk of pain medication dependency 02/10/2021: Supportive care Dressing changes 02/11/2021: Supportive care Dressing changes 03/04/21: No changes indicated 02/13/21: Supportive care 02/14/21: Monitor pain 02/15/21: Monitor closely Increased addiction potential 02/16/21: Monitor fecal incontinence 02/17/21: DC 02/18/21: Urinary retention Meds 02/19/2021: Voiding normally now 02/20/21: Monitor urinary retention (1) History of left below knee amputation (2) Tobacco abuse Status: Acute (3) History of stroke Status: Chronic (4) PAD (peripheral artery disease) Status: Acute (5) BPH (benign prostatic hyperplasia) Status: Chronic (6) T2DM (type 2 diabetes mellitus) Status: Acute (7) Dyslipidemia Status: Acute (8) History of morbid obesity Status: Chronic MAXI BOWSER DO Feb 20, 2021 08:35
[2021-02-20] MEDS: ASPIRIN E.C. 81 MG (ECOTRIN) TAB PO SCH (08:42)
[2021-02-20] MEDS: CLOPIDOGREL 75 MG (PLAVIX) TABLET PO SCH (08:43)
[2021-02-20] MEDS: LACTOBACILLUS ACIDOPHILUS (PROBIOTIC) CAPSULE PO SCH ×3 (08:43→17:38)
[2021-02-20] MEDS: GABAPENTIN 600 MG (NEURONTIN) TAB PO SCH ×3 (08:43→21:40)
[2021-02-20] MEDS: TAMSULOSIN 0.4 MG (FLOMAX) CAP PO SCH ×2 (08:43→21:40)
[2021-02-20] MEDS: HYDROCORTISONE 2.5% CREAM (ANUSOL-HC) 30 GM TOP SCH ×2 (08:46→21:42)
[2021-02-20] MEDS: ZINC OXIDE 16% OINT (BUTT PASTE) 57 GM TUBE TOP PRN (08:48)
[2021-02-20] MEDS: polyethylene glycoL POWDER 17 GM (MIRALAX) PACK PO SCH ×2 (10:27→19:57)
[2021-02-20] MEDS: SENNOSIDES 8.6 MG (SENOKOT) TAB PO SCH ×2 (10:27→19:57)
[2021-02-20] MEDS: DOCUSATE SODIUM 100 MG (COLACE) CAP PO SCH ×2 (11:55→19:57)
[2021-02-20] MEDS: SENNA W/DOCUSATE (SENOKOT S) TABLET PO SCH ×2 (11:55→19:57)
--- NOTE | 2021-02-20 11:55 | Physical Therapy Daily Note ---
PT Daily Note-Current Subjective Patient in bed pre tx, has unrated but he says severe pain in his whole right side and with his hemorrhoids. Will be co-treating with OT due to poor patient mobility, strength, endurance, severe debility, coordinate UE and LE during activity, safety and reduce risk of falls. Nurse requests to get patient on commode because he has had some suppositories. Appearance Patient in bed post tx with nurse call, phone, tray, all needs met. Laying on right side with pillow support for pressure relief. Mental Status Patient Orientation: Person, Place, Situation Transfers SCALE: Activities may be completed with or without assistive devices. 8-Frhoqfhgtx-uxiyfhg completes the activity by him/herself with no assistance from a helper. 5-Set-up or Clean-up Assistance-helper sets up or cleans up; patient completes activity. [place] assists only prior to or following the activity. 4-Supervision or Touching Assistance-helper provides verbal cues and/or touching/steadying and/or contact guard assistance as patient completes activity. Assistance may be provided throughout the activity or intermittently. 3-Partial/Moderate Assistance-helper does LESS THAN HALF the effort. [place] lifts, holds or supports trunk or limbs, but provides less than half the effort. 2-Substantial/Maximal Assistance-helper does MORE THAN HALF the effort. [place] lifts or holds trunk or limbs and provides more than half the effort. 2-Hcihftxet-drrhuz does ALL the effort. Patient does none of the effort to complete the activity. Or, the assistance of 2 or more helpers is required for the patient to complete the activity. If activity was not attempted, code reason: 7-Patient Refused. 9-Not Applicable-not attempted and the patient did not perform the activity before the current illness, exacerbation or injury. 10-Not Attempted due to Environmental Limitations-(lack of equipment, weather restraints, etc.). 88-Not Attempted due to Medical Conditions or Safety Concerns. Roll Left & Right (QC): 4 Sit to Lying (QC): 3 Lying to Sitting/Side of Bed(Q: 3 Chair/Rpu-nz-Ovqdn Xfer(QC): 1 Min assist for sit to supine, mod assist for supine to sit. Patient sits to the side of the bed, attempted to perform seated balance activities but patient's pain was too much, layed back down. After a rest he sat back up, used the sit to stand machine to transfer him to the commode, he tried for a while to have a BM but couldn't. Transferred back to bed using the sit to stand machine and then he layed down. Weight Bearing Right Lower Extremity: Right Weight Bearing/Tolerated Left Lower Extremity: Left Non Weight Bearing NEW AMPUTATION Treatments PT performed bed mobility, sitting, transfers, OT performed UE positioning and safety during activity, cleaning, positioning. Assessment Current Status: Poor Progress Patient's pain prevented much meaningful activity, nurse aware of pain. PT Short Term Goals Short Term Goals Time Frame: Feb 14, 2021 Roll Left & Right: 6 Sit to lyin Lying to sitting on side of be: 4 Chair/bdr-fa-wpudi transfer: 3 (Oscar) PT Snf Goals [employer] Goals PT Snf Goals Time Frame: Feb 28, 2021 Roll Left & Right (QC): 6 Sit to Lying (QC): 6 Lying-Sitting on Side/Bed(QC): 6 Sit to Stand (QC): 88 Chair/Zln-ht-Jtosk Xfer(QC): 4 Toilet Transfer (QC): 4 Car Transfer (QC): 4 Does the Patient Walk: No and Walking Goal NOT indicated Walk 10 feet (QC): 88 Walk 50ft with 2 Turns (QC): 88 Walk 150 ft (QC): 88 Walking 10ft on Uneven Surface: 88 1 Step (curb) (QC): 88 4 Steps (QC): 88 12 Steps (QC): 88 Picking up an Object (QC): 88 Wheel 50 feet with 2 turns (QC: 6 Wheel 150 feet: 6 PT Plan Problem List Problem List: Activity Tolerance, Functional Strength, Safety, Balance, Gait, Transfer, Bed Mobility, ROM Treatment/Plan Treatment Plan: Continue Plan of Care Treatment Plan: Bed Mobility, Education, Functional Activity Nicky, Functional Strength, Group Therapy, Safety, Therapeutic Exercise, Transfers Treatment Duration: Feb 28, 2021 Frequency: At least 5 of 7 days/Wk (IRF) Estimated Hrs Per Day: 1.5 hours per day Patient and/or Family Agrees t: Yes Safety Risks/Education Patient Education: Transfer Techniques, Correct Positioning, Safety Issues Teaching Recipient: Patient Teaching Methods: Demonstration, Discussion Response to Teaching: Reinforcement Needed Time/GCodes Time In: 1100 Time Out: 1200 Total Billed Treatment Time: 60 Total Billed Treatment 1 visit FA DHIRAJ HENDRICSKON PT Feb 20, 2021 11:55
--- NOTE | 2021-02-20 12:08 | Occupational Ther Daily Note ---
OT Current Status-Daily Note Subjective Pt reports feeling sick all weekend. OT pushed time back to later in day. On second attempt, pt agreeable to complete as much as tolerable. Co-treat with PT secondary to increase in pain, poor mobility, endurance, and need of 2 skilled clinicians to progress adls and mobility Appearance Returned to supine, all needs within reach, RN in room. Mental Status/Objective Patient Orientation: Person, Place, Situation ADL-Treatment Therapy Code Descriptions/Definitions Functional [place] Measure: 0=Not Assessed/NA 4=Minimal Assistance 1=Total Assistance 5=Supervision or Setup 2=Maximal Assistance 6=Modified [place] 3=Moderate Assistance 7=Complete IndependenceSCALE: Activities may be completed with or without assistive devices. 6-Uscoacztgc-imaecau completes the activity by him/herself with no assistance from a helper. 5-Set-up or Clean-up Assistance-helper sets up or cleans up; patient completes activity. [place] assists only prior to or following the activity. 4-Supervision or Touching Assistance-helper provides verbal cues and/or touching/steadying and/or contact guard assistance as patient completes activity. Assistance may be provided throughout the activity or intermittently. 3-Partial/Moderate Assistance-helper does LESS THAN HALF the effort. [place] lift s, holds or supports trunk or limbs, but provides less than half the effort. 2-Substantial/Maximal Assistance-helper does MORE THAN HALF the effort. [place] lifts or holds trunk or limbs and provides more than half the effort. 1-Sngghuxdr-qwbwnv does ALL the effort. Patient does none of the effort to complete the activity. Or, the assistance of 2 or more helpers is required for the patient to complete the activity. If activity was not attempted, code reason: 7-Patient Refused. 9-Not Applicable-not attempted and the patient did not perform the activity before the current illness, exacerbation or injury. 10-Not Attempted due to Environmental Limitations-(lack of equipment, weather restraints, etc.). 88-Not Attempted due to Medical Conditions or Safety Concerns. On/Off Footwear: 1 Toileting Hygiene (QC): 1 Toilet Transfer (QC): 1 Significant time and extra assist to sit EOB this date due to increase in pain. Pt verbalizes hemorrhoids and pain with sitting. RN in room and request therapy get pt to commode as she had given him suppositories earlier in am. Dependent transfer to commode with sit<>stand lift. Pt sat on commode for ~5 minutes. Dependent for savannah care (small amount) while standing in sit<>stand lift. Pt unsuccessful with emptying bowels completely. Attempt at completing seated activities to improve sitting balance/endurance yet pt unable to tolerate. Mod a to return to supine. Pt reports he is also having trouble urinating and is now being straight cathed due to retention. Education OT Patient Education: Correct positioning, Modified ADL techniques, Progress toward Goal/Update tx plan, Purpose of tx/functional activities, Transfer techniques Teaching Recipient: Patient Teaching Methods: Discussion Response to Teaching: Verbalize Understanding, Reinforcement Needed OT Short Term Goals Short Term Goals Time Frame: Feb 17, 2021 Eatin Oral hygiene: 5 Toileting hygiene: 2 Shower/bathe self: 2 Upper body dressin Lower body dressin Putting on/taking off footwear: 2 OT Environmental Resource Specialist Goals Custodial Goals Time Frame: Mar 04, 2021 Eating (QC): 5 Oral Hygiene (QC): 5 Toileting Hygiene (QC): 3 Shower/Bathe Self (QC): 4 Upper Body Dressing (QC): 5 Lower Body Dressing (QC): 4 On/Off Footwear (QC): 4 1=Demonstrate adherence to instructed precautions during ADL tasks. 2=Patient will verbalize/demonstrate understanding of assistive de vices/modifications for ADL. 3=Patient will improve strength/tolerance for activity to enable patient to perform ADL's. OT Education/Plan Problem List/Assessment Assessment: Decreased Activ Tolerance, Decreased UE Strength, Dependent Transfers, Impaired Bed Mobility, Impaired Funct Balance, Impaired I ADL's, Impaired Self-Care Skills Discharge Recommendations Plan/Recommendations: Continue POC Therapy Discharge Recommendati: Post Acute OT Treatment Plan/Plan of Care Treatment,Training & Education: Yes Patient would benefit from OT for education, treatment and training to promote independence in ADL's, mobility, safety and/or upper extremity function for ADL's. Plan of Care: ADL Retraining, Functional Mobility, Group Exercise/Act as Ind, UE Funct Exercise/Act, UE Neuromus Re-Ed/Coord, W/C Management Training Treatment Duration: Mar 04, 2021 Frequency: At least 5 of 7 days/Wk (IRF) Estimated Hrs Per Day: 1.5 hours per day Agreement: Yes Rehab Potential: Fair Time/GCodes Start Time: 11:00 Stop Time: 12:00 Total Time Billed (hr/min): 60 Billed Treatment Time 1 visit ADL x2 (30 min) FA x2 (30 min) Judi Mane OT Feb 20, 2021 12:07
--- NOTE | 2021-02-20 14:20 | Physical Therapy Daily Note ---
PT Daily Note-Current Subjective Patient in bed pre tx, agrees to PT, has 8/10 pain on whole right side and with his hemorrhoids, says he is about due for a pain pill. Appearance Patient in bed post tx with nurse call, phone, tray, all needs met. Mental Status Patient Orientation: Person, Place, Situation Transfers SCALE: Activities may be completed with or without assistive devices. 5-Lkfzclfyrj-hynbgjq completes the activity by him/herself with no assistance from a helper. 5-Set-up or Clean-up Assistance-helper sets up or cleans up; patient completes activity. [place] assists only prior to or following the activity. 4-Supervision or Touching Assistance-helper provides verbal cues and/or touching/steadying and/or contact guard assistance as patient completes activity. Assistance may be provided throughout the activity or intermittently. 3-Partial/Moderate Assistance-helper does LESS THAN HALF the effort. [place] lifts, holds or supports trunk or limbs, but provides less than half the effort. 2-Substantial/Maximal Assistance-helper does MORE THAN HALF the effort. [place] lifts or holds trunk or limbs and provides more than half the effort. 8-Mydbnkorw-glgduh does ALL the effort. Patient does none of the effort to complete the activity. Or, the assistance of 2 or more helpers is required for the patient to complete the activity. If activity was not attempted, code reason: 7-Patient Refused. 9-Not Applicable-not attempted and the patient did not perform the activity before the current illness, exacerbation or injury. 10-Not Attempted due to Environmental Limitations-(lack of equipment, weather restraints, etc.). 88-Not Attempted due to Medical Conditions or Safety Concerns. Weight Bearing Right Lower Extremity: Right Weight Bearing/Tolerated Left Lower Extremity: Left Non Weight Bearing NEW AMPUTATION Exercises Supine Ex: Ankle pumps (RLE), Quad Set, Glut sets, Heel Slides, Short Arc Quads (on LLE he lifts leg and flex/ext knee), Straight leg raise, Hip abd/add Supine Reps: 20 AAROM on right leg with SAQ, SLR, hip abd/add Treatments LE strengthening Assessment Current Status: Poor Progress slightly improved strength on the right side with heel slides, patient continues to have pretty profound global weakness PT Short Term Goals Short Term Goals Time Frame: Feb 14, 2021 Roll Left & Right: 6 Sit to lyin Lying to sitting on side of be: 4 Chair/gtv-wo-pecyu transfer: 3 (Oscar) PT [facility] Goals Recruiting Consultant Goals PT Recruiting Consultant Goals Time Frame: Feb 28, 2021 Roll Left & Right (QC): 6 Sit to Lying (QC): 6 Lying-Sitting on Side/Bed(QC): 6 Sit to Stand (QC): 88 Chair/Mbw-qw-Drneb Xfer(QC): 4 Toilet Transfer (QC): 4 Car Transfer (QC): 4 Does the Patient Walk: No and Walking Goal NOT indicated Walk 10 feet (QC): 88 Walk 50ft with 2 Turns (QC): 88 Walk 150 ft (QC): 88 Walking 10ft on Uneven Surface: 88 1 Step (curb) (QC): 88 4 Steps (QC): 88 12 Steps (QC): 88 Picking up an Object (QC): 88 Wheel 50 feet with 2 turns (QC: 6 Wheel 150 feet: 6 PT Plan Problem List Problem List: Activity Tolerance, Functional Strength, Safety, Balance, Gait, Transfer, Bed Mobility, ROM Treatment/Plan Treatment Plan: Continue Plan of Care Treatment Plan: Bed Mobility, Education, Functional Activity Nicky, Functional Strength, Group Therapy, Safety, Therapeutic Exercise, Transfers Treatment Duration: Feb 28, 2021 Frequency: At least 5 of 7 days/Wk (IRF) Estimated Hrs Per Day: 1.5 hours per day Patient and/or Family Agrees t: Yes Safety Risks/Education Patient Education: Correct Positioning, Safety Issues Teaching Recipient: Patient Teaching Methods: Demonstration, Discussion Response to Teaching: Reinforcement Needed Time/GCodes Time In: 1354 Time Out: 1424 Total Billed Treatment Time: 30 Total Billed Treatment 1 visit EX 30' DHIRAJ ORTEGA PT Feb 20, 2021 14:20
--- NOTE | 2021-02-20 14:56 | Occupational Ther Daily Note ---
OT Current Status-Daily Note Subjective Pt laying in bed, agreeable to OT Tx. Mental Status/Objective Patient Orientation: Person, Place, Situation ADL-Treatment Therapy Code Descriptions/Definitions Functional [place] Measure: 0=Not Assessed/NA 4=Minimal Assistance 1=Total Assistance 5=Supervision or Setup 2=Maximal Assistance 6=Modified [place] 3=Moderate Assistance 7=Complete IndependenceSCALE: Activities may be completed with or without assistive devices. 4-Kzzoorcamf-ueywxyj completes the activity by him/herself with no assistance from a helper. 5-Set-up or Clean-up Assistance-helper sets up or cleans up; patient completes activity. [place] assists only prior to or following the activity. 4-Supervision or Touching Assistance-helper provides verbal cues and/or touching/steadying and/or contact guard assistance as patient completes activity. Assistance may be provided throughout the activity or intermittently. 3-Partial/Moderate Assistance-helper does LESS THAN HALF the effort. [place] lifts, holds or supports trunk or limbs, but provides less than half the effort. 2-Substantial/Maximal Assistance-helper does MORE THAN HALF the effort. [place] lifts or holds trunk or limbs and provides more than half the effort. 5-Mjcetpwaz-mqvkbu does ALL the effort. Patient does none of the effort to complete the activity. Or, the assistance of 2 or more helpers is required for the patient to complete the activity. If activity was not attempted, code reason: 7-Patient Refused. 9-Not Applicable-not attempted and the patient did not perform the activity before the current illness, exacerbation or injury. 10-Not Attempted due to Environmental Limitations-(lack of equipment, weather restraints, etc.). 88-Not Attempted due to Medical Conditions or Safety Concerns. Other Treatment Pt laying in bed, nurse present washing pt's buttocks, applying creams, and allevyn. Pt able to roll side to side in bed with SBA. In order to increase BUE strength and activity tolerance, pt completed [id number] of BUE exercises using 2lb weight, all planes. Pt recalled each exercise from previous session. Post tx, pt in bed, call light in reach and all needs met. Education OT Patient Education: Correct positioning, Energy conservation, Exercise program, Modified ADL techniques, Progress toward Goal/Update tx plan, Purpose of tx/functional activities, Rehab process Teaching Recipient: Patient Teaching Methods: Discussion Response to Teaching: Verbalize Understanding OT Short Term Goals Short Term Goals Time Frame: Feb 17, 2021 Eatin Oral hygiene: 5 Toileting hygiene: 2 Shower/bathe self: 2 Upper body dressin Lower body dressin Putting on/taking off footwear: 2 OT Inspector Screen Printing Goals Inspector Screen Printing Goals Time Frame: Mar 04, 2021 Eating (QC): 5 Oral Hygiene (QC): 5 Toileting Hygiene (QC): 3 Shower/Bathe Self (QC): 4 Upper Body Dressing (QC): 5 Lower Body Dressing (QC): 4 On/Off Footwear (QC): 4 1=Demonstrate adherence to instructed precautions during ADL tasks. 2=Patient will verbalize/demonstrate understanding of assistive devices/modifications for ADL. 3=Patient will improve strength/tolerance for activity to enable patient to perform ADL's. OT Education/Plan Problem List/Assessment Assessment: Decreased Activ Tolerance, Decreased UE Strength, Impaired Funct Balance, Impaired I ADL's, Impaired Self-Care Skills Discharge Recommendations Plan/Recommendations: Continue POC Treatment Plan/Plan of Care Patient would benefit from OT for education, treatment and training to promote independence in ADL's, mobility, safety and/or upper extremity function for ADL's. Plan of Care: ADL Retraining, Functional Mobility, Group Exercise/Act as Ind, UE Funct Exercise/Act, UE Neuromus Re-Ed/Coord, W/C Management Training Treatment Duration: Mar 04, 2021 Frequency: At least 5 of 7 days/Wk (IRF) Estimated Hrs Per Day: 1.5 hours per day Agreement: Yes Rehab Potential: Fair Time/GCodes Start Time: 14:25 Stop Time: 14:55 Total Time Billed (hr/min): 30 Billed Treatment Time 1, EX (15'), FA (15') CAM HANSEN OT Feb 20, 2021 14:56
[2021-02-20 21:00] VITALS: BP 98/59
[2021-02-21] MEDS: ONDANSETRON 4 MG (ZOFRAN) ORAL DISSOLVE TAB PO PRN ×2 (02:37→15:22)
[2021-02-21] MEDS: HYDROcodone/APAP 7.5 MG/325 MG (LORTAB, LORCET PLUS) TABLET PO PRN ×4 (03:02→16:07)
[2021-02-21] MEDS: inSUlin ASPART (NovoLOG) 1 UNIT/0.01 ML (CHARGE PER UNIT) SC SCH ×4 (05:40→20:57)
--- NOTE | 2021-02-21 05:46 | PM&R Progress Note ---
Subjective HPI/CC On Admission Date Seen by Provider: Feb 21, 2021 Time Seen by Provider: 09:00 Subjective/Events-last exam 02/21/21: Pt about the same Complaining of buttock pain Dr. Velez will be consulted. Augmentin started for carbuncle Labs reviewed everything within normal limits including Lactic Acid and White Count Continue Hemorrhoid cream 02/20/21: Pt is doing okay Straight cath done last night only got 200 cc Chronic pain issues 02/19/2021: Patient doing really well Voiding well now No urinary retention UA was normal 02/18/21: Patient doing about the same Urinary retention issues Around 700 cc on bladder scan Start Urecholine and Flomax In and out catheter ordered UA ordered 02/17/21: Pt doing really well Has 03/09 help Discharge plan for Saturday No other new issues 02/16/21: Pt doing about the same Bowel incontinence is not new Stump has some edema but otherwise doing well 02/15/21: Pt incontinent of bowel function times 2 last night Right sided pain from old stroke he wants to be awakened during the night to give him a pain pill and I do not support that High dependency for addiction 02/14/21: Pt doing the same Difficult transfers Increasing Gabapentin to 600 TID has helped 02/13/21: Pt doing okay. Increase in Gabapentin to 600mg TID from BID. Sliding scale insulin given for 216 sugar. Bowels moved yesterday. Incision looks good. Still a very tough transfer due to weakness on the right side. 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 02/09/2021: Pt doing well Pain phantom type is an issue Checked meds and labs Pt appears to be at high risk for dependency of pain medication 02/08/2021: Pt doing about the same Pain is an issue IV antibiotics mainted WBC 11.8 HGB 10.8 Bowels are moving Review of Systems General: Fatigue, Malaise Focused Exam Lactate Level 02/21/21 09:30: Lactic Acid Level 0.79 Objective Exam Vital Signs Vital Signs Date Time Temp Pulse Resp B/P (MAP) Pulse Ox O2 Delivery O2 Flow Rate FiO2 02/21/21 21:00 99 Room Air 02/21/21 20:32 35.6 91 18 103/67 (79) Capillary Refill : General Appearance: No Apparent Distress, WD/WN, Chronically ill HEENT: PERRL/EOMI, Normal ENT Inspection, Pharynx Normal Neck: Full Range of Motion, Normal Inspection, Non Tender, Supple, Carotid Bruit Respiratory: Chest Non Tender, Lungs Clear, Normal Breath Sounds, No Accessory Muscle Use, No Respiratory Distress Cardiovascular: Regular Rate, Rhythm, No Edema, No Gallop, No JVD, No Murmur, Normal Peripheral Pulses Gastrointestinal: Normal Bowel Sounds, No Organomegaly, No Pulsatile Mass, Non Tender, Soft Back: Normal Inspection, No CVA Tenderness, No Vertebral Tenderness Extremity: Normal Capillary Refill, Normal Inspection, Normal Range of Motion, Non Tender, No Calf Tenderness, No Pedal Edema, Other (Left below-knee amputation) Neurologic/Psychiatric: Alert, Oriented x3, No Motor/Sensory Deficits, Normal M ood/Affect, Abnormal Gait, Motor Weakness (Right-sided weakness 2/5) Skin: Normal Color, Warm/Dry Lymphatic: No Adenopathy Results/Procedures Lab Laboratory Tests 02/21/21 09:30 Patient resulted labs reviewed. FIM Transfers Therapy Code Descriptions/Definitions Functional [place] Measure: 0=Not Assessed/NA 4=Minimal Assistance 1=Total Assistance 5=Supervision or Setup 2=Maximal Assistance 6=Modified [place] 3=Moderate Assistance 7=Complete IndependenceSCALE: Activities may be completed with or without assistive devices. 5-Xuhgxtlptt-ceiuoov completes the activity by him/herself with no assistance from a helper. 5-Set-up or Clean-up Assistance-helper sets up or cleans up; patient completes activity. [place] assists only prior to or following the activity. 4-Supervision or Touching Assistance-helper provides verbal cues and/or touching/steadying and/or contact guard assistance as patient completes activity. Assistance may be provided throughout the activity or intermittently. 3-Partial/Moderate Assistance-helper does LESS THAN HALF the effort. [place] lifts, holds or supports trunk or limbs, but provides less than half the effort. 2-Substantial/Maximal Assistance-helper does MORE THAN HALF the effort. [place] lifts or holds trunk or limbs and provides more than half the effort. 0-Suirfuudp-qtblom does ALL the effort. Patient does none of the effort to comp lete the activity. Or, the assistance of 2 or more helpers is required for the patient to complete the activity. If activity was not attempted, code reason: 7-Patient Refused. 9-Not Applicable-not attempted and the patient did not perform the activity before the current illness, exacerbation or injury. 10-Not Attempted due to Environmental Limitations-(lack of equipment, weather restraints, etc.). 88-Not Attempted due to Medical Conditions or Safety Concerns. Roll Left to Right (QC): 4 Sit to Lying (QC): 3 Sit to Stand (QC): 1 Chair/Sjv-kv-Zluid Xfer(QC): 1 Car Transfer (QC): 1 Gait Training Does the Patient Walk?: No and Walking Goal NOT indicated Walk 10 feet (QC): 88 Walk 50 ft with 2 Turns(QC): 88 Walk 150 ft (QC): 88 Walking 10ft/uneven surface-QC: 88 Wheelchair Training Does the Pt Use a Wheelchair?: Yes Distance: 300', 100'x2 Wheel 50 ft with 2 turns (QC): 4 Wheel 150 ft (QC): 4 Type of Wheelchair: Manual Stair Training 1 Step (curb) (QC): 88 4 Steps (QC): 88 12 Steps (QC): 88 Balance Picking up an Object (QC): 88 ADL-Treatment Eating (QC): 6 Oral Hygiene (QC): 9 (Pt reports he owns dentures but does not wear. ) Shower/Bathe Self (QC): 3 Upper Body Dressing (QC): 4 Lower Body Dressing (QC): 3 On/Off Footwear (QC): 1 Toileting Hygiene (QC): 1 Toilet Transfer (QC): 1 Assessment/Plan Assessment and Plan Assess & Plan/Chief Complaint Assessment: Status post left below-knee amputation due to gangrene History of CVA with right-sided weakness History of super morbid obesity now BMI 22 Diabetes Previous smoker BPH Acute urinary retention requiring in and out cath and Urecholine Flomax ordered on 02/18/2021, cysto scheduled for tomorrow per Dr Valenzuela Left buttock carbuncle placed on augmentin Plan: Inpatient rehab protocol Accu-Silvana Pain control 02/08/2021: Pain control Protocol for rehab 02/09/2021: Supportive care Pain control Increase risk of pain medication dependency 02/10/2021: Supportive care Dressing changes 02/11/2021: Supportive care Dressing changes 03/04/21: No changes indicated 02/13/21: Supportive care 02/14/21: Monitor pain 02/15/21: Monitor closely Increased addiction potential 02/16/21: Monitor fecal incontinence 02/17/21: DC 02/18/21: Urinary retention Meds 02/19/2021: Voiding normally now 02/20/21: Monitor urinary retention 02/21/21: Augmentin per Dr Rosie Valenzuela cysto tomorrow (1) History of left below knee amputation (2) Tobacco abuse Status: Acute (3) History of stroke Status: Chronic (4) PAD (peripheral artery disease) Status: Acute (5) BPH (benign prostatic hyperplasia) Status: Chronic (6) T2DM (type 2 diabetes mellitus) Status: Acute (7) Dyslipidemia Status: Acute (8) History of morbid obesity Status: Chronic MAXI BOWSER DO Feb 21, 2021 05:46
[2021-02-21] MEDS: BETHANECHOL 25 MG (URECHOLINE) TAB PO SCH ×4 (07:03→20:57)
[2021-02-21] MEDS: metFORMIN 500 MG (GLUCOPHAGE) TAB PO SCH (07:03)
[2021-02-21 07:41] VITALS: BP 131/61
[2021-02-21] MEDS: LACTOBACILLUS ACIDOPHILUS (PROBIOTIC) CAPSULE PO SCH ×3 (08:12→18:35)
[2021-02-21] MEDS: TAMSULOSIN 0.4 MG (FLOMAX) CAP PO SCH ×2 (08:12→20:58)
[2021-02-21] MEDS: GABAPENTIN 600 MG (NEURONTIN) TAB PO SCH ×3 (08:12→20:58)
[2021-02-21] MEDS: ASPIRIN E.C. 81 MG (ECOTRIN) TAB PO SCH (08:12)
[2021-02-21] MEDS: CLOPIDOGREL 75 MG (PLAVIX) TABLET PO SCH (08:12)
[2021-02-21] MEDS: HYDROCORTISONE 2.5% CREAM (ANUSOL-HC) 30 GM TOP SCH ×2 (08:14→21:02)
--- NOTE | 2021-02-21 08:45 | Physical Therapy Progress Note ---
Therapy Progress Note Patient refuses therapy today. He has what he thought was hemorrhoids but a doctor came in and patient states he said it is a boil and he has too much pain to participate because of that and he has been dry heaving all night and is still nauseated. Nurse notified. DHIRAJ ORTEGA PT Feb 21, 2021 08:45
[2021-02-21 09:42] LABS: BASOPHILS # (AUTO) 0.1 10^3/uL (0.0-0.1); BASOPHILS % (AUTO) 1 % (0-10); EOSINOPHILS # (AUTO) 0.3 10^3/uL (0.0-0.3); EOSINOPHILS % (AUTO) 3 % (0-10); HEMATOCRIT 34 % (40-54); HEMOGLOBIN 10.6 g/dL (13.3-17.7); LYMPHOCYTES # (AUTO) 2.2 10^3/uL (1.0-4.0); LYMPHOCYTES % (AUTO) 25 % (12-44); MEAN CORPUSCULAR HEMOGLOBIN 27 pg (25-34); MEAN CORPUSCULAR HGB CONC 32 g/dL (32-36); MEAN CORPUSCULAR VOLUME 86 fL (80-99); MONOCYTES # (AUTO) 0.7 10^3/uL (0.0-1.0); MONOCYTES % (AUTO) 8 % (0-12); NEUTROPHILS # (AUTO) 5.7 10^3/uL (1.8-7.8); NEUTROPHILS % (AUTO) 63 % (42-75); PLATELET COUNT 368 10^3/uL (130-400)
[2021-02-21 09:54] LABS: POTASSIUM 4.2 MMOL/L (3.6-5.0)
[2021-02-21 09:55] LABS: CALCIUM 8.6 MG/DL (8.5-10.1)
[2021-02-21] MEDS: polyethylene glycoL POWDER 17 GM (MIRALAX) PACK PO SCH ×2 (09:55→20:56)
[2021-02-21] MEDS: SENNA W/DOCUSATE (SENOKOT S) TABLET PO SCH ×2 (09:55→20:57)
[2021-02-21] MEDS: SENNOSIDES 8.6 MG (SENOKOT) TAB PO SCH ×2 (09:55→20:57)
[2021-02-21] MEDS: DOCUSATE SODIUM 100 MG (COLACE) CAP PO SCH ×2 (09:55→20:56)
[2021-02-21 09:57] LABS: TOTAL PROTEIN 6.7 GM/DL (6.4-8.2)
[2021-02-21 09:58] LABS: BILIRUBIN,TOTAL 0.4 MG/DL (0.1-1.0)
[2021-02-21 10:00] LABS: CREATININE SERUM 0.53 MG/DL (0.60-1.30)
--- NOTE | 2021-02-21 11:06 | Occ Therapy Progress Note ---
Therapy Progress Note Pt refusing therapy this am due to not feeling well. He reports that what he believed was hemorrhoids is actually a boil and that he can not move without significant pain. He also reports dry heaving all night and morning. RN notified. Judi Mane OT Feb 21, 2021 11:06
--- NOTE | 2021-02-21 13:19 | Physical Therapy Progress Note ---
Therapy Progress Note Patient refuses physical therapy again this afternoon. Patient states his pain is 8/10 in his bottom at rest and when he moves he has so much pain it makes him feel like he is going to throw up. DHIRAJ ORTEGA PT Feb 21, 2021 13:19
--- NOTE | 2021-02-21 13:22 | Progress Note ---
Subjective Date Seen by a Provider: Feb 21, 2021 Time Seen by a Provider: 13:00 Subjective/Events-last exam small nodule left buttock. painful but no redness/erythema/drainage. no fever/chills. has also decreased in size. Focused Exam Lactate Level 02/21/21 09:30: Lactic Acid Level 0.79 Lactic Acid Level Laboratory Tests Test 02/21/21 09:30 Lactic Acid Level 0.79 MMOL/L (0.50-2.00) Objective Exam Vital Signs Date Time Temp Pulse Resp B/P (MAP) Pulse Ox O2 Delivery O2 Flow Rate FiO2 02/21/21 09:40 Room Air 02/21/21 07:41 35.6 87 16 131/61 (84) 94 Room Air 02/20/21 21:00 36.4 99 18 98/59 (72) 97 Room Air 02/20/21 20:30 Room Air I & O 02/21/21 07:00 Intake Total 1240 ml Output Total 1250 ml Balance -10 ml Capillary Refill : General Appearance: No Apparent Distress HEENT: PERRL/EOMI Neck: Full Range of Motion Respiratory: Chest Non Tender, Lungs Clear, Normal Breath Sounds Cardiovascular: Regular Rate, Rhythm Gastrointestinal: normal bowel sounds, non tender, soft Extremity: Normal Capillary Refill Neurologic/Psychiatric: Alert, Oriented x3 Skin: Other (small perianal carbuncle, no redness/erythema/drainage) Lymphatic: No Adenopathy Results Lab Laboratory Tests 02/20/21 15:42: Glucometer 111H 02/20/21 20:07: Glucometer 163H 02/21/21 05:26: Glucometer 108 02/21/21 09:30: White Blood Count 9.0, Red Blood Count 3.91L, Hemoglobin 10.6L, Hematocrit 34L, Mean Corpuscular Volume 86, Mean Corpuscular Hemoglobin 27, Mean Corpuscular Hemoglobin Concent 32, Red Cell Distribution Width 14.4, Platelet Count 368, Mean Platelet Volume 10.0, Immature Granulocyte % (Auto) 0, Neutrophils (%) (Auto) 63, Lymphocytes (%) (Auto) 25, Monocytes (%) (Auto) 8, Eosinophils (%) (Auto) 3, Basophils (%) (Auto) 1, Neutrophils # (Auto) 5.7, Lymphocytes # (Auto) 2.2, Monocytes # (Auto) 0.7, Eosinophils # (Auto) 0.3, Basophils # (Auto) 0.1, Immature Granulocyte # (Auto) 0.0, Sodium Level 135, Potassium Level 4.2, Chloride Level 101, Carbon Dioxide Level 26, Anion Gap 8, Blood Urea Nitrogen 14, Creatinine 0.53L, Estimat Glomerular Filtration Rate 159, BUN/Creatinine Ratio 26, Glucose Level 125H, Lactic Acid Level 0.79, Calcium Level 8.6, Correct ed Calcium 9.4, Total Bilirubin 0.4, Aspartate Amino Transf (AST/SGOT) 18, Alanine Aminotransferase (ALT/SGPT) 23, Alkaline Phosphatase 76, Total Protein 6.7, Albumin 3.0L 02/21/21 10:54: Glucometer 120H Assessment/Plan Assessment/Plan Assess & Plan/Chief Complaint s/p left bka with small carbuncle left buttock. getting smaller. no abscess. start PO abx and off load pressure. MINDY WALKER MD Feb 21, 2021 13:22
[2021-02-21] MEDS: AUGMENTIN 875 MG TAB (AMOXICILLIN/CLAVULANATE) PO SCH ×2 (13:38→18:35)
--- NOTE | 2021-02-21 14:04 | CONSULTATION REPORT ---
DATE OF SERVICE: 02/21/2021 ATTENDING PHYSICIAN: Dr. Butler. SUMMARY: After reviewing the patient's records and interviewing him, this is a 61-year-old white man recovering from a left below-knee amputation, who has been having some urinary retention. He was started on Flomax 0.4 mg b.i.d. about three days ago and Urecholine 25 mg q.i.d. before meals and at bedtime, followed by a bladder scan postvoid residual checks. The patient admits to previous problem with the prostate. Physical exam was deferred at the time of cystoscopy. IMPRESSION: Urine retention, benign prostatic hyperplasia and/or neurogenic bladder. PLAN: 1. Continue Flomax and Urecholine. 2. Do bladder scan postvoid residual b.i.d. and p.r.n. and straight cath if over 300. 3. Flexible bedside cystoscopy local tomorrow. Plan and the procedure was fully explained to the patient. Job ID: [id number] DocumentID: [id number] Dictated Date: 02/21/2021 11:28:50 Assembler Unit Date: 02/21/2021 14:04:03 Dictated By: ENRIQUE ARROYO MD
[2021-02-21 20:32] VITALS: BP 103/67
[2021-02-22] MEDS: HYDROcodone/APAP 7.5 MG/325 MG (LORTAB, LORCET PLUS) TABLET PO PRN ×3 (02:47→12:40)
[2021-02-22] MEDS: metFORMIN 500 MG (GLUCOPHAGE) TAB PO SCH (06:40)
[2021-02-22] MEDS: BETHANECHOL 25 MG (URECHOLINE) TAB PO SCH ×2 (06:40→12:00)
[2021-02-22] MEDS: inSUlin ASPART (NovoLOG) 1 UNIT/0.01 ML (CHARGE PER UNIT) SC SCH ×2 (06:40→11:55)
[2021-02-22] MEDS ORDERED: HYDR30CR69 TOP (07:02)
[2021-02-22] MEDS ORDERED: AMOX1TAB12 PO (07:02)
[2021-02-22] MEDS ORDERED: TMSL.4C PO (07:02)
[2021-02-22] MEDS ORDERED: CLOP75TA28 PO (07:02)
[2021-02-22] MEDS ORDERED: BETH25TA2 PO (07:02)
[2021-02-22] MEDS ORDERED: HYDR-34 PO (07:02)
[2021-02-22] MEDS ORDERED: GBPN600T PO (07:02)
[2021-02-22] MEDS ORDERED: ATOR40TA PO (07:02)
[2021-02-22] MEDS ORDERED: ONDA4TAB11 PO (07:02)
[2021-02-22] MEDS ORDERED: METF-397 PO (07:02)
--- NOTE | 2021-02-22 07:03 | Discharge Summary ---
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 morbid obesity now BMI 22 Diabetes Previous smoker BPH Acute urinary retention requiring in and out cath and Urecholine Flomax ordered on 02/18/2021, cysto scheduled for tomorrow per Dr Valenzuela Left buttock carbuncle placed on augmentin Plan: Inpatient rehab protocol Accu-Cheks Pain control 02/08/2021: Pain control Protocol for rehab 02/09/2021: Supportive care Pain control Increase risk of pain medication dependency 02/10/2021: Supportive care Dressing changes 02/11/2021: Supportive care Dressing changes 03/04/21: No changes indicated 02/13/21: Supportive care 02/14/21: Monitor pain 02/15/21: Monitor closely Increased addiction potential 02/16/21: Monitor fecal incontinence 02/17/21: DC 02/18/21: Urinary retention Meds 02/19/2021: Voiding normally now 02/20/21: Monitor urinary retention 02/21/21: Augmentin per Dr Rosie Valenzuela cysto tomorrow (1) History of left below knee amputation (2) Tobacco abuse Status: Acute (3) History of stroke Status: Chronic (4) PAD (peripheral artery disease) Status: Acute (5) BPH (benign prostatic hyperplasia) Status: Chronic (6) T2DM (type 2 diabetes mellitus) Status: Acute (7) Dyslipidemia Status: Acute (8) History of morbid obesity Status: Chronic Discharge Summary Discharge Physical Examination Allergies: Coded Allergies: No Known Drug Allergies (Unverified , 02/03/21) Vitals & I&Os Vital Signs Date Time Temp Pulse Resp B/P (MAP) Pulse Ox O2 Delivery O2 Flow Rate FiO2 02/22/21 15:30 36.3 18 112/60 97 Room Air 02/22/21 07:51 100 General Appearance: Alert, Oriented X3, Cooperative Respiratory: Clear to Auscultation Cardiovascular: Regular Rate Psych/Mental Status: Mental Status NL Hospital Course Was the Problem List Reviewed?: Yes Pt had a lengthy hospital course for 16 days after a left below the knee amputation. Blood sugars were monitored. Pt did have urinary retention requiring cystoscopy and a stricture was treated. Dr. Valenzuela will see him as an outpatient. He did have a carbuncle that required Augmentin at time of discharge prescribed by Dr. Velez. Pain medication was sent in. Overall poor prognosis due to severe debility. Labs (last 24 hrs) Laboratory Tests 02/07/21 11:27: Glucometer 105 02/07/21 16:05: Glucometer 121H 02/07/21 20:09: Glucometer 157H 02/08/21 05:44: White Blood Count 11.5H, Red Blood Count 4.03L, Hemoglobin 10.8L, Hematocrit 35L , Mean Corpuscular Volume 87, Mean Corpuscular Hemoglobin 27, Mean Corpuscular Hemoglobin Concent 31L, Red Cell Distribution Width 13.5, Platelet Count 522H, Mean Platelet Volume 9.6, Immature Granulocyte % (Auto) 0, Neutrophils (%) (Auto) 60, Lymphocytes (%) (Auto) 28, Monocytes (%) (Auto) 10, Eosinophils (%) (Auto) 2, Basophils (%) (Auto) 0, Neutrophils # (Auto) 6.9, Lymphocytes # (Auto) 3.2, Monocytes # (Auto) 1.2H, Eosinophils # (Auto) 0.2, Basophils # (Auto) 0.0, Immature Granulocyte # (Auto) 0.0, Sodium Level 135, Potassium Level 3.6, Chloride Level 100, Carbon Dioxide Level 28, Anion Gap 7, Blood Urea Nitrogen 10, Creatinine 0.54L, Estimat Glomerular Filtration Rate 155, BUN/Creatinine Ratio 19, Glucose Level 144H, Calcium Level 8.2L, Corrected Calcium 9.4, Total Bilirubin 0.3, Aspartate Amino Transf (AST/SGOT) 25, Alanine Aminotransferase (ALT/SGPT) 8, Alkaline Phosphatase 78, Total Protein 6.4, Albumin 2.5L 02/08/21 05:51: Glucometer 134H 02/08/21 12:01: Glucometer 118H 02/08/21 12:02: Glucometer 125H 02/08/21 15:45: Glucometer 97 02/08/21 20:53: Glucometer 177H 02/09/21 05:14: Glucometer 96 02/09/21 10:56: Glucometer 141H 02/09/21 15:32: Glucometer 165H 02/09/21 20:13: Glucometer 175H 02/10/21 06:16: Glucometer 168H 02/10/21 11:04: Glucometer 164H 02/10/21 15:24: Glucometer 136H 02/10/21 20:06: Glucometer 157H 02/11/21 05:31: Glucometer 142H 02/11/21 11:01: Glucometer 154H 02/11/21 15:24: Glucometer 146H 02/11/21 20:05: Glucometer 184H 02/12/21 06:33: Glucometer 136H 02/12/21 10:43: Glucometer 166H 02/12/21 16:41: Glucometer 162H 02/12/21 20:36: Glucometer 216H 02/13/21 05:29: Glucometer 185H 02/13/21 05:46: White Blood Count 9.8, Red Blood Count 3.90L, Hemoglobin 10.4L, Hematocrit 34L, Mean Corpuscular Volume 87, Mean Corpuscular Hemoglobin 27, Mean Corpuscular Hemoglobin Concent 31L, Red Cell Distribution Width 14.2, Platelet Count 544H, Mean Platelet Volume 9.5, Immature Granulocyte % (Auto) 0, Neutrophils (%) (Auto) 55, Lymphocytes (%) (Auto) 33, Monocytes (%) (Auto) 8, Eosinophils (%) (Auto) 4, Basophils (%) (Auto) 1, Neutrophils # (Auto) 5.4, Lymphocytes # (Auto) 3.2, Monocytes # (Auto) 0.8, Eosinophils # (Auto) 0.4H, Basophils # (Auto) 0.1, Immature Granulocyte # (Auto) 0.0, Sodium Level 135, Potassium Level 4.2, Chloride Level 101, Carbon Dioxide Level 25, Anion Gap 9, Blood Urea Nitrogen 14, Creatinine 0.58L, Estimat Glomerular Filtration Rate 143, BUN/Creatinine Ratio 24, Glucose Level 189H, Calcium Level 8.6, Corrected Calcium 9.6, Total Bilirubin 0.2, Aspartate Amino Transf (AST/SGOT) 15, Alanine Aminotransferase (ALT/SGPT) 17, Alkaline Phosphatase 66, Total Protein 6.5, Albumin 2.7L 02/13/21 11:17: Glucometer 186H 02/13/21 16:30: Glucometer 128H 02/13/21 21:01: Glucometer 153H 02/14/21 05:17: Glucometer 120H 02/14/21 10:58: Glucometer 171H 02/14/21 16:14: Glucometer 127H 02/14/21 21:05: Glucometer 147H 02/15/21 05:30: Glucometer 198H 02/15/21 11:15: Glucometer 129H 02/15/21 15:24: Glucometer 132H 02/15/21 20:13: Glucometer 200H 02/16/21 05:33: Glucometer 156H 02/16/21 10:56: Glucometer 168H 02/16/21 15:41: Glucometer 193H 02/16/21 20:05: Glucometer 180H 02/17/21 05:24: Glucometer 146H 02/17/21 11:06: Glucometer 206H 02/17/21 20:26: Glucometer 138H 02/18/21 06:10: Glucometer 134H 02/18/21 12:21: Glucometer 123H 02/18/21 16:07: Glucometer 140H 02/18/21 18:10: Urine Color YELLOW, Urine Clarity CLEAR, Urine pH 6.5, Urine Specific [place] 1.015L, Urine Protein NEGATIVE, Urine Glucose (UA) NEGATIVE, Urine Ketones NEGATIVE, Urine Nitrite NEGATIVE, Urine Bilirubin NEGATIVE, Urine Urobilinogen 0.2, Urine Leukocyte Esterase NEGATIVE, Urine RBC (Auto) NEGATIVE, Urine RBC NONE, Urine WBC 0-2, Urine Squamous Epithelial Cells NONE, Urine Renal Epithelial Cells NONE, Urine Crystals NONE, Urine Bacteria NEGATIVE, Urine Casts NONE, Urine Mucus NEGATIVE, Urine Culture Indicated NO 02/19/21 06:06: Glucometer 104 02/19/21 11:26: Glucometer 98 02/19/21 16:04: Glucometer 156H 02/19/21 20:47: Glucometer 129H 02/20/21 05:51: White Blood Count 8.5, Red Blood Count 4.25L, Hemoglobin 11.3L, Hematocrit 36L, Mean Corpuscular Volume 86, Mean Corpuscular Hemoglobin 27, Mean Corpuscular Hemoglobin Concent 31L, Red Cell Distribution Width 14.3, Platelet Count 438H, Mean Platelet Volume 10.2, Immature Granulocyte % (Auto) 0, Neutrophils (%) (Auto) 59, Lymphocytes (%) (Auto) 28, Monocytes (%) (Auto) 9, Eosinophils (%) (Auto) 4, Basophils (%) (Auto) 1, Neutrophils # (Auto) 5.0, Lymphocytes # (Auto) 2.4, Monocytes # (Auto) 0.7, Eosinophils # (Auto) 0.3, Basophils # (Auto) 0.1, Immature Granulocyte # (Auto) 0.0, Sodium Level 134L, Potassium Level 4.1, Chloride Level 99, Carbon Dioxide Level 24, Anion Gap 11, Blood Urea Nitrogen 14, Creatinine 0.56L, Estimat Glomerular Filtration Rate 149, BUN/Creatinine Ratio 25, Glucose Level 100, Calcium Level 9.0, Corrected Calcium 9.6, Total Bilirubin 0.5, Aspartate Amino Transf (AST/SGOT) 20, Alanine Aminotransferase (ALT/SGPT) 23, Alkaline Phosphatase 87, Total Protein 7.5, Albumin 3.2 02/20/21 05:59: Glucometer 95 02/20/21 11:53: Glucometer 117H 02/20/21 15:42: Glucometer 111H 02/20/21 20:07: Glucometer 163H 02/21/21 05:26: Glucometer 108 02/21/21 09:30: White Blood Count 9.0, Red Blood Count 3.91L, Hemoglobin 10.6L, Hematocrit 34L, Mean Corpuscular Volume 86, Mean Corpuscular Hemoglobin 27, Mean Corpuscular Hemoglobin Concent 32, Red Cell Distribution Width 14.4, Platelet Count 368, Mean Platelet Volume 10.0, Immature Granulocyte % (Auto) 0, Neutrophils (%) (Auto) 63, Lymphocytes (%) (Auto) 25, Monocytes (%) (Auto) 8, Eosinophils (%) (Auto) 3, Basophils (%) (Auto) 1, Neutrophils # (Auto) 5.7, Lymphocytes # (Auto) 2.2, Monocytes # (Auto) 0.7, Eosinophils # (Auto) 0.3, Basophils # (Auto) 0.1, Immature Granulocyte # (Auto) 0.0, Sodium Level 135, Potassium Level 4.2, Chloride Level 101, Carbon Dioxide Level 26, Anion Gap 8, Blood Urea Nitrogen 14, Creatinine 0.53L, Estimat Glomerular Filtration Rate 159, BUN/Creatinine Ratio 26, Glucose Level 125H, Lactic Acid Level 0.79, Calcium Level 8.6, Mary ected Calcium 9.4, Total Bilirubin 0.4, Aspartate Amino Transf (AST/SGOT) 18, Alanine Aminotransferase (ALT/SGPT) 23, Alkaline Phosphatase 76, Total Protein 6.7, Albumin 3.0L 02/21/21 10:54: Glucometer 120H 02/21/21 15:44: Glucometer 142H 02/21/21 20:13: Glucometer 121H 02/22/21 05:44: Glucometer 113H 02/22/21 11:34: Glucometer 109 Pending Labs Laboratory Tests 02/07/21 11:27: Glucometer 105 02/07/21 16:05: Glucometer 121 02/07/21 20:09: Glucometer 157 02/08/21 05:44: White Blood Count 11.5, Red Blood Count 4.03, Hemoglobin 10.8, Hematocrit 35, Mean Corpuscular Volume 87, Mean Corpuscular Hemoglobin 27, Mean Corpuscular Hemoglobin Concent 31, Red Cell Distribution Width 13.5, Platelet Count 522, Mean Platelet Volume 9.6, Immature Granulocyte % (Auto) 0, Neutrophils (%) (Auto) 60, Lymphocytes (%) (Auto) 28, Monocytes (%) (Auto) 10, Eosinophils (%) (Auto) 2, Basophils (%) (Auto) 0, Neutrophils # (Auto) 6.9, Lymphocytes # (Auto) 3.2, Monocytes # (Auto) 1.2, Eosinophils # (Auto) 0.2, Basophils # (Auto) 0.0, Immature Granulocyte # (Auto) 0.0, Sodium Level 135, Potassium Level 3.6, Chloride Level 100, Carbon Dioxide Level 28, Anion Gap 7, Blood Urea Nitrogen 10, Creatinine 0.54, Estimat Glomerular Filtration Rate 155, BUN/Creatinine Ratio 19, Glucose Level 144, Calcium Level 8.2, Corrected Calcium 9.4, Total Bilirubin 0.3, Aspartate Amino Transf (AST/SGOT) 25, Alanine Aminotransferase (ALT/SGPT) 8, Alkaline Phosphatase 78, Total Protein 6.4, Albumin 2.5 02/08/21 05:51: Glucometer 134 02/08/21 12:01: Glucometer 118 02/08/21 12:02: Glucometer 125 02/08/21 15:45: Glucometer 97 02/08/21 20:53: Glucometer 177 02/09/21 05:14: Glucometer 96 02/09/21 10:56: Glucometer 141 02/09/21 15:32: Glucometer 165 02/09/21 20:13: Glucometer 175 02/10/21 06:16: Glucometer 168 02/10/21 11:04: Glucometer 164 02/10/21 15:24: Glucometer 136 02/10/21 20:06: Glucometer 157 02/11/21 05:31: Glucometer 142 02/11/21 11:01: Glucometer 154 02/11/21 15:24: Glucometer 146 02/11/21 20:05: Glucometer 184 02/12/21 06:33: Glucometer 136 02/12/21 10:43: Glucometer 166 02/12/21 16:41: Glucometer 162 02/12/21 20:36: Glucometer 216 02/13/21 05:29: Glucometer 185 02/13/21 05:46: White Blood Count 9.8, Red Blood Count 3.90, Hemoglobin 10.4, Hematocrit 34, Mean Corpuscular Volume 87, Mean Corpuscular Hemoglobin 27, Mean Corpuscular Hemoglobin Concent 31, Red Cell Distribution Width 14.2, Platelet Count 544, Mean Platelet Volume 9.5, Immature Granulocyte % (Auto) 0, Neutrophils (%) (Auto) 55, Lymphocytes (%) (Auto) 33, Monocytes (%) (Auto) 8, Eosinophils (%) (Auto) 4, Basophils (%) (Auto) 1, Neutrophils # (Auto) 5.4, Lymphocytes # (Auto) 3.2, Monocytes # (Auto) 0.8, Eosinophils # (Auto) 0.4, Basophils # (Auto) 0.1, Immature Granulocyte # (Auto) 0.0, Sodium Level 135, Potassium Level 4.2, Chloride Level 101, Carbon Dioxide Level 25, Anion Gap 9, Blood Urea Nitrogen 14, Creatinine 0.58, Estimat Glomerular Filtration Rate 143, BUN/Creatinine Ratio 24, Glucose Level 189, Calcium Level 8.6, Corrected Calcium 9.6, Total Bilirubin 0.2, Aspartate Amino Transf (AST/SGOT) 15, Alanine Aminotransferase (ALT/SGPT) 17, Alkaline Phosphatase 66, Total Protein 6.5, Albumin 2.7 02/13/21 11:17: Glucometer 186 02/13/21 16:30: Glucometer 128 02/13/21 21:01: Glucometer 153 02/14/21 05:17: Glucometer 120 02/14/21 10:58: Glucometer 171 02/14/21 16:14: Glucometer 127 02/14/21 21:05: Glucometer 147 02/15/21 05:30: Glucometer 198 02/15/21 11:15: Glucometer 129 02/15/21 15:24: Glucometer 132 02/15/21 20:13: Glucometer 200 02/16/21 05:33: Glucometer 156 02/16/21 10:56: Glucometer 168 02/16/21 15:41: Glucometer 193 02/16/21 20:05: Glucometer 180 02/17/21 05:24: Glucometer 146 02/17/21 11:06: Glucometer 206 02/17/21 20:26: Glucometer 138 02/18/21 06:10: Glucometer 134 02/18/21 12:21: Glucometer 123 02/18/21 16:07: Glucometer 140 02/18/21 18:10: Urine Color YELLOW, Urine Clarity CLEAR, Urine pH 6.5, Urine Specific [place] 1.015, Urine Protein NEGATIVE, Urine Glucose (UA) NEGATIVE, Urine Ketones N EGATIVE, Urine Nitrite NEGATIVE, Urine Bilirubin NEGATIVE, Urine Urobilinogen 0.2, Urine Leukocyte Esterase NEGATIVE, Urine RBC (Auto) NEGATIVE, Urine RBC NONE, Urine WBC 0-2, Urine Squamous Epithelial Cells NONE, Urine Renal Epithelial Cells NONE, Urine Crystals NONE, Urine Bacteria NEGATIVE, Urine Casts NONE, Urine Mucus NEGATIVE, Urine Culture Indicated NO 02/19/21 06:06: Glucometer 104 02/19/21 11:26: Glucometer 98 02/19/21 16:04: Glucometer 156 02/19/21 20:47: Glucometer 129 02/20/21 05:51: White Blood Count 8.5, Red Blood Count 4.25, Hemoglobin 11.3, Hematocrit 36, Mean Corpuscular Volume 86, Mean Corpuscular Hemoglobin 27, Mean Corpuscular Hemoglobin Concent 31, Red Cell Distribution Width 14.3, Platelet Count 438, Mean Platelet Volume 10.2, Immature Granulocyte % (Auto) 0, Neutrophils (%) (Auto) 59, Lymphocytes (%) (Auto) 28, Monocytes (%) (Auto) 9, Eosinophils (%) (Auto) 4, Basophils (%) (Auto) 1, Neutrophils # (Auto) 5.0, Lymphocytes # (Auto) 2.4, Monocytes # (Auto) 0.7, Eosinophils # (Auto) 0.3, Basophils # (Auto) 0.1, Immature Granulocyte # (Auto) 0.0, Sodium Level 134, Potassium Level 4.1, Chloride Level 99, Carbon Dioxide Level 24, Anion Gap 11, Blood Urea Nitrogen 14, Creatinine 0.56, Estimat Glomerular Filtration Rate 149, BUN/Creatinine Ratio 25, Glucose Level 100, Calcium Level 9.0, Corrected Calcium 9.6, Total Bilirubin 0.5, Aspartate Amino Transf (AST/SGOT) 20, Alanine Aminotransferase (ALT/SGPT) 23, Alkaline Phosphatase 87, Total Protein 7.5, Albumin 3.2 02/20/21 05:59: Glucometer 95 02/20/21 11:53: Glucometer 117 02/20/21 15:42: Glucometer 111 02/20/21 20:07: Glucometer 163 02/21/21 05:26: Glucometer 108 02/21/21 09:30: White Blood Count 9.0, Red Blood Count 3.91, Hemoglobin 10.6, Hematocrit 34, Mean Corpuscular Volume 86, Mean Corpuscular Hemoglobin 27, Mean Corpuscular Hemoglobin Concent 32, Red Cell Distribution Width 14.4, Platelet Count 368, Mean Platelet Volume 10.0, Immature Granulocyte % (Auto) 0, Neutrophils (%) (Auto) 63, Lymphocytes (%) (Auto) 25, Monocytes (%) (Auto) 8, Eosinophils (%) (Auto) 3, Basophils (%) (Auto) 1, Neutrophils # (Auto) 5.7, Lymphocytes # (Auto) 2.2, Monocytes # (Auto) 0.7, Eosinophils # (Auto) 0.3, Basophils # (Auto) 0.1, Immature Granulocyte # (Auto) 0.0, Sodium Level 135, Potassium Level 4.2, Chloride Level 101, Carbon Dioxide Level 26, Anion Gap 8, Blood Urea Nitrogen 14, Creatinine 0.53, Estimat Glomerular Filtration Rate 159, BUN/Creatinine Ratio 26, Glucose Level 125, Lactic Acid Level 0.79, Calcium Level 8.6, Corrected Calcium 9.4, Total Bilirubin 0.4, Aspartate Amino Transf (AST/SGOT) 18, Alanine Aminotransferase (ALT/SGPT) 23, Alkaline Phosphatase 76, Total Protein 6.7, Albumin 3.0 02/21/21 10:54: Glucometer 120 02/21/21 15:44: Glucometer 142 02/21/21 20:13: Glucometer 121 02/22/21 05:44: Glucometer 113 02/22/21 11:34: Glucometer 109 Discharge Home Medications: Active Scripts Active Proctozone-Hc (Hydrocortisone) 30 Gm Cream.appl 0 Gm TOP BID Metformin HCl 500 Mg Tablet 500 Mg PO DAILY@07 Ondansetron Odt (Ondansetron) 4 Mg Tab.rapdis 4 Mg PO Q6H PRN Gabapentin 600 Mg Tablet 600 Mg PO TID HYDROcodone/APAP 7.5/325 TAB (Acetaminophen/Hydrocodone Bitart) 1 Ea Tablet 1 Ea PO Q4H PRN Lipitor (Atorvastatin Calcium) 40 Mg Tablet 40 Mg PO HS Clopidogrel (Clopidogrel Bisulfate) 75 Mg Tablet 75 Mg PO DAILY Flomax (Tamsulosin HCl) 0.4 Mg Cap 0.4 Mg PO BID Bethanechol Chloride 25 Mg Tablet 25 Mg PO ACHS Amox Tr-K Clv 875-125 mg Tab (Amoxicillin/Potassium Clav) 1 Each Tablet 875 Mg PO BID WITH MEALS Reported Imodium A-D (Loperamide HCl) 1 Mg/7.5 Ml Liquid 1 Mg PO DAILY PRN Ibuprofen 200 Mg Tablet 800 Mg PO Q6H PRN TAKES 4 (200MG) TABLETS Aspirin 81 Mg Tab.chew 81 Mg PO DAILY Instructions to patient/family Please see electronic discharge instructions given to patient. Diagnosis/Problems Diagnosis/Problems (1) History of left below knee amputation (2) Tobacco abuse Status: Acute (3) History of stroke Status: Chronic (4) PAD (peripheral artery disease) Status: Acute (5) BPH (benign prostatic hyperplasia) Status: Chronic (6) T2DM (type 2 diabetes mellitus) Status: Acute (7) Dyslipidemia Status: Acute (8) History of morbid obesity Status: Chronic MAXI BOWSER DO Feb 22, 2021 07:03
--- NOTE | 2021-02-22 07:31 | Progress Note-Pre Operative ---
Pre-Operative Progress Note H&P Reviewed The H&P was reviewed, patient examined and no changes noted. Date Seen by Provider: Feb 22, 2021 Time Seen by Provider: 07:31 Date H&P Reviewed: Feb 22, 2021 Time H&P Reviewed: 07:31 Pre-Operative Diagnosis: URINE RTENTION ENRIQUE ARROYO MD Feb 22, 2021 07:31
--- NOTE | 2021-02-22 07:32 | Progress Note-Post Operative ---
Post-Operative Progess Note Surgeon (s)/Line Director (s) Surgeon ENRIQUE ARROYO MD Line Director: NONE Pre-Operative Diagnosis URINE RTENTION Post-Operative Diagnosis SAME, MEATAL STENOSIS Procedure & Operative Findings Date of Procedure 02/22/21 Procedure Performed/Findings CYSTOSCOPY Anesthesia Type LOCAL Estimated Blood Loss Estimated blood loss (mL): NONE Specimens/Packing Specimens Removed NONE Packing: NONE ENRIQUE ARROYO MD Feb 22, 2021 07:32
[2021-02-22 07:51] VITALS: BP 132/71
[2021-02-22] MEDS: AUGMENTIN 875 MG TAB (AMOXICILLIN/CLAVULANATE) PO SCH (08:14)
[2021-02-22] MEDS: TAMSULOSIN 0.4 MG (FLOMAX) CAP PO SCH (08:14)
[2021-02-22] MEDS: LACTOBACILLUS ACIDOPHILUS (PROBIOTIC) CAPSULE PO SCH ×2 (08:14→12:00)
[2021-02-22] MEDS: CLOPIDOGREL 75 MG (PLAVIX) TABLET PO SCH (08:14)
[2021-02-22] MEDS: ASPIRIN E.C. 81 MG (ECOTRIN) TAB PO SCH (08:14)
[2021-02-22] MEDS: GABAPENTIN 600 MG (NEURONTIN) TAB PO SCH ×2 (08:14→12:00)
[2021-02-22] MEDS ORDERED: LIDOCAINE UROJET 2% GEL 10 ML PKG ONE (08:20)
--- NOTE | 2021-02-22 09:17 | Physical Therapy Progress Note ---
Therapy Progress Note Patient refuses physical therapy this morning. He says he has too much pain in his bottom at rest and worse with movement, states he wont be able to sit due to pain. Patient is scheduled to be discharged from this facility today, explained that he will need to move if this happens, he continues to refuse. DHIRAJ ORTEGA PT Feb 22, 2021 09:17
--- NOTE | 2021-02-22 09:38 | Occ Therapy Progress Note ---
Therapy Progress Note Pt refuses all OOB/EOB activities this am. He does report that he still plans on discharging home this date. OT educated pt that he will have to get dressed, transfer into w/c, and tolerate sitting in a car in order to make it home. Pt verbalizes understanding but continues to refuse therapy this am due to pain. Judi Mane OT Feb 22, 2021 09:38
[2021-02-22] MEDS: polyethylene glycoL POWDER 17 GM (MIRALAX) PACK PO SCH (10:34)
[2021-02-22] MEDS: DOCUSATE SODIUM 100 MG (COLACE) CAP PO SCH (10:34)
[2021-02-22] MEDS: SENNA W/DOCUSATE (SENOKOT S) TABLET PO SCH (10:35)
[2021-02-22] MEDS: SENNOSIDES 8.6 MG (SENOKOT) TAB PO SCH (10:36)
[2021-02-22] MEDS: HYDROCORTISONE 2.5% CREAM (ANUSOL-HC) 30 GM TOP SCH (11:40)
--- NOTE | 2021-02-22 14:26 | OPERATIVE REPORT ---
DATE OF SERVICE: 02/22/2021 PREOPERATIVE DIAGNOSES: Urinary retention and BPH, possible neurogenic bladder. POSTOPERATIVE DIAGNOSES: Urinary retention and BPH, possible neurogenic bladder as well as meatal stenosis. OPERATION PERFORMED: Cystoscopy. SURGEON: Demario Arroyo MD. ANESTHESIA: Local. COMPLICATIONS: None. DESCRIPTION OF PROCEDURE: With the patient supine in his bed, genitalia were prepped and draped in the usual sterile fashion. A flexible cystoscope was introduced. There was a meatal stenosis, which responded to pushing the scope in and stretching it. There were no further urethral strictures. There was a mild small false passage at the level of the veru on the right side. I bypassed it easily. The prostate was not significantly enlarged. The bladder neck was not significantly obstructed. The bladder revealed some trabeculation. No bladder tumor or stone visualized. Cystoscopy was confirmed in an antegrade fashion and the cystoscope was removed. The patient tolerated the procedure and anesthesia well and remained in his bed in stable condition. Job ID: [id number] DocumentID: [id number] Dictated Date: 02/22/2021 09:17:48 [employer]ire Recapping Machine Operator Date: 02/22/2021 14:25:38 Dictated By: DEMARIO ARROYO MD
--- NOTE | 2021-02-22 14:47 | Therapy Team Discharge Summary ---
Therapy Discharge Summary Discharge Recommendations Date of Discharge Physical Therapy Patient came to rehab following a left BKA. Upon evaluation patient performs rolling independently, supine to sit mod assist, sit to supine min assist, dependent for sit <-> stand and stand pivot transfers but he can perform a sl iding board transfer with mod assist, dependent for car transfer, and could propel a manual WC 300' with SBA. Patient has been performing bed mobility and transfer training, balance and endurance training, functional strengthening, WC mobility training, and education. Patient has made some progress but has only met his chcf goals for WC mobility. Patient's last QC's were not obtained because of patient refusal due to pain. However, he has been performing rolling independently, supine to sit min/mod assist, sit to supine min assist, performs a sliding board transfer with mod assist. Patient is being discharged from this facility today and will be discharged from PT at this time. Occupational Therapy Decreased Activ Tolerance, Decreased UE Strength, Impaired Funct Balance, Impaired I ADL's, Impaired Self-Care Skills PT Half-Way Goals Pilot Plant Supervisor Goals PT Pilot Plant Supervisor Goals Time Frame: Feb 28, 2021 Roll Left to Right (QC): 6 Sit to Lying (QC): 6 Lying-Sitting on Side/Bed(QC): 6 Sit to Stand (QC): 88 Chair/[id number] Xfer(QC): 4 Car Transfer (QC): 4 Does the Patient Walk: No and Walking Goal NOT indicated Walk 10 feet (QC): 88 Walk 10ft-Uneven Surface(QC): 88 Walk 50ft with 2 Turns (QC): 88 Walk 150 ft (QC): 88 Wheel 50 feet with 2 turns (QC: 6 1 Step (curb) (QC): 88 4 Steps (QC): 88 12 Steps (QC): 88 Picking up an Object (QC): 88 OT Half-Way Goals Pilot Plant Supervisor Goals Time Frame: Mar 04, 2021 Eating (QC): 5 Oral Hygiene (QC): 5 Shower/Bathe Self (QC): 4 Upper Body Dressing (QC): 5 Lower Body Dressing (QC): 4 On/Off Footwear (QC): 4 Toileting Hygiene (QC): 3 Toilet/Commode Transfer (QC): 4 1=Demonstrate adherence to instructed precautions during ADL tasks. 2=Patient will verbalize/demonstrate understanding of assistive devices/modifications for ADL. 3=Patient will improve strength/tolerance for activity to enable patient to perform ADL's. DHIRAJ ORTEGA PT Feb 22, 2021 14:47
[2021-02-22 15:30] VITALS: BP 112/60
--- NOTE | 2021-02-22 20:23 | D/C HH Face to Face Order ---
D/C Face to Face Orders Reconcile Patient Problems Problems Reviewed?: Yes Instructions for Patient Via [facility], Patient Instructions/FollowUp: PCP [facility] as scheduled Physician to follow Patient: [facility] Discharge Diet for Home: ADA Diet Patient Problems: BKA Patient Data-Allergies,Ht & Wt Patient Allergies: Coded Allergies: No Known Drug Allergies (Unverified , 02/03/21) Home Health Need/Face to Face Date of Face to Face: Feb 22, 2021 Clinical Findings: Instability, Non or partial weight bearing, Pain with ambulation I have seen Pt [id number]: Yes Discharged To: Home Diagnosis/Conditions: BKA Patient is Homebound due to: [place] fall risk due to instabilty Homebound Status Due to the above stated illness, injury or surgical procedure (medical condition or diagnosis) and associated clinical findings, the patient is homebound because of his/her inability to leave home except with aid of a supportive device and/or person AND leaving the home requires a considerable and taxing effort or is medically contraindicated. Pt req the following assistanc: Wheelchair Home Health Nursing Orders Home Health Services Order: Nursing Services, Dandy Operator-Evaluate & Treat, Physical Therapy-Evaluate & Treat Certify Stmt I certify that this patient is under my care and that I, a nurse practitioner or a physician; a pharmacy technician assistant working with me, had a face to face encounter that - meets the physician face to face encounter requirements with this patient as dated. MAXI BOWSER DO Feb 22, 2021 20:23
--- NOTE | 2021-02-23 11:20 | Therapy Team Discharge Summary ---
Therapy Discharge Summary Discharge Recommendations Date of Discharge Feb 22, 2021 at 15:30 Occupational Therapy Pt arrived to [facility] s/p L [facility]. At time of eval he was dependent for toileting, footwear, lower body dressing, bathing, max a for upper body dressing, and sba for eating. While on rehab, OT focused on improving core strength, UE strength, sitting balance, functional slide board transfers, endurance, and safety needed for adls. Initially pt made good progress. This past week he began to feel ill and refused participation. Pt did not meet all of his mcfp goals and is currently dependent for footwear, max a for toileting, min a for lower body dressing, mod a for bathing, sba for upper body dressing and set up for eating. Pt has now discharged from this facility and will be discharged from OT. Decreased Activ Tolerance, Decreased UE Strength, Impaired Funct Balance, Impaired I ADL's, Impaired Self-Care Skills PT Senior Care Goals Ophthalmic Pathologist Goals PT Ophthalmic Pathologist Goals Time Frame: Feb 28, 2021 Roll Left to Right (QC): 6 Sit to Lying (QC): 6 Lying-Sitting on Side/Bed(QC): 6 Sit to Stand (QC): 88 Chair/Lke-ka-Jlhyx Xfer(QC): 4 Car Transfer (QC): 4 Does the Patient Walk: No and Walking Goal NOT indicated Walk 10 feet (QC): 88 Walk 10ft-Uneven Surface(QC): 88 Walk 50ft with 2 Turns (QC): 88 Walk 150 ft (QC): 88 Wheel 50 feet with 2 turns (QC: 6 1 Step (curb) (QC): 88 4 Steps (QC): 88 12 Steps (QC): 88 Picking up an Object (QC): 88 OT Senior Care Goals Ophthalmic Pathologist Goals Time Frame: Mar 04, 2021 Eating (QC): 5 (met) Oral Hygiene (QC): 5 (7) Shower/Bathe Self (QC): 4 (not met) Upper Body Dressing (QC): 5 (not met) Lower Body Dressing (QC): 4 (not met) On/Off Footwear (QC): 4 (not met) Toileting Hygiene (QC): 3 (not met) Toilet/Commode Transfer (QC): 4 (not met) 1=Demonstrate adherence to instructed precautions during ADL tasks. 2=Patient will verbalize/demonstrate understanding of assistive devices/modifications for ADL. 3=Patient will improve strength/tolerance for activity to enable patient to perform ADL's. Judi Mane OT Feb 23, 2021 11:20
== END 2021-02-22 15:30 | disposition home health service (06) | DRG 560 ==
PROVIDERS: ADMIT Internal Medicine; ATTEND Internal Medicine
PROC: 0TJB8ZZ Inspection of Bladder, Via Natural or Artificial Opening Endoscopic (ICD-10-PCS; principal; 2021-02-22 08:17)
DX: Z47.81 Encounter for orthopedic aftercare following surgical amputation (principal); E11.52 Type 2 diabetes mellitus with diabetic peripheral angiopathy with gangrene; I69.351 Hemiplegia and hemiparesis following cerebral infarction affecting right dominant side; E11.42 Type 2 diabetes mellitus with diabetic polyneuropathy; E78.5 Hyperlipidemia, unspecified; G54.6 Phantom limb syndrome with pain; N40.1 Benign prostatic hyperplasia with lower urinary tract symptoms; R15.9 Full incontinence of feces; R33.8 Other retention of urine; N31.9 Neuromuscular dysfunction of bladder, unspecified; L02.33 Carbuncle of buttock; N35.911 Unspecified urethral stricture, male, meatal; N40.0 Benign prostatic hyperplasia without lower urinary tract symptoms; Z89.512 Acquired absence of left leg below knee; Z87.891 Personal history of nicotine dependence; Z79.82 Long term (current) use of aspirin; Z87.898 Personal history of other specified conditions
CPT/HCPCS: 36415; 80053; 81000; 82947; 83605; 85025

== ENCOUNTER 2021-02-25 20:28 | Inpatient (IN) | payer OTHER ==
[~2021-02-25] VITALS: Ht 177 cm; Wt 90.1 kg
[~2021-02-25 20:28] MED LIST changes: +AMOX1TAB12 PO; +ATOR40TA PO; +BETH25TA2 PO; +GBPN600T PO; +HYDR-34 PO; +HYDR30CR69 TOP; +METF-397 PO; +ONDA4TAB11 PO; +TMSL.4C PO
[2021-02-25] MEDS: LACTATED RINGERS 1,000 ML IV SCH ×2 (20:51→22:16)
[2021-02-25] MEDS ORDERED: NOREPINEPHRINE 8 MG/250 ML 250 ML IV ONE (20:58)
[2021-02-25 20:59] LABS: BASOPHILS # (AUTO) 0.1 10^3/uL (0.0-0.1); BASOPHILS % (AUTO) 0 % (0-10); EOSINOPHILS % (AUTO) 0 % (0-10); HEMATOCRIT 36 % (40-54); LYMPHOCYTES # (AUTO) 1.6 10^3/uL (1.0-4.0); LYMPHOCYTES % (AUTO) 11 % (12-44); MEAN CORPUSCULAR HEMOGLOBIN 28 pg (25-34); MEAN CORPUSCULAR HGB CONC 30 g/dL (32-36); MEAN CORPUSCULAR VOLUME 91 fL (80-99); MEAN PLATELET VOLUME 10.7 fL (9.0-12.2); MONOCYTES % (AUTO) 7 % (0-12); NEUTROPHILS # (AUTO) 12.4 10^3/uL (1.8-7.8); NEUTROPHILS % (AUTO) 82 % (42-75); PLATELET COUNT 393 10^3/uL (130-400); WHITE BLOOD COUNT 15.2 10^3/uL (4.3-11.0)
[2021-02-25] MEDS: NOREPINEPHRINE 8 MG/250 ML 250 ML IV SCH (21:01)
[2021-02-25 21:03] LABS: ALBUMIN 2.9 GM/DL (3.2-4.5); POTASSIUM 4.1 MMOL/L (3.6-5.0)
[2021-02-25 21:04] LABS: CALCIUM 9.3 MG/DL (8.5-10.1)
[2021-02-25 21:05] LABS: INR 1.1 (0.8-1.4)
[2021-02-25 21:06] LABS: TOTAL PROTEIN 6.3 GM/DL (6.4-8.2)
[2021-02-25 21:07] LABS: BILIRUBIN,TOTAL 0.5 MG/DL (0.1-1.0)
[2021-02-25 21:09] LABS: CREATININE SERUM 1.18 MG/DL (0.60-1.30)
[2021-02-25 21:12] LABS: ABG BASE EXCESS -13.4 MMOL/L (-2.5-2.5); ABG OXYGEN SATURATION 98 % (94-100); ABG PCO2 38 MMHG (35-45); ABG PO2 114 MMHG (79-93); ABG TCO2 14.5 MMOL/L (21.0-31.0)
[2021-02-25 21:13] LABS: INSPIRED O2 10L; PATIENT TEMP 30; VENTILATOR NO
[2021-02-25 21:14] LABS: ABG PH 7.18 (7.37-7.43)
[2021-02-25] MEDS ORDERED: PROPOFOL DRIP (ICU) 100 ML IV ONE (21:17)
[2021-02-25 21:21] LABS: ANISOCYTOSIS SLIGHT; BAND NEUTROPHILS 4 %; BURR CELLS SLIGHT; EOSINOPHILS % (MANUAL) 1 %; LYMPHOCYTES % (MANUAL) 10 %; MICROCYTOSIS SLIGHT; MONOCYTES % (MANUAL) 10 %; NEUTROPHILS % (MANUAL) 75 %
[2021-02-25] MEDS: PROPOFOL DRIP (ICU) 100 ML IV SCH (21:31)
[2021-02-25] MEDS ORDERED: LACTATED RINGERS 1,000 ML IV STA (21:36)
--- NOTE | 2021-02-25 21:43 | Diagnostic Imaging Report ---
INDICATION: Intubated and unresponsive. Central line. COMPARISON: 02/03/2021. EXAMINATION: Single view of the chest. FINDINGS: Well-positioned support devices. There is no pneumothorax. There is atelectasis in the right base. The heart is normal. No large effusion seen. IMPRESSION: 1. Atelectasis in right base. 2. Well-positioned support devices. No pneumothorax. Dictated by: Dictated on workstation # [id number]
[2021-02-25] MEDS ORDERED: NS IV 500 ML 500 ML IV ONE (21:45)
[2021-02-25] MEDS ORDERED: MEROPENEM 500 MG in NS (IVPB) 100 ML IV ONE (21:45)
[2021-02-25 21:46] LABS: CLARITY,URINE CLOUDY; COLOR,URINE YELLOW; GLUCOSE, URINE (UA) NEGATIVE (NEGATIVE); KETONES,URINE NEGATIVE (NEGATIVE); LEUKOCYTE ESTERASE ,URINE TRACE (NEGATIVE); NITRITE,URINE NEGATIVE (NEGATIVE); PROTEIN,URINE 1+ (NEGATIVE)
[2021-02-25 21:49] VITALS: BP 99/71
[2021-02-25 21:55] LABS: BACTERIA,URINE MODERATE /HPF; BILIRUBIN,URINE 1+ (NEGATIVE)
[2021-02-25 21:56] LABS: AMORPHOUS SEDIMENT,UR FEW AMOR URATES /LPF
--- NOTE | 2021-02-25 21:56 | ED General ---
General Chief Complaint: Unresponsive Stated Complaint: UNRESPONSIVE Nursing Triage Note: PT TO ED 2 VIA EMS. EMS REPORTS PT FOUND DOWN AT HOME, UNKNOWN DOWNTIME. INITIAL HR IN 20S. 1MG ATROPINE GIVEN, HR INCREASED TO 100S. PT COLD TO TOUCH, WARM FLUIDS RUNNING, WARM PACKS APPLIED TO AXILLA. LIMITED HISTORY GIVEN TO EMS FROM BYSTANDERS. EMS UNABLE TO OBTAIN 02 SATURATION. PT UNRESPONSIVE UPON ARRIVAL TO ED. Source of Information: EMS Exam Limitations: Physical Impairments History of Present Illness Date Seen by Provider: Feb 25, 2021 Time Seen by Provider: 20:30 Initial Comments Here with report by EMS of being found down at home at initial heart rate of 20. Unable to obtain O2 saturation and blood pressure. He did have palpable pulse. Atropine 1 mg IV given and heart rate improved to 80s to 100s without im provement in mentation. Patient was noted to be quite cold in the home. Initial temperature was around 29 C. Patient is unresponsive on arrival but does have some occasional movements to pain localizing. Otherwise no history obtained from the patient and no family available to help. Bystanders in the field did not have much information per EMS. Timing/Duration: Constant, Other (Unknown timeframe.) Severity: Severe Allergies and Home Medications Allergies Coded Allergies: No Known Drug Allergies (Unverified , 02/03/21) Patient Home Medication List Home Medication List Reviewed: Yes Amoxicillin/Potassium Clav (Amox Tr-K Clv 875-125 mg Tab) 1 Each Tablet, 875 MG PO BID WITH MEALS Prescribed by: MAXI BOWSER on 02/22/21701 Aspirin (Aspirin) 81 Mg Tab.chew, 81 MG PO DAILY, (Reported) Entered as Reported by: RHYS KOHLER on 02/06/21 0858 Atorvastatin Calcium (Lipitor) 40 Mg Tablet, 40 MG PO HS Prescribed by: MAXI BOWSER on 02/22/21701 Bethanechol Chloride (Bethanechol Chloride) 25 Mg Tablet, 25 MG PO ACHS Prescribed by: MAXI BOWSER on 02/22/21701 Clopidogrel Bisulfate (Clopidogrel) 75 Mg Tablet, 75 MG PO DAILY Prescribed by: MAXI BOWSER on 02/22/21701 Gabapentin (Gabapentin) 600 Mg Tablet, 600 MG PO TID Prescribed by: MAXI BOWSER on 02/22/21701 Hydrocodone Bit/Acetaminophen (HYDROcodone/APAP 7.5/325 TAB) 1 Ea Tablet, 1 EA PO Q4H PRN for PAIN-MODERATE (5-7) Prescribed by: MAXI BOWSER on 02/22/21702 Hydrocortisone (Proctozone-Hc) 30 Gm Cream.appl, 0 GM TOP BID Prescribed by: MAXI BOWSER on 02/22/21701 Ibuprofen (Ibuprofen) 200 Mg Tablet, 800 MG PO Q6H PRN for PAIN-MILD (1-4), (Reported) Entered as Reported by: RHYS KOHLER on 02/06/21 0858 Loperamide HCl (Imodium A-D) 1 Mg/7.5 Ml Liquid, 1 MG PO DAILY PRN for DIARRHEA, (Reported) Entered as Reported by: RHYS KOHLER on 02/06/21 09 Metformin HCl (Metformin HCl) 500 Mg Tablet, 500 MG PO DAILY@07 Prescribed by: MAXI BOWSER on 02/22/21701 Ondansetron (Ondansetron Odt) 4 Mg Tab.rapdis, 4 MG PO Q6H PRN for NAUSEA/VOMITING-1ST LINE Prescribed by: MAXI BOWSER on 02/22/21701 Tamsulosin HCl (Flomax) 0.4 Mg Cap, 0.4 MG PO BID Prescribed by: MAXI BOWSER on 02/22/21701 Discontinued Medications Dextromethorphan Hb/Doxylamine (Vicks Nyquil Cough Liquid) 236 Ml Solution, 30 ML PO DAILY PRN for INSOMNIA, (Reported) Entered as Reported by: RHYS KOHLER on 02/06/21 0928 Review of Systems Review of Systems Constitutional: see HPI, other (Unresponsive and cold to touch) Unable to get review of systems due to unresponsiveness and critical condition of patient. Past Weowyvw-Yihnzh-Jqinqe Hx Patient Social History Substance use?: Unable to obtain Alcohol Use?: Unable to obtain Immunizations Up To Date First/Initial COVID19 Vaccinat: N/A Second COVID19 Vaccination Anil: N/A Third COVID19 Vaccination Date: N/A Past Medical History Surgery/Hospitalization HX: TOES ON L FOOT REMOVED OCT 2020, Diabetes Type 2, Smoker, PVD, CVA-Right side weakness, RECENT L LOWER LEG AMPUTATION Surgeries: Yes Orthopedic Cardiac: Yes Peripheral Vascular Neurological: Yes Stroke Endocrine: Yes Diabetes, Non-Insulin dep Family Medical History Reviewed Nursing Family Hx No Pertinent Family Hx Physical Exam-Suspected Sepsis Physical Exam Vital Signs Vital Signs - First Documented 02/25/21 02/25/21 21:06 21:49 Temp 30.7 Pulse Ox 99 FiO2 30 Capillary Refill : Blood Pressure Mean: 77 Height, Weight, BMI Height: '" Weight: lbs. oz. kg; 23.00 BMI Method: General Appearance: Other (Unresponsive but no apparent distress) HEENT: Other (Pupils pinpoint and slightly reactive bilateral. Mucous membranes dry.) Neck: Normal Inspection, Non Tender, Supple Respiratory: No Accessory Muscle Use; No Wheezing; Other (Patient is breathing on his own without wheezes or crackles noted.) Cardiovascular: No Murmur, Irregularly Irregular Gastrointestinal: Non Tender, Soft Back: Other (No obvious deformity or lesions.) Extremity: Pelvis Stable, Other (Left BKA) Neurologic/Psychiatric: Other (Unresponsive with movement to localize to pain. Eyes remain closed) Skin: cool, other (Reddened area to the buttocks) Focused Exam Lactate Level 02/25/21 20:38: Lactic Acid Level 10.16*H Lactic Acid Level Laboratory Tests Test 02/25/21 20:38 Lactic Acid Level 10.16 MMOL/L (0.50-2.00) *H Procedures/Interventions Lumen: triple Central Line Procedure: betadine prep, sterile drapes applied, sterile dressing applied Position: internal jugular (R) Complications: none Post Position: sutured, good blood return, position confirmed w/ CXR Placed via ultrasound guidance x1 attempt with no complications. Post insertion x-ray shows line in good position. Date of ETT Placement: Feb 25, 2021 Time of ETT Placement: 2100 Intubation Method: orotracheal Tube Size: 7.50 Medications: Etomidate, Fentanyl, Propofol, Succinylcholine, Versed Positive End Tide CO2: Yes Breath Sounds after Intubation: bilateral-equal Intubation Complications: no complications Post Intubation Xray: Yes Tube in good position Intubated for GCS less than 8 and concerns for airway protection and concern for septic shock. Intubated x1 attempt with etomidate and succinylcholine 20 mg and 100 mg respectively IV for RSI. Confirmed via color change, breath sounds and x-ray. Postintubation sedation with fentanyl 50 mcg IV and Versed 2.5 mg IV with further sedation with diprovan at 40 mcg/kg/min. Tolerated procedure well with no complications. Progress/Results/Core Measures Suspected Sepsis SIRS Temperature: Pulse: 68 Respiratory Rate: 30 Laboratory Tests 02/25/21 20:38: White Blood Count 15.2H Blood Pressure 92 /69 Mean: 77 02/25/21 20:38: Lactic Acid Level 10.16*H Laboratory Tests 02/25/21 20:38: Creatinine 1.18, INR Comment 1.1, Platelet Count 393, Total Bilirubin 0.5 Results/Orders Lab Results Laboratory Tests Test 02/25/21 20:38 02/25/21 20:45 02/25/21 20:52 02/25/21 21:40 Range/Units White Blood Count 15.2 H 4.3-11.0 10^3/uL Red Blood Count 4.00 L 4.30-5.52 10^6/uL Hemoglobin 11.0 L 13.3-17.7 g/dL Hematocrit 36 L 40-54 % Mean Corpuscular Volume 91 80-99 fL Mean Corpuscular Hemoglobin 28 25-34 pg Mean Corpuscular Hemoglobin Concent 30 L 32-36 g/dL Red Cell Distribution Width 14.4 10.0-14.5 % Platelet Count 393 130-400 10^3/uL Mean Platelet Volume 10.7 9.0-12.2 fL Immature Granulocyte % (Auto) 1 % Neutrophils (%) (Auto) 82 H 42-75 % Lymphocytes (%) (Auto) 11 L 12-44 % Monocytes (%) (Auto) 7 0-12 % Eosinophils (%) (Auto) 0 0-10 % Basophils (%) (Auto) 0 0-10 % Neutrophils # (Auto) 12.4 H 1.8-7.8 10^3/uL Lymphocytes # (Auto) 1.6 1.0-4.0 10^3/uL Monocytes # (Auto) 1.0 0.0-1.0 10^3/uL Eosinophils # (Auto) 0.0 0.0-0.3 10^3/uL Basophils # (Auto) 0.1 0.0-0.1 10^3/uL Immature Granulocyte # (Auto) 0.1 0.0-0.1 10^3/uL Neutrophils % (Manual) 75 % Lymphocytes % (Manual) 10 % Monocytes % (Manual) 10 % Eosinophils % (Manual) 1 % Band Neutrophils 4 % Anisocytosis SLIGHT Microcytosis SLIGHT [place] Cells SLIGHT Prothrombin Time 15.0 H 12.2-14.7 SEC INR Comment 1.1 0.8-1.4 Activated Partial Thromboplast Time 32 24-35 SEC Sodium Level 135 135-145 MMOL/L Potassium Level 4.1 3.6-5.0 MMOL/L Chloride Level 102 98-107 MMOL/L Carbon Dioxide Level 13 L 21-32 MMOL/L Anion Gap 20 H 5-14 MMOL/L Blood Urea Nitrogen 19 H 7-18 MG/DL Creatinine 1.18 0.60-1.30 MG/DL Estimat Glomerular Filtration Rate 71 BUN/Creatinine Ratio 16 Glucose Level 378 H 70-105 MG/DL Lactic Acid Level 10.16 *H 0.50-2.00 MMOL/L Calcium Level 9.3 8.5-10.1 MG/DL Corrected Calcium 10.2 H 8.5-10.1 MG/DL Total Bilirubin 0.5 0.1-1.0 MG/DL Aspartate Amino Transf (AST/SGOT) 30 5-34 U/L Alanine Aminotransferase (ALT/SGPT) 26 0-55 U/L Alkaline Phosphatase 90 40-136 U/L C-Reactive Protein High Sensitivity 2.71 H 0.00-0.50 MG/DL Total Protein 6.3 L 6.4-8.2 GM/DL Albumin 2.9 L 3.2-4.5 GM/DL Influenza Type A (RT-PCR) Not Detected Not Detecte Influenza Type B (RT-PCR) Not Detected Not Detecte SARS-CoV-2 RNA (RT-PCR) Not Detected Not Detecte Blood Gas Puncture Site RIGHT BRACHIAL Blood Gas Patient Temperature 30 Arterial Blood pH 7.18 *L 7.37-7.43 Arterial Blood Partial Pressure CO2 38 35-45 MMHG Arterial Blood Partial Pressure O2 114 H 79-93 MMHG Arterial Blood HCO3 13 *L 23-27 MMOL/L Arterial Blood Total CO2 14.5 L 21.0-31.0 MMOL/L Arterial Blood Oxygen Saturation 98 94-100 % Arterial Blood Base Excess -13.4 L -2.5-2.5 MMOL/L Bryce Test NA Blood Gas Ventilator Setting NO Blood Gas Inspired Oxygen 10L Urine Color YELLOW Urine Clarity CLOUDY Urine pH 5.0 5-9 Urine Specific [place] 1.025 H 1.016-1.022 Urine Protein 1+ H NEGATIVE Urine Glucose (UA) NEGATIVE NEGATIVE Urine Ketones NEGATIVE NEGATIVE Urine Nitrite NEGATIVE NEGATIVE Urine Bilirubin 1+ H NEGATIVE Urine Urobilinogen 0.2 < = 1.0 MG/DL Urine Leukocyte Esterase TRACE H NEGATIVE Urine RBC (Auto) 3+ H NEGATIVE Urine RBC 10-25 H /HPF Urine WBC 2-5 /HPF Urine Squamous Epithelial Cells 2-5 /HPF Urine Crystals PRESENT H /LPF Urine Amorphous Sediment FEW ABENA URATES H /LPF Urine Bacteria MODERATE H /HPF Urine Casts NONE /LPF Urine Mucus NEGATIVE /LPF Urine Culture Indicated CULTURE PENDING My Orders Orders - JAVIER HURLEY MD Ekg Tracing (02/25/21 20:52) Cbc With Automated Diff (02/25/21 20:52) Comprehensive Metabolic Panel (02/25/21 20:52) Blood Culture (02/25/21 20:52) Sputum Culture (02/25/21 20:52) Urinalysis (02/25/21 20:52) Urine Culture (02/25/21 20:52) Protime With Inr (02/25/21 20:52) Partial Thromboplastin Time (02/25/21 20:52) Chest 1 View, Ap/Pa Only (02/25/21 20:52) Ed Iv/Invasive Line Start (02/25/21 20:52) Vital Signs Adult Sepsis Patie Q15M (02/25/21 20:52) O2 (02/25/21 20:52) Remove Rings In Anticipation O (02/25/21 20:52) Lactic Acid Analyzer (02/25/21 20:52) Lactated Ringers (Lr 1000 Ml Iv Solution (02/25/21 21:00) Covid 19 Inhouse Test (02/25/21 20:54) Influenza A And B By Pcr (02/25/21 20:54) Isolation Central Supply Req (02/25/21 20:54) Norepinephrine 8 Mg/250 Ml (Norepinephri (02/25/21 21:15) Norepinephrine 8 Mg/250 Ml (Norepinephri (02/25/21 20:58) Manual Differential (02/25/21 20:38) Arterial Blood Gas (02/25/21 21:05) Propofol Drip (Icu) (Diprivan Drip (Icu) (02/25/21 21:17) Propofol Drip (Icu) (Diprivan Drip (Icu) (02/25/21 21:30) Lactated Ringers (Lr 1000 Ml Iv Solution (02/25/21 21:36) Ns Iv 500 Ml (Sodium Chloride 0.9%) (02/25/21 21:45) Hs C Reactive Protein (02/25/21 21:41) Procalcitonin (Pct) (02/25/21 21:41) Meropenem (Merrem 500 Mg) (02/25/21 21:45) Vancomycin Injection (Vancomycin Injecti (02/25/21 21:45) Medications Given in ED Current Medications Medications Dose Ordered Sig/[place] Route Start Time Stop Time Status Last Admin Dose Admin Meropenem 500 mg/ Sodium Chloride 100 ml @ 200 mls/hr ONCE ONCE IV 02/25/21 21:45 02/25/21 22:14 DC 02/25/21 22:03 200 MLS/HR Sodium Chloride 500 ml @ 0 mls/hr Q0M ONCE IV 02/25/21 21:45 02/25/21 21:46 DC 02/25/21 21:48 999 MLS/HR Vital Signs/I&O 02/25/21 02/25/21 02/25/21 02/25/21 20:30 20:30 21:01 21:06 Temp 30.7 Pulse 103 87 Resp 30 B/P (MAP) 101/77 (85) 57/45 O2 Delivery OxyMask OxyMask O2 Flow Rate 10.00 10.00 02/25/21 02/25/21 02/25/21 02/25/21 21:27 21:31 21:49 22:18 Temp 31.3 Pulse 73 68 68 59 Resp 16 16 B/P (MAP) 93/71 92/69 105/70 Pulse Ox 99 99 O2 Delivery Mechanical Ventilator O2 Flow Rate 30.00 FiO2 30 Capillary Refill : Blood Pressure Mean: 77 Progress Note : Progress Note Seen and evaluated on arrival by EMS. Second IV placed. Patient on high flow oxygen. Very cool to touch. Did do ABG via ultrasound guidance as we are unable to get it otherwise. Patient localizes to pain but otherwise no purposeful movements. GCS less than 8 and concerns about airway protection. Blood pressure noted to be in the 60s systolic. Elected to intubate for airway protection followed by central line placement. We did initiate Levophed at 0.1 mcg/kg/min for blood pressure support and this was subsequently increased to 0.13 mcg/kg/min to keep blood pressure greater than 90 systolic. Patient had 1 L of normal saline running on arrival by EMS and this was completed. Second liter of fluid with LR 1 L bolus and normal saline 500 mL bolus due to concerns for septic shock treatment and lactic acid was subsequently greater than 10. We will continue LR at 250 mL an hour. 2143: I did discuss the case with Dr. Bowser and she is recommending meropenem 500 mg IV every 6 as well as vancomycin of IV initiation. This was ordered. Recommends admission to the ICU which will be done. Also recommends consult with the eICU. 4: I did discuss the case with eICU and they will see the patient in consult. 0: I attest to focus exam at this time. Blood pressure 104/60 with heart rate of 56 and O2 sat 95% on vent settings with FiO2 at 30%. Patient to ICU 10. Previous records reviewed showing left BKA on 02/03/[address] Velez and then subsequent inpatient rehab stay. This is with Dr. Bowser. ECG Initial ECG Impression Date: Feb 25, 2021 Initial ECG Impression Time: 21:00 Initial ECG Rate: 91 Initial ECG Rhythm: A Fib/Flutter Initial ECG Impression: Atrial Fibrillation Comment Atrial fibrillation with left bundle branch block. No evidence of ST elevation ID. No previous available for comparison. Interpreted by me. Normal axis. Diagnostic Imaging Diagonstic Imaging: Xray Plain Films/CT/US/NM/MRI: chest Comments [facility] [place], [place] NAME: MOSHE KONG [facility] REC#: [id number] PT STATUS: REG ER : 1960 PHYSICIAN: JAVIER HURLEY MD ADMIT DATE: 02/25/21/ER Signed Date of Exam:02/25/21 CHEST 1 VIEW, AP/PA ONLY INDICATION: Intubated and unresponsive. Central line. COMPARISON: 02/03/2021. EXAMINATION: Single view of the chest. FINDINGS: Well-positioned support devices. There is no pneumothorax. There is atelectasis in the right base. The heart is normal. No large effusion seen. IMPRESSION: 1. Atelectasis in right base. 2. Well-positioned support devices. No pneumothorax. Dictated by: Dictated on workstation # [id number] Dict: 02/25/212139 Trans: 02/25/212143 [facility] [id number] Interpreted by: EFRAÍN NGO Electronically signed by: EFRAÍN NGO 02/25/212143 Reviewed: Reviewed by Tn Critical Care Note Critical Care Start Time: 20:30 Stop Time: 22:15 Total Time (minutes) 60 Progress Critical care time excludes separately billable procedures. See progress note for details. Departure Communication (Admissions) Time/Spoke to Admitting Phy: 21:43 Time/Spoke to Consulting Phy: 21:54 Impression Primary Impression: Septic shock Additional Impressions: Respiratory failure Qualified Codes: J96.02 - Acute respiratory failure with hypercapnia Bradycardia Disposition: ADMITTED INPATIENT Condition: Critical Admissions Decision to Admit Reason: Admit from ER (General) Decision to Admit/Date: Feb 25, 2021 Time/Decision to Admit Time: 21:43 Departure-Patient Inst. Referrals: NO,LOCAL PHYSICIAN (PCP/Family) Primary Care Physician JAVIER HURLEY MD Feb 25, 2021 21:56
[2021-02-25] MEDS: VANCOMYCIN INJECTION 750 MG in NS (IVPB) 250 ML IV SCH (22:07)
--- NOTE | 2021-02-25 22:35 | Tele-ICU Consult ---
Progress Note Laboratory Tests 02/25/21 20:38 Labs Labs Laboratory Tests 02/25/21 20:38: White Blood Count 15.2H, Red Blood Count 4.00L, Hemoglobin 11.0L, Hematocrit 36L , Mean Corpuscular Volume 91, Mean Corpuscular Hemoglobin 28, Mean Corpuscular Hemoglobin Concent 30L, Red Cell Distribution Width 14.4, Platelet Count 393, Mean Platelet Volume 10.7, Immature Granulocyte % (Auto) 1, Neutrophils (%) (Auto) 82H, Lymphocytes (%) (Auto) 11L, Monocytes (%) (Auto) 7, Eosinophils (%) (Auto) 0, Basophils (%) (Auto) 0, Neutrophils # (Auto) 12.4H, Lymphocytes # (Auto) 1.6, Monocytes # (Auto) 1.0, Eosinophils # (Auto) 0.0, Basophils # (Auto) 0.1, Immature Granulocyte # (Auto) 0.1, Neutrophils % (Manual) 75, Lymphocytes % (Manual) 10, Monocytes % (Manual) 10, Eosinophils % (Manual) 1, Band Neutrophils 4, Anisocytosis SLIGHT, Microcytosis SLIGHT, Gloria Cells SLIGHT, Prothrombin Time 15.0H, INR Comment 1.1, Activated Partial Thromboplast Time 32, Sodium Level 135, Potassium Level 4.1, Chloride Level 102, Carbon Dioxide Level 13L, Anion Gap 20H, Blood Urea Nitrogen 19H, Creatinine 1.18, Estimat Glomerular Filtration Rate 71, BUN/Creatinine Ratio 16, Glucose Level 378H, Lactic Acid Level 10.16*H, Calcium Level 9.3, Corrected Calcium 10.2H, Total Bilirubin 0.5, Aspartate Amino Transf (AST/SGOT) 30, Alanine Aminotransferase (ALT/SGPT) 26, Alkaline Phosphatase 90, C-Reactive Protein High Sensitivity 2.71H, Total Protein 6.3L, Albumin 2.9L, Procalcitonin 5.32H 02/25/21 20:45: Influenza Type A (RT-PCR) Not Detected, Influenza Type B (RT-PCR) Not Detected, SARS-CoV-2 RNA (RT-PCR) Not Detected 02/25/21 20:52: Blood Gas Puncture Site RIGHT BRACHIAL, Blood Gas Patient Temperature 30, Arterial Blood pH 7.18*L, Arterial Blood Partial Pressure CO2 38, Arterial Blood Partial Pressure O2 114H, Arterial Blood HCO3 13*L, Arterial Blood Total CO2 14.5L, Arterial Blood Oxygen Saturation 98, Arterial Blood Base Excess -13.4L, Bryce Test NA, Blood Gas Ventilator Setting NO, Blood Gas Inspired Oxygen 10L 02/25/21 21:40: Urine Color YELLOW, Urine Clarity CLOUDY, Urine pH 5.0, Urine Specific [place] 1.025H, Urine Protein 1+H, Urine Glucose (UA) NEGATIVE, Urine Ketones NEGATIVE, Urine Nitrite NEGATIVE, Urine Bilirubin 1+H, Urine Urobilinogen 0.2, Urine Leukocyte Esterase TRACEH, Urine RBC (Auto) 3+H, Urine RBC 10-25H, Urine WBC 2- 5, Urine Squamous Epithelial Cells 2-5, Urine Crystals PRESENTH, Urine Amorphous Sediment FEW ABENA URATESH, Urine Bacteria MODERATEH, Urine Casts NONE, Urine Mucus NEGATIVE, Urine Culture Indicated CULTURE PENDING Procedures Procedures 61 y/o male found unresponsive Intubated in ED Lactate 10 WBC: 15,000 IMP: septic shock PLAN: cole cul;ture Meropenam and vanc started Protonix Lovenox Focused Exam Lactate Level 02/25/21 20:38: Lactic Acid Level 10.16*H Height, Weight, BMI Height: '" Weight: lbs. oz. kg; 23.00 BMI Method: Lactic Acid Level Laboratory Tests Test 02/25/21 20:38 Lactic Acid Level 10.16 MMOL/L (0.50-2.00) *H DANIELLE MOORE MD Feb 25, 2021 22:35
[2021-02-25] MEDS ORDERED: NOREPINEPHRINE 8 MG/250 ML 250 ML IV SCH (23:45)
[2021-02-25] MEDS ORDERED: EPINEPHrine 1 MG INJECTION 4 MG in NS (IVPB) 248 ML IV SCH (23:45)
[2021-02-25] MEDS: VASOPRESSIN INJECTION 20 UNIT in NS (IVPB) 100 ML IV SCH (23:47)
[2021-02-26] MEDS: VANCOMYCIN INJECTION 750 MG in NS (IVPB) 250 ML IV SCH (00:22)
[2021-02-26] MEDS: ENOXAPARIN 40 MG/0.4 ML (LOVENOX) SYR SC SCH ×2 (00:22→22:07)
[2021-02-26] MEDS: inSUlin ASPART (NovoLOG) 1 UNIT/0.01 ML (CHARGE PER UNIT) SC SCH ×7 (00:22→22:07)
[2021-02-26] MEDS: LACTATED RINGERS 1,000 ML IV SCH ×6 (01:12→22:08)
[2021-02-26] MEDS ORDERED: RT-ALBUTEROL HFA 8.5 GM INHALER IH PRN (01:15)
[2021-02-26] MEDS: VASOPRESSIN INJECTION 20 UNIT in NS (IVPB) 100 ML IV SCH ×2 (01:45→12:32)
[2021-02-26 02:48] VITALS: BP 90/75
[2021-02-26] MEDS: PROPOFOL DRIP (ICU) 100 ML IV SCH ×2 (03:03→15:18)
[2021-02-26] MEDS: MEROPENEM 500 MG/NS 100 ML IVPB IV SCH ×8 (03:03→22:07)
[2021-02-26] MEDS: NOREPINEPHRINE 8 MG/250 ML 250 ML IV SCH ×3 (03:08→22:27)
[2021-02-26 03:39] LABS: BASOPHILS % (AUTO) 0 % (0-10); EOSINOPHILS % (AUTO) 0 % (0-10); HEMATOCRIT 37 % (40-54); HEMOGLOBIN 11.4 g/dL (13.3-17.7); LYMPHOCYTES # (AUTO) 0.8 10^3/uL (1.0-4.0); LYMPHOCYTES % (AUTO) 14 % (12-44); MEAN CORPUSCULAR HEMOGLOBIN 28 pg (25-34); MEAN CORPUSCULAR HGB CONC 31 g/dL (32-36); MEAN CORPUSCULAR VOLUME 89 fL (80-99); MEAN PLATELET VOLUME 10.6 fL (9.0-12.2); MONOCYTES # (AUTO) 0.2 10^3/uL (0.0-1.0); MONOCYTES % (AUTO) 4 % (0-12); NEUTROPHILS # (AUTO) 4.8 10^3/uL (1.8-7.8); NEUTROPHILS % (AUTO) 83 % (42-75); PLATELET COUNT 358 10^3/uL (130-400); WHITE BLOOD COUNT 5.8 10^3/uL (4.3-11.0)
[2021-02-26 03:42] LABS: AMPHETAMINE SCREEN, URINE NEGATIVE (NEGATIVE); BARBITURATE SCREEN URINE NEGATIVE (NEGATIVE); BENZODIAZEPINES SCREEN URINE POSITIVE (NEGATIVE); CANNABINOID SCREEN, URINE NEGATIVE (NEGATIVE); COCAINE SCREEN URINE NEGATIVE (NEGATIVE); METHADONE STAT NEGATIVE (NEGATIVE); METHAMPHETAMINE SCREEN URINE S NEGATIVE (NEGATIVE); OPIATE SCREEN URINE POSITIVE (NEGATIVE); OXYCODONE STAT NEGATIVE (NEGATIVE); PROPOXYPHENE STAT NEGATIVE (NEGATIVE); TRICYCLIC ANTIDEPRESSANTS SCRE NEGATIVE (NEGATIVE)
[2021-02-26 03:48] LABS: ALBUMIN 2.5 GM/DL (3.2-4.5)
[2021-02-26 03:49] LABS: POTASSIUM 3.7 MMOL/L (3.6-5.0)
[2021-02-26 03:50] LABS: CALCIUM 8.4 MG/DL (8.5-10.1)
[2021-02-26 03:51] LABS: TOTAL PROTEIN 5.6 GM/DL (6.4-8.2)
[2021-02-26 03:53] LABS: BILIRUBIN,TOTAL 0.7 MG/DL (0.1-1.0)
[2021-02-26 03:54] LABS: PHOSPHORUS 5.4 MG/DL (2.3-4.7)
[2021-02-26 03:55] LABS: CREATININE SERUM 1.08 MG/DL (0.60-1.30)
[2021-02-26 03:57] LABS: MAGNESIUM 2.2 MG/DL (1.6-2.4)
--- NOTE | 2021-02-26 04:23 | Tele-ICU Progress Note ---
Subjective Date Seen by a Provider: Feb 26, 2021 Time Seen by a Provider: 04:21 Subjective/Events-last exam called by bed side RN.lactic acid is going up; vasopressin added Sepsis Event Evaluation Height, Weight, BMI Height: '" Weight: lbs. oz. kg; 22.66 BMI Method: Focused Exam Lactate Level 02/25/21 20:38: Lactic Acid Level 10.16*H 02/26/21 01:15: Lactic Acid Level 4.54*H 02/26/21 03:25: Lactic Acid Level 7.34*H Lactic Acid Level Laboratory Tests Test 02/26/21 01:15 02/26/21 03:25 Lactic Acid Level 4.54 MMOL/L (0.50-2.00) *H 7.34 MMOL/L (0.50-2.00) *H Exam Exam Patient acknowledged, consented, and participated in this virtual visit which was conducted using real time audio/video Vital Signs Date Time Temp Pulse Resp B/P (MAP) Pulse Ox O2 Delivery O2 Flow Rate FiO2 02/26/21 04:00 100 Mechanical Ventilator 25 02/26/21 03:08 56 90/75 02/26/21 03:03 56 90/75 02/26/21 02:48 56 33 95 30 02/26/21 01:45 80 92/67 02/26/21 00:57 80 02/26/21 00:30 32.4 80 20 92/67 100 Mechanical Ventilator 25.00 02/26/21 00:00 32.1 76 18 79/59 100 Mechanical Ventilator 25.00 02/25/21 23:59 100 Mechanical Ventilator 25 02/25/21 23:30 31.8 75 16 91/65 100 Mechanical Ventilator 25.00 02/25/21 23:15 31.6 74 27 91/66 99 Mechanical Ventilator 25.00 02/25/21 23:00 73 20 111/75 99 Mechanical Ventilator 25.00 02/25/21 22:45 73 20 127/83 99 Mechanical Ventilator 25.00 02/25/21 22:18 31.3 59 16 105/70 99 Mechanical Ventilator 30.00 02/25/21 21:49 68 16 99 30 02/25/21 21:31 68 92/69 02/25/21 21:27 73 93/71 02/25/21 21:06 30.7 02/25/21 21:01 87 57/45 02/25/21 20:30 OxyMask 10.00 02/25/21 20:30 103 30 101/77 (85) OxyMask 10.00 I & O 02/26/21 07:00 Intake Total 2100 ml Output Total 50 ml Balance 2050 ml Height & Weight Height: '" Weight: lbs. oz. kg; 22.66 BMI Method: General Appearance: Other (Unresponsive but no apparent distress) HEENT: Other (Pupils pinpoint and slightly reactive bilateral. Mucous membranes dry.) Neck: Normal Inspection, Non Tender, Supple Respiratory: No Accessory Muscle Use; No Wheezing; Other (Patient is breathing on his own without wheezes or crackles noted.) Cardiovascular: No Murmur, Irregularly Irregular Extremity: Pelvis Stable, Other (Left BKA) Neurologic/Psychiatric: Other (Unresponsive with movement to localize to pain. Eyes remain closed) Results Lab Laboratory Tests 02/25/21 20:38 02/26/21 03:25 Assessment/Plan Assessment/Plan Lactic acidosis with shock/ MODS -start albumine/ hydrocortisone -ro ischemic bowel will be ideal; kub ordered as first step -a line needed JUDY CHENG MD Feb 26, 2021 04:23
[2021-02-26] MEDS ORDERED: ALBUMIN 25% 25 GM/100 ML 100 ML IV ONE (04:30)
[2021-02-26] MEDS: HYDROCORTISONE 100 MG/2 ML (Solu-CORTEF) VIAL IV SCH ×3 (04:43→22:07)
[2021-02-26] MEDS ORDERED: EPINEPHrine (OMNICELL DRIP KIT ONLY) 1 MG/ML AMP ONE (05:26)
[2021-02-26] MEDS ORDERED: NS (IVPB) 0 ML ONE (05:28)
[2021-02-26] MEDS ORDERED: EPINEPHrine 1 MG INJECTION 8 MG in NS (IVPB) 242 ML IV SCH (05:30)
--- NOTE | 2021-02-26 06:19 | History & Physical-Hospitalist ---
History of Present Illness HPI/Chief Complaint Chief complaint: Acute respiratory failure due to severe sepsis/septic shock History of present illness: This is a 61-year-old white male known to me from recent discharge on Saturday from inpatient rehab following recovery from left BKA who was predicted to have a poor prognosis who presented to the ER with hypothermia and bradycardia. Patient was assessed to be in acute respiratory failure and septic shock from source unknown but it is presumed from left buttock carbuncle we had placed him on Augmentin by Dr. WALKER prior to discharge. His lactic acid was 10. Central line was placed and patient was intubated. OG tube and Graf catheter in place. Aggressive IV fluid initiated and lactic acid has improved. Very poor prognosis predicted. Source: RN/MD Exam Limitations: clinical condition (Intubation) Date Seen 02/26/21 Time Seen by a Provider: 10:00 Attending Physician Sahra Bowser DO PCP No,Local Physician Referring Physician Date of Admission Feb 25, 2021 at 21:49 Home Medications & Allergies Home Medications Reviewed patient Home Medication Reconciliation performed by pharmacy medication reconciliations binder technician and/or nursing. Patients Allergies have been reviewed. Allergies Allergies Coded Allergies No Known Drug Allergies (Fmoysnxzkf74/24/21) Past Ofkrtxw-Pbxcid-Dmvafk Hx Patient Social History Marrital Status: single Employed/Student: unemployed Tobacco Use?: Yes Tobacco type used: Cigarettes Smoking Status: Current Everyday Smoker Substance use?: Unable to obtain Alcohol Use?: Unable to obtain Pt feels they are or have been: Unable to obtain Immunizations Up To Date First/Initial COVID19 Vaccinat: N/A Second COVID19 Vaccination Anil: N/A Current Status Advance Directives: No Communicates: Unable To Communicate Primary Language: Bangladeshi Past Medical History Surgeries: Orthopedic Peripheral Vascular Stroke Diabetes, Non-Insulin dep Family Medical History Reviewed Nursing Family Hx No Pertinent Family Hx Review of Systems ROS-Unable to Obtain: Intubated Constitutional: see HPI Physical Exam Physical Exam Vital Signs Vital Signs - First Documented 02/25/21 02/25/21 21:06 21:49 Temp 30.7 Pulse Ox 99 FiO2 30 Capillary Refill : Height, Weight, BMI Height: '" Weight: lbs. oz. kg; 22.66 BMI Method: General Appearance: No Apparent Distress, Chronically ill, Thin, Other (Sedated and intubated) Eyes: Right Eye Normal Inspection, Right Eye PERRL HEENT: Moist Mucous Membranes, Other (ETT in place) Neck: Normal Inspection Respiratory: No Accessory Muscle Use, No Respiratory Distress, Decreased Breath Sounds Cardiovascular: Regular Rate, Rhythm, No Edema, No Gallop, No JVD, No Murmur, Normal Peripheral Pulses Gastrointestinal: Normal Bowel Sounds, No Organomegaly, No Pulsatile Mass Back: Normal Inspection Extremity: Normal Capillary Refill, Normal Inspection, No Pedal Edema Skin: Normal Color, Warm/Dry Lymphatic: No Adenopathy Results Results/Procedures Labs Laboratory Tests 02/25/21 20:38 02/26/21 03:25 02/26/21 10:10 02/27/21 03:15 Patient resulted labs reviewed. Assessment/Plan Admission Diagnosis Assessment: Acute respiratory failure Septic shock presumably from buttock carbuncle placed on Augmentin prior to d ischarge on Saturday from inpatient rehab managed by Dr. AARON MCKEON Poor prognosis at time of discharge from inpatient rehab on Saturday Diabetes Prior stroke with right-sided weakness Lactic acidosis Leukocytosis Plan: Ventilator management appreciated IV antibiotics broad-spectrum Prognosis grave Admission Status: Inpatient Order (span 2 midnights) Reason for Inpatient Admission: Septic shock Diagnosis/Problems Diagnosis/Problems (1) Septic shock Status: Acute (2) Respiratory failure Status: Acute Qualifiers: Chronicity: acute Respiratory failure complication: hypercapnia Qualified Codes: J96.02 - Acute respiratory failure with hypercapnia (3) T2DM (type 2 diabetes mellitus) Status: Acute (4) History of left below knee amputation (5) BPH (benign prostatic hyperplasia) Status: Chronic (6) PAD (peripheral artery disease) Status: Acute (7) History of stroke Status: Chronic (8) Dyslipidemia Status: Acute (9) Tobacco abuse Status: Acute SAHRA BOWSER DO Feb 26, 2021 06:19
--- NOTE | 2021-02-26 06:21 | Diagnostic Imaging Report ---
ABDOMEN/KUB 1VIEW INDICATION: Ileus COMPARISON: None available. TECHNIQUE: AP view of the abdomen FINDINGS: Gas-filled colon has loss of haustral markings in the descending colon, raising the possibility of colitis. No air-filled dilated loops of small bowel. No features of free intraperitoneal air, though assessment is suboptimal on supine imaging. Degenerative changes within the lumbar spine. Anterior chest tube terminating in the proximal stomach. IMPRESSION: 1. Nonobstructive bowel gas pattern. 2. Gas-filled ascending colon has loss of haustral markings and raises possibility of colitis. Dictated by: Dictated on workstation # [id number]
[2021-02-26 07:00] VITALS: BP 105/81
[2021-02-26] MEDS ORDERED: fentaNYL INJ 100 MCG/2 ML AMP IV ONE (09:08)
[2021-02-26] MEDS ORDERED: MIDAZOLAM 5 MG/5 ML (VERSED) VIAL IJ ONE (09:08)
[2021-02-26] MEDS ORDERED: SUCCINYLCHOLINE INJ 100 MG/5 ML SYR/VIAL INJ ONE (09:08)
[2021-02-26] MEDS ORDERED: ETOMIDATE IV SOLN 20 MG/10 ML VIAL IV ONE (09:08)
[2021-02-26] MEDS: PANTOPRAZOLE 40 MG (PROTONIX) VIAL IV SCH (09:18)
[2021-02-26] MEDS: VANCOMYCIN 1 GM/NS 250 ML IVPB IV SCH ×4 (09:19→22:08)
[2021-02-26 10:26] LABS: POTASSIUM 3.7 MMOL/L (3.6-5.0)
[2021-02-26 10:27] LABS: CALCIUM 8.3 MG/DL (8.5-10.1)
[2021-02-26 10:30] VITALS: BP 119/82
[2021-02-26 10:31] LABS: CREATININE SERUM 1.19 MG/DL (0.60-1.30)
[2021-02-26] MEDS ORDERED: NS IV 1000 ML 1,000 ML ONE (11:49)
[2021-02-26 12:53] LABS: ABG BASE EXCESS -8.2 MMOL/L (-2.5-2.5); ABG OXYGEN SATURATION 99 % (94-100); ABG PCO2 32 MMHG (35-45); ABG PO2 136 MMHG (79-93); ABG TCO2 17.2 MMOL/L (21.0-31.0)
[2021-02-26 12:55] LABS: ABG PH 7.34 (7.37-7.43)
[2021-02-26 12:57] LABS: ALLENS TEST POS
[2021-02-26 12:58] LABS: INSPIRED O2 30%; PATIENT TEMP 38; VENTILATOR YES
--- NOTE | 2021-02-26 13:33 | Anesthesia-Procedure Note ---
Procedures/Interventions Procedure Start/Stop/Diagnosis Date of Procedure: Feb 26, 2021 Start Time: 12:15 Referring Physician: Luke Preprocedural Diagnosis: Respiratory failure, Alt LOC Brief History Called by housekeeping supervisor hotel to start A-line on pt brought in yesterday unresponsive and bradycardic. Pt sedated on propofol at 20 mcg and was also on pressors. Unable to palpate any radial pulses or visualize any radial flow with ultrasound. Left brachial artery has a small amount of pulsation noted on u/s. Site was prepped with chlorhexidine. Left brachial A-line placed x1 attempt under u/s guidance. Good blood return from [facility] cath and strong waveform present on monitor. Catheter site was covered with sterile op site and taped with 1" tape. Report to RN Stop Time: 12:30 Postprocedural Diagnosis: Respiratory failure, Alt LOC Arterial Line Arterial Line Catheter: 20G Type: Brachial Location: Left Procedure: prepped, draped in sterile fashion, 1% lidocaine used to numb region, good wave-form was obtained, patient tolerated procedure well, no immediate complications, post procedure area cleaned CORWIN HALL CRNA Feb 26, 2021 13:33
[2021-02-26 14:15] VITALS: BP 99/52
[2021-02-26] MEDS ORDERED: fentaNYL INJ 100 MCG/2 ML AMP IVP PRN (18:30)
[2021-02-26 18:53] VITALS: BP 132/79
[2021-02-26 21:44] VITALS: BP 93/64
[2021-02-26] MEDS: fentaNYL DRIP PRE-MIX 250 ML IV SCH (22:07)
[2021-02-26] MEDS ORDERED: NS (IVPB) 100 ML ONE (23:28)
[2021-02-27] MEDS: LACTATED RINGERS 1,000 ML IV SCH ×4 (01:14→18:26)
[2021-02-27] MEDS: inSUlin ASPART (NovoLOG) 1 UNIT/0.01 ML (CHARGE PER UNIT) SC SCH ×6 (01:14→20:28)
[2021-02-27] MEDS: NOREPINEPHRINE 8 MG/250 ML 250 ML IV SCH ×4 (01:50→20:29)
[2021-02-27] MEDS: PROPOFOL DRIP (ICU) 100 ML IV SCH ×3 (02:28→20:28)
[2021-02-27 02:52] VITALS: BP 136/74
[2021-02-27 03:33] LABS: BASOPHILS % (AUTO) 0 % (0-10); EOSINOPHILS % (AUTO) 0 % (0-10); HEMATOCRIT 33 % (40-54); HEMOGLOBIN 10.6 g/dL (13.3-17.7); LYMPHOCYTES # (AUTO) 1.3 10^3/uL (1.0-4.0); LYMPHOCYTES % (AUTO) 14 % (12-44); MEAN CORPUSCULAR HEMOGLOBIN 28 pg (25-34); MEAN CORPUSCULAR HGB CONC 32 g/dL (32-36); MEAN CORPUSCULAR VOLUME 85 fL (80-99); MEAN PLATELET VOLUME 11.1 fL (9.0-12.2); MONOCYTES # (AUTO) 0.6 10^3/uL (0.0-1.0); MONOCYTES % (AUTO) 7 % (0-12); NEUTROPHILS # (AUTO) 7.3 10^3/uL (1.8-7.8); NEUTROPHILS % (AUTO) 78 % (42-75); PLATELET COUNT 304 10^3/uL (130-400); WHITE BLOOD COUNT 9.3 10^3/uL (4.3-11.0)
[2021-02-27 03:40] LABS: ALBUMIN 2.4 GM/DL (3.2-4.5); POTASSIUM 4.9 MMOL/L (3.6-5.0)
[2021-02-27 03:41] LABS: CALCIUM 7.7 MG/DL (8.5-10.1)
[2021-02-27 03:42] LABS: TOTAL PROTEIN 5.3 GM/DL (6.4-8.2)
[2021-02-27 03:44] LABS: BILIRUBIN,TOTAL 0.8 MG/DL (0.1-1.0)
[2021-02-27 03:45] LABS: PHOSPHORUS 5.6 MG/DL (2.3-4.7)
[2021-02-27 03:46] LABS: CREATININE SERUM 1.1 MG/DL (0.60-1.30)
[2021-02-27 03:49] LABS: MAGNESIUM 2.2 MG/DL (1.6-2.4)
[2021-02-27] MEDS: HYDROCORTISONE 100 MG/2 ML (Solu-CORTEF) VIAL IV SCH ×3 (04:49→20:28)
[2021-02-27] MEDS: MEROPENEM 500 MG/NS 100 ML IVPB IV SCH ×8 (04:49→20:29)
[2021-02-27 06:59] LABS: ABG BASE EXCESS -8.8 MMOL/L (-2.5-2.5); ABG OXYGEN SATURATION 98 % (94-100); ABG PCO2 36 MMHG (35-45); ABG PO2 108 MMHG (79-93); ABG TCO2 17.3 MMOL/L (21.0-31.0)
[2021-02-27 07:04] LABS: ABG PH 7.29 (7.37-7.43); ALLENS TEST YES-POS; INSPIRED O2 30%; PATIENT TEMP 38.2; VENTILATOR YES
[2021-02-27 07:15] VITALS: BP 120/68
[2021-02-27] MEDS: PANTOPRAZOLE 40 MG (PROTONIX) VIAL IV SCH (08:38)
[2021-02-27] MEDS ORDERED: TROUGH ORDER-PHARMACY XX NR (09:00)
[2021-02-27 10:00] VITALS: BP 111/69
[2021-02-27] MEDS: VANCOMYCIN 1 GM/NS 250 ML IVPB IV SCH ×2 (10:45)
--- NOTE | 2021-02-27 10:50 | Tele-ICU Progress Note ---
Subjective Date Seen by a Provider: Feb 27, 2021 Time Seen by a Provider: 09:10 Subjective/Events-last exam This virtual visit was conducted using real time audio/video. Thank you for asking us to see this patient for respiratory insufficiency due to septic shock and hypothermia. Recent events: None overnight PE: Cachectic. Sedated on vent. VSS. O2 sat 94% on 30%/+5 HEENT: No obvious masses, adenopathy or JVD. Chest: clear to auscultation. CV: RRR S1 S2 No murmur or added sounds. Abd: Non-tender. Bowel sounds Y. : Unremarkable. Graf Y. FASHION MODEL/psychiatric: No obvious focal findings. Extremities: No edema. L BKA. Capillary refill < 3 seconds. Skin: unremarkable. Results: Elevated BUN 29, BG 143, Lactate 2.23. Decreased Hb 10.6. B.29/36/108. Available chart/ vitals / labs / images reviewed. Video assessment done using teleICU camera, rest of exam as per RN. A/P: Respiratory insufficiency: Continue present management with vent, BDs. Wean pressors and when this is achieved could lighten sedation with a view to SBT. Monitor for increasing oxygenation needs. Critical Care: critically ill patient. Cont. Vanco., Merrem, Solucortef, PPI, Jaky., SSI. Discussed with ALEM Maher. Asked RN to reach out to eICU if any questions or concerns later. Time spent with patient/coordination of care with other health professionals (mins): 20 Sepsis Event Evaluation Height, Weight, BMI Height: '" Weight: lbs. oz. kg; 22.66 BMI Method: Focused Exam Lactate Level 02/26/21 17:15: Lactic Acid Level 2.63*H 02/27/21 03:15: Lactic Acid Level 2.23*H 02/27/21 08:40: Lactic Acid Level 1.45 Lactic Acid Level Laboratory Tests Test 02/27/21 08:40 Lactic Acid Level 1.45 MMOL/L (0.50-2.00) Exam Exam Patient acknowledged, consented, and participated in this virtual visit which was conducted using real time audio/video Vital Signs Date Time Temp Pulse Resp B/P (MAP) Pulse Ox O2 Delivery O2 Flow Rate FiO2 02/27/21 10:00 37.8 101 17 107/64 93 Mechanical Ventilator 25.00 02/27/21 09:00 37.9 105 15 116/64 93 Mechanical Ventilator 25.00 02/27/21 08:00 38.0 107 16 112/83 93 Mechanical Ventilator 25.00 02/27/21 08:00 38.3 02/27/21 07:54 Mechanical Ventilator 25.00 02/27/21 07:00 106 02/27/21 07:00 38.2 105 16 114/72 97 Mechanical Ventilator 30.00 02/27/21 06:00 38.3 105 16 125/72 97 Mechanical Ventilator 30.00 02/27/21 05:00 38.5 106 16 127/77 97 Mechanical Ventilator 30.00 02/27/21 04:00 38.6 106 16 119/78 95 Mechanical Ventilator 30.00 02/27/21 04:00 99 Mechanical Ventilator 30 02/27/21 03:00 38.7 105 16 129/78 98 Mechanical Ventilator 30.00 02/27/21 02:52 105 24 98 30 02/27/21 02:28 105 142/77 02/27/21 02:00 38.7 105 16 140/82 98 Mechanical Ventilator 30.00 02/27/21 01:50 104 140/76 02/27/21 01:00 38.6 102 16 134/69 98 Mechanical Ventilator 30.00 02/27/21 01:00 102 02/27/21 00:00 38.6 100 16 135/87 98 Mechanical Ventilator 30.00 02/27/21 00:00 101 135/87 02/27/21 00:00 99 Mechanical Ventilator 30 02/26/21 23:00 38.6 100 16 130/81 99 Mechanical Ventilator 30.00 02/26/21 22:27 98 94/68 02/26/21 22:00 38.6 98 16 96/69 97 Mechanical Ventilator 30.00 02/26/21 21:44 98 29 98 30 02/26/21 21:00 38.6 102 16 139/76 97 Mechanical Ventilator 30.00 02/26/21 20:00 99 Mechanical Ventilator 30 02/26/21 20:00 38.4 96 16 100/81 99 Mechanical Ventilator 30.00 02/26/21 19:00 38.3 95 16 127/82 100 Mechanical Ventilator 30.00 02/26/21 19:00 95 02/26/21 18:53 96 27 99 30 02/26/21 18:00 38.3 98 28 114/79 100 Mechanical Ventilator 30.00 02/26/21 17:00 38.2 96 25 110/74 98 Mechanical Ventilator 30.00 Arterial Line 02/26/21 16:15 91 Mechanical Ventilator 30 02/26/21 16:00 38.1 93 94 Mechanical Ventilator 30.00 02/26/21 15:18 96 99/52 02/26/21 15:00 38.0 92 93 Mechanical Ventilator 30.00 02/26/21 14:15 96 30 94 30 02/26/21 14:02 98 94/55 02/26/21 14:00 38.1 97 92 Mechanical Ventilator 30.00 02/26/21 13:00 38.0 92 93 Mechanical Ventilator 30.00 Automatic Cuff 02/26/21 12:48 93 02/26/21 12:32 92 115/74 02/26/21 12:00 91 Mechanical Ventilator 30 02/26/21 12:00 38.1 92 115/75 94 Mechanical Ventilator 30.00 02/26/21 11:00 38.0 91 25 108/75 93 Mechanical Ventilator 30.00 I & O 02/27/21 07:00 Intake Total 2801 ml Output Total 915 ml Balance 1886 ml Height & Weight Height: '" Weight: lbs. oz. kg; 22.66 BMI Method: General Appearance: No Apparent Distress, Chronically ill, Thin, Other (Sedated and intubated) HEENT: Moist Mucous Membranes, Other (ETT in place) Neck: Normal Inspection Respiratory: No Accessory Muscle Use, No Respiratory Distress, Decreased Breath Sounds Cardiovascular: Regular Rate, Rhythm, No Edema, No Gallop, No JVD, No Murmur, Normal Peripheral Pulses Extremity: Normal Capillary Refill, Normal Inspection, No Pedal Edema Neurologic/Psychiatric: Other (Unresponsive with movement to localize to pain. Eyes remain closed) Skin: Normal Color, Warm/Dry Lymphatic: No Adenopathy Results Lab Laboratory Tests 02/25/21 20:38 02/26/21 03:25 02/26/21 10:10 02/27/21 03:15 Assessment/Plan Assessment/Plan See free text. Critical Care: Ventilator Management JAMARI OWENS MD Feb 27, 2021 10:50
[2021-02-27] MEDS: VASOPRESSIN INJECTION 20 UNIT in NS (IVPB) 100 ML IV SCH ×4 (11:29→22:26)
[2021-02-27] MEDS ORDERED: METF-397 PO (13:41)
[2021-02-27] MEDS ORDERED: HYDR-3817 PO (13:41)
[2021-02-27] MEDS ORDERED: ATOR40TA70 PO (13:41)
[2021-02-27] MEDS ORDERED: TMSL.4C PO (13:41)
[2021-02-27] MEDS ORDERED: GBPN600T PO (13:41)
[2021-02-27] MEDS ORDERED: ONDA4TAB11 PO (13:41)
[2021-02-27] MEDS ORDERED: AMOX-358 PO (13:41)
[2021-02-27] MEDS ORDERED: CLOP75TA28 PO (13:41)
[2021-02-27] MEDS ORDERED: BETH25TA2 PO (13:41)
[2021-02-27 14:30] VITALS: BP 82/56
[2021-02-27 16:34] LABS: BILIRUBIN,URINE 2+ (NEGATIVE); CLARITY,URINE CLOUDY; COLOR,URINE ORANGE; GLUCOSE, URINE (UA) NEGATIVE (NEGATIVE); KETONES,URINE NEGATIVE (NEGATIVE); LEUKOCYTE ESTERASE ,URINE NEGATIVE (NEGATIVE); NITRITE,URINE POSITIVE (NEGATIVE); PROTEIN,URINE 1+ (NEGATIVE)
[2021-02-27 16:43] LABS: AMORPHOUS SEDIMENT,UR LARGE AMOR URATES /LPF; BACTERIA,URINE LARGE /HPF
[2021-02-27] MEDS: fentaNYL DRIP PRE-MIX 250 ML IV SCH (18:26)
--- NOTE | 2021-02-27 18:28 | Progress Note - Hospitalist ---
Subjective HPI/CC On Admission Date Seen by Provider: Feb 27, 2021 Time Seen by Provider: 09:25 Chief complaint: Acute respiratory failure due to severe sepsis/septic shock History of present illness: This is a 61-year-old white male known to me from recent discharge on Saturday from inpatient rehab following recovery from left BKA who was predicted to have a poor prognosis who presented to the ER with hypothermia and bradycardia. Patient was assessed to be in acute respiratory failure and septic shock from source unknown but it is presumed from left buttock carbuncle we had placed him on Augmentin by Dr. WALKER prior to discharge. His lactic acid was 10. Central line was placed and patient was intubated. OG tube and Graf catheter in place. Aggressive IV fluid initiated and lactic acid has improved. Very poor prognosis predicted. Subjective/Events-last exam He remains intubated and sedated. Focused Exam Lactate Level 02/26/21 17:15: Lactic Acid Level 2.63*H 02/27/21 03:15: Lactic Acid Level 2.23*H 02/27/21 08:40: Lactic Acid Level 1.45 Objective Exam Vital Signs Vital Signs Date Time Temp Pulse Resp B/P (MAP) Pulse Ox O2 Delivery O2 Flow Rate FiO2 02/27/21 18:00 37.9 111 20 113/68 99 Mechanical Ventilator 25.00 02/27/21 14:30 25 Capillary Refill : General Appearance: No Apparent Distress, Chronically ill, Other (intubated and sedated) Respiratory: No Respiratory Distress, Other (intubated and mechanically ventilated) Cardiovascular: No Murmur, Tachycardia Gastrointestinal: Normal Bowel Sounds, Soft Extremity: Pedal Edema, Other (left BKA, no erythema or swelling around incision) Neurologic/Psychiatric: Other (sedated) Skin: Cool, Mottled Results/Procedures Lab Laboratory Tests 02/27/21 03:15 Patient resulted labs reviewed. Imaging: Reviewed Imaging Report Assessment/Plan Assessment and Plan Assess & Plan/Chief Complaint Acute respiratory failure Endotracheally intubated Septic shock Pneumonia UTI Lactic acidosis Poor prognosis Recent left BKA T2DM TeleICU following Culture negative to date Requiring pressor support: levophed, epinephrine, vasopressin Stress dose steroids Continue Vancomycin and Merrem Continue fluids Consult urology DVT prophylaxis: Lovenox Critical Care Critically Ill Patient Diagnosis/Problems Diagnosis/Problems (1) Septic shock Status: Acute (2) Respiratory failure Status: Acute Qualifiers: Chronicity: acute Respiratory failure complication: hypercapnia Qualified Codes: J96.02 - Acute respiratory failure with hypercapnia (3) T2DM (type 2 diabetes mellitus) Status: Acute (4) History of left below knee amputation Status: Chronic (5) History of stroke Status: Chronic (6) Tobacco abuse Status: Acute DANY VILLA MD Feb 27, 2021 18:28
[2021-02-27 19:05] VITALS: BP 81/77
[2021-02-27] MEDS: ENOXAPARIN 40 MG/0.4 ML (LOVENOX) SYR SC SCH (20:29)
--- NOTE | 2021-02-27 21:06 | CONSULTATION REPORT ---
DATE OF SERVICE: 02/27/2021 ADMITTING PHYSICIAN: Dr. Butler. HISTORY OF PRESENT ILLNESS: The patient is a 61-year-old male who was brought to [facility] Emergency Department after a bystander notice that the patient was unconscious. He was in his home and EMS stated that his heart rate was initially in the 20 and he was severely hypothermic with a temperature around 29 Celsius. At the scene, they were unable to obtain O2 saturations as well as blood pressure. After giving atropine, they were able to get a pulse. Nobody knows how long he was down. What we do know that he has severe vasculopathy. He did have a stroke approximately six months ago. He also does have severe peripheral vascular disease requiring a psuah-oxn-vedc amputation on 02/03/2021. He did well after surgery and was eventually admitted to inpatient rehabilitation. He continued to do well and was eventually discharged on 02/23/2021. He does have a history of diabetes as well as peripheral vascular disease as well as a longstanding history of noncompliance. The patient was resuscitated. He did have some type of septic source. However, since being admitted and intubated his white count has normalized as well as his lactic acid. He does still require vasopressors to maintain mean arterial pressure. The stump looks well. There is a small area of purplish ischemic area of skin along the medial aspect of the staple line with mild serous drainage. There is no redness, erythema or any necrotic tissue or purulent drainage identified. The patient was also seen for a small lesion of the anus before discharge. This was a small subcutaneous nodule with no surrounding redness or erythema and likely consistent with a small carbuncle however, this was extremely small and, likely not the source of his sepsis. Based on his recent events as well as past history, he does have very poor prognosis and the family was notified of this; however, he continues to be a full code. PAST MEDICAL HISTORY: Peripheral vascular disease, history of stroke, degenerative joint disease, diabetes. PAST SURGICAL HISTORY: Left below-knee amputation, multiple toes removed from the left foot 2020. ALLERGIES: NO KNOWN DRUG ALLERGIES. MEDICATIONS: Augmentin b.i.d., aspirin 81 mg daily, atorvastatin 40 mg daily, bethanechol 25 mg q.i.d., Plavix 75 mg daily, gabapentin 600 mg t.i.d., hydrocodone p.r.n., hydrocortisone cream b.i.d., loperamide p.r.n., metformin 500 mg daily, tamsulosin 0.4 mg b.i.d. SOCIAL HISTORY: Positive smoke 45 pack years. Social alcohol. FAMILY HISTORY: Noncontributory. VITAL SIGNS: Temperature 31.3, blood pressure 113/63, pulse 96, respirations 19, pulse ox 98% on mechanical ventilator at 25% FiO2. REVIEW OF SYSTEMS: This is a thin-appearing male who is on a vent and sedated. He does not show any spontaneous movements, does not withdraw to pain. His stump is clean, dry and intact with a small area of ischemic changes along the medial aspect of the wound; however, there is no redness, erythema as well as no necrotic tissue nor any purulent drainage. He does have mottled appearance throughout his skin of the back as well as upper extremities. He is having bowel movements, which appeared to be slightly loose. No red blood per rectum. PHYSICAL EXAMINATION: CHEST: Coarse breath sounds bilaterally. HEART: Regular, no murmurs. EXTREMITIES: Left BKA stump appears to be intact with a small area of skin ischemia. There were no signs of redness, erythema or any necrotic tissue or any purulent drainage to indicate any infection. HEENT: No scleral icterus. NECK: No cervical lymphadenopathy. ABDOMEN: Soft, nontender, nondistended. SKIN: Warm, dry. LABORATORY DATA: WBC 9.3, hemoglobin 10.6, hematocrit 33, platelets 304, BUN 29, creatinine 1.10, lactic acid 1.45. ASSESSMENT AND PLAN: A 61-year-old male with cardiorespiratory insufficiency, bradycardia and hypothermia on mechanical ventilator and requiring vasopressors to maintain mean arterial pressure. Even before the procedure with his recent stroke and severe peripheral vascular disease and continued smoking and recent left hucij-euv-ycwo amputation, his prognosis was poor. He did rehabilitate relatively well and was discharged home; however, we are unsure of the events that happened at home where, again he was found to be obtunded on the floor of unknown period of time in cardiac and respiratory insufficiencyas well as extremely hypothermic. He is showing mottled appearance, likelyconsistent with global hypoperfusion syndrome. He may have had some type of septic source in the initial phases. However, this appears to be resolving. We will get a CT scan of the pelvis including the perineum all the way down to the left stump to look for any potential abscess or any potential necrotizing soft tissue infection. Otherwise, we will continue with critical care management. Job ID: [id number] DocumentID: [id number] Dictated Date: 02/27/2021 19:57:15 [employer] Operations Engineer Date: 02/27/2021 21:05:57 Dictated By: MINDY WALKER MD MTDD
[2021-02-27 22:06] VITALS: BP 91/67
[2021-02-28] MEDS: inSUlin ASPART (NovoLOG) 1 UNIT/0.01 ML (CHARGE PER UNIT) SC SCH ×6 (00:57→20:49)
[2021-02-28 02:15] VITALS: BP 98/62
[2021-02-28] MEDS: LACTATED RINGERS 1,000 ML IV SCH ×3 (02:52→14:19)
[2021-02-28] MEDS: NOREPINEPHRINE 8 MG/250 ML 250 ML IV SCH ×2 (02:53→10:46)
[2021-02-28] MEDS: HYDROCORTISONE 100 MG/2 ML (Solu-CORTEF) VIAL IV SCH ×3 (04:12→21:09)
[2021-02-28] MEDS: MEROPENEM 500 MG/NS 100 ML IVPB IV SCH ×8 (04:13→21:09)
[2021-02-28] MEDS ORDERED: TROUGH ORDER-PHARMACY XX ONE (05:00)
[2021-02-28 05:09] LABS: BASOPHILS # (AUTO) 0.1 10^3/uL (0.0-0.1); BASOPHILS % (AUTO) 1 % (0-10); EOSINOPHILS % (AUTO) 0 % (0-10); HEMATOCRIT 29 % (40-54); HEMOGLOBIN 8.9 g/dL (13.3-17.7); LYMPHOCYTES # (AUTO) 1.2 10^3/uL (1.0-4.0); LYMPHOCYTES % (AUTO) 8 % (12-44); MEAN CORPUSCULAR HEMOGLOBIN 27 pg (25-34); MEAN CORPUSCULAR HGB CONC 31 g/dL (32-36); MEAN CORPUSCULAR VOLUME 88 fL (80-99); MEAN PLATELET VOLUME 11.2 fL (9.0-12.2); MONOCYTES # (AUTO) 0.8 10^3/uL (0.0-1.0); MONOCYTES % (AUTO) 6 % (0-12); NEUTROPHILS % (AUTO) 85 % (42-75); PLATELET COUNT 274 10^3/uL (130-400); WHITE BLOOD COUNT 14.1 10^3/uL (4.3-11.0)
[2021-02-28 05:11] LABS: ALBUMIN 2.1 GM/DL (3.2-4.5)
[2021-02-28 05:13] LABS: CALCIUM 7.3 MG/DL (8.5-10.1)
[2021-02-28 05:14] LABS: TOTAL PROTEIN 5.1 GM/DL (6.4-8.2)
[2021-02-28 05:16] LABS: BILIRUBIN,TOTAL 0.7 MG/DL (0.1-1.0)
[2021-02-28 05:17] LABS: PHOSPHORUS 4.8 MG/DL (2.3-4.7)
[2021-02-28 05:18] LABS: CREATININE SERUM 1.13 MG/DL (0.60-1.30)
[2021-02-28 05:20] LABS: ABG BASE EXCESS -11.4 MMOL/L (-2.5-2.5); ABG OXYGEN SATURATION 96 % (94-100); ABG PCO2 28 MMHG (35-45); ABG PO2 85 MMHG (79-93); ABG TCO2 14.5 MMOL/L (21.0-31.0)
[2021-02-28 05:20] LABS: MAGNESIUM 2.3 MG/DL (1.6-2.4)
[2021-02-28 05:23] LABS: ALLENS TEST YES-POS; INSPIRED O2 21%; PATIENT TEMP 38; VENTILATOR YES
[2021-02-28 05:24] LABS: ABG PH 7.31 (7.37-7.43)
[2021-02-28 05:32] LABS: VANCOMYCIN,TROUGH 20.1 UG/ML (10.0-20.0)
[2021-02-28] MEDS: PROPOFOL DRIP (ICU) 100 ML IV SCH ×2 (06:39→14:16)
[2021-02-28] MEDS: fentaNYL DRIP PRE-MIX 250 ML IV SCH ×2 (07:30→14:16)
--- NOTE | 2021-02-28 07:49 | Diagnostic Imaging Report ---
INDICATION: Respiratory failure. Compared with exam 02/25. FINDINGS: Right basilar atelectasis has resolved. ET tube mid trachea. Right IJ at the cavoatrial junction. OG extends into the stomach. No effusion or pneumothorax. IMPRESSION: Clearance of the right lung base. No focal infiltrate, effusion or pneumothorax. No adverse development. Dictated by: Dictated on workstation # [id number]
[2021-02-28] MEDS ORDERED: HOLD METFORMIN - RECEIVED CONTRAST 20 ML VIAL IV SCH (08:00)
[2021-02-28] MEDS ORDERED: NS 100 ML (IVPB) BAG IV ONE (08:00)
[2021-02-28] MEDS ORDERED: IOHEXOL 350 MG/ML 100 ML (OMNIPAQUE 350) VIAL IV ONE (08:00)
[2021-02-28 08:16] VITALS: BP 98/62
[2021-02-28] MEDS ORDERED: VANCOMYCIN 1 GM/NS 250 ML IVPB IV SCH ×2 (09:00)
[2021-02-28] MEDS: PANTOPRAZOLE 40 MG (PROTONIX) VIAL IV SCH (10:45)
[2021-02-28] MEDS: VASOPRESSIN INJECTION 20 UNIT in NS (IVPB) 100 ML IV SCH (10:45)
--- NOTE | 2021-02-28 10:50 | Progress Note ---
Subjective Date Seen by a Provider: Feb 28, 2021 Time Seen by a Provider: 10:00 Subjective/Events-last exam on vent/sedated. does respond to pain. currently on 2 vasopressors to maintain MAP. no septic source extr stump nor perineum. Focused Exam Lactate Level 02/26/21 17:15: Lactic Acid Level 2.63*H 02/27/21 03:15: Lactic Acid Level 2.23*H 02/27/21 08:40: Lactic Acid Level 1.45 Objective Exam Vital Signs Date Time Temp Pulse Resp B/P (MAP) Pulse Ox O2 Delivery O2 Flow Rate FiO2 02/28/21 08:16 103 21 100 21 02/28/21 08:00 37.6 112 21 92/60 99 Mechanical Ventilator 21.00 02/28/21 07:14 114 02/28/21 07:00 37.6 112 14 100 Mechanical Ventilator 21.00 02/28/21 06:39 111 02/28/21 06:00 37.9 106 18 115/68 100 Mechanical Ventilator 21.00 02/28/21 05:00 37.9 107 18 105/62 100 Mechanical Ventilator 21.00 02/28/21 04:50 37.9 109 18 100 Mechanical Ventilator 21.00 02/28/21 04:00 38 110 18 106/63 100 Mechanical Ventilator 25.00 02/28/21 04:00 99 Mechanical Ventilator 21 02/28/21 03:00 38 108 18 101/64 100 Mechanical Ventilator 25.00 02/28/21 02:53 111 93/69 02/28/21 02:15 107 21 100 21 02/28/21 02:00 38 107 18 99/62 100 Mechanical Ventilator 25.00 02/28/21 01:00 107 02/28/21 01:00 38 107 18 105/69 100 Mechanical Ventilator 25.00 02/28/21 00:00 99 Mechanical Ventilator 21 02/28/21 00:00 38 107 18 99/61 100 Mechanical Ventilator 25.00 02/27/21 23:00 38 107 18 95/61 100 Mechanical Ventilator 25.00 02/27/21 22:26 106 99/63 02/27/21 22:06 106 19 100 21 02/27/21 22:00 38 106 18 91/67 100 Mechanical Ventilator 25.00 02/27/21 21:00 38 107 18 103/64 100 Mechanical Ventilator 25.00 02/27/21 20:29 108 96/65 02/27/21 20:28 108 96/65 02/27/21 20:12 38.2 02/27/21 20:00 38.1 105 18 101/64 100 Mechanical Ventilator 25.00 02/27/21 20:00 99 Mechanical Ventilator 21 02/27/21 19:05 96 19 98 25 02/27/21 19:00 111 02/27/21 19:00 38.1 111 18 103/69 100 Mechanical Ventilator 25.00 02/27/21 18:00 37.9 111 20 113/68 99 Mechanical Ventilator 25.00 02/27/21 17:00 37.7 108 12 126/72 99 Mechanical Ventilator 25.00 02/27/21 16:00 97 Mechanical Ventilator 25 02/27/21 16:00 37.6 02/27/21 16:00 37.6 102 24 106/66 98 Mechanical Ventilator 25.00 02/27/21 15:00 37.5 97 16 85/58 97 Mechanical Ventilator 25.00 02/27/21 14:51 97 82/56 02/27/21 14:30 97 19 96 25 02/27/21 14:00 37.6 99 16 106/77 96 Mechanical Ventilator 25.00 02/27/21 13:00 37.6 101 16 111/64 97 Mechanical Ventilator 25.00 02/27/21 12:53 100 02/27/21 12:00 99 Mechanical Ventilator 30 02/27/21 12:00 37.6 101 15 117/69 96 Mechanical Ventilator 25.00 02/27/21 11:29 103 02/27/21 11:28 103 02/27/21 11:27 103 02/27/21 11:00 37.7 102 15 115/66 95 Mechanical Ventilator 25.00 I & O 02/28/21 07:00 Intake Total 1801 ml Output Total 750 ml Balance 1051 ml Capillary Refill : General Appearance: No Apparent Distress HEENT: TMs Normal Neck: Full Range of Motion Respiratory: Decreased Breath Sounds, Wheezing Cardiovascular: Regular Rate, Rhythm Gastrointestinal: normal bowel sounds, non tender, soft Extremity: Slow Capillary Refill Neurologic/Psychiatric: Other (on vent/sedated) Skin: Normal Color Lymphatic: No Adenopathy Results Lab Laboratory Tests 02/27/21 14:52: Glucometer 164H 02/27/21 15:56: Glucometer 142H 02/27/21 19:39: Glucometer 139H 02/27/21 23:44: Glucometer 155H 02/28/21 04:11: Glucometer 169H 02/28/21 04:50: White Blood Count 14.1H, Red Blood Count 3.28L, Hemoglobin 8.9L, Hematocrit 29L, Mean Corpuscular Volume 88, Mean Corpuscular Hemoglobin 27, Mean Corpuscular Hemoglobin Concent 31L, Red Cell Distribution Width 15.9H, Platelet Count 274, Mean Platelet Volume 11.2, Immature Granulocyte % (Auto) 0, Neutrophils (%) (Auto) 85H, Lymphocytes (%) (Auto) 8L, Monocytes (%) (Auto) 6, Eosinophils (%) (Auto) 0, Basophils (%) (Auto) 1, Neutrophils # (Auto) 12.0H, Lymphocytes # (Aut o) 1.2, Monocytes # (Auto) 0.8, Eosinophils # (Auto) 0.0, Basophils # (Auto) 0.1, Immature Granulocyte # (Auto) 0.0, Sodium Level 138, Potassium Level 5.0, Chloride Level 108H, Carbon Dioxide Level 12L, Anion Gap 18H, Blood Urea Nitrogen 39H, Creatinine 1.13, Estimat Glomerular Filtration Rate 74, B UN/Creatinine Ratio 35, Glucose Level 197H, Calcium Level 7.3L, Corrected Calcium 8.8, Phosphorus Level 4.8H, Magnesium Level 2.3, Total Bilirubin 0.7, Aspartate Amino Transf (AST/SGOT) 42H, Alanine Aminotransferase (ALT/SGPT) 26, Alkaline Phosphatase 95, Total Protein 5.1L, Albumin 2.1L, Procalcitonin 39.51H, Vancomycin Level Trough 20.1H 02/28/21 05:11: Blood Gas Puncture Site LT RAD, Blood Gas Patient Temperature 38, Arterial Blood pH 7.31*L, Arterial Blood Partial Pressure CO2 28L, Arterial Blood Partial Pressure O2 85, Arterial Blood HCO3 14*L, Arterial Blood Total CO2 14.5L, Arterial Blood Oxygen Saturation 96, Arterial Blood Base Excess -11.4L, Bryce Test YES-POS, Blood Gas Ventilator Setting YES, Blood Gas Inspired Oxygen 21% 02/28/21 09:27: Glucometer 182H Microbiology 02/27/21 Urine Culture - Preliminary, Resulted YEAST 1/16/22 MRSA Screen - Final, Complete MRSA not isolated 02/25/21 Blood Culture - Preliminary, Resulted No growth Assessment/Plan Assessment/Plan Assess & Plan/Chief Complaint dehydratiion, cardiorespiratory failure, hypothermia. cont fluids and cardiac support. cont vent ween. no surgical issue at this time. MINDY WALKER MD Feb 28, 2021 10:50
[2021-02-28 11:14] VITALS: BP 102/66
--- NOTE | 2021-02-28 11:31 | Diagnostic Imaging Report ---
PROCEDURE: CT left lower extremity with contrast. TECHNIQUE: Multiple axial images of the left lower extremity were obtained after intravenous administration of iodinated contrast. Auto Exposure Controls were utilized during the CT exam to meet ALARA standards for radiation dose reduction. INDICATION: Recent [id number] amputation. Infection in the left femur. COMPARISON: None. FINDINGS: Images include the left femur from the hip down to the knee, with the medial femoral condyle incompletely included. No acute fracture is seen. No cortical erosion or periosteal reaction is identified to suggest an osteomyelitis. Imaged portions of the pelvis and right femur are unremarkable. There is moderate generalized anasarca, with significant fluid at the scrotum. There is generalized muscular atrophy. There is a small left knee joint effusion. No rim-enhancing fluid collections are seen. No soft tissue gas is seen. There is atherosclerosis. A lead is noted at the rectum. There is moderate stool in the rectum. A Graf catheter is present. IMPRESSION: 1. Generalized anasarca, with moderate fluid at the scrotum. No rim-enhancing fluid collections. No soft tissue gas. 2. No acute osseous abnormality in the left femur. 3. Small left knee joint effusion. 4. Moderate stool in the rectum. Dictated by: Dictated on workstation # [id number]
--- NOTE | 2021-02-28 11:45 | Diagnostic Imaging Report ---
PROCEDURE: CT abdomen and pelvis with contrast. TECHNIQUE: Multiple contiguous axial images were obtained through the abdomen and pelvis after administration of intravenous contrast. Auto Exposure Controls were utilized during the CT exam to meet ALARA standards for radiation dose reduction. All CT scans use one or more of the following dose optimizing techniques: automated exposure control, MA and/or KvP adjustment based on patient size and exam type or iterative reconstruction. INDICATION: Abdominal distention. COMPARISON: No priors. FINDINGS: There is formed as well as liquid stool in the proximal through mid colon with gas distention of the transverse colon. There is a large amount of dense stool throughout the rectosigmoid colon. Rectal vault distended to 6.5 cm. Sigmoid distended to 7.3 cm. The rectal wall is mildly thickened and there is some very slight stranding of the perirectal fat. There are postsurgical changes to the rectum. The perirectal infiltration may be scarring on a chronic postsurgical basis or reflect mild proctitis. No abscess or perforation and the small bowel is nondilated and unobstructed. There are tiny right and small left pleural effusions, nonloculated. There is a small-volume perihepatic ascites. No significant pelvic free fluid. The urinary bladder is catheterized, limiting its evaluation. Its wall may be thickened. The kidneys themselves are unobstructed, nonfocal, and nonacute. The gallbladder is distended with no radiopaque intraluminal stone. No bile duct dilatation. The pancreas is unremarkable. The spleen and adrenals are negative. The kidneys are unobstructed. IMPRESSION: 1. Rectosigmoidal constipation, impaction suggested. There is mild thickening of the rectal wall. Proctitis could not be excluded but no abscess or perforation. No small bowel dilatation. 2. Small-volume perihepatic ascites with gallbladder distention. No radiopaque biliary calculus or ductal dilatation. 3. Small pleural effusions. Unobstructed kidneys. Catheterized urinary bladder. Dictated by: Dictated on workstation # [id number]
--- NOTE | 2021-02-28 12:20 | Tele-ICU Progress Note ---
Subjective Date Seen by a Provider: Feb 28, 2021 Time Seen by a Provider: 10:55 Sepsis Event Evaluation Height, Weight, BMI Height: '" Weight: lbs. oz. kg; 22.66 BMI Method: Focused Exam Lactate Level 02/26/21 17:15: Lactic Acid Level 2.63*H 02/27/21 03:15: Lactic Acid Level 2.23*H 02/27/21 08:40: Lactic Acid Level 1.45 Exam Exam Patient acknowledged, consented, and participated in this virtual visit which was conducted using real time audio/video Vital Signs Date Time Temp Pulse Resp B/P (MAP) Pulse Ox O2 Delivery O2 Flow Rate FiO2 02/28/21 11:14 102 21 100 21 02/28/21 10:46 105 77/52 02/28/21 10:45 105 02/28/21 08:16 103 21 100 21 02/28/21 08:00 37.6 112 21 92/60 99 Mechanical Ventilator 21.00 02/28/21 07:14 114 02/28/21 07:00 37.6 112 14 100 Mechanical Ventilator 21.00 02/28/21 06:39 111 02/28/21 06:00 37.9 106 18 115/68 100 Mechanical Ventilator 21.00 02/28/21 05:00 37.9 107 18 105/62 100 Mechanical Ventilator 21.00 02/28/21 04:50 37.9 109 18 100 Mechanical Ventilator 21.00 02/28/21 04:00 38 110 18 106/63 100 Mechanical Ventilator 25.00 02/28/21 04:00 99 Mechanical Ventilator 21 02/28/21 03:00 38 108 18 101/64 100 Mechanical Ventilator 25.00 02/28/21 02:53 111 93/69 02/28/21 02:15 107 21 100 21 02/28/21 02:00 38 107 18 99/62 100 Mechanical Ventilator 25.00 02/28/21 01:00 107 02/28/21 01:00 38 107 18 105/69 100 Mechanical Ventilator 25.00 02/28/21 00:00 99 Mechanical Ventilator 21 02/28/21 00:00 38 107 18 99/61 100 Mechanical Ventilator 25.00 02/27/21 23:00 38 107 18 95/61 100 Mechanical Ventilator 25.00 02/27/21 22:26 106 99/63 02/27/21 22:06 106 19 100 21 02/27/21 22:00 38 106 18 91/67 100 Mechanical Ventilator 25.00 02/27/21 21:00 38 107 18 103/64 100 Mechanical Ventilator 25.00 02/27/21 20:29 108 96/65 02/27/21 20:28 108 96/65 02/27/21 20:12 38.2 02/27/21 20:00 38.1 105 18 101/64 100 Mechanical Ventilator 25.00 02/27/21 20:00 99 Mechanical Ventilator 21 02/27/21 19:05 96 19 98 25 02/27/21 19:00 111 02/27/21 19:00 38.1 111 18 103/69 100 Mechanical Ventilator 25.00 02/27/21 18:00 37.9 111 20 113/68 99 Mechanical Ventilator 25.00 02/27/21 17:00 37.7 108 12 126/72 99 Mechanical Ventilator 25.00 02/27/21 16:00 97 Mechanical Ventilator 25 02/27/21 16:00 37.6 02/27/21 16:00 37.6 102 24 106/66 98 Mechanical Ventilator 25.00 02/27/21 15:00 37.5 97 16 85/58 97 Mechanical Ventilator 25.00 02/27/21 14:51 97 82/56 02/27/21 14:30 97 19 96 25 02/27/21 14:00 37.6 99 16 106/77 96 Mechanical Ventilator 25.00 02/27/21 13:00 37.6 101 16 111/64 97 Mechanical Ventilator 25.00 02/27/21 12:53 100 I & O 02/28/21 07:00 Intake Total 1801 ml Output Total 750 ml Balance 1051 ml Height & Weight Height: '" Weight: lbs. oz. kg; 22.66 BMI Method: General Appearance: No Apparent Distress HEENT: TMs Normal Neck: Full Range of Motion Respiratory: Decreased Breath Sounds, Wheezing Cardiovascular: Regular Rate, Rhythm Gastrointestinal: normal bowel sounds, non tender, soft Extremity: Slow Capillary Refill Neurologic/Psychiatric: Other (on vent/sedated) Skin: Normal Color Lymphatic: No Adenopathy Results Lab Laboratory Tests 02/27/21 03:15 02/28/21 04:50 Assessment/Plan Assessment/Plan Tele-ICU Physician , Progress Note ) Available chart/ vitals / labs / Images reviewed Video assessment done using teleICU camera, rest of exam as per RN Discussed with RN , EXAM PER RN Events overnight : Afebrile FiO2 - I/O = Drips: LR 125 Pressors: levo vaso , hemodynamically stable Consultants: sx Hospital course: 02/26 - ETT , septic shock A/P Acute resp failure - intubated 02/26 - ac 21 % SHock , septic - on vasopressors x2 - try to wean , OFF epi - stress dose of steroids 100 q 8 - decrease 02/28 - CT abd/pelvis and leg 02/28 PENDING - CONSIDER ECHO IF NOT IMPROVING UTI ? other sourse - cont abx -Vancomycin and Merrem Recent left BKA - sx follow Unresponsive at home , unknown downtime time Lines : ij R (Central Line Necessity Reviewed) Graf: + OG: + Nutrition: NPO Analgesia: Anxiety/ delirium FENTANYL , PROPOFOL VTE Prophylaxis: PRITESH 40 Stress Ulcer Prophylaxis: Plans in collaboration with bedside consultants and IM MDs. Discussed with RN to reach out if any questions or concerns A total of 31 minutes of critical care time was devoted to this patient today, required to treat and/or prevent further deterioration of critical care condition ( as above) . JOSE SINGH MD Feb 28, 2021 12:20
--- NOTE | 2021-02-28 13:18 | Progress Note - Hospitalist ---
CINDI TOVAR MED STUDENT 02/28/21 1318: Subjective HPI/CC On Admission Date Seen by Provider: Feb 28, 2021 Time Seen by Provider: 08:15 Chief complaint: Acute respiratory failure due to severe sepsis/septic shock History of present illness: This is a 61-year-old white male known to me from recent discharge on Saturday from inpatient rehab following recovery from left BKA who was predicted to have a poor prognosis who presented to the ER with hypothermia and bradycardia. Patient was assessed to be in acute respiratory failure and septic shock from source unknown but it is presumed from left buttock carbuncle we had placed him on Augmentin by Dr. WALKER prior to discharge. His lactic acid was 10. Central line was placed and patient was intubated. OG tube and Graf catheter in place. Aggressive IV fluid initiated and lactic acid has improved. Very poor prognosis predicted. Subjective/Events-last exam Pt remains intubated and sedated. Spoke with nurse who states he has been breathing over his ventilator, so sedation was increased. Focused Exam Lactate Level 02/26/21 17:15: Lactic Acid Level 2.63*H 02/27/21 03:15: Lactic Acid Level 2.23*H 02/27/21 08:40: Lactic Acid Level 1.45 Objective Exam Vital Signs Vital Signs Date Time Temp Pulse Resp B/P (MAP) Pulse Ox O2 Delivery O2 Flow Rate FiO2 02/28/21 12:00 37.1 99 16 108/65 99 Mechanical Ventilator 21.00 02/28/21 11:14 21 Capillary Refill : Respiratory: Crackles, Other (Intubated) Cardiovascular: No Murmur, Tachycardia Gastrointestinal: Other (Hypoactive bowel sounds) Extremity: Other (Left BKA without erythema or edema) Neurologic/Psychiatric: Other (Intubated and sedated) Skin: Normal Color, Warm/Dry Results/Procedures Lab Laboratory Tests 02/28/21 04:50 Patient resulted labs reviewed. Imaging: Reviewed Imaging Report Assessment/Plan Assessment and Plan Assess & Plan/Chief Complaint Acute respiratory failure Endotracheal intubation Septic Shock Pneumonia UTI Lactic acidosis Poor prognosis Anemia Recent Left BKA Hx of stroke within last 6 months T2DM Acute respiratory failure with endotracheal intubation -Intubated, saturation at 100% with flow rate at 21 Septic Shock -Currently on Levophed, epinephrine and vasopressin with BP at 92/60 -Tried to decrease levophed, but BP dropped -Vanc & Meropenem for broad spectrum coverage -Procalcitonin increased -CT abd/pelvis/LE done and revealed no source of infection Pneumonia -Vanc and Meropenem UTI Lactic acidosis -Improved Poor prognosis -Will discuss prognosis with family as pt is not likely to make it through the week. Normocytic Anemia -H&H 8.9 and 29 -Likely dilutional Recent Left BKA -no gross sign of infection, CT showed no abscess Hx of stroke within last 6 months T2DM -SSI DANY VILLA MD 02/28/21 1841: Subjective HPI/CC On Admission Time Seen by Provider: 09:25 Objective Exam General Appearance: No Apparent Distress, Chronically ill Respiratory: Lungs Clear, Other (intubated and mechanically ventilated) Cardiovascular: No Murmur, Tachycardia Gastrointestinal: Normal Bowel Sounds, Soft Extremity: Other (left BKA, incision clean/dry/intact) Neurologic/Psychiatric: Other (sedated) Skin: Cool, Pallor Results/Procedures Imaging: Reviewed Imaging Films, Reviewed Imaging Report Assessment/Plan Assessment and Plan Assess & Plan/Chief Complaint Critically ill. Septic shock on multiple pressors worsening despite broad spectrum antibiotic therapy. CT abdomen/pelvis/lower extremity without evidence of infectious source. Tenuous status with poor prognosis. Critical Care: Critically Ill Patient Diagnosis/Problems Diagnosis/Problems (1) Septic shock Status: Acute (2) Poor prognosis Status: Acute (3) T2DM (type 2 diabetes mellitus) Status: Acute (4) History of left below knee amputation Status: Chronic (5) History of stroke Status: Chronic Supervisory-Addendum Brief Verification & Attestation Participated in pt care: history, MDM, physical Personally performed: exam, history, MDM, supervision of care Care discussed with: Medical Student Procedures: n/a Results interpretation: Verified all documentation A medical student performed and documented this service in my presence. I reviewed and verified all information documented by the medical student and made modifications to such information, when appropriate. I personally performed the physical exam and medical decision making. CINDI TOVAR MED STUDENT Feb 28, 2021 13:18 DANY VILLA MD Feb 28, 2021 18:41
[2021-02-28 16:24] VITALS: BP 110/67
--- NOTE | 2021-02-28 18:31 | Diagnostic Imaging Report ---
PROCEDURE: CT head without contrast. TECHNIQUE: Multiple contiguous axial images were obtained through the brain without the use of intravenous contrast. Auto Exposure Controls were utilized during the CT exam to meet ALARA standards for radiation dose reduction. INDICATION: Respiratory failure and septic shock. No prior studies are available for comparison. Ventricles and sulci are within normal limits. No sulcal effacement or midline shift is identified. No acute intra-axial or extra-axial hemorrhage is detected. Cisterns are patent. Visualized paranasal sinuses are clear. IMPRESSION: No acute intracranial process is detected. Dictated by: Dictated on workstation # [id number]
[2021-02-28 18:32] VITALS: BP 110/67
[2021-02-28] MEDS: ENOXAPARIN 40 MG/0.4 ML (LOVENOX) SYR SC SCH (21:09)
[2021-02-28 22:32] VITALS: BP 105/66
[2021-03-01] MEDS: inSUlin ASPART (NovoLOG) 1 UNIT/0.01 ML (CHARGE PER UNIT) SC SCH ×7 (00:20→23:53)
[2021-03-01] MEDS: LACTATED RINGERS 1,000 ML IV SCH ×4 (00:20→17:07)
[2021-03-01 01:50] VITALS: BP 89/56
[2021-03-01] MEDS: MEROPENEM 500 MG/NS 100 ML IVPB IV SCH ×8 (03:36→21:00)
[2021-03-01] MEDS: HYDROCORTISONE 100 MG/2 ML (Solu-CORTEF) VIAL IV SCH ×3 (03:36→20:59)
[2021-03-01] MEDS: NOREPINEPHRINE 8 MG/250 ML 250 ML IV SCH ×2 (03:37→17:07)
[2021-03-01 03:55] LABS: BASOPHILS # (AUTO) 0.1 10^3/uL (0.0-0.1); BASOPHILS % (AUTO) 1 % (0-10); EOSINOPHILS % (AUTO) 0 % (0-10); HEMATOCRIT 28 % (40-54); HEMOGLOBIN 8.7 g/dL (13.3-17.7); LYMPHOCYTES # (AUTO) 0.5 10^3/uL (1.0-4.0); LYMPHOCYTES % (AUTO) 5 % (12-44); MEAN CORPUSCULAR HEMOGLOBIN 27 pg (25-34); MEAN CORPUSCULAR HGB CONC 32 g/dL (32-36); MEAN CORPUSCULAR VOLUME 86 fL (80-99); MEAN PLATELET VOLUME 11.1 fL (9.0-12.2); MONOCYTES # (AUTO) 0.5 10^3/uL (0.0-1.0); MONOCYTES % (AUTO) 5 % (0-12); NEUTROPHILS # (AUTO) 7.9 10^3/uL (1.8-7.8); NEUTROPHILS % (AUTO) 86 % (42-75); PLATELET COUNT 197 10^3/uL (130-400); WHITE BLOOD COUNT 9.2 10^3/uL (4.3-11.0)
[2021-03-01 03:56] LABS: ABG BASE EXCESS -6.9 MMOL/L (-2.5-2.5); ABG OXYGEN SATURATION 97 % (94-100); ABG PCO2 34 MMHG (35-45); ABG PO2 93 MMHG (79-93); ABG TCO2 18.8 MMOL/L (21.0-31.0)
[2021-03-01 03:57] LABS: ALLENS TEST YES-POS; INSPIRED O2 21%; VENTILATOR YES
[2021-03-01 03:58] LABS: ABG PH 7.34 (7.37-7.43); PATIENT TEMP 37.1
[2021-03-01 04:11] LABS: ALBUMIN 2.1 GM/DL (3.2-4.5); POTASSIUM 4.2 MMOL/L (3.6-5.0)
[2021-03-01 04:14] LABS: TOTAL PROTEIN 4.8 GM/DL (6.4-8.2)
[2021-03-01 04:15] LABS: BILIRUBIN,TOTAL 0.5 MG/DL (0.1-1.0)
[2021-03-01 04:17] LABS: CREATININE SERUM 0.74 MG/DL (0.60-1.30); PHOSPHORUS 3.3 MG/DL (2.3-4.7)
[2021-03-01 04:20] LABS: MAGNESIUM 2.1 MG/DL (1.6-2.4)
[2021-03-01] MEDS: VASOPRESSIN INJECTION 20 UNIT in NS (IVPB) 100 ML IV SCH ×3 (05:51→22:42)
[2021-03-01 06:51] VITALS: BP 109/63
--- NOTE | 2021-03-01 07:32 | Diagnostic Imaging Report ---
INDICATION: Respiratory distress. Comparison with 02/29/2020. FINDINGS: ET tube, NG tube and right jugular line remain in good position. There is mild atelectasis in the left lung base. Lungs are otherwise clear. Heart is not enlarged. No pulmonary edema. No pneumothorax or pleural effusion. IMPRESSION: Tubes and lines remain in good position. Development of mild left basilar atelectasis. Dictated by: Dictated on workstation # [id number]
[2021-03-01] MEDS: PANTOPRAZOLE 40 MG (PROTONIX) VIAL IV SCH (08:46)
--- NOTE | 2021-03-01 09:00 | Progress Note - Hospitalist ---
CINDI TOVAR MED STUDENT 03/01/21 0900: Subjective HPI/CC On Admission Date Seen by Provider: Mar 01, 2021 Time Seen by Provider: 08:15 Chief complaint: Acute respiratory failure due to severe sepsis/septic shock History of present illness: This is a 61-year-old white male known to me from recent discharge on Saturday from inpatient rehab following recovery from left BKA who was predicted to have a poor prognosis who presented to the ER with hypothermia and bradycardia. Patient was assessed to be in acute respiratory failure and septic shock from source unknown but it is presumed from left buttock carbuncle we had placed him on Augmentin by Dr. WALKER prior to discharge. His lactic acid was 10. Central line was placed and patient was intubated. OG tube and Graf catheter in place. Aggressive IV fluid initiated and lactic acid has improved. Very poor prognosis predicted. Subjective/Events-last exam Pt's sedation was decreased this morning during exam. 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 Focused Exam Lactate Level 02/26/21 17:15: Lactic Acid Level 2.63*H 02/27/21 03:15: Lactic Acid Level 2.23*H 02/27/21 08:40: Lactic Acid Level 1.45 Objective Exam Vital Signs Vital Signs Date Time Temp Pulse Resp B/P (MAP) Pulse Ox O2 Delivery O2 Flow Rate FiO2 03/01/21 10:34 105 17 100 21 03/01/21 10:00 37.2 129/76 Mechanical Ventilator 21.00 Capillary Refill : General Appearance: Chronically ill, Thin Respiratory: Crackles Cardiovascular: No Murmur, Tachycardia Gastrointestinal: Abnormal Bowel Sounds (Hypoactive) Back: Other (purpura present on back and buttock bilaterally) Extremity: Pedal Edema (R mild non pitting edema), Other (Left BKA wound dressed) Neurologic/Psychiatric: Other (Intubated, but conscious with eyes open and blinking, grimacing) Skin: Normal Color, Warm/Dry Results/Procedures Lab Laboratory Tests 03/01/21 03:40 Patient resulted labs reviewed. Imaging: Reviewed Imaging Films, Reviewed Imaging Report Assessment/Plan Assessment and Plan Assess & Plan/Chief Complaint Acute respiratory failure Endotracheal intubation Septic Shock Pneumonia UTI Lactic acidosis Poor prognosis Anemia Recent Left BKA Hx of stroke within last 6 months T2DM Acute respiratory failure with endotracheal intubation -Intubated, saturation at 100% with flow rate at 21 -CXR showed mild left basilar atelectasis -CT head show no acute intracranial process Septic Shock -Leukocytosis resolved -Currently on Levophed, epinephrine and vasopressin with BP stable -Decreasing levophed and BP has remained stable -Vanc & Meropenem for broad spectrum coverage -Procalcitonin decreased from yesterday -CT abd/pelvis/LE done and revealed no source of infection yesterday Pneumonia -Vanc and Meropenem UTI -Culture indicated no sign of infection Lactic acidosis -Improved Poor prognosis -Improving as pt requires less pressors for adequate BP control and is able to track and follow commands when sedation is lifted Normocytic Anemia -H&H 8.7 and 28, decreased from yesterday -Likely dilutional Recent Left BKA -no gross sign of infection, CT showed no abscess Hx of stroke within last 6 months T2DM -SSI DANY VILLA MD 03/01/21 1551: Subjective HPI/CC On Admission Time Seen by Provider: 09:05 Assessment/Plan Assessment and Plan Assess & Plan/Chief Complaint Remains in septic shock. Pressor requirement improved. Sedation weaned and able to follow commands this morning. Cultures remain negative, no evidence of MRSA infection, stop Vancomycin. Continue Merrem. Prognosis remains poor, though slightly improved. Critical Care: Critically Ill Patient Diagnosis/Problems Diagnosis/Problems (1) Septic shock Status: Acute (2) Respiratory failure Status: Acute Qualifiers: Qualified Codes: J96.02 - Acute respiratory failure with hypercapnia (3) History of left below knee amputation Status: Chronic (4) History of stroke Status: Chronic (5) T2DM (type 2 diabetes mellitus) Status: Acute (6) Poor prognosis Status: Acute Supervisory-Addendum Brief Verification & Attestation Participated in pt care: history, MDM, physical Personally performed: exam, history, MDM, supervision of care Care discussed with: Medical Student Procedures: n/a Results interpretation: Verified all documentation A medical student performed and documented this service in my presence. I reviewed and verified all information documented by the medical student and made modifications to such information, when appropriate. I personally performed the physical exam and medical decision making. CINDI TOVAR MED STUDENT Mar 01, 2021 09:00 DANY VILLA MD Mar 01, 2021 15:51
[2021-03-01] MEDS: fentaNYL DRIP PRE-MIX 250 ML IV SCH ×2 (09:05→22:21)
[2021-03-01] MEDS ORDERED: NS IV 1000 ML 1,000 ML IV SCH (09:45)
--- NOTE | 2021-03-01 09:45 | Tele-ICU Progress Note ---
Subjective Date Seen by a Provider: Mar 01, 2021 Time Seen by a Provider: 09:44 Subjective/Events-last exam This patient admitted with septic shock and he is intubated. Currently still requiring Levophed. He is off vasopressin and epinephrine drip. Apparently he is off the sedation but he is not responding much he opens eyes but does not track. He is put on fentanyl drip as patient appears to be in pain per RN. Chest x-ray showed left basilar atelectasis versus pneumonia. 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 He apparently had a recent stroke and peripheral arterial disease. Currently he is reportedly in a DNR status per RN but it has not been changed yet in the computer. Sepsis Event Evaluation Height, Weight, BMI Height: '" Weight: lbs. oz. kg; 22.66 BMI Method: Focused Exam Lactate Level 02/26/21 17:15: Lactic Acid Level 2.63*H 02/27/21 03:15: Lactic Acid Level 2.23*H 02/27/21 08:40: Lactic Acid Level 1.45 Exam Exam Patient acknowledged, consented, and participated in this virtual visit which was conducted using real time audio/video Vital Signs Date Time Temp Pulse Resp B/P (MAP) Pulse Ox O2 Delivery O2 Flow Rate FiO2 03/01/21 08:00 99 Mechanical Ventilator 21 03/01/21 07:00 100 03/01/21 06:51 108 19 100 21 03/01/21 06:00 37.2 106 16 110/66 99 Mechanical Ventilator 21.00 03/01/21 05:00 37.2 109 16 119/69 100 Mechanical Ventilator 21.00 03/01/21 04:00 37.1 109 16 139/79 100 Mechanical Ventilator 21.00 03/01/21 04:00 99 Mechanical Ventilator 21 03/01/21 03:00 37.1 102 16 103/63 99 Mechanical Ventilator 21.00 03/01/21 02:00 37.1 93 16 88/56 99 Mechanical Ventilator 21.00 03/01/21 01:50 93 16 99 21 03/01/21 01:00 37.0 102 16 100/62 99 Mechanical Ventilator 21.00 03/01/21 01:00 102 03/01/21 00:00 37.0 105 16 99/61 99 Mechanical Ventilator 21.00 03/01/21 00:00 99 Mechanical Ventilator 21 02/28/21 23:00 36.9 105 16 118/69 100 Mechanical Ventilator 21.00 02/28/21 22:32 91 18 100 21 02/28/21 22:00 36.9 86 16 103/64 100 Mechanical Ventilator 21.00 02/28/21 21:00 36.9 87 16 102/60 100 Mechanical Ventilator 21.00 02/28/21 20:15 36.9 98 16 98/58 98 Mechanical Ventilator 21.00 02/28/21 20:00 99 Mechanical Ventilator 21 02/28/21 19:00 37.0 103 16 107/63 100 Mechanical Ventilator 21.00 02/28/21 19:00 103 02/28/21 18:32 88 18 100 21 02/28/21 18:00 37.1 92 14 134/75 100 Mechanical Ventilator 21.00 02/28/21 17:00 37.1 83 16 132/77 100 Mechanical Ventilator 21.00 02/28/21 16:24 85 16 100 21 02/28/21 16:00 37.1 83 16 117/71 100 Mechanical Ventilator 21.00 02/28/21 16:00 99 Mechanical Ventilator 21 02/28/21 15:00 37.1 85 16 98/63 100 Mechanical Ventilator 21.00 02/28/21 14:16 87 111/66 02/28/21 14:00 37.1 89 16 110/65 100 Mechanical Ventilator 21.00 02/28/21 13:04 93 02/28/21 13:00 37.1 93 16 112/68 100 Mechanical Ventilator 21.00 02/28/21 12:00 99 Mechanical Ventilator 21 02/28/21 12:00 37.1 99 16 108/65 99 Mechanical Ventilator 21.00 02/28/21 11:14 102 21 100 21 02/28/21 11:00 37.3 106 21 101/63 100 Mechanical Ventilator 21.00 02/28/21 10:46 105 77/52 02/28/21 10:45 105 02/28/21 10:00 37.5 105 12 111/68 100 Mechanical Ventilator 21.00 I & O 03/01/21 07:00 Intake Total 3751 ml Output Total 2000 ml Balance 1751 ml Height & Weight Height: '" Weight: lbs. oz. kg; 22.66 BMI Method: General Appearance: Chronically ill, Thin HEENT: TMs Normal Neck: Full Range of Motion Respiratory: Crackles Cardiovascular: No Murmur, Tachycardia Gastrointestinal: normal bowel sounds, non tender, soft Extremity: Pedal Edema (R mild non pitting edema), Other (Left BKA wound dressed) Neurologic/Psychiatric: Other (Intubated, but conscious with eyes open and blinking, grimacing) Skin: Normal Color, Warm/Dry Lymphatic: No Adenopathy Other comments PE PER RN Results Lab Laboratory Tests 02/28/21 04:50 03/01/21 03:40 Assessment/Plan Assessment/Plan 1. Acute hypoxic respiratory failure requiring mechanical ventilation. 2. Septic shock possibly from pneumonia 3. Status post left BKA 4. History of CVA and peripheral arterial disease. Recommendations 1. We will give additional saline bolus as well as IV albumin 2. We will optimize blood pressure 3. Minimize sedation as much as possible 4. Antibiotics per primary care 5. Continue monitor electrolytes and hemoglobin. 6. Monitor his mental status. Critical Care: Ventilator Management TIN ANTHONY MD Mar 01, 2021 09:45
[2021-03-01] MEDS: ALBUMIN 25% 25 GM/100 ML 100 ML IV SCH ×4 (10:09→18:52)
[2021-03-01 10:34] VITALS: BP 137/78
--- NOTE | 2021-03-01 12:41 | Progress Note ---
Subjective Date Seen by a Provider: Mar 01, 2021 Time Seen by a Provider: 12:00 Subjective/Events-last exam on vent/sedated. minimal responsiveness. on levo gtt. shock maybe from pneumonia Focused Exam Lactate Level 02/26/21 17:15: Lactic Acid Level 2.63*H 02/27/21 03:15: Lactic Acid Level 2.23*H 02/27/21 08:40: Lactic Acid Level 1.45 Objective Exam Vital Signs Date Time Temp Pulse Resp B/P (MAP) Pulse Ox O2 Delivery O2 Flow Rate FiO2 03/01/21 10:34 105 17 100 21 03/01/21 10:00 37.2 106 16 129/76 100 Mechanical Ventilator 21.00 03/01/21 09:00 37.4 105 13 120/72 100 Mechanical Ventilator 21.00 03/01/21 08:00 99 Mechanical Ventilator 21 03/01/21 08:00 37.3 108 19 117/66 100 Mechanical Ventilator 21.00 03/01/21 07:00 100 03/01/21 07:00 37.3 105 23 128/73 99 Mechanical Ventilator 21.00 03/01/21 06:51 108 19 100 21 03/01/21 06:00 37.2 106 16 110/66 99 Mechanical Ventilator 21.00 03/01/21 05:00 37.2 109 16 119/69 100 Mechanical Ventilator 21.00 03/01/21 04:00 37.1 109 16 139/79 100 Mechanical Ventilator 21.00 03/01/21 04:00 99 Mechanical Ventilator 21 03/01/21 03:00 37.1 102 16 103/63 99 Mechanical Ventilator 21.00 03/01/21 02:00 37.1 93 16 88/56 99 Mechanical Ventilator 21.00 03/01/21 01:50 93 16 99 21 03/01/21 01:00 37.0 102 16 100/62 99 Mechanical Ventilator 21.00 03/01/21 01:00 102 03/01/21 00:00 37.0 105 16 99/61 99 Mechanical Ventilator 21.00 03/01/21 00:00 99 Mechanical Ventilator 21 02/28/21 23:00 36.9 105 16 118/69 100 Mechanical Ventilator 21.00 02/28/21 22:32 91 18 100 21 02/28/21 22:00 36.9 86 16 103/64 100 Mechanical Ventilator 21.00 02/28/21 21:00 36.9 87 16 102/60 100 Mechanical Ventilator 21.00 02/28/21 20:15 36.9 98 16 98/58 98 Mechanical Ventilator 21.00 02/28/21 20:00 99 Mechanical Ventilator 21 02/28/21 19:00 37.0 103 16 107/63 100 Mechanical Ventilator 21.00 02/28/21 19:00 103 02/28/21 18:32 88 18 100 21 02/28/21 18:00 37.1 92 14 134/75 100 Mechanical Ventilator 21.00 02/28/21 17:00 37.1 83 16 132/77 100 Mechanical Ventilator 21.00 02/28/21 16:24 85 16 100 21 02/28/21 16:00 37.1 83 16 117/71 100 Mechanical Ventilator 21.00 02/28/21 16:00 99 Mechanical Ventilator 21 02/28/21 15:00 37.1 85 16 98/63 100 Mechanical Ventilator 21.00 02/28/21 14:16 87 111/66 02/28/21 14:00 37.1 89 16 110/65 100 Mechanical Ventilator 21.00 02/28/21 13:04 93 02/28/21 13:00 37.1 93 16 112/68 100 Mechanical Ventilator 21.00 I & O 03/01/21 07:00 Intake Total 3751 ml Output Total 2000 ml Balance 1751 ml Capillary Refill : General Appearance: No Apparent Distress HEENT: TMs Normal Neck: Full Range of Motion Respiratory: Rhonci, Wheezing Cardiovascular: Regular Rate, Rhythm Gastrointestinal: normal bowel sounds, non tender, soft Extremity: Slow Capillary Refill Neurologic/Psychiatric: Other (vent/sedated, some response to painful stimuli) Skin: Normal Color Lymphatic: No Adenopathy Results Lab Laboratory Tests 02/28/21 20:44: Glucometer 123H 03/01/21 00:20: Glucometer 136H 03/01/21 03:40: White Blood Count 9.2, Red Blood Count 3.19L, Hemoglobin 8.7L, Hematocrit 28L, Mean Corpuscular Volume 86, Mean Corpuscular Hemoglobin 27, Mean Corpuscular Hemoglobin Concent 32, Red Cell Distribution Width 16.1H, Platelet Count 197, Mean Platelet Volume 11.1, Immature Granulocyte % (Auto) 4, Neutrophils (%) (Auto) 86H, Lymphocytes (%) (Auto) 5L, Monocytes (%) (Auto) 5, Eosinophils (%) (Auto) 0, Basophils (%) (Auto) 1, Neutrophils # (Auto) 7.9H, Lymphocytes # (Auto) 0.5L, Monocytes # (Auto) 0.5, Eosinophils # (Auto) 0.0, Basophils # (Auto) 0.1, Immature Granulocyte # (Auto) 0.3H, Blood Gas Puncture Site RIGHT RADIAL, Blood Gas Patient Temperature 37.1, Arterial Blood pH 7.34*L, Arterial Blood Partial Pressure CO2 34L, Arterial Blood Partial Pressure O2 93, Arterial Blood HCO3 18L, Arterial Blood Total CO2 18.8L, Arterial Blood Oxygen Saturation 97, Arterial Blood Base Excess -6.9L, Bryce Test YES-POS, Blood Gas Ventilator Setting YES, Blood Gas Inspired Oxygen 21%, Sodium Level 138, Potassium Level 4.2, Chloride Level 112H, Carbon Dioxide Level 15L, Anion Gap 11, Blood Urea Nitrogen 37H, Creatinine 0.74, Estimat Glomerular Filtration Rate 104, BUN/Creatinine Ratio 50, Glucose Level 142H, Calcium Level 7.0L, Corrected Calcium 8.5, Phosphorus Level 3.3, Magnesium Level 2.1, Total Bilirubin 0.5, Aspartate Amino Transf (AST/SGOT) 45H, Alanine Aminotransferase (ALT/SGPT) 26, Alkaline Phosphatase 97, Total Protein 4.8L, Albumin 2.1L, Procalcitonin 18.00H 03/01/21 03:43: Glucometer 128H 03/01/21 08:23: Glucometer 136H 03/01/21 11:29: Glucometer 138H Microbiology 02/27/21 Urine Culture - Final, Complete YEAST 02/26/21 MRSA Screen - Final, Complete MRSA not isolated 02/25/21 Blood Culture - Preliminary, Resulted No growth Assessment/Plan Assessment/Plan Assess & Plan/Chief Complaint dehydratiion, cardiorespiratory failure, hypothermia. cont fluids and cardiac support. cont vent ween. no surgical issue at this time. trial albumin to retain intravascular volume MINDY WALKER MD Mar 01, 2021 12:41
--- NOTE | 2021-03-01 12:55 | CONSULTATION REPORT ---
DATE OF SERVICE: 02/28/2021 ATTENDING PHYSICIAN: Dr. Alfred. SUMMARY: After reviewing the patient's record in the hospital and the office, this is a 61-year-old white man with multiple medical problems, who I had seen in inpatient rehabilitation following an amputation below knee on the left leg because of urinary retention, started him on Flomax and Urecholine. I did a cystoscopy on him that was negative. No significant obstruction. No abnormalities and the patient was dismissed home on the medications. He apparently was found to be obtunded and brought to the hospital, put on the respirator and vasopressors to maintain his blood pressure. There was a question about the appearance of the urine whether it is debris, mucus, secretions or stools. His urine did not strike me for that. There was no reason to get this. No history of abscess or diverticulitis or cancer with a CT of the abdomen and pelvis, which was essentially negative for that part except for constipation and his urine today looks normal. We also sent a urinalysis of him that was positive, however, his urine culture revealed no bacterial growth, but some yeast. IMPRESSION: UTI infection, history of BPH with prostatism and retention. RECOMMENDATIONS: Continue present management. If more suspicious about fistula, recommend a CT cystogram. CC: Dr. Delphine Alfred - requested, unable to deliver. Job ID: [id number] DocumentID: [id number] Dictated Date: 03/01/2021 09:06:09 [employer] Date: 03/01/2021 12:54:55 Dictated By: ENRIQUE ARROYO MD
[2021-03-01 13:45] VITALS: BP 115/68
[2021-03-01] MEDS: PROPOFOL DRIP (ICU) 100 ML IV SCH ×2 (14:22→16:05)
[2021-03-01 18:36] VITALS: BP 114/69
[2021-03-01] MEDS: ENOXAPARIN 40 MG/0.4 ML (LOVENOX) SYR SC SCH (20:59)
[2021-03-01 22:07] VITALS: BP 115/73
[2021-03-02] MEDS: LACTATED RINGERS 1,000 ML IV SCH ×2 (01:30→09:13)
[2021-03-02 03:16] VITALS: BP 106/65
[2021-03-02] MEDS: inSUlin ASPART (NovoLOG) 1 UNIT/0.01 ML (CHARGE PER UNIT) SC SCH ×5 (03:47→23:23)
[2021-03-02] MEDS: HYDROCORTISONE 100 MG/2 ML (Solu-CORTEF) VIAL IV SCH ×3 (03:48→20:53)
[2021-03-02 04:36] LABS: ABG BASE EXCESS -5.7 MMOL/L (-2.5-2.5); ABG OXYGEN SATURATION 97 % (94-100); ABG PCO2 34 MMHG (35-45); ABG PH 7.36 (7.37-7.43); ABG PO2 90 MMHG (79-93); ABG TCO2 19.8 MMOL/L (21.0-31.0)
[2021-03-02 04:38] LABS: ALLENS TEST YES-POS; INSPIRED O2 21%; PATIENT TEMP 37.3; VENTILATOR YES
[2021-03-02 04:44] LABS: BASOPHILS % (AUTO) 0 % (0-10); EOSINOPHILS % (AUTO) 0 % (0-10); HEMATOCRIT 24 % (40-54); HEMOGLOBIN 7.4 g/dL (13.3-17.7); LYMPHOCYTES # (AUTO) 0.4 10^3/uL (1.0-4.0); LYMPHOCYTES % (AUTO) 6 % (12-44); MEAN CORPUSCULAR HEMOGLOBIN 27 pg (25-34); MEAN CORPUSCULAR HGB CONC 31 g/dL (32-36); MEAN CORPUSCULAR VOLUME 87 fL (80-99); MONOCYTES # (AUTO) 0.3 10^3/uL (0.0-1.0); MONOCYTES % (AUTO) 4 % (0-12); NEUTROPHILS # (AUTO) 6.5 10^3/uL (1.8-7.8); NEUTROPHILS % (AUTO) 89 % (42-75); PLATELET COUNT 130 10^3/uL (130-400); WHITE BLOOD COUNT 7.3 10^3/uL (4.3-11.0)
[2021-03-02 05:00] LABS: ALBUMIN 2.8 GM/DL (3.2-4.5)
[2021-03-02 05:01] LABS: POTASSIUM 3.2 MMOL/L (3.6-5.0)
[2021-03-02 05:02] LABS: CALCIUM 7.1 MG/DL (8.5-10.1)
[2021-03-02 05:03] LABS: TOTAL PROTEIN 4.8 GM/DL (6.4-8.2)
[2021-03-02 05:05] LABS: BILIRUBIN,TOTAL 0.4 MG/DL (0.1-1.0)
[2021-03-02 05:06] LABS: PHOSPHORUS 1.9 MG/DL (2.3-4.7)
[2021-03-02 05:07] LABS: CREATININE SERUM 0.53 MG/DL (0.60-1.30)
[2021-03-02 05:09] LABS: MAGNESIUM 2.1 MG/DL (1.6-2.4)
[2021-03-02] MEDS: PROPOFOL DRIP (ICU) 100 ML IV SCH ×2 (05:58→20:53)
[2021-03-02] MEDS: POTASSIUM CL 10MEQ/50ML IVPB 50 ML IV SCH ×3 (05:59→09:11)
[2021-03-02 07:01] VITALS: BP 113/67
--- NOTE | 2021-03-02 08:35 | Tele-ICU Progress Note ---
Subjective Date Seen by a Provider: Mar 02, 2021 Time Seen by a Provider: 08:35 Subjective/Events-last exam off pressors. earlier tried on sbt but did not tolerate. back on ac. Sepsis Event Evaluation Height, Weight, BMI Height: '" Weight: lbs. oz. kg; 22.66 BMI Method: Focused Exam Lactate Level 02/27/21 08:40: Lactic Acid Level 1.45 Exam Exam Patient acknowledged, consented, and participated in this virtual visit which was conducted using real time audio/video Vital Signs Date Time Temp Pulse Resp B/P (MAP) Pulse Ox O2 Delivery O2 Flow Rate FiO2 03/02/21 07:51 37.3 03/02/21 07:01 95 16 100 21 03/02/21 06:00 37.3 96 15 126/85 98 Mechanical Ventilator 21.00 03/02/21 05:58 96 110/65 03/02/21 05:00 37.2 99 16 109/65 98 Mechanical Ventilator 21.00 03/02/21 04:00 100 Mechanical Ventilator 21 03/02/21 04:00 37.3 91 13 121/70 98 Mechanical Ventilator 21.00 03/02/21 03:16 93 16 100 21 03/02/21 03:00 37.2 101 16 106/65 100 Mechanical Ventilator 21.00 03/02/21 02:00 37.2 90 17 120/71 100 Mechanical Ventilator 21.00 03/02/21 01:00 100 03/02/21 01:00 37.1 100 14 119/71 100 Mechanical Ventilator 21.00 03/02/21 00:00 98 Mechanical Ventilator 21 03/02/21 00:00 37.1 90 16 114/70 98 Mechanical Ventilator 21.00 03/01/21 23:00 37.1 93 14 112/68 98 Mechanical Ventilator 21.00 03/01/21 22:07 96 18 100 21 03/01/21 22:00 37.1 97 17 125/80 100 Mechanical Ventilator 21.00 03/01/21 21:00 37.1 97 17 116/72 100 Mechanical Ventilator 21.00 03/01/21 20:00 100 Mechanical Ventilator 21 03/01/21 20:00 37.1 91 16 111/63 100 Mechanical Ventilator 21.00 03/01/21 19:00 37.1 95 21 110/65 95 Mechanical Ventilator 21.00 03/01/21 19:00 37.1 89 16 114/67 100 Mechanical Ventilator 21.00 03/01/21 19:00 95 03/01/21 18:36 96 18 100 21 03/01/21 18:00 37.1 16 100 Mechanical Ventilator 21.00 03/01/21 17:07 115/66 03/01/21 17:00 37.1 26 100 Mechanical Ventilator 21.00 03/01/21 16:05 102/62 03/01/21 16:00 99 Mechanical Ventilator 21 03/01/21 16:00 37.2 16 99 Mechanical Ventilator 21.00 03/01/21 16:00 37.1 03/01/21 15:00 37.2 91 18 100/59 99 Mechanical Ventilator 21.00 03/01/21 14:00 37.1 103 24 98/59 100 Mechanical Ventilator 21.00 03/01/21 13:45 100 18 100 21 03/01/21 13:00 37.1 97 19 115/68 100 Mechanical Ventilator 21.00 03/01/21 13:00 97 03/01/21 12:00 100 Mechanical Ventilator 21 03/01/21 12:00 37.1 102 14 114/68 100 Mechanical Ventilator 21.00 03/01/21 11:00 37.0 109 23 105/64 100 Mechanical Ventilator 21.00 03/01/21 10:34 105 17 100 21 03/01/21 10:00 37.2 106 16 129/76 100 Mechanical Ventilator 21.00 03/01/21 09:00 37.4 105 13 120/72 100 Mechanical Ventilator 21.00 I & O 03/02/21 06:59 Intake Total 1580 ml Output Total 1700 ml Balance -120 ml Height & Weight Height: '" Weight: lbs. oz. kg; 22.66 BMI Method: General Appearance: No Apparent Distress HEENT: TMs Normal Neck: Full Range of Motion Respiratory: Rhonci, Wheezing Cardiovascular: Regular Rate, Rhythm Capillary Refill: Less Than 3 Seconds Gastrointestinal: normal bowel sounds, non tender, soft Extremity: Slow Capillary Refill Neurologic/Psychiatric: Other (vent/sedated, some response to painful stimuli) Skin: Normal Color Lymphatic: No Adenopathy Other comments PE PER RN Results Lab Laboratory Tests 03/01/21 03:40 03/02/21 03:51 Assessment/Plan Assessment/Plan 1. Acute hypoxic respiratory failure requiring mechanical ventilation. 2. Septic shock possibly from pneumonia 3. Status post left BKA 4. History of CVA and peripheral arterial disease. Recommendations 1. FAILED SBT , WILL CONTINUE A/C 2. We will continue monitor bp 3. Minimize sedation as much as possible 4. Antibiotics per primary care 5. Continue monitor electrolytes and hemoglobin. 6. Monitor his mental status. 7. Try sbt on 03/03/21 if stable Critical Care: Ventilator Management Time spent with patient (mins): 30 TIN ANTHONY MD Mar 02, 2021 08:35
[2021-03-02] MEDS ORDERED: POTASSIUM PHOSPHATE INJ 30 MM in NS (IVPB) 250 ML IV NR (09:00)
[2021-03-02] MEDS: MEROPENEM 500 MG/NS 100 ML IVPB IV SCH ×6 (09:11→20:53)
[2021-03-02] MEDS: PANTOPRAZOLE 40 MG (PROTONIX) VIAL IV SCH (09:11)
[2021-03-02 10:15] VITALS: BP 118/73
[2021-03-02 12:22] LABS: BASOPHILS % (AUTO) 0 % (0-10); HEMOGLOBIN 7.7 g/dL (13.3-17.7); MEAN CORPUSCULAR VOLUME 87 fL (80-99)
[2021-03-02 12:24] LABS: EOSINOPHILS % (AUTO) 0 % (0-10); HEMATOCRIT 25 % (40-54); LYMPHOCYTES # (AUTO) 0.5 10^3/uL (1.0-4.0); LYMPHOCYTES % (AUTO) 6 % (12-44); MEAN CORPUSCULAR HEMOGLOBIN 27 pg (25-34); MEAN CORPUSCULAR HGB CONC 31 g/dL (32-36); MEAN PLATELET VOLUME 11.5 fL (9.0-12.2); MONOCYTES # (AUTO) 0.3 10^3/uL (0.0-1.0); MONOCYTES % (AUTO) 4 % (0-12); NEUTROPHILS # (AUTO) 7.1 10^3/uL (1.8-7.8); NEUTROPHILS % (AUTO) 89 % (42-75); PLATELET COUNT 115 10^3/uL (130-400)
--- NOTE | 2021-03-02 12:33 | Progress Note - Hospitalist ---
CINDI TOVAR MED STUDENT 03/02/21 1233: Subjective HPI/CC On Admission Date Seen by Provider: Mar 02, 2021 Time Seen by Provider: 08:30 Chief complaint: Acute respiratory failure due to severe sepsis/septic shock History of present illness: This is a 61-year-old white male known to me from recent discharge on Saturday from inpatient rehab following recovery from left BKA who was predicted to have a poor prognosis who presented to the ER with hypothermia and bradycardia. Patient was assessed to be in acute respiratory failure and septic shock from source unknown but it is presumed from left buttock carbuncle we had placed him on Augmentin by Dr. WALKER prior to discharge. His lactic acid was 10. Central line was placed and patient was intubated. OG tube and Graf catheter in place. Aggressive IV fluid initiated and lactic acid has improved. Very poor prognosis predicted. Subjective/Events-last exam Pt remains intubated, but is alert and responds to commands. 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 Objective Exam Vital Signs Vital Signs Date Time Temp Pulse Resp B/P (MAP) Pulse Ox O2 Delivery O2 Flow Rate FiO2 03/02/21 10:15 105 16 100 21 03/02/21 10:00 37.3 119/71 Mechanical Ventilator 21.00 Capillary Refill : Less Than 3 Seconds General Appearance: Chronically ill, Other (Intubated) HEENT: PERRL/EOMI Respiratory: Chest Non Tender, Crackles Cardiovascular: No Murmur, Tachycardia Gastrointestinal: Non Tender, Soft Extremity: Other (Left BKA dressed with bandage) Neurologic/Psychiatric: Alert, Other (Intubated, but follows commands and tracks with eyes) Skin: Normal Color, Warm/Dry Results/Procedures Lab Laboratory Tests 03/02/21 03:51 03/02/21 12:10 Patient resulted labs reviewed. Imaging: Reviewed Imaging Films, Reviewed Imaging Report Assessment/Plan Assessment and Plan Assess & Plan/Chief Complaint Acute respiratory failure Endotracheal intubation Septic Shock Pneumonia UTI Lactic acidosis Poor prognosis Anemia Recent Left BKA Hx of stroke within last 6 months T2DM Acute respiratory failure with endotracheal intubation -Intubated, saturation at 100% with flow rate at 21, unchanged from yesterday -CXR showed mild left basilar atelectasis -CT head show no acute intracranial process Septic Shock -Leukocytosis resolved -Currently on Levophed-pressure stable -Discontinued epinephrine and vasopressin -D/c vancomycin as cultures have not grown MRSA -Continue meropenem -CT abd/pelvis/LE done and revealed no source of infection -D/C fluids to prevent fluid overload Pneumonia -Meropenem UTI -Culture indicated no sign of infection Lactic acidosis -Improved Improving Prognosis -Decreasing pressors and pt more awake than yesterday Normocytic Anemia with thrombocytopenia -Likely dilutional, but will get HIT antibody Recent Left BKA -no gross sign of infection, CT showed no abscess Hx of stroke within last 6 months T2DM -SSI DANY VILLA MD 03/02/21 1728: Subjective HPI/CC On Admission Time Seen by Provider: 09:30 Assessment/Plan Assessment and Plan Assess & Plan/Chief Complaint Shock improving, pressor requirement improving. Attempting SBT today. Stop Vanc, continue Merrem. Critical Care: Critically Ill Patient Diagnosis/Problems Diagnosis/Problems (1) Septic shock Status: Acute (2) Respiratory failure Status: Acute Qualifiers: Qualified Codes: J96.02 - Acute respiratory failure with hypercapnia (3) T2DM (type 2 diabetes mellitus) Status: Acute (4) History of left below knee amputation Status: Chronic (5) History of stroke Status: Chronic Supervisory-Addendum Brief Verification & Attestation Participated in pt care: history, MDM, physical Personally performed: exam, history, MDM, supervision of care Care discussed with: Medical Student Procedures: n/a Results interpretation: Verified all documentation A medical student performed and documented this service in my presence. I reviewed and verified all information documented by the medical student and made modifications to such information, when appropriate. I personally performed the physical exam and medical decision making. CINDI TOVAR A MED STUDENT Mar 02, 2021 12:33 DANY VILLA MD Mar 02, 2021 17:28
[2021-03-02] MEDS: VASOPRESSIN INJECTION 20 UNIT in NS (IVPB) 100 ML IV SCH (13:26)
[2021-03-02 13:55] VITALS: BP 117/67
[2021-03-02 18:31] VITALS: BP 138/83
[2021-03-02] MEDS: ENOXAPARIN 40 MG/0.4 ML (LOVENOX) SYR SC SCH (20:53)
[2021-03-02 21:55] VITALS: BP 122/70
[2021-03-02] MEDS: fentaNYL DRIP PRE-MIX 250 ML IV SCH (23:19)
[2021-03-03 02:12] VITALS: BP 127/82
[2021-03-03] MEDS: VASOPRESSIN INJECTION 20 UNIT in NS (IVPB) 100 ML IV SCH ×2 (02:40→13:10)
[2021-03-03] MEDS: NOREPINEPHRINE 8 MG/250 ML 250 ML IV SCH ×2 (02:40→20:09)
[2021-03-03] MEDS: HYDROCORTISONE 100 MG/2 ML (Solu-CORTEF) VIAL IV SCH ×3 (03:37→20:41)
[2021-03-03] MEDS: MEROPENEM 500 MG/NS 100 ML IVPB IV SCH ×8 (03:37→20:41)
[2021-03-03 04:58] LABS: ABG BASE EXCESS -4.8 MMOL/L (-2.5-2.5); ABG OXYGEN SATURATION 97 % (94-100); ABG PCO2 31 MMHG (35-45); ABG PO2 78 MMHG (79-93); ABG TCO2 19.9 MMOL/L (21.0-31.0)
[2021-03-03 05:01] LABS: BASOPHILS % (AUTO) 0 % (0-10); EOSINOPHILS % (AUTO) 0 % (0-10); HEMATOCRIT 27 % (40-54); HEMOGLOBIN 8.5 g/dL (13.3-17.7); LYMPHOCYTES # (AUTO) 0.8 10^3/uL (1.0-4.0); LYMPHOCYTES % (AUTO) 8 % (12-44); MEAN CORPUSCULAR HEMOGLOBIN 27 pg (25-34); MEAN CORPUSCULAR HGB CONC 32 g/dL (32-36); MEAN CORPUSCULAR VOLUME 86 fL (80-99); MEAN PLATELET VOLUME 11.6 fL (9.0-12.2); MONOCYTES # (AUTO) 0.6 10^3/uL (0.0-1.0); MONOCYTES % (AUTO) 5 % (0-12); NEUTROPHILS # (AUTO) 8.9 10^3/uL (1.8-7.8); NEUTROPHILS % (AUTO) 86 % (42-75); PLATELET COUNT 95 10^3/uL (130-400); WHITE BLOOD COUNT 10.4 10^3/uL (4.3-11.0)
[2021-03-03 05:06] LABS: ALLENS TEST YES-POS; INSPIRED O2 21%; PATIENT TEMP 37.8; VENTILATOR YES
[2021-03-03 05:24] LABS: ALBUMIN 2.5 GM/DL (3.2-4.5)
[2021-03-03 05:25] LABS: POTASSIUM 3.6 MMOL/L (3.6-5.0)
[2021-03-03 05:26] LABS: CALCIUM 7.2 MG/DL (8.5-10.1)
[2021-03-03 05:27] LABS: TOTAL PROTEIN 4.9 GM/DL (6.4-8.2)
[2021-03-03 05:29] LABS: BILIRUBIN,TOTAL 0.4 MG/DL (0.1-1.0)
[2021-03-03 05:30] LABS: PHOSPHORUS 1.7 MG/DL (2.3-4.7)
[2021-03-03 05:31] LABS: CREATININE SERUM 0.46 MG/DL (0.60-1.30)
[2021-03-03 05:34] LABS: MAGNESIUM 1.9 MG/DL (1.6-2.4)
[2021-03-03] MEDS: inSUlin ASPART (NovoLOG) 1 UNIT/0.01 ML (CHARGE PER UNIT) SC SCH ×3 (05:53→18:13)
[2021-03-03] MEDS: PROPOFOL DRIP (ICU) 100 ML IV SCH ×2 (05:54→15:29)
[2021-03-03 06:33] LABS: ANISOCYTOSIS SLIGHT; BAND NEUTROPHILS 7 %; LYMPHOCYTES % (MANUAL) 3 %; MICROCYTOSIS SLIGHT; MONOCYTES % (MANUAL) 3 %; NEUTROPHILS % (MANUAL) 87 %
[2021-03-03 07:07] VITALS: BP 132/86
[2021-03-03] MEDS: PANTOPRAZOLE 40 MG (PROTONIX) VIAL IV SCH (08:01)
[2021-03-03 10:44] VITALS: BP 127/82
--- NOTE | 2021-03-03 10:50 | Progress Note ---
Subjective Date Seen by a Provider: Mar 03, 2021 Time Seen by a Provider: 10:00 Subjective/Events-last exam on vent/sedated. low vent setting however tachycardia and agitation with sedation vacation. extr stump intact. no redness/erythema. Objective Exam Vital Signs Date Time Temp Pulse Resp B/P (MAP) Pulse Ox O2 Delivery O2 Flow Rate FiO2 03/03/21 10:00 38.1 120 22 125/79 99 Mechanical Ventilator 21.00 03/03/21 09:00 38.2 125 30 136/92 96 Mechanical Ventilator 21.00 03/03/21 08:11 100 Mechanical Ventilator 21 03/03/21 08:00 37.9 118 24 139/90 100 Mechanical Ventilator 21.00 03/03/21 07:07 117 17 100 21 03/03/21 07:00 115 03/03/21 07:00 37.9 115 20 132/86 100 Mechanical Ventilator 21.00 03/03/21 06:00 37.9 114 16 126/81 100 Mechanical Ventilator 21.00 03/03/21 05:00 37.8 121 20 140/89 98 Mechanical Ventilator 21.00 03/03/21 04:00 37.7 117 18 129/83 100 Mechanical Ventilator 21.00 03/03/21 04:00 100 Mechanical Ventilator 21 03/03/21 03:00 37.8 117 18 130/88 100 Mechanical Ventilator 21.00 03/03/21 02:12 120 16 100 21 03/03/21 02:00 37.7 116 17 127/83 100 Mechanical Ventilator 21.00 03/03/21 01:00 117 03/03/21 01:00 37.7 117 16 130/83 100 Mechanical Ventilator 21.00 03/03/21 00:00 98 Mechanical Ventilator 21 03/03/21 00:00 37.6 112 15 131/81 100 Mechanical Ventilator 21.00 03/02/21 23:00 37.6 105 18 113/69 100 Mechanical Ventilator 21.00 03/02/21 22:00 37.5 112 15 129/81 100 Mechanical Ventilator 21.00 03/02/21 21:55 108 17 100 21 03/02/21 21:00 37.5 110 18 133/81 100 Mechanical Ventilator 21.00 03/02/21 20:53 120 146/97 03/02/21 20:00 98 Mechanical Ventilator 21 03/02/21 20:00 37.3 105 13 141/87 100 Mechanical Ventilator 21.00 03/02/21 19:00 103 03/02/21 19:00 37.2 103 14 119/73 100 Mechanical Ventilator 21.00 03/02/21 18:31 101 18 100 21 03/02/21 18:00 37.2 89 16 134/81 100 Mechanical Ventilator 21.00 03/02/21 17:00 37.3 91 16 109/67 100 Mechanical Ventilator 21.00 03/02/21 16:56 100 Mechanical Ventilator 21 03/02/21 16:00 37.4 94 16 102/66 100 Mechanical Ventilator 21.00 03/02/21 15:00 37.6 97 17 96/63 100 Mechanical Ventilator 21.00 03/02/21 14:00 37.7 106 14 139/82 100 Mechanical Ventilator 21.00 03/02/21 13:55 105 18 99 21 03/02/21 13:00 37.6 103 15 117/67 100 Mechanical Ventilator 21.00 03/02/21 13:00 102 03/02/21 12:00 98 Mechanical Ventilator 21 03/02/21 12:00 37.6 03/02/21 12:00 37.6 105 14 120/71 99 Mechanical Ventilator 21.00 03/02/21 11:00 37.4 102 14 127/78 100 Mechanical Ventilator 21.00 I & O 03/03/21 07:00 Intake Total 980 ml Output Total 1175 ml Balance -195 ml Capillary Refill : Less Than 3 Seconds General Appearance: No Apparent Distress HEENT: TMs Normal Neck: Full Range of Motion Respiratory: Rhonci Cardiovascular: Regular Rate, Rhythm Gastrointestinal: normal bowel sounds, non tender, soft Extremity: Normal Capillary Refill Neurologic/Psychiatric: Other (vent/sedated) Skin: Normal Color Lymphatic: No Adenopathy Results Lab Laboratory Tests 03/02/21 12:10: White Blood Count 8.0, Red Blood Count 2.81L, Hemoglobin 7.7L, Hematocrit 25L, Mean Corpuscular Volume 87, Mean Corpuscular Hemoglobin 27, Mean Corpuscular Hemoglobin Concent 31L, Red Cell Distribution Width 16.5H, Platelet Count 115L, Mean Platelet Volume 11.5, Immature Granulocyte % (Auto) 1, Neutrophils (%) (Auto) 89H, Lymphocytes (%) (Auto) 6L, Monocytes (%) (Auto) 4, Eosinophils (%) (Auto) 0, Basophils (%) (Auto) 0, Neutrophils # (Auto) 7.1, Lymphocytes # (Auto) 0.5L, Monocytes # (Auto) 0.3, Eosinophils # (Auto) 0.0, Basophils # (Auto) 0.0, Immature Granulocyte # (Auto) 0.0, Percent Immature Platelet Fraction 4.7 03/02/21 13:25: Glucometer 105 03/02/21 16:31: Glucometer 106 03/02/21 23:22: Glucometer 117H 03/03/21 04:45: White Blood Count 10.4, Red Blood Count 3.11L, Hemoglobin 8.5L, Hematocrit 27L, Mean Corpuscular Volume 86, Mean Corpuscular Hemoglobin 27, Mean Corpuscular He moglobin Concent 32, Red Cell Distribution Width 16.8H, Platelet Count 95L, Mean Platelet Volume 11.6, Immature Granulocyte % (Auto) 1, Neutrophils (%) (Auto) 86H, Lymphocytes (%) (Auto) 8L, Monocytes (%) (Auto) 5, Eosinophils (%) (Auto) 0, Basophils (%) (Auto) 0, Neutrophils # (Auto) 8.9H, Lymphocytes # (Auto) 0.8L, Monocytes # (Auto) 0.6, Eosinophils # (Auto) 0.0, Basophils # (Auto) 0.0, Immature Granulocyte # (Auto) 0.1, Neutrophils % (Manual) 87, Lymphocytes % (Manual) 3, Monocytes % (Manual) 3, Band Neutrophils 7, Anisocytosis SLIGHT, Microcytosis SLIGHT, Blood Gas Puncture Site RIGHT RADIAL, Blood Gas Patient Temperature 37.8, Arterial Blood pH 7.40, Arterial Blood Partial Pressure CO2 31L, Arterial Blood Partial Pressure O2 78L, Arterial Blood HCO3 19L, Arterial Blood Total CO2 19.9L, Arterial Blood Oxygen Saturation 97, Arterial Blood Base Excess -4.8L, Bryce Test YES-POS, Blood Gas Ventilator Setting YES, Blood Gas Inspired Oxygen 21%, Sodium Level 144, Potassium Level 3.6, Chloride Level 113H, Carbon Dioxide Level 19L, Anion Gap 12, Blood Urea Nitrogen 19H, Creatinine 0.46L, Estimat Glomerular Filtration Rate 120, BUN/Creatinine Ratio 41, Glucose Level 131H, Calcium Level 7.2L, Corrected Calcium 8.4L, Phosphorus Level 1.7L, Magnesium Level 1.9, Total Bilirubin 0.4, Aspartate Amino Transf (AST/SGOT) 39H, Alanine Aminotransferase (ALT/SGPT) 17, Alkaline Phosphatase 60, Total Protein 4.9L, Albumin 2.5L Microbiology 02/27/21 Urine Culture - Final, Complete YEAST 02/26/21 MRSA Screen - Final, Complete MRSA not isolated 02/25/21 Blood Culture - Preliminary, Resulted No growth Assessment/Plan Assessment/Plan Assess & Plan/Chief Complaint dehydratiion, cardiorespiratory failure, hypothermia. cont vent ween. no surgical issue at this time. MINDY WALKER MD Mar 03, 2021 10:50
[2021-03-03] MEDS: DexMEDEtomidine 250 ML DRIP 250 ML IV SCH (12:09)
--- NOTE | 2021-03-03 12:38 | Progress Note - Hospitalist ---
CINDI TOVAR MED STUDENT 03/03/21 1238: Subjective HPI/CC On Admission Date Seen by Provider: Mar 03, 2021 Time Seen by Provider: 08:15 Chief complaint: Acute respiratory failure due to severe sepsis/septic shock History of present illness: This is a 61-year-old white male known to me from recent discharge on Saturday from inpatient rehab following recovery from left BKA who was predicted to have a poor prognosis who presented to the ER with hypothermia and bradycardia. Patient was assessed to be in acute respiratory failure and septic shock from source unknown but it is presumed from left buttock carbuncle we had placed him on Augmentin by Dr. WALKER prior to discharge. His lactic acid was 10. Central line was placed and patient was intubated. OG tube and Graf catheter in place. Aggressive IV fluid initiated and lactic acid has improved. Very poor prognosis predicted. Subjective/Events-last exam Pt remains intubated and sedated. 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 Objective Exam Vital Signs Vital Signs Date Time Temp Pulse Resp B/P (MAP) Pulse Ox O2 Delivery O2 Flow Rate FiO2 03/03/21 12:23 121 03/03/21 12:15 100 Mechanical Ventilator 21 03/03/21 12:09 129/83 03/03/21 12:07 38.1 16 21.00 Capillary Refill : Less Than 3 Seconds General Appearance: No Apparent Distress, Chronically ill HEENT: PERRL/EOMI Respiratory: Chest Non Tender, Lungs Clear, Normal Breath Sounds Cardiovascular: No Murmur, Tachycardia Gastrointestinal: Soft, Abnormal Bowel Sounds (Hypoactive bowel sounds) Extremity: Pedal Edema (mild nonpitting), Other (Left BKA dressed with bandage) Neurologic/Psychiatric: Other (intubated and sedated) Skin: Normal Color, Warm/Dry Results/Procedures Lab Laboratory Tests 03/03/21 04:45 Patient resulted labs reviewed. Imaging: Reviewed Imaging Films, Reviewed Imaging Report Assessment/Plan Assessment and Plan Assess & Plan/Chief Complaint Acute respiratory failure Endotracheal intubation Septic Shock Pneumonia UTI Lactic acidosis Poor prognosis Anemia Recent Left BKA Hx of stroke within last 6 months T2DM Acute respiratory failure with endotracheal intubation -Intubated, saturation at 100% with flow rate at 21, unchanged from yesterday -CXR showed mild left basilar atelectasis -CT head show no acute intracranial process -Will start precedex today and decrease propofol -Continue fentanyl Septic Shock -Leukocytosis resolved -Currently requiring no pressors for blood pressure support -D/c vancomycin as cultures have not grown MRSA -Continue meropenem -CT abd/pelvis/LE done and revealed no source of infection -Fluids discontinued yesterday Pneumonia -Meropenem UTI -Culture indicated no sign of infection Lactic acidosis -Improved Improving Prognosis Normocytic Anemia with thrombocytopenia -Likely dilutional -HIT antibody pending Recent Left BKA -no gross sign of infection, CT showed no abscess Hx of stroke within last 6 months T2DM -SSI DANY VILLA MD 03/03/21 1717: Subjective HPI/CC On Admission Time Seen by Provider: 09:10 Assessment/Plan Assessment and Plan Assess & Plan/Chief Complaint Remains critically ill. Intubated and sedated. Unable to extubate this morning. Still requiring some pressor support. Merrem for sepsis with unclear infectious source, possible pneumonia. Critical Care: Critically Ill Patient Diagnosis/Problems Diagnosis/Problems (1) Septic shock Status: Acute (2) Endotracheally intubated Status: Acute (3) Poor prognosis Status: Acute (4) Respiratory failure Status: Acute Qualifiers: Qualified Codes: J96.02 - Acute respiratory failure with hypercapnia (5) T2DM (type 2 diabetes mellitus) Status: Acute (6) History of left below knee amputation Status: Chronic (7) History of stroke Status: Chronic Supervisory-Addendum Brief Verification & Attestation Participated in pt care: history, MDM, physical Personally performed: exam, history, MDM, supervision of care Care discussed with: Medical Student Procedures: n/a Results interpretation: Verified all documentation A medical student performed and documented this service in my presence. I reviewed and verified all information documented by the medical student and made modifications to such information, when appropriate. I personally performed the physical exam and medical decision making. CINDI TOVAR A MED STUDENT Mar 03, 2021 12:38 DANY VILLA MD Mar 03, 2021 17:17
[2021-03-03] MEDS: ACETAMINOPHEN 325 MG TABLET PO PRN ×2 (13:18→18:13)
[2021-03-03 15:14] VITALS: BP 107/68
[2021-03-03] MEDS: fentaNYL DRIP PRE-MIX 250 ML IV SCH (17:49)
--- NOTE | 2021-03-03 18:08 | Tele-ICU Progress Note ---
Subjective Date Seen by a Provider: Mar 03, 2021 Time Seen by a Provider: 18:08 Sepsis Event Evaluation Height, Weight, BMI Height: '" Weight: lbs. oz. kg; 22.66 BMI Method: Exam Exam Patient acknowledged, consented, and participated in this virtual visit which was conducted using real time audio/video Vital Signs Date Time Temp Pulse Resp B/P (MAP) Pulse Ox O2 Delivery O2 Flow Rate FiO2 03/03/21 17:00 105 17 128/83 97 Mechanical Ventilator 21.00 03/03/21 16:00 38.5 107 14 141/89 100 Mechanical Ventilator 21.00 03/03/21 15:48 100 Mechanical Ventilator 21 03/03/21 15:29 97 107/68 03/03/21 15:14 97 19 98 21 03/03/21 15:00 38.4 99 13 105/69 98 Mechanical Ventilator 21.00 03/03/21 14:06 38.4 03/03/21 14:00 38.4 96 15 97/66 98 Mechanical Ventilator 21.00 03/03/21 13:18 38.2 03/03/21 13:00 38.2 111 21 116/74 99 Mechanical Ventilator 21.00 03/03/21 12:23 121 03/03/21 12:15 100 Mechanical Ventilator 21 03/03/21 12:09 116 129/83 03/03/21 12:07 38.1 117 16 129/83 99 Mechanical Ventilator 21.00 03/03/21 11:00 38.1 117 24 122/81 94 Mechanical Ventilator 21.00 03/03/21 10:44 120 21 99 21 03/03/21 10:00 38.1 120 22 125/79 99 Mechanical Ventilator 21.00 03/03/21 09:00 38.2 125 30 136/92 96 Mechanical Ventilator 21.00 03/03/21 08:11 100 Mechanical Ventilator 21 03/03/21 08:00 37.9 118 24 139/90 100 Mechanical Ventilator 21.00 03/03/21 07:07 117 17 100 21 03/03/21 07:00 115 03/03/21 07:00 37.9 115 20 132/86 100 Mechanical Ventilator 21.00 03/03/21 06:00 37.9 114 16 126/81 100 Mechanical Ventilator 21.00 03/03/21 05:00 37.8 121 20 140/89 98 Mechanical Ventilator 21.00 03/03/21 04:00 37.7 117 18 129/83 100 Mechanical Ventilator 21.00 03/03/21 04:00 100 Mechanical Ventilator 21 03/03/21 03:00 37.8 117 18 130/88 100 Mechanical Ventilator 21.00 03/03/21 02:12 120 16 100 21 03/03/21 02:00 37.7 116 17 127/83 100 Mechanical Ventilator 21.00 03/03/21 01:00 117 03/03/21 01:00 37.7 117 16 130/83 100 Mechanical Ventilator 21.00 03/03/21 00:00 98 Mechanical Ventilator 21 03/03/21 00:00 37.6 112 15 131/81 100 Mechanical Ventilator 21.00 03/02/21 23:00 37.6 105 18 113/69 100 Mechanical Ventilator 21.00 03/02/21 22:00 37.5 112 15 129/81 100 Mechanical Ventilator 21.00 03/02/21 21:55 108 17 100 21 03/02/21 21:00 37.5 110 18 133/81 100 Mechanical Ventilator 21.00 03/02/21 20:53 120 146/97 03/02/21 20:00 98 Mechanical Ventilator 21 03/02/21 20:00 37.3 105 13 141/87 100 Mechanical Ventilator 21.00 03/02/21 19:00 103 03/02/21 19:00 37.2 103 14 119/73 100 Mechanical Ventilator 21.00 03/02/21 18:31 101 18 100 21 I & O 03/03/21 06:59 Intake Total 980 ml Output Total 1175 ml Balance -195 ml Height & Weight Height: '" Weight: lbs. oz. kg; 22.66 BMI Method: General Appearance: No Apparent Distress, Chronically ill HEENT: PERRL/EOMI Neck: Full Range of Motion Respiratory: Chest Non Tender, Lungs Clear, Normal Breath Sounds Cardiovascular: No Murmur, Tachycardia Capillary Refill: Less Than 3 Seconds Gastrointestinal: normal bowel sounds, non tender, soft Extremity: Pedal Edema (mild nonpitting), Other (Left BKA dressed with bandage) Neurologic/Psychiatric: Other (intubated and sedated) Skin: Normal Color, Warm/Dry Lymphatic: No Adenopathy Results Lab Laboratory Tests 03/02/21 03:51 03/02/21 12:10 03/03/21 04:45 Assessment/Plan Assessment/Plan Tele-ICU Physician , Progress Note ) Available chart/ vitals / labs / Images reviewed Video assessment done using teleICU camera, rest of exam as per RN Discussed with RN , EXAM PER RN Events overnight : Afebrile FiO2 - I/O = Drips: LR 125 Pressors: OFF levo OFF vaso , hemodynamically stable fent / propofol Consultants: sx Hospital course: 02/26 - ETT , septic shock 03/02 - FAILED SBT A/P Acute resp failure - intubated 02/26 - ac 21 % - FAILED SBT 03/02 - did try today fentanyl + propofol - > very agitated SHock , septic - on vasopressors x2 - try to wean , OFF epi - stress dose of steroids 100 q 8 - decrease 02/28 - CT abd/pelvis and leg 02/28 PENDING UTI ? other sourse - cont abx -Vancomycin and Merrem Recent left BKA - sx follow Unresponsive at home , unknown downtime time - cth 02/28 - - WNL Thrombocytopenia - DIC vs drug induced vs infection induced - hipa and dic panel ordered LOVENOX ON HOLD - to follow Lines : ij R (Central Line Necessity Reviewed) Graf: + OG: + Nutrition: NPO - Analgesia: Anxiety/ delirium FENTANYL , PROPOFOL VTE Prophylaxis: PRITESH 40 Stress Ulcer Prophylaxis: Plans in collaboration with bedside consultants and IM MDs. Discussed with RN to reach out if any questions or concerns A total of 31 minutes of critical care time was devoted to this patient today, required to treat and/or prevent further deterioration of critical care condition ( as above) . JOSE SINGH MD Mar 03, 2021 18:08
[2021-03-03 18:18] VITALS: BP 113/74
[2021-03-03 21:38] VITALS: BP 121/81
[2021-03-04] MEDS: VASOPRESSIN INJECTION 20 UNIT in NS (IVPB) 100 ML IV SCH ×2 (01:02→10:37)
[2021-03-04] MEDS: PROPOFOL DRIP (ICU) 100 ML IV SCH ×2 (01:15→19:38)
[2021-03-04 02:12] VITALS: BP 144/97
[2021-03-04] MEDS: MEROPENEM 500 MG/NS 100 ML IVPB IV SCH ×8 (04:09→20:12)
[2021-03-04] MEDS: HYDROCORTISONE 100 MG/2 ML (Solu-CORTEF) VIAL IV SCH ×4 (04:09→20:39)
[2021-03-04 04:39] LABS: ABG BASE EXCESS -5.5 MMOL/L (-2.5-2.5); ABG OXYGEN SATURATION 98 % (94-100); ABG PCO2 26 MMHG (35-45); ABG PH 7.45 (7.37-7.43); ABG PO2 100 MMHG (79-93); ABG TCO2 18.6 MMOL/L (21.0-31.0)
[2021-03-04 04:40] LABS: ALLENS TEST YES-POS; INSPIRED O2 30%; PATIENT TEMP 37.4; VENTILATOR YES
[2021-03-04 04:40] LABS: BASOPHILS % (AUTO) 0 % (0-10); EOSINOPHILS % (AUTO) 0 % (0-10); HEMATOCRIT 31 % (40-54); HEMOGLOBIN 9.8 g/dL (13.3-17.7); LYMPHOCYTES # (AUTO) 1.9 10^3/uL (1.0-4.0); LYMPHOCYTES % (AUTO) 14 % (12-44); MEAN CORPUSCULAR HEMOGLOBIN 27 pg (25-34); MEAN CORPUSCULAR HGB CONC 31 g/dL (32-36); MEAN CORPUSCULAR VOLUME 87 fL (80-99); MEAN PLATELET VOLUME 11.8 fL (9.0-12.2); MONOCYTES # (AUTO) 0.5 10^3/uL (0.0-1.0); MONOCYTES % (AUTO) 4 % (0-12); NEUTROPHILS # (AUTO) 11.2 10^3/uL (1.8-7.8); NEUTROPHILS % (AUTO) 81 % (42-75); PLATELET COUNT 120 10^3/uL (130-400); WHITE BLOOD COUNT 13.9 10^3/uL (4.3-11.0)
[2021-03-04 04:54] LABS: ALBUMIN 2.3 GM/DL (3.2-4.5); POTASSIUM 4.3 MMOL/L (3.6-5.0)
[2021-03-04 04:59] LABS: BILIRUBIN,TOTAL 0.5 MG/DL (0.1-1.0)
[2021-03-04 05:00] LABS: PHOSPHORUS 1.8 MG/DL (2.3-4.7)
[2021-03-04 05:01] LABS: CREATININE SERUM 0.61 MG/DL (0.60-1.30)
[2021-03-04 05:03] LABS: MAGNESIUM 1.7 MG/DL (1.6-2.4)
[2021-03-04 05:04] LABS: FIBRIN DEGRADATION PRODUCTS 6.92 UG/ML (0.00-0.49); INR 1.1 (0.8-1.4); PROTHROMBIN TIME PATIENT 14.7 SEC (12.2-14.7)
[2021-03-04] MEDS: inSUlin ASPART (NovoLOG) 1 UNIT/0.01 ML (CHARGE PER UNIT) SC SCH ×4 (06:06→17:35)
[2021-03-04] MEDS: fentaNYL DRIP PRE-MIX 250 ML IV SCH ×3 (06:06→18:13)
[2021-03-04 07:42] VITALS: BP 102/66
[2021-03-04] MEDS: PANTOPRAZOLE 40 MG (PROTONIX) VIAL IV SCH (08:06)
[2021-03-04] MEDS: ACETAMINOPHEN 325 MG TABLET PO PRN ×2 (08:06→12:43)
[2021-03-04] MEDS: DexMEDEtomidine 250 ML DRIP 250 ML IV SCH ×2 (08:54→18:13)
--- NOTE | 2021-03-04 09:25 | Progress Note - Hospitalist ---
CINDI TOVAR MED STUDENT 03/04/21 0925: Subjective HPI/CC On Admission Date Seen by Provider: Mar 04, 2021 Time Seen by Provider: 08:00 Chief complaint: Acute respiratory failure due to severe sepsis/septic shock History of present illness: This is a 61-year-old white male known to me from recent discharge on Saturday from inpatient rehab following recovery from left BKA who was predicted to have a poor prognosis who presented to the ER with hypothermia and bradycardia. Patient was assessed to be in acute respiratory failure and septic shock from source unknown but it is presumed from left buttock carbuncle we had placed him on Augmentin by Dr. WALKER prior to discharge. His lactic acid was 10. Central line was placed and patient was intubated. OG tube and Graf catheter in place. Aggressive IV fluid initiated and lactic acid has improved. Very poor prognosis predicted. Subjective/Events-last exam Pt remains intubated and sedated. Pt does not respond to commands and is less alert than yesterday. 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 Objective Exam Vital Signs Vital Signs Date Time Temp Pulse Resp B/P (MAP) Pulse Ox O2 Delivery O2 Flow Rate FiO2 03/04/21 08:54 130 131/76 03/04/21 08:53 38.2 03/04/21 08:00 23 100 Mechanical Ventilator 30.00 03/04/21 08:00 30 Capillary Refill : Less Than 3 Seconds General Appearance: Chronically ill Respiratory: Decreased Breath Sounds (bilaterally at bases), Respiratory Distress Cardiovascular: No Murmur, Tachycardia Gastrointestinal: Soft, Abnormal Bowel Sounds (hypoactive) Extremity: No Pedal Edema, Other (L BKA with necrotic tissue on medial aspect of incision) Neurologic/Psychiatric: Other (Intubated and sedated) Skin: Cool, Mottled (Right leg) Results/Procedures Lab Laboratory Tests 03/04/21 04:15 Patient resulted labs reviewed. Imaging: Reviewed Imaging Films, Reviewed Imaging Report Assessment/Plan Assessment and Plan Assess & Plan/Chief Complaint Acute respiratory failure Endotracheal intubation Septic Shock Acute kidney injury Pneumonia UTI Lactic acidosis Poor prognosis Anemia Recent Left BKA Hx of stroke within last 6 months T2DM Acute respiratory failure with endotracheal intubation -Intubated, saturation at 100% with flow rate at 30, increased from yesterday -Oxygen increased to 40% overnight due to desaturations with positional changes -Extubation attempt unsuccessful -CXR showed mild left basilar atelectasis -CT head show no acute intracranial process -Propofol and precedex were increased over night d/t tachycardia and abnormal breathing -Continue fentanyl Septic Shock -Leukocytosis increased at 13.9 -Currently requiring no pressors for blood pressure support -Vancomycin stopped d/t no MRSA growth on cultures -Continue meropenem -CT abd/pelvis/LE done and revealed no source of infection -Fluids stopped to prevent fluid overload Acute kidney injury -BUN and Cr rising -Will continue to monitor Pneumonia -Meropenem UTI -Culture indicated no sign of infection Lactic acidosis -Improved Poor prognosis -Increasing oxygen requirement and mottled appearance of skin Normocytic Anemia with thrombocytopenia -Likely dilutional -HIT antibody negative Recent Left BKA -necrotic tissue on incision that appears worse than previously Hx of stroke within last 6 months T2DM -SSI -Hyperglycemia over last 24 hours DANY VILLA MD 03/04/21 2030: Subjective HPI/CC On Admission Time Seen by Provider: 10:00 Assessment/Plan Assessment and Plan Assess & Plan/Chief Complaint Remains critically ill. Increasing pressor requirement. Worsening neurological exam. Discussed poor prognosis with family, considering comfort measures. Critical Care: Critically Ill Patient Diagnosis/Problems Diagnosis/Problems (1) Septic shock Status: Acute (2) Poor prognosis Status: Acute (3) Respiratory failure Status: Acute Qualifiers: Qualified Codes: J96.02 - Acute respiratory failure with hypercapnia (4) Endotracheally intubated Status: Acute (5) T2DM (type 2 diabetes mellitus) Status: Acute (6) History of left below knee amputation Status: Chronic (7) History of stroke Status: Chronic Supervisory-Addendum Brief Verification & Attestation Participated in pt care: history, MDM, physical Personally performed: exam, history, MDM, supervision of care Care discussed with: Medical Student Procedures: n/a Results interpretation: Verified all documentation A medical student performed and documented this service in my presence. I reviewed and verified all information documented by the medical student and made modifications to such information, when appropriate. I personally performed the physical exam and medical decision making. CINDI TOVAR A MED STUDENT Mar 04, 2021 09:25 DANY VILLA MD Mar 04, 2021 20:30
--- NOTE | 2021-03-04 09:25 | Tele-ICU Progress Note ---
Subjective Date Seen by a Provider: Mar 04, 2021 Time Seen by a Provider: 07:30 Subjective/Events-last exam This virtual visit was conducted using real time audio/video. Thank you for asking us to see this patient for respiratory insufficiency due to sepsis Recent events: Off pressors, Propofol held. PE: Sedated on vent. VSS. O2 100% sat on 30%/+5. HEENT: No obvious masses, adenopathy or JVD. Chest: clear to auscultation. CV: RRR S1 S2 No murmur or added sounds. Abd: Non-tender. Bowel sounds Y. : Unremarkable. Graf Y. HOSPITAL RECRUITER/psychiatric: No obvious focal findings. Extremities: 1+ edema. L BKA. Capillary refill < 3 seconds. Skin: unremarkable. Results: Elevated WCC 13.9, BG 247, BUN 24. Decreased plts 120K but improving. HIT pending. . B.45/26/100. Available chart/ vitals / labs / images reviewed. Video assessment done using teleICU camera, rest of exam as per RN. A/P: Respiratory insufficiency: Continue present management with vent, wean sedatives as kayli., cont BDs. Monitor for increasing oxygenation needs. Critical Care: critically ill patient. Cont. SSI, Merrem, Vanco., PPI, S. cortef. Lovenox held. Discussed with RN Alyssa. Asked RN to reach out to eICU if any questions or conc erns later. Time spent with patient/coordination of care with other health professionals (mins): 20 Sepsis Event Evaluation Height, Weight, BMI Height: '" Weight: lbs. oz. kg; 22.66 BMI Method: Exam Exam Patient acknowledged, consented, and participated in this virtual visit which was conducted using real time audio/video Vital Signs Date Time Temp Pulse Resp B/P (MAP) Pulse Ox O2 Delivery O2 Flow Rate FiO2 03/04/21 08:54 130 131/76 03/04/21 08:53 38.2 03/04/21 08:53 38.2 03/04/21 08:06 38.5 03/04/21 08:05 38.5 03/04/21 08:00 130 23 131/76 100 Mechanical Ventilator 30.00 03/04/21 08:00 100 Mechanical Ventilator 30 03/04/21 07:42 126 27 96 30 03/04/21 07:00 128 24 109/70 100 Mechanical Ventilator 30.00 03/04/21 07:00 130 03/04/21 06:00 131 24 135/86 99 Mechanical Ventilator 30.00 03/04/21 05:00 128 27 126/76 100 Mechanical Ventilator 30.00 03/04/21 04:08 37.4 03/04/21 04:00 95 Mechanical Ventilator 30 03/04/21 04:00 128 27 129/85 100 Mechanical Ventilator 30.00 03/04/21 03:00 122 19 134/82 100 Mechanical Ventilator 30.00 03/04/21 02:12 121 21 100 30 03/04/21 02:00 121 22 130/87 100 Mechanical Ventilator 30.00 03/04/21 01:14 Mechanical Ventilator 30.00 03/04/21 01:00 140 03/04/21 01:00 115 28 127/82 99 Mechanical Ventilator 40.00 03/04/21 01:00 37.5 03/04/21 00:00 115 17 132/94 96 Mechanical Ventilator 40.00 03/04/21 00:00 91 Mechanical Ventilator 40 03/03/21 23:00 117 18 132/88 97 Mechanical Ventilator 40.00 03/03/21 22:00 110 28 127/77 94 Mechanical Ventilator 40.00 03/03/21 21:50 Mechanical Ventilator 40.00 03/03/21 21:38 112 16 90 21 03/03/21 21:00 118 28 138/91 94 Mechanical Ventilator 21.00 03/03/21 20:00 37.1 03/03/21 20:00 107 21 121/74 99 Mechanical Ventilator 21.00 03/03/21 20:00 93 Mechanical Ventilator 21 03/03/21 19:30 37.5 03/03/21 19:00 108 16 132/86 92 Mechanical Ventilator 21.00 03/03/21 19:00 108 03/03/21 18:45 37.5 03/03/21 18:18 105 17 95 21 03/03/21 18:13 38.0 03/03/21 18:00 108 21 136/89 95 Mechanical Ventilator 21.00 03/03/21 17:00 105 17 128/83 97 Mechanical Ventilator 21.00 03/03/21 16:00 38.5 107 14 141/89 100 Mechanical Ventilator 21.00 03/03/21 15:48 100 Mechanical Ventilator 21 03/03/21 15:29 97 107/68 03/03/21 15:14 97 19 98 21 03/03/21 15:00 38.4 99 13 105/69 98 Mechanical Ventilator 21.00 03/03/21 14:06 38.4 03/03/21 14:00 38.4 96 15 97/66 98 Mechanical Ventilator 21.00 03/03/21 13:18 38.2 03/03/21 13:00 38.2 111 21 116/74 99 Mechanical Ventilator 21.00 03/03/21 12:23 121 03/03/21 12:15 100 Mechanical Ventilator 21 03/03/21 12:09 116 129/83 03/03/21 12:07 38.1 117 16 129/83 99 Mechanical Ventilator 21.00 03/03/21 11:00 38.1 117 24 122/81 94 Mechanical Ventilator 21.00 03/03/21 10:44 120 21 99 21 03/03/21 10:00 38.1 120 22 125/79 99 Mechanical Ventilator 21.00 I & O 03/04/21 07:00 Intake Total 1623 ml Output Total 995 ml Balance 628 ml Height & Weight Height: '" Weight: lbs. oz. kg; 22.66 BMI Method: General Appearance: No Apparent Distress, Chronically ill HEENT: PERRL/EOMI Neck: Full Range of Motion Respiratory: Chest Non Tender, Lungs Clear, Normal Breath Sounds Cardiovascular: No Murmur, Tachycardia Capillary Refill: Less Than 3 Seconds Gastrointestinal: normal bowel sounds, non tender, soft Extremity: Pedal Edema (mild nonpitting), Other (Left BKA dressed with bandage) Neurologic/Psychiatric: Other (intubated and sedated) Skin: Normal Color, Warm/Dry Lymphatic: No Adenopathy Results Lab Laboratory Tests 03/02/21 12:10 03/03/21 04:45 03/04/21 04:15 Assessment/Plan Assessment/Plan See free text Critical Care: Ventilator Management JAMARI OWENS MD Mar 04, 2021 09:25
[2021-03-04 11:23] VITALS: BP 138/88
--- NOTE | 2021-03-04 11:34 | Diagnostic Imaging Report ---
PROCEDURE: CT head without contrast. TECHNIQUE: Multiple contiguous axial images were obtained through the brain without the use of intravenous contrast. Auto Exposure Controls were utilized during the CT exam to meet ALARA standards for radiation dose reduction. INDICATION: Unequal pupils. Comparison made with prior examination from 02/28/2021. FINDINGS: The ventricles and sulci are within normal limits. There is no hydrocephalus or cerebral edema. There is no midline shift or mass effect. There is no intracranial mass, hemorrhage, or extra-axial fluid collection. The visualized paranasal sinuses and mastoid air cells are clear. There are no regional areas of decreased attenuation appreciated to suggest an acute CVA. IMPRESSION: No acute intracranial abnormality. Dictated by: Dictated on workstation # [id number]
[2021-03-04] MEDS: NOREPINEPHRINE 8 MG/250 ML 250 ML IV SCH ×2 (13:10→20:16)
[2021-03-04 15:32] VITALS: BP 112/75
[2021-03-04 19:12] VITALS: BP 99/61
[2021-03-04] MEDS: ENOXAPARIN 40 MG/0.4 ML (LOVENOX) SYR SC SCH (21:23)
[2021-03-04 22:48] VITALS: BP 125/75
[2021-03-05] MEDS: fentaNYL DRIP PRE-MIX 250 ML IV SCH ×3 (00:24→13:03)
[2021-03-05] MEDS: VASOPRESSIN INJECTION 20 UNIT in NS (IVPB) 100 ML IV SCH ×2 (00:25→08:50)
[2021-03-05 02:09] VITALS: BP 111/77
[2021-03-05] MEDS: MEROPENEM 500 MG/NS 100 ML IVPB IV SCH ×6 (03:31→15:09)
[2021-03-05] MEDS: HYDROCORTISONE 100 MG/2 ML (Solu-CORTEF) VIAL IV SCH ×3 (03:31→15:09)
[2021-03-05] MEDS: DexMEDEtomidine 250 ML DRIP 250 ML IV SCH ×2 (03:43→11:44)
[2021-03-05 03:48] LABS: BASOPHILS % (AUTO) 0 % (0-10); EOSINOPHILS % (AUTO) 0 % (0-10); HEMATOCRIT 30 % (40-54); HEMOGLOBIN 9.1 g/dL (13.3-17.7); LYMPHOCYTES # (AUTO) 1.3 10^3/uL (1.0-4.0); LYMPHOCYTES % (AUTO) 13 % (12-44); MEAN CORPUSCULAR HEMOGLOBIN 27 pg (25-34); MEAN CORPUSCULAR HGB CONC 31 g/dL (32-36); MEAN CORPUSCULAR VOLUME 87 fL (80-99); MONOCYTES # (AUTO) 0.9 10^3/uL (0.0-1.0); MONOCYTES % (AUTO) 9 % (0-12); NEUTROPHILS # (AUTO) 7.8 10^3/uL (1.8-7.8); NEUTROPHILS % (AUTO) 77 % (42-75); PLATELET COUNT 96 10^3/uL (130-400); WHITE BLOOD COUNT 10.1 10^3/uL (4.3-11.0)
[2021-03-05 04:01] LABS: POTASSIUM 3.9 MMOL/L (3.6-5.0)
[2021-03-05 04:02] LABS: CALCIUM 6.3 MG/DL (8.5-10.1)
[2021-03-05 04:04] LABS: TOTAL PROTEIN 4.6 GM/DL (6.4-8.2)
[2021-03-05] MEDS: ACETAMINOPHEN 325 MG TABLET PO PRN (04:04)
[2021-03-05 04:05] LABS: BILIRUBIN,TOTAL 0.5 MG/DL (0.1-1.0)
[2021-03-05 04:07] LABS: CREATININE SERUM 0.61 MG/DL (0.60-1.30); PHOSPHORUS 1.7 MG/DL (2.3-4.7)
[2021-03-05 04:10] LABS: MAGNESIUM 1.6 MG/DL (1.6-2.4)
[2021-03-05] MEDS: inSUlin ASPART (NovoLOG) 1 UNIT/0.01 ML (CHARGE PER UNIT) SC SCH ×4 (06:22→17:50)
[2021-03-05] MEDS: PROPOFOL DRIP (ICU) 100 ML IV SCH ×2 (06:30→17:51)
[2021-03-05 07:30] VITALS: BP 103/69
[2021-03-05] MEDS: PANTOPRAZOLE 40 MG (PROTONIX) VIAL IV SCH (08:00)
--- NOTE | 2021-03-05 09:45 | Tele-ICU Progress Note ---
Subjective Date Seen by a Provider: Mar 05, 2021 Time Seen by a Provider: 08:00 Subjective/Events-last exam This virtual visit was conducted using real time audio/video. Thank you for asking us to see this patient for respiratory insufficiency due to sepsis. DNR Recent events: Off pressors, Propofol held. PE: Sedated on vent. VSS. O2 100% sat on 30%/+5. HEENT: No obvious masses, adenopathy or JVD. Chest: clear to auscultation. CV: RRR S1 S2 No murmur or added sounds. Abd: Non-tender. Bowel sounds Y. : Unremarkable. Graf Y. 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 Extremities: 1+ edema. L BKA. Capillary refill < 3 seconds. Skin: unremarkable. Results: Elevated WCC 13.9, BG 259, BUN 27. Decreased plts 96K. HIT pending. . B.45/26/100. Available chart/ vitals / labs / images reviewed. Video assessment done using teleICU camera, rest of exam as per RN. A/P: Respiratory insufficiency: Continue present management with vent, wean sedatives as kayli., cont BDs. Monitor for increasing oxygenation needs. Critical Care: critically ill patient. Cont. SSI, Merrem, Vanco., PPI, S. cortef. Lovenox held. Possible comfort care status today/tomorrow when family arrive in town. Discussed with RN Alyssa. Asked RN to reach out to eICU if any questions or concerns later. Time spent with patient/coordination of care with other health professionals (mins): 15 Sepsis Event Evaluation Height, Weight, BMI Height: '" Weight: lbs. oz. kg; 22.66 BMI Method: Exam Exam Patient acknowledged, consented, and participated in this virtual visit which was conducted using real time audio/video Vital Signs Date Time Temp Pulse Resp B/P (MAP) Pulse Ox O2 Delivery O2 Flow Rate FiO2 03/05/21 09:00 106 31 105/68 97 Mechanical Ventilator 21.00 03/05/21 08:50 38.0 03/05/21 08:42 Mechanical Ventilator 21 03/05/21 08:00 110 10 93/67 97 Mechanical Ventilator 21.00 03/05/21 07:59 38.3 03/05/21 07:30 112 23 96 21 03/05/21 07:19 Mechanical Ventilator 21.00 03/05/21 07:00 38.1 03/05/21 07:00 120 26 128/81 96 Mechanical Ventilator 30.00 03/05/21 07:00 118 03/05/21 06:00 113 15 118/71 96 Mechanical Ventilator 30.00 03/05/21 06:00 39.9 03/05/21 05:00 39.7 03/05/21 05:00 124 13 111/77 95 Mechanical Ventilator 30.00 03/05/21 04:34 39.7 03/05/21 04:04 39.6 03/05/21 04:00 39.6 03/05/21 04:00 96 Mechanical Ventilator 21 03/05/21 04:00 123 13 128/82 95 Mechanical Ventilator 30.00 03/05/21 03:43 124 105/72 03/05/21 03:00 123 19 106/70 96 Mechanical Ventilator 30.00 03/05/21 02:09 124 21 96 21 03/05/21 02:00 121 21 111/77 97 Mechanical Ventilator 30.00 03/05/21 01:00 127 03/05/21 01:00 128 21 121/83 98 Mechanical Ventilator 30.00 03/05/21 00:00 123 26 123/86 98 Mechanical Ventilator 30.00 03/05/21 00:00 37.8 03/04/21 23:59 96 Mechanical Ventilator 21 03/04/21 23:00 125 28 126/80 97 Mechanical Ventilator 30.00 03/04/21 22:48 126 24 99 21 03/04/21 22:00 122 29 114/70 96 Mechanical Ventilator 30.00 03/04/21 21:00 133 17 140/85 96 Mechanical Ventilator 30.00 03/04/21 20:16 120 74/50 03/04/21 20:00 96 Mechanical Ventilator 21 03/04/21 20:00 110 25 104/71 98 Mechanical Ventilator 30.00 03/04/21 19:53 38.1 03/04/21 19:12 102 24 91 21 03/04/21 19:00 111 24 99/61 93 Mechanical Ventilator 30.00 03/04/21 19:00 110 03/04/21 18:13 101 91/62 03/04/21 18:00 130 19 132/82 90 Mechanical Ventilator 30.00 03/04/21 17:00 100 33 103/71 96 Mechanical Ventilator 30.00 03/04/21 16:42 37.8 03/04/21 16:00 101 34 91/62 94 Mechanical Ventilator 30.00 03/04/21 15:32 111 23 100 30 03/04/21 15:03 98 Mechanical Ventilator 30 03/04/21 15:00 112 25 117/76 99 Mechanical Ventilator 30.00 03/04/21 14:00 112 25 83/61 89 Mechanical Ventilator 30.00 03/04/21 13:09 37.3 03/04/21 13:08 37.3 03/04/21 13:00 114 26 95/71 98 Mechanical Ventilator 30.00 03/04/21 12:43 38.1 03/04/21 12:39 38.3 03/04/21 12:31 130 03/04/21 12:00 130 35 140/101 99 Mechanical Ventilator 30.00 03/04/21 11:59 98 Mechanical Ventilator 30 03/04/21 11:45 38.1 03/04/21 11:23 130 23 91 30 03/04/21 10:30 129 33 138/88 100 Mechanical Ventilator 30.00 03/04/21 10:00 133 32 138/94 100 Mechanical Ventilator 30.00 03/04/21 09:49 38.1 I & O 03/05/21 07:00 Intake Total 2386 ml Output Total 2150 ml Balance 236 ml Height & Weight Height: '" Weight: lbs. oz. kg; 22.66 BMI Method: General Appearance: Chronically ill HEENT: PERRL/EOMI Neck: Full Range of Motion Respiratory: Decreased Breath Sounds (bilaterally at bases), Respiratory Distress Cardiovascular: No Murmur, Tachycardia Capillary Refill: Less Than 3 Seconds Gastrointestinal: normal bowel sounds, non tender, soft Extremity: No Pedal Edema, Other (L BKA with necrotic tissue on medial aspect of incision) Neurologic/Psychiatric: Other (Intubated and sedated) Skin: Cool, Mottled (Right leg) Lymphatic: No Adenopathy Results Lab Laboratory Tests 03/04/21 04:15 03/05/21 03:40 Assessment/Plan Assessment/Plan See free text. Critical Care: Ventilator Management JAMARI OWENS MD Mar 05, 2021 09:45
[2021-03-05 10:00] VITALS: BP 103/69
[2021-03-05 14:50] VITALS: BP 92/52
[2021-03-05] MEDS ORDERED: ARTIFICAL TEARS 0.4 ML UNIT DOSE (REFRESH PLUS) OU PRN (17:15)
[2021-03-05] MEDS ORDERED: GLYCOPYRROLATE 0.2 MG/ML (ROBINUL) 2 ML VIAL IV PRN (17:15)
[2021-03-05] MEDS ORDERED: SALIVA STIMULANT MOUTH SPRAY (BIOTENE) 1.5 OZ MM PRN (17:15)
[2021-03-05] MEDS ORDERED: ACETAMINOPHEN 650 MG SUPP (TYLENOL) PR PRN (17:15)
[2021-03-05] MEDS ORDERED: LORazepam INJ 2 MG/ML (ATIVAN) VIAL IVP PRN (17:15)
[2021-03-05] MEDS ORDERED: PROMETHAZINE INJ 25 MG/ML (PHENERGAN) AMP IVP PRN (17:15)
[2021-03-05] MEDS ORDERED: BISACODYL 10 MG SUPP (DULCOLAX) PR PRN (17:15)
[2021-03-05] MEDS ORDERED: ONDANSETRON 4 MG/2 ML (SDV) Z0FRAN IVP PRN (17:15)
[2021-03-05] MEDS ORDERED: RT-ALBUTEROL/IPRATROPIUM 3 ML (DUONEB) VIAL INH PRN (17:15)
[2021-03-05] MEDS ORDERED: LORazepam INJ 2 MG/ML (ATIVAN) VIAL ONE (17:17)
[2021-03-05] MEDS ORDERED: morphine INJ 4 MG/ML 1 ML (VIAL/SYRINGE) ONE (17:17)
[2021-03-05] MEDS: morphine INJ 4 MG/ML 1 ML (VIAL/SYRINGE) IV PRN ×2 (17:19→22:01)
--- NOTE | 2021-03-05 22:03 | Progress Note - Hospitalist ---
Subjective HPI/CC On Admission Date Seen by Provider: Mar 05, 2021 Time Seen by Provider: 09:50 Chief complaint: Acute respiratory failure due to severe sepsis/septic shock History of present illness: This is a 61-year-old white male known to me from recent discharge on Saturday from inpatient rehab following recovery from left BKA who was predicted to have a poor prognosis who presented to the ER with hypothermia and bradycardia. Patient was assessed to be in acute respiratory failure and septic shock from source unknown but it is presumed from left buttock carbuncle we had placed him on Augmentin by Dr. WALKER prior to discharge. His lactic acid was 10. Central line was placed and patient was intubated. OG tube and Graf catheter in place. Aggressive IV fluid initiated and lactic acid has improved. Very poor prognosis predicted. Subjective/Events-last exam He remains intubated and sedated. Objective Exam Vital Signs Vital Signs Date Time Temp Pulse Resp B/P (MAP) Pulse Ox O2 Delivery O2 Flow Rate FiO2 03/05/21 17:00 118 22 98/75 95 Mechanical Ventilator 21.00 03/05/21 15:58 37.8 03/05/21 15:45 21 Capillary Refill : Less Than 3 Seconds General Appearance: No Apparent Distress, Chronically ill Respiratory: Lungs Clear, No Respiratory Distress, Other (intubated) Cardiovascular: No Murmur, Tachycardia Gastrointestinal: Normal Bowel Sounds, Soft Extremity: Pedal Edema, Other (left BKA incision clean/dry/intact) Neurologic/Psychiatric: Other (sedated) Skin: Cool, Mottled Results/Procedures Lab Laboratory Tests 03/05/21 03:40 Patient resulted labs reviewed. Imaging: Reviewed Imaging Films, Reviewed Imaging Report Assessment/Plan Assessment and Plan Assess & Plan/Chief Complaint Septic shock Acute respiratory failure with hypoxia Endotracheally intubated SINGH PNA UTI Lactic acidosis Anemia T2DM History of left BKA History of stroke Poor prognosis Goals of care discussion Comfort measures only status Family electing to transition to comfort measures only today Comfort care order set in place Critical Care Ventilator Management Diagnosis/Problems Diagnosis/Problems (1) Septic shock Status: Acute (2) Poor prognosis Status: Acute (3) Respiratory failure Status: Acute Qualifiers: Chronicity: acute Respiratory failure complication: hypercapnia Qualified Codes: J96.02 - Acute respiratory failure with hypercapnia (4) Endotracheally intubated Status: Acute (5) T2DM (type 2 diabetes mellitus) Status: Acute (6) History of left below knee amputation Status: Chronic (7) History of stroke Status: Chronic DANY VILLA MD Mar 05, 2021 22:03
--- NOTE | 2021-03-06 18:01 | Discharge Summary ---
Discharge Summary Hospital Course Problems/Dx: (1) Septic shock Status: Acute (2) Poor prognosis Status: Acute (3) Respiratory failure Status: Acute Qualifiers: Qualified Codes: J96.02 - Acute respiratory failure with hypercapnia (4) Endotracheally intubated Status: Acute (5) T2DM (type 2 diabetes mellitus) Status: Acute (6) History of left below knee amputation Status: Chronic (7) History of stroke Status: Chronic Hospital Course Date of Admission: Feb 25, 2021 at 21:49 Admission Diagnosis : Septic shock Family Physician/Provider: KaciLocal Physician Date of Discharge: 03/05/21 Discharge Diagnosis: Septic shock Hospital Course: Andrew Forbes was a 61 year old male with PMH T2DM with recent BKA, history of stroke with right sided deficits, who was admitted with septic shock. He required endotracheal intubation and mechanical ventilation. He was treated for pneumonia. He failed to improve. He continued to require pressor support. He was weaned from sedation and remained unresponsive. His family made the decision to transition to comfort measures. He was compassionately extubated and subsequently on 03/05/2021 at 2310. Labs and Pending Lab Test: Laboratory Tests 03/05/21 01:00: Glucometer 213H 03/05/21 03:40: White Blood Count 10.1, Red Blood Count 3.43L, Hemoglobin 9.1L, Hematocrit 30L, Mean Corpuscular Volume 87, Mean Corpuscular Hemoglobin 27, Mean Corpuscular Hemoglobin Concent 31L, Red Cell Distribution Width 16.2H, Platelet Count 96L, Mean Platelet Volume 12.0, Immature Granulocyte % (Auto) 1, Neutrophils (%) (Auto) 77H, Lymphocytes (%) (Auto) 13, Monocytes (%) (Auto) 9, Eosinophils (%) (Auto) 0, Basophils (%) (Auto) 0, Neutrophils # (Auto) 7.8, Lymphocytes # (Auto) 1.3, Monocytes # (Auto) 0.9, Eosinophils # (Auto) 0.0, Basophils # (Auto) 0.0, Immature Granulocyte # (Auto) 0.1, Sodium Level 145, Potassium Level 3.9, Chloride Level 114H, Carbon Dioxide Level 22, Anion Gap 9, Blood Urea Nitrogen 27H, Creatinine 0.61, Estimat Glomerular Filtration Rate 110, BUN/Creatinine Ratio 44, Glucose Level 259H, Calcium Level 6.3L, Corrected Calcium 7.9L, Phosphorus Level 1.7L, Magnesium Level 1.6, Total Bilirubin 0.5, Aspartate Amino Transf (AST/SGOT) 43H, Alanine Aminotransferase (ALT/SGPT) 11, Alkaline Phosphatase 52, Total Protein 4.6L, Albumin 2.0L 03/05/21 06:21: Glucometer 222H Microbiology 02/27/21 Urine Culture - Final, Complete YEAST 02/26/21 MRSA Screen - Final, Complete MRSA not isolated 02/25/21 Blood Culture - Final, Complete No growth Home Meds Active Proctozone-Hc (Hydrocortisone) 30 Gm Cream.appl 0 Gm TOP BID Reported Bethanechol Chloride 25 Mg Tablet 25 Mg PO ACHS Flomax (Tamsulosin HCl) 0.4 Mg Cap 0.4 Mg PO BID Ondansetron Odt (Ondansetron) 4 Mg Tab.rapdis 4 Mg PO Q6H PRN Metformin HCl 500 Mg Tablet 500 Mg PO 0700 Hydrocodone-Acetamin 7.5-325 (Hydrocodone/Acetaminophen) 1 Each Tablet 1 Each PO Q4H PRN Gabapentin 600 Mg Tablet 600 Mg PO TID Clopidogrel (Clopidogrel Bisulfate) 75 Mg Tablet 75 Mg PO DAILY Atorvastatin Calcium 40 Mg Tablet 40 Mg PO HS Augmentin 875-125 Tablet (Amoxicillin/Potassium Clav) 1 Each Tablet 1 Each PO BID FILLED 02-22-2021 #13/7 DAY SUPPLY Imodium A-D (Loperamide HCl) 1 Mg/7.5 Ml Liquid 1 Mg PO DAILY PRN Ibuprofen 200 Mg Tablet 800 Mg PO Q6H PRN TAKES 4 (200MG) TABLETS Aspirin 81 Mg Tab.chew 81 Mg PO DAILY Assessment/Pt Instructions Patient Discharge Physical Examination Vital Signs Vital Signs Date Time Temp Pulse Resp B/P (MAP) Pulse Ox O2 Delivery O2 Flow Rate FiO2 03/05/21 17:00 118 22 98/75 95 Mechanical Ventilator 21.00 03/05/21 15:58 37.8 03/05/21 15:45 21 Allergies: Coded Allergies: No Known Drug Allergies (Unverified , 02/03/21) Discharge Summary Date of Admission Feb 25, 2021 at 21:49 Date of Discharge Discharge Date: Mar 05, 2021 Discharge Time: 23:10 Admission Diagnosis Septic shock Comfort Measures/ End of Life Care: Comfort Measures Plan: initiate discussion, clarifying prognosis, identified end-of-life goals, developed treatment plan Cardiopulmonary Arrest: Circulatory Arrest Date of : Mar 05, 2021 Time of : 23:10 Discharge Diagnosis Septic shock (1) Septic shock Status: Acute (2) Poor prognosis Status: Acute (3) Respiratory failure Status: Acute Qualifiers: Qualified Codes: J96.02 - Acute respiratory failure with hypercapnia (4) Endotracheally intubated Status: Acute (5) T2DM (type 2 diabetes mellitus) Status: Acute (6) History of left below knee amputation Status: Chronic (7) History of stroke Status: Chronic DANY VILLA MD Mar 05, 2021 23:36
== END 2021-03-05 23:10 | disposition expired | DRG 870 ==
LOC: EDUNIT# 20:28 → ER 20:29 → ICU 21:49 → 4TH 03-05 20:11
PROVIDERS: ADMIT Internal Medicine; ATTEND Internal Medicine
PROC: 5A1955Z Respiratory Ventilation, Greater than 96 Consecutive Hours (ICD-10-PCS; principal; 2021-02-25)
PROC: 0BH17EZ Insertion of Endotracheal Airway into Trachea, Via Natural or Artificial Opening (ICD-10-PCS; 2021-02-25)
DX: A41.9 Sepsis, unspecified organism (principal); R65.21 Severe sepsis with septic shock; J96.01 Acute respiratory failure with hypoxia; J18.9 Pneumonia, unspecified organism; N17.9 Acute kidney failure, unspecified; N39.0 Urinary tract infection, site not specified; E87.2 Acidosis; I69.351 Hemiplegia and hemiparesis following cerebral infarction affecting right dominant side; Z66 Do not resuscitate; Z51.5 Encounter for palliative care; Z20.822 Contact with and (suspected) exposure to COVID-19; E86.0 Dehydration; R00.1 Bradycardia, unspecified; L02.33 Carbuncle of buttock; T68.XXXA Hypothermia, initial encounter; I48.91 Unspecified atrial fibrillation; I44.7 Left bundle-branch block, unspecified; D64.9 Anemia, unspecified; D69.6 Thrombocytopenia, unspecified; E11.51 Type 2 diabetes mellitus with diabetic peripheral angiopathy without gangrene; N40.1 Benign prostatic hyperplasia with lower urinary tract symptoms; R33.8 Other retention of urine; E78.5 Hyperlipidemia, unspecified; F17.210 Nicotine dependence, cigarettes, uncomplicated; Z79.84 Long term (current) use of oral hypoglycemic drugs; Z89.512 Acquired absence of left leg below knee; Z79.82 Long term (current) use of aspirin
CPT/HCPCS: 31500; 36415; 36600; 70450; 71045; 73701; 74018; 74177; 80048; 80053; 80202; 80306; 81000; 82805; 82947; 83605; 83735; 84100; 84145; 85007; 85025; 85027; 85379; 85384; 85610; 85730; 86022; 86141; 87040; 87081; 87088; 87636; 93005; 94002; 94003; 94799; 96361; 96365; 96366; 96367; 96375; 99291